=== PATIENT | female | born 1960 | race Caucasian/White ===

== ENCOUNTER 2023-12-06 23:35 | Emergency (ER) | payer BC, SELFPAY ==
--- NOTE | 2023-12-06 01:04 | DI.CT_ITS ---
Exam(s) CT CERVICAL SPINE WO EXAM: CT CERVICAL SPINE WO CLINICAL HISTORY: severe neck pain, metastatic ovarian cancer. TECHNIQUE: Imaging Protocol: Axial computed tomography images with coronal and sagittal reformatted images were created and reviewed COMPARISON: No exams were available for comparison FINDINGS: CERVICAL SPINE: There is an anterior fusion plate at C5-C7 with affective anterior fusion at these levels. The right C7 screw appears backed out 3 mm. There is no evidence of acute fracture. No significant prevertebral soft tissue swelling. No significant listhesis. There is fusion of the right facet joints at C 5-6. No other facet fusions. No facet malalignment. Some multilevel moderate facet arthropathy is noted. There is mild degenerative anterolisthesis of C 2 upon C3, approximately 3 mm. Also mild anterolisthesis of C7 upon T1, approximately 2 mm. No significant osseous lesions evident. IMPRESSION: No evidence of acute cervical spine fracture, malalignment, nor acute compromise of the cervical spin al canal. Hardware findings as above. RADIATION DOSE DELIVERED: Total DLP DATA REPOSITORY: All CT scans at this facility are submitted to the National Radiology Data Registry (NRDR) Dose Index Registry (DIR) with the [employer] (A[employer]). RADIATION OPTIMIZATION: All CT scans at this facility use at least one of these dose optimization te chniques: automated exposure control; mA and/or kV adjustment per patient size (includes targeted exa ms where dose is matched to clinical indication); or iterative reconstruction.
[2023-12-06 23:37] VITALS: BP 178/110; PULSE 86; RESP 26; TEMP 36.6; O2SAT 98
--- NOTE | 2023-12-07 | ED.GENADUL_ITS ---
Discharge Plan Disposition Patient Disposition: Home Condition: Improving Discharge Details Clinical Impression: Chronic neck pain with normal neurological examination, Muscle spasm, Ovarian cancer Primary Care Provider: Unknown,Unknown ED Provider: Graciela Telles Home Meds and New Rx's Prescriptions: New prednisone 20 mg tablet See Taper PO DAILY Qty: 23 0RF Taper: Prednisone 20mg taper 80 mg Daily for 4 Days and 0 Hour 60 mg Daily for 1 Day and 0 Hour 40 mg Daily for 1 Day and 0 Hour 20 mg Daily for 1 Day and 0 Hour 10 mg Daily for 2 Days and 0 Hour Continued hydrochlorothiazide 25 mg tablet 25 mg PO DAILY PRN lorazepam [Ativan] 1 mg tablet 1 mg PO BID-TID PRN Discontinued methylprednisolone [Methylpred DP] 4 mg tablets,dose pack See Rx Instructions PO PER PKG DIR Qty: 21 0RF Rx Instructions: PO PER PKG DIRECTIONS for 6 days Agueda Caprio Discharge Instructions Instructions: Neck pain, Muscle Spasm ED Additional Instructions: Tylenol over the counter for pain; follow the directions on the bottle. Heat and gentle stretching. Try your cervical collar when it arrives. Prednisone once a day as follows: Day#1: 1st dose in the emergency department. Day #2-5: Take 80mg (4 tablets). Day #6: Take 60mg (3 tablets). Day #7: take 40mg (2 tablets). Day #8 take 20mg (1 tablet) once a day. Day #9-10 Take 10mg (1/2 tablet) Call your primary care doctor today to schedule an appointment within 48 hours to followup on your visit here. Call your orthopedist today to schedule an appointment to follow up on your visit. Return to the emergency department for new or worening symptoms including fever, numbness, weakness, or if you have any other concerns. HPI General Mode of arrival: ambulatory . Date/Time Provider Initiated Documentation: 12/06/23 23:41 . Limitations to Documentation: no limitations . Information obtained by: patient and family . HPI Narrative: 63yo F with S4 ovarian cancer on chemotherapy q3 weeks last two weeks ago presenting with severe left sided neck pain. Started several days ago and has been worsening since then. Is severe, sharp, burning, radiates down the side of her neck into her shoulder, and comes in waves. Has has similar pain in the past, MRI a month and a half ago with no bony mets, no cord compression. In the past symptoms have responded to medrol dose pack; she was prescribed this 3 days ago but it has not helped. Tried tylenol, ativan, and lidocaine patches at home without improvement. No numbness, tingling, or weakness anywhere. No bowel or bladder changes. Associated nasuea and vomiting when pain is most severe. No recent trauma or injury. She is otherwise in her usual state of health with no fevers, chills, rash, headache, or other concerns. Related Data Home Medications ?Medication ?Instructions ?Recorded ?Confirmed hydrochlorothiazide 25 mg tablet 25 mg PO DAILY PRN 12/06/23 12/06/23 lorazepam 1 mg tablet (Ativan) 1 mg PO BID-TID PRN 12/06/23 12/06/23 prednisone 20 mg tablet See Taper PO DAILY #23 tabs 12/07/23 Previous Rx's ?Medication ?Instructions ?Recorded prednisone 20 mg tablet See Taper PO DAILY #23 tabs 12/07/23 Allergies Allergy/AdvReac Type Severity Reaction Status Date / Time No Known Allergies Allergy Unverified 12/06/23 23:40 General Stated Complaint: Orthopedic LONI: 3 Review of Systems Narrative: see HPI Exam Narrative Exam Narrative: General: Alert, intermittently moaning and clutching left neck Head: Normocephalic, atraumatic Neck: Trachea midline, ?Neck supple. No midline cervical tenderness. Palpable left cervical paraspinal muscle spasm, exquisitely TTP. ENT: ?MMM.? Cardiac: ?RRR, no murmurs appreciated Resp: No respiratory distress. CTAB. Abd: ?Soft, non-distended, nontender : ?No suprapubic tenderness. Extremities: ?No deformities.? No peripheral edema. Neuro: ? GCS 15.? PERRL.? Fluent speech, no dysarthria. Motor- 5/5 strength symmetric bilateral upper and lower extremities Sensation- ?Intact to light touch and symmetric multiple dermatomes including upper and lower extremities Reflexes- 2/4 achilles & patellar, no clonus Gait/station: ?Normal stance.? No truncal ataxia. Steady gait with equal normal steps Course Vital Signs Vital signs: Vital Signs Temperature 36.6 C 12/06/23 23:37 Pulse 86 12/06/23 23:37 Respiratory Rate 26 H 12/06/23 23:37 Blood Pressure 178/110 H 12/06/23 23:37 Pulse Oximetry 98 12/06/23 23:37 Temperature 36.6 C 12/06/23 23:37 Temperature Source Temporal Artery Scan 12/06/23 23:37 Pulse 86 12/06/23 23:37 Respiratory Rate 26 H 12/06/23 23:37 Respiratory Effort Normal, Non-Labored 12/06/23 23:40 Blood Pressure 178/110 H 12/06/23 23:37 Blood Pressure Position Sitting 12/06/23 23:37 Pulse Oximetry 98 12/06/23 23:37 Pain Level 10 12/06/23 23:46 Medical Decision Making 63yo F with S4 ovarian cancer on chemotherapy q3 weeks last two weeks ago presenting with severe left sided neck pain for the past several days, worsening despite medrol dose pack for past three days. Similar pain in the past, MRI a month and a half ago with no bony mets, no cord compression (pt with paper report). No neurologic symptoms. Systemically well. Hypertensive on arrival, vital signs otherwise reassuring. Normal neurologic exam. Not concerning for cord compression, spinal epidural hematuma, epidural abscess. No indication for repeat MRI. Does have palpable left cervical paraspinal spasm and tenderness. Will treat with tylenol, cyclobenzaprine, lidoacine patch and get CBC & CMP. If labs acceptable, would add toradol. Given cancer history, will also get CT c- spine. -Labs reviewed as below, CBC with moderate anemia Hg 9.5 and thrombocytopenia at 60 (pts most recent prior draw 1 week ago with plt 36 based on paper records with pt), CMP with mild hyponatremia at 134 and hypokalemia at 3.2 (oral replacement given). Would not advise repeated NSAID use but platelet level acceptable for single low-dose toradol here in the ED. -CT independently reviewed, no displaced fracture or dislocation on my view, radiology read below. R C7 screw backing out slightly at 3mm; unclear significance (patients pain is on the left and higher) On reassessment she appears to be resting comfortably with eyes closed. Upon knocking on the doorframe, clutches her left neck and moans. Reports no improvement in pain with medications given thus far. Left paraspinal muscle less tight though cotton ball machine tender, mild spasm. Will try valium. Per nursing on their assessments patient will consistently appear to be in no distress with eyes closed, however after staff speak she grabs her neck and expresses that she is in severe pain. Observed ambulating to bathroom independently easily and steadily in no distress. On subsequent reassessment s/p 2 doses of 5mg valium muscle spasm has entirely released. Patient continues to report severe pain, pt and report [employer] orphone has worked for her in the past. I reviewed with them that it is not my practice to prescribe opiates for musculoskeletal pain with a chronic component as this tends to make the pain more severe and refectory care home. Description of pain is not particularly neuropathic or radicular in nature, however will try adding gabapentin. As she has had improvement with steroids in the past, will also try high-dose prednisone with taper as opposed to medrol dose pack. On reassessment patient feeling much better. Initially had planned to discuss with [facility] spine regarding screw backing out; pt's reports they had xrays several weeks ago which also showed this and their orthopedist was not concerned. They are requesting discharge home which is reasonable. Discharge on prednisone taper. Discharge instructions and return precautions were reviewed with patient who verbalized understanding. All questions were answered and they are in agreement with the plan. Medical Records Medical records reviewed: Yes I reviewed the patient's medical records. Medical records narrative: MRI c-spine 10/22/23: Spondylitic bulge C4-5 without spinal cord impingement. No MRI evidence of bony metastatic disease. Status post ACDF C5-C6 and C6-C7 Imaging Data Radiologic Study: Imaging: CT Scan Radiologist's impression: IMPRESSION: 1. No acute fracture or dislocation. No suspicious osseous lesion. 2. Post ACDF at C5-C7 with 3 mm backing out of the right C7 to be compared with prior imaging. Lab Data Lab results reviewed: Yes I reviewed the patient's lab results. Labs: Laboratory Tests Range/Units 12/07/23 00:22 WBC (4.4-10.8) 10^3/uL 5.02 RBC (3.93-5.22) 10^6/uL 2.73 L Hgb (11.2-15.7) g/dL 9.5 L Hct (36.0-46.0) % 27.6 L MCV (80-95) fL 101 H MCH (27.0-33.0) pg 34.8 H MCHC (32.0-36.0) % 34.4 RDW (11.7-14.6) % 14.2 Plt Count (130-400) 10^3/uL 60 L MPV (8.0-11.0) fL 10.9 Immature Gran % % 0.8 Neutrophils % % 54.0 Lymphocytes % % 29.3 Monocytes % % 15.5 Eosinophils % % 0.2 Basophils % % 0.2 Nucleated RBC % (0.0-0.3) % 0.0 Absolute Neutrophils (1.2-6.7) 10^3/uL 2.71 Absolute Lymphocytes (1.2-3.4) 10^3/uL 1.47 Absolute Monocytes (0.1-0.8) 10^3/uL 0.78 Absolute Eosinophils (0.0-0.7) 10^3/uL 0.01 Absolute Basophils (0.0-0.2) 10^3/uL 0.01 RBC Morphology Normal Sodium (136-145) mmol/L 134 L Potassium (3.5-5.1) mmol/L 3.2 L Chloride (98-107) mmol/L 94 L Carbon Dioxide (21.0-32.0) mmol/L 31.8 Anion Gap (3-11) mmol/L 8.2 BUN (7-18) mg/dL 12 Creatinine (0.55-1.02) mg/dL 0.9 Est GFR (CKD-EPI 2020) (mL/min/1.73m2) 71.39 Glucose (74-106) mg/dL 120 H Calcium (8.5-10.1) mg/dL 8.9 Total Bilirubin (0.2-1.0) mg/dL 0.27 AST (15-37) U/L 16 ALT (14-59) U/L 26 Alkaline Phosphatase (46-116) U/L 51 Total Protein (6.4-8.2) g/dL 7.1 Albumin (3.4-5.0) g/dL 3.9 Quality:SDOH Health Related Social Needs: No Data to Display PFSH All Active Problems (Updated 12/07/23 @ 04:19 by Graciela Telles MD) Ovarian cancer (Chronic) Muscle spasm (Acute) Chronic neck pain with normal neurological examination (Acute) Social History Smoking/Tobacco Use Status: Never Smoking risk assessment performed?: Yes Alcohol Intake: never Drug use: Never Substance use type: does not use
[2023-12-07] MEDS: Lidocaine 5% Patch 1 PATCH TP (00:23)
[2023-12-07] MEDS: Cyclobenzaprine 10 MG TAB PO (00:23)
[2023-12-07] MEDS: ACETAMINOPHEN 1,000 MG/100 ML BTL 400 MG IVPB (00:23)
[2023-12-07 00:31] LABS: Abs Immature Grans 0.04 10^3/uL (0.0-0.06); Absolute Basophil Count 0.01 10^3/uL (0.0-0.2); Absolute Eosinophil Count 0.01 10^3/uL (0.0-0.7); Absolute Lymphocyte Count 1.47 10^3/uL (1.2-3.4); Absolute Monocyte Count 0.78 10^3/uL (0.1-0.8); Absolute Neutrophil Count 2.71 10^3/uL (1.2-6.7); Basophils % 0.2 %; Eosinophils % 0.2 %; HCT 27.6 % (36.0-46.0); HGB 9.5 g/dL (11.2-15.7); Immature Grans % 0.8 %; Lymphocytes % 29.3 %; MCH 34.8 pg (27.0-33.0); MCHC 34.4 % (32.0-36.0); MCV 101 fL (80-95); MPV 10.9 fL (8.0-11.0); Monocytes % 15.5 %; RBC 2.73 10^6/uL (3.93-5.22); RDW 14.2 % (11.7-14.6); RDW-SD 49.7 fL; WBC 5.02 10^3/uL (4.4-10.8)
[2023-12-07 00:42] LABS: Diff Comment PLT Morph Reviewed; Platelet Count 60 10^3/uL (130-400); RBC Morphology Normal
[2023-12-07 00:44] LABS: ALT 26 U/L (14-59); AST 16 U/L (15-37); Albumin 3.9 g/dL (3.4-5.0); Alkaline Phosphatase 51 U/L (46-116); Anion Gap 8.2 mmol/L (3-11); BUN 12 mg/dL (7-18); Bilirubin, Total 0.27 mg/dL (0.2-1.0); CO2 31.8 mmol/L (21.0-32.0); CREATININE 0.9 mg/dL (0.55-1.02); Calcium 8.9 mg/dL (8.5-10.1); Chloride 94 mmol/L (98-107); Estimated GFR 71.39 (mL/min/1.73m2); Glucose 120 mg/dL (74-106); Potassium 3.2 mmol/L (3.5-5.1); Sodium 134 mmol/L (136-145); Total Protein 7.1 g/dL (6.4-8.2)
--- OUTSIDE RECORDS SUMMARY | 2023-12-07 00:48 | XMS_ITS | Encounter Summary ---
Author Organization [facility] Address [address] [place] [address] Care Team Providers Care Residential Program Manager Name Role Phone Melissa Khan MD Primary Care Provider [phone] Encounter Details Date Type Department Care Team (Late st Contact Info) Description 05/10/2022 Lab Requisition [facility] - [address] [id number] Melissa Khan MD [address] [place] [phone] Other fatigue Social History Tobacco Use Types Packs/Day Years Used Date Smoking Tobacco: Former Cigarettes 0.5 15 1 984 - 1999 Smokeless Tobacco: Never Comments:quit when she was [age], then smoked for one year Alcohol Use Standard Drinks/Week Comments Yes 0 (1 standard drink = 0.6 oz pur e alcohol) Heavy use. 2-4 a night Interpersonal Safety Answer Date Record ed Physically Hurt Never 11/30/2019 Verbally Threaten Not on file 11/30/2019 Sex and Gender Information Value Date Recorded Sex Assigned at Not on file Gender Identity Female 02/10/2020 14:46 EDT Sexual Orientation Not on file documented as of this encounter Functional Status Functional Status Response Date of Assess ment Because of a physical, menta l, or emotional condition, does this person have difficulty doing errands alone such as visiting a doctor's office or shopping? No 08/02/2020 Cognitive Status Response Date of Assessm ent Because of a physical, menta l, or emotional condition, does this person have serious difficulty concentrating, remembering, or making decisions? No 08/02/2020 documented as of this encounter Plan of Treatment Upcoming Encounters Date Type Department Care Team (Late st Contact Info) Description 12/10/2023 11:00 EDT Appointment [facility] Radiology CT Outpatient - [address] [address] 12/11/2023 13:45 EDT Initial consult [facility] Gynec[facility] On[facility] - [address] [id number] Ashlee Garcia MD [address] [facility], [address] [place] [address] documented as of this encounter Procedures Procedure Name Priority Date/Time Associated Diagnosis Comments THYROID CASCADE Routine 05/10/2022 12:42 EST Other fatigue C REACTIVE PROTEIN Routine 05/10/2022 12 :42 EST Other fatigue VITAMIN B12 Routine 05/10/2022 12:42 EST Other fatigue documented in this encounter Results * VITAMIN B12 (05/10/2022 12:42 EST) Vitamin B12 534 211 - 911 pg/mL 05/10/2022 22:52 EST [facility] Blood VENOUS BLOOD / Unknown 05/10/2022 12:42 EST 05/10/2022 20:31 EST Melissa Khan MD CHEMISTRY & BLOOD GA S ORDERABLES [facility] [address] [place] [address] * THYROID CASCADE (05/10/2022 12:42 EST) TSH 0.48 0.47 - 4.68 mIU/L 05/10/2022 21:21 EST [facility] Blood VENOUS BLOOD / Unknown 05/10/2022 12:42 EST 05/10/2022 20:31 EST Narrative [facility] - 05/10/2022 21:21 EST NOTE: The results of this assay can be falsely lowered due to the consumption of Biotin. Melissa Khan MD CHEMISTRY & BLOOD GA S ORDERABLES Performing Organization Address [facility] Co de Phone Number [facility] [address] [place] [address] * C REACTIVE PROTEIN (05/10/2022 12:42 EST) C-Reactive Protein 7.3 <10.0 mg/L 05/10/2022 20:50 EST [facility] Blood VENOUS BLOOD / Unknown 05/10/2022 12:42 EST 05/10/2022 20:31 EST Melissa Khan MD CHEMISTRY & BLOOD GA S ORDERABLES Performing Organization Address [facility] de Phone Number [facility] [address] [place] [address] documented in this encounter Visit Diagnoses Diagnosis Other fatigue documented in this encounter Care Teams Residential Program Manager Relationship Specialty Start Date End Date Melissa Khan MD [address] [place] [phone] PCP - General 08/04/15 documented as of this encounter
--- OUTSIDE RECORDS SUMMARY | 2023-12-07 00:48 | XMS_ITS | Encounter Summary ---
Author Organization [facility] Address [address] [place] [address] Care Team Providers Care Ground Equipment Mechanic Name Role Phone Melissa Khan MD Primary Care Provider [phone] Reason for Referral * (Routine/Next Available) - Receiving Office to Obtain Authorization Specialty Diagnoses / Procedures Referred By Contac t Referred To Contact Procedures CT OUTSIDE IMAGES ABDOMEN PELVIS Imaging, External Referral ID Status Reason Start Date Expiration Date Visits Requested Visits Authorized [id number] Receiving Office to Obtain Authorization 11/22/2023 1 1 Reason for Visit * (Routine/Next Available) - Receiving Office to Obtain Authorization Specialty Diagnoses / Procedures Referred By Contac t Referred To Contact Procedures CT OUTSIDE IMAGES ABDOMEN PELVIS Imaging, External Referral ID Status Reason Start Date Expiration Date Visits Requested Visits Authorized [id number] Receiving Office to Obtain Authorization 11/22/2023 1 1 Encounter Details Date Type Department Care Team (Latest Contact Info) Description 08/13/2023 - 08/13/2023 23:59 EDT Hospital Encounter [facility] Secondary Reads [place] Discharge Disposition: Home or Self Care Social History Tobacco Use Types Packs/Day Years Used Date Smoking Tobacco: Former Cigarettes 0.5 15 1 984 - 1998 Smokeless Tobacco: Never Comments:quit when she was [age], then smoked for one year Alcohol Use Standard Drinks/Week Comments Not Currently 0 (1 standard drink = 0.6 oz pur e alcohol) Interpersonal Safety Answer Date Record ed Physically [...] No 08/02/2020 documented as of this encounter Medications at Time of Discharge Medication Sig Dispensed Refills Start Date End Date Cholecalciferol, Vitamin D3, (D3-2000) 50 mcg (2,000 unit) capsule Take by mouth. clobetasoL (TEMOVATE) 0.05 % external solutionIndications:Pso riatic arthritis (HCC-CMS),Chronic bilateral low back pain, unspecified whether sciatica present Apply thin film to dry scalp once daily (maximum dose: 50 g/week or 50 mL/week); leave in place for 15 minutes, then add water, lather, and rinse thoroughly. 1 Bottle 3 03/23/2020 cyanocobalamin (VITAMIN B-12) 500 mcg tablet Take 500 mcg by mouth daily. diclofenac sodium 1 % gelIndications:Psoriati c arthritis (HCC-CMS),Chronic bilateral low back pain, unspecified whether sciatica present Apply scant amount to muscles/joints. 4g to lower extremities and 2g to upper extremities, up to 4x/day. Max 32g/day. 1 Tube 3 03/23/2020 famotidine (PEPCID) 20 mg tablet Take 1 Tablet by mouth daily. ferrous sulfate (IRON) 325 mg (65 mg iron) tablet Take 325 mg by mouth daily. folic acid (FOLVITE) 1 mg tablet Take 3 Tabs by mouth daily. 270 Tab 1 06/14/2020 ibuprofen (MOTRIN) 200 mg tablet Take 3 Tablets by mouth every 8 hours as needed for Pain. LORazepam (ATIVAN) 1 mg tablet Take 0.5 Tablets by mouth 3 times daily. losartan-hydrochlorothi azide (HYZAAR) 100-25 mg per tablet Take 1 Tablet by mouth daily. magnesium oxide (MAG-OX) 400 mg (241.3 mg magnesium) tablet Take 400 mg by mouth daily. mv,Ca,min-folic acid-vit K1 (ONE-A-DAY WOMEN'S 50 PLUS) 400-20 mcg tablet Take by mouth. womens one a day 50 plus omeprazole (PRILOSEC) 20 mg capsuleIndications:Psor iatic arthritis (HCC-CMS),Generalized osteoarthrosis, involving multiple sites,Trochanteric bursitis of both hips Take 1 Cap by mouth daily. 30 Cap 2 02/11/2020 phytonadione, vit K1, (VITAMIN K) 100 mcg tablet Take 100 mcg by mouth daily. Potassium 99 mg tablet Take by mouth. triamcinolone (KENALOG) 0.1 % ointment APPLY A THIN LAYER TOPICALLY TO AFFECTED AREA TWICE DAILY. MAX OF 50 G PER WEEK. MAX OF 2 WEEKS. 80 g 1 06/28/2017 documented as of this encounter Discharge Disposition Disposition Code Departure Means Destination Home or Self Care documented in this encounter Plan of Treatment Upcoming Encounters Date Type Department Care Team (Late st Contact Info) Description 12/10/2023 11:00 EDT Appointment [facility] Radiology CT Outpatient - [address] [id number] 12/11/2023 13:45 EDT Initial consult [facility] - [address] [phone] Ashlee Garcia MD [address] [place] [address], [address] [place] [phone] documented as of this encounter Procedures Procedure Name Priority Date/Time Associated Diagnosis Comments CT OUTSIDE IMAGES ABDOMEN PELVIS Routine 08/13/2023 13:25 EDT documented in this encounter Results * CT OUTSIDE IMAGES ABDOMEN PELVIS (08/13/2023 13:25 EDT) Narrative 11/22/2023 13:25 EDT This is a non-reportable exam. External Imaging IMG OTHER IMAGING OR DERABLES documented in this encounter Visit Diagnoses Not on filedocumented in this encounter Care Teams Ground Equipment Mechanic Relationship Specialty Start Date End Date Melissa Khan MD [address] [place] [phone] PCP - General 08/04/15 documented as of this encounter
--- OUTSIDE RECORDS SUMMARY | 2023-12-07 00:48 | XMS_ITS | Encounter Summary ---
Author Organization [facility] Address [address] [place] [address] Care Team Providers Care Civil Engineer Name Role Phone Melissa Khan MD Primary Care Provider Reason for Referral * Radiology Services (STAT) - Authorization Not Required Specialty Diagnoses / Procedures Referred By Contac t Referred To Contact Diagnoses Sacral lesion Pathological fracture of pelvis, initial encounter Procedures IR BIOPSY Melissa Khan MD [address] [place] [phone] [facility] Referral ID Status Reason Start Date Expiration Date Visits Requested Visits Authorized [id number] Authorization Not Required 05/22/2023 1 1 Reason for Visit * Radiology Services (STAT) - Authorization Not Required Specialty Diagnoses / Procedures Referred By Contac t Referred To Contact Diagnoses Sacral lesion Pathological fracture of pelvis, initial encounter Procedures IR BIOPSY Melissa Khan MD [address] [place] [phone] [facility] Referral ID Status Reason Start Date Expiration Date Visits Requested Visits Authorized [id number] Authorization Not Required 05/22/2023 1 1 Encounter Details Date Type Department Care Team (Late st Contact Info) Description 05/24/2023 8:36 EST - 05/24/2023 23:59 EST Hospital Encounter [facility] Interventional Radiology Unit [address] [place] [address] Sidney Espinoza MD [address] [place] [address], [address] [place] [address] Pathological fracture of pelvis, initial encounter (Primary Dx); Sacral lesion Discharge Disposition: Home or Self Care Social History Tobacco Use Types Packs/Day Years Used Date Smoking Tobacco: Former Cigarettes 0.5 15 1 984 - 1998 Smokeless Tobacco: Never Tobacco Cessation:Counseling Given: Not Answered Comments:quit when she was 26, then smoked for one year Alcohol Use [...] on file documented as of this encounter Last Filed Vital Signs Vital Sign Reading Time Taken Comments Blood Pressure 131/72 05/24/2023 1230 EST Pulse - - Temperature 36.2 ??C (97.2 ??F) 05/24/2023 1314 EST Respiratory Rate 16 05/24/2023 1215 EST Oxygen Saturation 97% 05/24/2023 1245 EST Inhaled Oxygen Concentration - - Weight 62.6 kg (138 lb) 05/24/2023 0900 EST Height 160 cm (5' 3) 05/24/2023 0900 EST Body Mass Index 24.45 05/24/2023 0900 EST documented in this encounter Functional Status Functional Status Response [...] No 08/02/2020 documented as of this encounter Discharge Instructions * Discharge Instructions* Sebas Latif RN - 05/24/2023 10:43 EST Interventional Radiology Biopsy Discharge Instructions Date of biopsy: 05/24/2023 Provider: Sidney Espinoza MD Biopsy site: Pelvis The results of your procedure will go to the provider who ordered the procedure. It may take 5-7 days for biopsy results to come back. Aftercare After sedation: If you have received sedation or pain medication during your procedure, DO NOT DRIVE or make legal decisions today. Activity: Rest today. Do not lift anything over 10 lbs. You may resume normal activity tomorrow. Diet: You may resume your usual diet. Avoid alcohol for 24 hours. Medications: NO Do not hold any medication Please continue all medication as prescribed. Call your doctor immediately or go to the nearest Emergency Room if you develop any of the following - Fast heart rate Severe back, stomach, chest, or shoulder pain Severe anxiety, dizziness, or sweating Skin color change Heavy bleeding or swelling at the biopsy site If you feel short of breath Bloody urine Decreased urine output Check the dressing or Band-Aid throughout the day. If you notice bleeding, hold pressure for 10 minutes and slowly release the pressure to see if the bleeding has stopped. If the bleeding does not stop, go to your Physician or the nearest Emergency Room. Remove your dressing tomorrow. Gently wash your wound site with soap and water. You may then leave the biopsy site open to air. Do not take a tub bath, swim, or go in a hot tub until the wound site has completely healed. IF YOU HAVE ANY QUESTIONS OR CONCERNS OR IF YOU HAVE DEVELOPED ANY OF THE SYMPTOMS ABOVE, PLEASE CALL THE INTERVENTIONAL RADIOLOGY CLINIC AT , OPTION 2 TO REACH THE NURSE TRIAGE LINE. THERE WILL BE ASSISTANCE AVAILABLE 24 HOURS A DAY. IF YOU CALL AFTER HOURS YOU WILL BE CONNECTED WITHAN ON-CALL PHYSICIAN BY PRESSING 1. documented in this encounter Medications at Time of Discharge [...] diclofenac sodium 1 % gelIndications:Psoriati c arthritis ([facility]),Chronic bilateral low back pain, unspecified whether sciatica [...] omeprazole (PRILOSEC) 20 mg capsuleIndications:Psor iatic arthritis ([facility]),Generalized osteoarthrosis, involving multiple sites,Trochanteric bursitis of both [...] or Self Care documented in this encounter Progress Notes * Deanna Jones, TAVARES - 05/24/2023 0900 EST Agueda Carpio arrived to the Cardiovascular Unit via wheelchair. Patient alert and oriented x3. Transfers to stretcher independently. Patient stretcher in low position with side rails up & call morillo within patient reach. Patient's is at bedside. Patient's discharge plan is home with . Have you had any recent changes to your health, colds, fevers or flu-like symptoms in the past few weeks? YES/NO: No * Sebas Latif RN - 05/24/2023 0900 EST Procedure: pelvic bone lesion Bx Patient received from CVU to at 1055. Patient name and verified using armband and verbally. Consent completed and verified. Patient is alert and oriented x 4, able to follow commands with all extremities, able to make needs known. Patient educated on procedure and sedation side effects explained, patient verbalized understanding. 0/10 complaints of pain. Patient's allergies, medications, and lab results reviewed-IV site checkedfor patency. Patient in supine position on table, safety straps in place. VS assessed. Conscious sedation started. Patient monitored through out procedure. Sterile prep of anterior pelvis/abdomen with duraprep by GMS in the usual sterile fashion in compliance with manufacturers recommendation. Time out done with all staff in room prior to start of procedure (KIMBER, HAZEL, and Dr. Espinoza as supervising provider). CT guidance utilized to access bone leasion. Cytology at the bedside, samples collected, samples confirmed by cytology and sent to the lab. Puncture site dressed with a gauze,Band-Aid and CDI Procedure completed by Dr. Espinoza 25 min of sedation time Medication administration IV Versed 3 mg IV Fentanyl 125 mcg Discharge instructions placed in the patient's chart. Report given to CVU RN. Patient transferred in baseline condition. documented in this encounter H&P Notes * Mark tSoddard PA-C - 05/24/2023 0900 EST Sedation for Procedure History & Physical Date: 05/24/2023 Time: 10:08 Location: IR Planned Procedure: Right pubic ramus biopsy Chief Complaint/Indications for Procedure: Pain History: Right Pubic bone Fracture Previous Complication with Sedation and/or Anesthesia? No Allergies: Allergies Allergen Reactions Erythromycin Nausea Only Other - See Comments Dust mites....congestion Current Medications: (Not in a hospital admission) Past Medical History: Past Medical History: Diagnosis Date Hypertension Osteoarthritis Psoriatic arthritis (HCC-CMS) Psychiatric problem depression/traumatic stress Social History: Past Surgical History: Procedure Laterality Date ABDOMINOPLASTY CERVICAL DISC SURGERY ECTOPIC SURGERY ELBOW SURGERY left INGUINAL HERNIA REPAIR Social History Tobacco Use Smoking status: Former Current packs/day: 0.00 Average packs/day: 0.5 packs/day for 15.0 years (7.5 ttl pk-yrs) Types: Cigarettes Start date: 1983 Quit date: 1998 Years since quittin.0 Smokeless tobacco: Never Tobacco comments: quit when she was 26, then smoked for one year Substance Use Topics Alcohol use: Not Currently Family History: Family History Problem Relation Age of Onset Heart Disease Father Cancer Son 8 rhabdomyosarcoma *Other(comment) Neg Hx AAA Neg Hx ADD Neg Hx ADHD Neg Hx Adrenal Disorder Neg Hx Alcohol Abuse Neg Hx Allergic Rhinitis Neg Hx Allergies Neg Hx Allergy-Severe Neg Hx Alport Syndrome Neg Hx Amblyopia Neg Hx Anemia Neg Hx Anesthesia Problem Neg Hx Anesthesia Problems Neg Hx Angioedema Neg Hx Ankylosing spondylitis Neg Hx Anxiety Disorder Neg Hx Arrhythmia Neg Hx Arthritis Neg Hx Arthritis-Osteo Neg Hx Arthritis-Rheumatoid Neg Hx Asthma Neg Hx Ataxia Neg Hx Atopy Neg Hx Autism Neg Hx Autoimmune Disease Neg Hx Bipolar Disorder Neg Hx Defects Neg Hx Bladder Cancer Neg Hx Bleeding Problem Neg Hx Blindness Neg Hx Brain Cancer Neg Hx BRCA 1/2 Neg Hx Breast Cancer Neg Hx Broken Bones Neg Hx Peggy Disease Neg Hx Cardiac Disease Neg Hx Cataract Neg Hx Celiac Disease Neg Hx Cerebral Palsy Neg Hx Cervical Cancer Neg Hx Childhood Heart Surgery Neg Hx Childhood Resp Disease Neg Hx Chorea Neg Hx Cirrhosis Neg Hx Clotting Disorder Neg Hx Collagen Disease Neg Hx Colon Cancer Neg Hx Colon Polyps Neg Hx Congenital heart defects Neg Hx Constipation Neg Hx Coronary Artery Disease Neg Hx [place] Syndrome Neg Hx Crohn's Disease Neg Hx Current Acute Minor Illness Neg Hx Cystic Fibrosis Neg Hx in Infancy Neg Hx Dementia Neg Hx Depression Neg Hx Dermatomyositis Neg Hx BALWINDER Usage Neg Hx Developmental Disorder Neg Hx Diabetes Neg Hx Diarrhea Neg Hx Dislocations Neg Hx Down's Syndrome Neg Hx Drug Abuse Neg Hx Early Neg Hx Eclampsia Neg Hx Eczema Neg Hx Ehler Danlos Syndrome Neg Hx Elevated Lipids Neg Hx Emphysema Neg Hx Endocrine Cancer Neg Hx Endometrial Cancer Neg Hx Esophageal Cancer Neg Hx Fainting Neg Hx Familial Dysautonomia Neg Hx Fibromyalgia Neg Hx Food Intolerance Neg Hx Genital Ambiguity Neg Hx Genitourinary (Gu) Neg Hx Gestational Diabetes Neg Hx GI Cancer Neg Hx Glaucoma Neg Hx Gout Neg Hx Hearing Loss Neg Hx Heart Attack Neg Hx Heart Attack Under 50 Neg Hx Heart Defect Neg Hx Heart Failure Neg Hx Heart Surgery Neg Hx Heartburn/Reflux Neg Hx Hemochromatosis Neg Hx Hepatitis Neg Hx Hepatitis B Neg Hx Hepatitis C Neg Hx High Blood Pressure Neg Hx High Cholesterol Neg Hx Monroe's Chorea Neg Hx Hypercalcemia Neg Hx Hypermobility Neg Hx Hypertension Neg Hx Hypocalcemia Neg Hx Hypoglycemia Neg Hx Hypotension Neg Hx Immunodeficiency Neg Hx Infertility Neg Hx Inflammatory Bowel Disease Neg Hx Intellectual Disability Neg Hx Intestinal Cancer Neg Hx Irritable Bowel Syndrome Neg Hx Joint Problems Neg Hx Keratoconus Neg Hx Kidney Cancer Neg Hx Kidney Disease Neg Hx Kidney Failure Neg Hx Language Disorder Neg Hx Learning Disabilities Neg Hx Leukemia Neg Hx Li-Fraumeni Syndrome Neg Hx Liver Cancer Neg Hx Liver Disease Neg Hx LTBI Neg Hx Lung Cancer Neg Hx Lung Disease Neg Hx Lyme Disease Neg Hx Lymphoma Neg Hx Macular Degeneration Neg Hx Malig. HTN Neg Hx Malig. Hyperthermia Neg Hx Marfan Syndrome Neg Hx Maternal Metabolic Disorder Neg Hx Melanoma Neg Hx Menstrual Irregularity Neg Hx Mental Illness Neg Hx Migraines Neg Hx Miscarriages / Stillbirths Neg Hx Motor Disability Neg Hx MS Neg Hx Murmurs Neg Hx Muscle Diseases Neg Hx Muscular Dystrophy Neg Hx Neural Tube Defect Neg Hx Neuropathy Neg Hx NF Neg Hx Obesity Neg Hx OCD Neg Hx Osteoporosis Neg Hx Other Inherited Genetic or Chromosomal Disorder Neg Hx Ovarian Cancer Neg Hx Pacemaker Neg Hx Pancreatic Cancer Neg Hx Paranoid Behavior Neg Hx Parathyroid Disorder Neg Hx Parkinsonism Neg Hx Physical Abuse Neg Hx Pituitary Adenoma Neg Hx Polycycstic Kidney Disease Neg Hx Preeclampsia Neg Hx Prematurity Neg Hx Labor Neg Hx Prolactinoma Neg Hx Prostate Cancer Neg Hx Pseudochol. Deficiency Neg Hx Psoriasis Neg Hx Psoriatic arthritis Neg Hx Psychosis Neg Hx Rashes/Skin Problems Neg Hx Rectal Cancer Neg Hx Recurrent Fractures Neg Hx Recurrent Loss or Still Neg Hx Recurrent Respiratory Infection Neg Hx Recurrent Skin Infection Neg Hx Retinal Detachment Neg Hx Retinitis Pigmentosa Neg Hx Rheumatic fever Neg Hx Rheumatologic Disease Neg Hx Sarcoma Neg Hx Schizophrenia Neg Hx Scleroderma Neg Hx Scoliosis Neg Hx Seizures Neg Hx Severe Sprains Neg Hx Sexual Abuse Neg Hx Sexual Development Disorder Neg Hx Short Stature Neg Hx Sickle Cell Anemia Neg Hx Sickle Cell Trait Neg Hx SIDS Neg Hx SLE Neg Hx Spont. Neg Hx Stomach Cancer Neg Hx Strabismus Neg Hx Stroke Neg Hx Substance Abuse Neg Hx Sudden Neg Hx Suicide Neg Hx Suicide Attempt Neg Hx Garry-Sachs Neg Hx Thalassemia Neg Hx Thyroid Cancer/Nodule Neg Hx Thyroid Disease Neg Hx Tuberculosis Neg Hx Ulcerative Colitis Neg Hx Ulcers Neg Hx Urinary Obstructions Neg Hx Urolithiasis Neg Hx Urticaria Neg Hx Uveitis Neg Hx Vaginal Cancer Neg Hx Varicose Veins Neg Hx Vasculitis Neg Hx Vesico Ureteral Reflux Neg Hx Vision Loss Neg Hx Carlos's Disease Neg Hx Review of Systems as pertinent: Physical: Vital Signs: BP 133/84 (BP Cuff Location: Left arm, BP Patient Position: Semi fowlers) Temp 36.3 ??C (97.3 ??F) (Temporal) Resp 18 Ht 160 cm (63) Wt 62.6 kg (138 lb) SpO2 98% BMI 24.45 kg/m?? Heart Examination: Cardiac Regularity: Regular Respiratory Examination: Respiratory Pattern: Regular Breath Sounds Right: Clear Breath Sounds Left: Clear Additional physical exam related to the proposed procedure, patient activity, disease state and treatment as pertinent: Assessment: Previous complications with sedation or anesthesia?: No Airway Concerns: None/NA Anesthesia Classification: ASA 1 Plan: As above Fasting Time: Time of last liquid intake: 0300 (small sips of water) Date of Last Liquid Intake: 05/24/23 Time of last solid intake: 1800 Date of last solid intake: 05/23/23 Patient Appropriate Candidate for Planned Sedation?: Yes Mark Stoddard PA-C 05/24/2023 10:08 documented in this encounter Procedure Notes * Sidney Espinoza MD - 05/24/2023 0900 EST INTERVENTIONAL RADIOLOGY BRIEF PROCEDURE NOTE Radiologist: Olga Procedure(s) Performed: CT guided pelvic bone biopsy Indication/Pre-procedure diagnosis: Lesion Post-procedure diagnosis: Same Condition: Stable Anesthesia: Local with Sedation Approach: Anterior Medications: IV Versed and fentanyl and local lidocaine 1% Contrast: 0 cc Fluoro time: 0 min EBL: None Specimens: 25g FNA and 18g cores Findings: No bleeding A time-out was completed prior to procedure verifying correct patient, procedure, site, positioning, and special equipment if applicable. Complications: None Recommendations: Per orders. Please refer to final dictated report (Chart Review, Imaging tab in PRISM) for complete findings and recommendations. Gino Espinoza MD Interventional Radiologist Pager #[phone] documented in this encounter Plan of Treatment Upcoming Encounters Date Type Department Care Team (Late st Contact Info) Description 12/10/2023 11:00 EDT Appointment [facility] Radiology CT Outpatient - [address] [phone] 12/11/2023 13:45 EDT Initial consult [facility] Gynecologic Oncology - [address] [phone] Ashlee Garcia MD [address] [place] [address], [facility], [address] [place] [address] documented as of this encounter Procedures Procedure Name Priority Date/Time Associated Diagnosis Comments IR BIOPSY STAT 05/24/2023 11:47 EST Sacral lesion Pathological fracture of pelvis, initial encounter NON AUTOMATION SPECIALIST/FNA CYTOLOGY Routine 05/24/2023 11:38 EST Pathological fracture of pelvis, initial encounter SURGICAL PATHOLOGY Routine 05/24/2023 11 :38 EST Pathological fracture of pelvis, initial encounter documented in this encounter Results * IR BIOPSY (05/24/2023 11:47 EST) Anatomical Region Laterality Modality Computed Tomogra phy 05/24/2023 15:5 3 EST Impressions 05/24/2023 15:53 EST [address] successful CT-guided right pelvic bone biopsy. [id number] Narrative 05/24/2023 15:[address]-guided biopsy of right pelvis. HISTORY: Lucent lesion involving the right inferior pubic ramus. TECHNIQUE: Informed consent was obtained after the risks and benefits of the procedure were discussed with the patient. The specific risks of this procedure which were discussed include but were not limited to bleeding, infection, and injury to adjacent structures. A procedural time out was performed prior to the procedure, where the procedure, site, and patient identification was confirmed by all healthcare providers present in the room. Moderate sedation was provided with intravenous Versed and fentanyl while continuously monitoring the patient's blood pressure, heart rate, respiratory rate, and pulse oxygenation. The patient's right anterior pelvis was sterilely prepped and draped. Lidocaine 1% was administered to anesthetize the skin and soft tissues. Initial noncontrast CT through the pelvis confirmed a lucent lesion in the right inferior pubic ramus with fracture. Under CT fluoroscopic guidance, a 17-gauge coaxial needle was inserted into the lucent area. Through the coaxial needle, multiple 25-gauge fine-needle aspirate biopsies were obtained. Pathology reviewed the samples and requested core needle biopsy. Next, multiple 18-gauge core needle biopsies were obtained. The coaxial needle was then removed, and immediate post procedure CT confirmed no apparent complication. A dressing was applied. Procedure Note Scriver, Sidney Calero MD - 05/24/2023 CT-guided biopsy of right pelvis. HISTORY: Lucent lesion involving the right inferior pubic ramus. TECHNIQUE: Informed consent was obtained after the risks and benefits ofthe procedure were discussed with the patient. The specific risks of thisprocedure which were discussed include but were not limited to bleeding,infection, and injury to adjacent structures. A procedural time out wasperformed prior to the procedure, where the procedure, site, and patientidentification was confirmed by all healthcare providers present [facility]. Moderate sedation was provided with intravenous Versed and fentanylwhile continuously monitoring the patient's blood pressure, heart rate,respiratory rate, and pulse oxygenation. The patient's right anterior pelvis was sterilely prepped and draped.Lidocaine 1% was administered to anesthetize the skin and soft tissues.Initial noncontrast CT through the pelvis confirmed a lucent lesion in theright inferior pubic ramus with fracture. Under CT fluoroscopic guidance,a 17-gauge coaxial needle was inserted into the lucent area. Through thecoaxial needle, multiple 25-gauge fine-needle aspirate biopsies wereobtained. Pathology reviewed the samples and requested core needle biopsy.Next, multiple 18-gauge core needle biopsies were obtained. The coaxialneedle was then removed, and immediate post procedure CT confirmed noapparent complication. A dressing was applied. IMPRESSION 1. Technically successful CT-guided right pelvic bone biopsy. [id number] Melissa Khan MD [facility] IR ORDERABLES * SURGICAL PATHOLOGY (05/24/2023 11:38 EST) Note to Patient The following pathology results have been interpreted by your pathologist and may be available to you before your health provider has had the opportunity to review them. Please allow time for your provider to receive these results and explore management options, if applicable. 05/29/2023 14:55 EST [facility] Final Diagnosis A. BONE OF PUBIC RAMUS ? LYTIC LESION? , RIGHT INFERIOR, CT-GUIDED CORE NEEDLE BIOPSY: - Metastatic high-grade carcinoma. (See comment) 05/29/2023 14:55 EST [facility] Diagnosis Comment Histologic examination reveals core needle biopsies composed of malignant epithelioid cells with a high grade nuclear atypia, pleomorphism, mitotic figures and extensive necrosis. The neoplastic cells are positive for Keratin AE1-AE3 (AE1-AE3, [employer]), CK7 (RN7, [employer]) and PAX-8 (MRQ-50, Rochelle). Overall, histomorphology and immunohistochemical pattern (see below) support a diagnosis of metastatic high-grade carcinoma. The immunohistochemical stains are nonspecific to pinpoint the primary origin. The possible origins include, but not confined to mullerian which is favored, kidney, thyroid or upper GI. Clinical and radiological correlation is essential. Please also correlate with concurrent fine needle aspiration cytology report ([id number]). Dispensing Audiologist slides of this case was also reviewed by Dr. Octavio Garcia, cytopthologist and at the intradepartmental consultation conference. Immunoperoxidase stains were performed on this case to further characterize the lesion. ANTIBODY(CLONE)(BLOCK ):RESULT Keratin AE1-AE3 (AE1-AE3, [employer]) (A2): Positive CK7 (RN7, [employer]) (A2): Positive CK20 (Ks20.8, [employer]) (A2): Negative CK 5/6 (D5/16B4, Rochelle) (A2): Negative P63 (4A4, [employer]) (A2): Negative PAX-8 (MRQ-50, Rochelle) (A2): Positive RCC (PN-15, Rochelle) (A2): Negative Estrogen Receptor (SP1, Rochelle) (A2): Negative TTF-1 (8G7G3/1, Rochelle) (A2): Negative CDX-2 (EP25, [employer]) (A2): Negative GATA3 (L50-823, Rochelle) (A2): Negative SOX-10 (SP267, [employer]) (A2): Negative NOTE: One or more of the reagents used in immunoperoxidase testing in this case may not have been cleared or approved by the U.S. Food and Drug Administration (FDA). The FDA has determined that such clearance or approval is not necessary. These tests are used for clinical purposes. They should not be regarded as investigational or for research. These reagents' performance characteristics have been determined by [facility] and/or by the referring laboratory. The positive and negative controls worked appropriately. If immunoperoxidase staining has been performed on alcohol fixed cytology specimens, which has not been fully validated, the assays should be interpreted with caution and correlated with clinical data. This laboratory is certified under the Clinical Laboratory Improvement Amendments of 1988 (CLIA-88) as qualified to perform high complexity clinical laboratory testing. 05/29/2023 14:55 [facility] Attestation By the signature below, the attending physician certifies that they have 1) personally conducted a gross and/or microscopic examination of the described specimen(s), and/or personally interpreted the results of laboratory testing of the described specimen(s), and 2) personally rendered or confirmed the above diagnosis. 05/29/2023 14:55 [facility] at 1455 Clinical History Right inferior pubic ramus lytic lesion with fracture; clinical diagnosis code: M84.454A 05/29/2023 14:55 [facility] Gross Description A. Received in formalin labelled with proper patient identification (initials R, E) and bone,mus* are 6 pink to red soft needle core biopsy fragments ranging from 0.1-0.6 cm in length and each measuring 0.1 cm in diameter. Submitted entirely in A1-A2. ROSIE STRANGE(ASCP) 05/24/2023 14:31 05/29/2023 14:55 [facility] Performing Lab [facility] 05/29/2023 14:55 [facility] Scanned Images 05/29/2023 14:55 [facility] Tissue BONE STRUCTURE / Unknown Collection, Other / Unknown 05/24/2023 11:38 EST 05/24/2023 11:59 EST Sidney Espinoza MD PATHOLOGY OR DERABLES [facility] [address] [place] [address] * NON AUTOMATION SPECIALIST/FNA CYTOLOGY (05/24/2023 11:38 EST) Note to Patient The following pathology results have been interpreted by your pathologist and may be available to you before your health provider has had the opportunity to review them. Please allow time for your provider to receive these results and explore management options, if applicable. 05/29/2023 17:09 [facility] Final Diagnosis A. BONE, RIGHT INFERIOR PUBIC RAMUS, CT-GUIDED FINE NEEDLE ASPIRATION: - Positive for malignant cells. - Metastatic poorly differentiated carcinoma. See comment. 05/29/2023 17:09 [facility] Diagnosis Comment The specimen is cellular and contains clusters of crowded epithelioid cells with significant nuclear pleomorphism. The nuclei show irregular nuclear membrane contours and hyperchromasia. Also present are what appear to be dyskeratotic cells. A Cell block was prepared to increase cellular yield and shows few groups of malignant cells. Immunohistochemical studies were performed on the cell block and the tumor cells are positive for PAX 8, P16 and weakly positive for CA IX. The tumor cells are negative for P40, WT1 and CURT-3. See also results of the concurrent surgical pathology specimen ([id number]) on which additional studies have been performed. The differential diagnosis includes mullerian origin such serous carcinoma of the ovary and the endometrium as well as endocervical origin. However other possibilities include, renal, thyroid, oropharyngeal and upper GI. Clinical and radiographic correlation is recommended. Dispensing Audiologist slides of this case were reviewed at the intradepartmental consultation conference. Immunoperoxidase stains were performed on this case to further characterize the lesion. ANTIBODY(CLONE)(BLOCK ):RESULT PAX-8 (MRQ-50, Rochelle) (cell block): Positive in tumor cells P40 (BC28, [facility]) (cell block): Negative in tumor cells WT1 (6F-H2, Rochelle) (cell block): Negative in tumor cells CA IX (EP161, Cell John)(cell block): Weakly positive in some of the tumor cells GATA3 (L50-823, Rochelle) (cell block): Negative in tumor cells P16 (E6H4TM, Rochelle) (cell block): Positive in tumor cells NOTE: One or more of the reagents used in immunoperoxidase testing in this case may not have been cleared or approved by the U.S. Food and Drug Administration (FDA). The FDA has determined that such clearance or approval is not necessary. These tests are used for clinical purposes. They should not be regarded as investigational or for research. These reagents' performance characteristics have been determined by [facility] and/or by the referring laboratory. The positive and negative controls worked appropriately. If immunoperoxidase staining has been performed on alcohol fixed cytology specimens, which has not been fully validated, the assays should be interpreted with caution and correlated with clinical data. This laboratory is certified under the Clinical Laboratory Improvement Amendments of 1988 (CLIA-88) as qualified to perform high complexity clinical laboratory testing. 05/29/2023 17:09 [facility] Attestation There was significan t resident/fellow involvement in the diagnostic evaluation of this case. By the signature below, the attending physician certifies that they have personally conducted a gross and/or microscopic examination of the described specimens and rendered or confirmed the above diagnosis. 05/29/2023 17:09 [facility] at 1709 Rapid Diagnosis A. BONE, RIGHT INFERIOR, PUBIC RAMUS, CT GUIDED FINE NEEDLE ASPIRATION: Evaluation Episode 1: Pass 1-3: Positive for malignant cells. Pass 4-6: Entirely in RPMI for cell block. Core biopsies obtained. Rapid interpretation performed by: Dr. Ciara Garcia; 05/24/23; 1145 05/29/2023 17:09 [facility] Clinical History Right inferior pubic ramus lytic lesion with fracture 05/29/2023 17:09 [facility] Gross Description A. 5 fixed prepared slides, 3 air dried prepared slides, and 1 tube of RPMI for cell block processing were received. 05/29/2023 17:09 [facility] Resident/Fell ow: Florecita Lemus MD 05/29/2023 17:09 [facility] Performing Lab [facility] 05/29/2023 17:09 [facility] Scanned Images 05/29/2023 17:09 [facility] Fine Needle Aspirate BONE STRUCTURE / Unknown 05/24/2023 11:38 EST 05/24/2023 11:44 EST Sidney Espinoza MD PATHOLOGY OR DERABLES Performing Organization Address City/State/[facility] Co de Phone Number [facility] [address] [place] [address] documented in this encounter Visit Diagnoses Diagnosis Pathological fracture of pelvis, initial encounter- Primary Sacral lesion Disorders of sacrum documented in this encounter Administered Medications Inactive Administered Medications - up to 3 most recent administrations Medication Order MAR Action Action Date Dose Rate Site fentaNYL citrate (PF) injection 25-250 mcg 25-250 mcg, intravenous, ONCE PRN, 1 dose, Starting on Barbra 05/24/23 at 1040, Until Barbra 05/24/23 at 1137, Other, Per Admin Instructions ONLY, Routine, Intraprocedure Given 05/24/2023 11:37 EST 125 mcg midazolam (VERSED) injection 0.5-10 mg 0.5-10 mg, intravenous, ONCE PRN, 1 dose, Starting on Barbra 05/24/23 at 1040, Until Barbra 05/24/23 at 1137, Other, Per Admin Instructions ONLY, Routine, Intraprocedure Given 05/24/2023 11:37 EST 3 mg sodium chloride 0.9 % (NS) infusion 50 mL/hr, intravenous, CONTINUOUS, Starting on Barbra 05/24/23 at 0930, Until 05/26/23 at 0202, Routine, Preprocedure Rate Documented 05/24/2023 11:49 EST 50 mL/hr 50 mL/hr New Bag 05/24/2023 9:46 EST 50 mL/hr 50 mL/hr documented in this encounter Historical Medications * This list may reflect changes made after this encounter. Medication Sig Dispensed Refills Start Date End Date famotidine (PEPCID) 20 mg tablet Take 1 Tablet by mouth daily. added in this encounter Orders Medications Ordered That Sergio ht Not Have Been Administered Count Last Ordered Date First Ordered Date flumazenil (ROMAZICON) injection 0.2 mg 1 0 05/24/2023 lidocaine (PF) 10 mg/mL (1 % ) injection 2 mg 1 05/24/2023 naloxone (NARCAN) injection 0.4 mg 1 2023 Discharge Count Last Ordered Date First Orde red Date DISCHARGE PATIENT 1 05/24/2023 documented in this encounter Care Teams Civil Engineer Relationship Specialty Start Date End Date Melissa Khan MD [address] [place] [phone] PCP - General 08/04/15 documented as of this encounter
--- OUTSIDE RECORDS SUMMARY | 2023-12-07 00:48 | XMS_ITS | Encounter Summary ---
Author Organization [facility] Address [address] [place] [address] Care Team Providers Care Cured Meat Packing Supervisor Name Role Phone Melissa Khan MD Primary Care Provider [phone] Reason for Visit * Reason Onset Date Comments Coordination Of Care 05/21/2023 Encounter Details Date Type Department Care Team (Late st Contact Info) Description 05/21/2023 Telephone [facility] Hematology & Oncology - [address] [address] Lilly Higuera, RN Coordination Of Care Social History Tobacco Use Types Packs/Day [...] No 08/02/2020 documented as of this encounter Miscellaneous Notes * Telephone Encounter - Lilly Higuera RN - 05/21/2023 1650 EST Pt referral to Oncology following recent evaluation in the ED for CT nikolay pelvis revealing a fracture in the right inferior pubic ramus concerning for possible pathologic fracture due to underlying lesion of indeterminate histology. Spoke with pt and her Lyle; questions answered, contact info provided. Pt eager to schedule next steps, including biopsy. Aware I will have referral triaged and be back in touch to confirm next steps. Of note, pt recently in [place] and was seen by GI at [facility] for abdominal pain and bloating, CT scan revealed abnormal thickening of the distal esophagus/GEJ. GI recommended EGD which is scheduled for 06/01 at [facility]. Lilly Higuera RN GI Nurse Navigator Pager [phone] documented in this encounter Plan of Treatment Upcoming Encounters Date Type Department Care Team (Late st Contact Info) Description 12/10/2023 11:00 EDT Appointment [facility] Radiology CT Outpatient - [address] [address] 12/11/2023 13:45 EDT Initial consult [facility] Gynecologic Oncology - [address] [phone] Ashlee Garcia MD [address] [place] [address], [address] [place] [phone] documented as of this encounter Visit Diagnoses Not on filedocumented in this encounter Care Teams Cured Meat Packing Supervisor Relationship Specialty Start Date End Date Melissa Khan MD [address] [place] [phone] PCP - General 08/04/15 documented as of this encounter
--- OUTSIDE RECORDS SUMMARY | 2023-12-07 00:48 | XMS_ITS | Clinical Summary ---
Author Organization [facility] Address [address] [place] [address] Care Team Providers Care Exceptional Children'S Teacher Name Role Phone Melissa Khan MD Primary Care Provider [phone] Allergies Active Allergy Reactions Criticality Noted Date Comments Erythromycin Nausea Only 05/10/2010 Other - See Comments 02/22/2010 Dust mites....congestion Medications Medication Sig Dispensed Refills Start Date End Date Status ibuprofen (MOTRIN) 200 mg tablet Take 3 Tablets by mouth every 8 hours as needed for Pain. Active triamcinolone (KENALOG) 0.1 % ointment APPLY A THIN LAYER TOPICALLY TO AFFECTED AREA TWICE DAILY. MAX OF 50 G PER WEEK. MAX OF 2 WEEKS. 80 g 1 06/28/2017 Active Additional Information Patient not taking.Reported on 05/24/2023 LORazepam (ATIVAN) 1 mg tablet Take 0.5 Tablets by mouth 3 times daily. Active omeprazole (PRILOSEC) 20 mg capsuleIndications:P soriatic arthritis (HCC-CMS),Generalize d osteoarthrosis, involving multiple sites,Trochanteric bursitis of both hips Take 1 Cap by mouth daily. 30 Cap 2 02/11/2020 Active Additional Information Patient not taking.Reported on 11/18/2020 losartan-hydrochloro thiazide (HYZAAR) 100-25 mg per tablet Take 1 Tablet by mouth daily. Active clobetasoL (TEMOVATE) 0.05 % external solutionIndications: Psoriatic arthritis (HCC-CMS),Chronic bilateral low back pain, unspecified whether sciatica present Apply thin film to dry scalp once daily (maximum dose: 50 g/week or 50 mL/week); leave in place for 15 minutes, then add water, lather, and rinse thoroughly. 1 Bottle 3 03/23/2020 Active Additional Information Patient not taking.Reported on 05/24/2023 diclofenac sodium 1 % gelIndications:Psori atic arthritis ([facility]-CMS),Chronic bilateral low back pain, unspecified whether sciatica present Apply scant amount to muscles/joints. 4g to lower extremities and 2g to upper extremities, up to 4x/day. Max 32g/day. 1 Tube 3 03/23/2020 Active Additional Information Patient not taking.Reported on 05/24/2023 ferrous sulfate (IRON) 325 mg (65 mg iron) tablet Take 325 mg by mouth daily. Active cyanocobalamin (VITAMIN B-12) 500 mcg tablet Take 500 mcg by mouth daily. Active phytonadione, vit K1, (VITAMIN K) 100 mcg tablet Take 100 mcg by mouth daily. Active Cholecalciferol, Vitamin D3, (D3-2000) 50 mcg (2,000 unit) capsule Take by mouth. Active mv,Ca,min-folic acid-vit K1 (ONE-A-DAY WOMEN'S 50 PLUS) 400-20 mcg tablet Take by mouth. womens one a day 50 plus Active Potassium 99 mg tablet Take by mouth. Active magnesium oxide (MAG-OX) 400 mg (241.3 mg magnesium) tablet Take 400 mg by mouth daily. Active folic acid (FOLVITE) 1 mg tablet Take 3 Tabs by mouth daily. 270 Tab 1 06/14/2020 Active Additional Information Patient not taking.Reported on 11/18/2020 famotidine (PEPCID) 20 mg tablet Take 1 Tablet by mouth daily. Active Active Problems Problem Noted Date Diagnosed Date Trochanteric bursitis of both hips 08/13/2017 Psoriatic arthritis ([facility]) 03/27/2016 Bilateral carpal tunnel syndrome 03/27/2016 Generalized osteoarthrosis, involving multiple s ites 09/08/2015 Hypertensive disorder 09/14/2009 Encounters Date Type Department Care Team Description 11/29/2023 Orders Only [facility] Radiology - Main [address] [address] Cherelle Collins MD 11/29/2023 Orders Only [facility] Radiology - Main [place] [address] [place] [address] Dylan Cabrera MD 11/15/2023 Telephone [facility] Cancer [facility] Hematology & Oncology - [address] [address] Mariana Merrill, RN Coordination Of Care 11/02/2023 Hospital Encounter [facility] Secondary [place] Discharge Disposition: Home or Self Care 11/02/2023 Hospital Encounter [facility] [place] Discharge Disposition: Home or Self Care from Last 3 Months Immunizations Name Administration Dates Next Due Covid-19 mRNA Vaccine (MODER NA COVID-19) PF 0.5 ml IM (12 yrs+) 07/25/2020 Surgical History Surgery Date Site/Laterality Comments ABDOMINOPLASTY ECTOPIC SURGERY INGUINAL HERNIA REPAIR ELBOW SURGERY left CERVICAL DISC SURGERY Medical History Medical History Date Comments Hypertension Osteoarthritis Psoriatic arthritis (HCC-CMS) Psychiatric problem depression/t raumatic stress Family History Medical History Relation Comments Heart Disease Father Cancer Son rhabdomyosarcoma *Other(comment) Neg Hx AAA Neg Hx [...] Autism Neg Hx Autoimmune Disease Neg Hx BRCA 1/2 Neg Hx Bipolar Disorder Neg Hx Defects Neg Hx Bladder Cancer Neg Hx Bleeding Problem Neg Hx Blindness Neg Hx Brain Cancer Neg Hx Breast Cancer Neg Hx Broken [...] Neg Hx Coronary Artery Disease Neg Hx Kayla Syndrome Neg Hx Crohn's Disease Neg Hx Current Acute Minor Illness Neg Hx Cystic Fibrosis Neg Hx BALWINDER Usage Neg Hx in Infancy Neg Hx Dementia Neg Hx Depression Neg Hx Dermatomyositis Neg Hx Developmental Disorder Neg Hx Diabetes [...] Fibromyalgia Neg Hx Food Intolerance Neg Hx GI Cancer Neg Hx Genital Ambiguity Neg Hx Genitourinary (Gu) Neg Hx Gestational Diabetes Neg Hx Glaucoma Neg Hx Gout Neg Hx Hearing Loss Neg Hx Heart Attack Neg Hx Heart Attack Under 50 Neg Hx Heart Defect Neg Hx Heart Failure Neg Hx Heart Surgery Neg Hx Heartburn/Reflux Neg Hx Hemochromatosis Neg Hx Hepatitis Neg Hx Hepatitis B Neg Hx Hepatitis C Neg Hx High Blood Pressure Neg Hx High Cholesterol Neg Hx Wetzel's Chorea Neg Hx Hypercalcemia Neg Hx Hypermobility [...] Disease Neg Hx Kidney Failure Neg Hx LTBI Neg Hx Language Disorder Neg Hx Learning Disabilities Neg Hx Leukemia Neg Hx Li-Fraumeni Syndrome Neg Hx Liver Cancer Neg Hx Liver Disease Neg Hx Lung Cancer Neg Hx Lung Disease Neg Hx Lyme Disease Neg Hx Lymphoma Neg Hx MS Neg Hx Macular Degeneration Neg Hx Malig. HTN Neg Hx Malig. Hyperthermia Neg Hx Marfan Syndrome Neg Hx Maternal Metabolic Disorder Neg Hx Melanoma Neg Hx Menstrual Irregularity Neg Hx Mental Illness Neg Hx Migraines Neg Hx Miscarriages / Stillbirths Neg Hx Motor Disability Neg Hx Murmurs Neg Hx Muscle Diseases Neg Hx Muscular Dystrophy Neg Hx NF Neg Hx Neural Tube Defect Neg Hx Neuropathy Neg Hx OCD Neg Hx Obesity Neg Hx Osteoporosis Neg Hx Other Inherited [...] fever Neg Hx Rheumatologic Disease Neg Hx SIDS Neg Hx SLE Neg Hx Sarcoma Neg Hx Schizophrenia Neg Hx Scleroderma Neg Hx Scoliosis Neg Hx Seizures Neg Hx Severe Sprains Neg Hx Sexual Abuse Neg Hx Sexual Development Disorder Neg Hx Short Stature Neg Hx Sickle Cell Anemia Neg Hx Sickle Cell Trait Neg Hx Spont. Neg Hx Stomach Cancer [...] Loss Neg Hx Carlos's Disease Neg Hx Relation Status Comments Father Mother Alive Son Social History Tobacco Use Types Packs/Day Years [...] 14:46 EDT Sexual Orientation Not on file Obstetrics History Para Term AB IAB SAB Ectopic Multiple Livin g Live Births 5 5 Date Outcome GA Total Labor Labor/2nd/3rd Weight Sex Type Anes PTL Luana A1 A5 Name Clin Para Para Para Para Para Last Filed Vital Signs Vital Sign Reading Time Taken Comments Blood Pressure 131/72 05/24/2023 1230 EST Pulse 71 05/18/20232007 EST Temperature 36.2 ??C (97.2 ??F) 05/24/2023 1314 EST Respiratory Rate 16 05/24/2023 1215 EST Oxygen Saturation 97% 05/24/2023 1245 EST Inhaled Oxygen Concentration - - Weight 62.6 kg (138 lb) 05/24/2023 0900 EST Height 160 cm (5' 3) 05/24/2023 0900 EST Body Mass Index 24.45 05/24/2023 0900 EST Plan of Treatment Upcoming Encounters Date Type Department Care Team (Late st Contact Info) Description 12/10/2023 11:00 EDT [facility]ment [facility] Outpatient - [address] [address] 12/11/2023 13:45 EDT Initial consult [facility] Gynecologic Oncology - [address] [phone] Ashlee Garcia MD [address] [facility], [address] [place] [phone] Health Maintenance Due Date Last Done Comments RSV Immunization ( o r 60+ Years) (1 - 1-dose 60+ series) 2019 COVID-19 Vaccine ( - season) 2022 Colonoscopy (Colon Cancer Screening) Discontinued 08/28 Colorectal Cancer Screening Discontinued Hepatitis C Screen Completed 06/10/2019, 08/05/2015 Cologuard (Colon Cancer Screening) Discontinued FIT Test (Colon Cancer Screening) Discontinued Sigmoidoscopy (Colon Cancer Screening) Discontinued Medical Devices Implanted Type Area Pleating Supervisor Device Identifier Shelf Expiration Date Model / Serial / Lot [id number] Ortho Spine Hardware-Mri Safe Ortho Implant Description:MRI safe per chelsey icy. (MGB 07/22/2019 Procedures Procedure Name Priority Date/Time Associated Diagnosis Comments CT OUTSIDE IMAGES HEAD Routine 11/02/2023 13:26 EDT XR OUTSIDE IMAGES CHEST Routine 11/02/2023 13:25 EDT HEPATITIS C AB W REFLEX TO HCV RNA BY PCR Routine 06/10/2019 10:09 EST Encounter for screening for other viral diseases COLONOSCOPY PROCEDURE Routine 09/06/2017 14:57 EDT from Last 3 Months or Most Recently Relevant to Health Maintenance Results * CT OUTSIDE IMAGES HEAD (11/02/2023 13:26 EDT) Narrative 11/22/2023 13:26 EDT This is a non-reportable exam. External Imaging IMG OTHER IMAGING OR DERABLES * XR OUTSIDE IMAGES CHEST (11/02/2023 13:25 EDT) Narrative 11/22/2023 13:26 EDT This is a non-reportable exam. External Imaging IMG OTHER IMAGING OR DERABLES * HEPATITIS C AB W REFLEX TO HCV RNA BY PCR (06/10/2019 10:09 EST) Hep C Antibody Negative Negative 06/11/2019 11:40 EST [facility] Blood VENOUS BLOOD / Unknown 06/10/2019 10:09 EST 06/10/2019 15:18 EST Melissa Khan MD CHEMISTRY & BLOOD GA S ORDERABLES [facility] [address] [place] [address] * COLONOSCOPY PROCEDURE (09/06/2017 14:57 EDT) Anatomical Region Laterality Modality Endoscopy Narrative 09/06/2017 14:57 EDT Procedure Performed Colonoscopy Indications for Exam History of TA. Surveillance. Procedure Technique A physical exam was performed. Informed consent was obtained from the patient after explaining all the risks (perforation, bleeding, missed findings, injury to nearby organs, infection and adverse effects to the medicine), benefits and alternatives to the procedure which the patient appeared to understand and so stated. ??The patient was connected to the monitoring devices and placed in the left lateral position. Continuous oxygen was provided with a nasal cannula and IV medicine administered thru an indwelling cannula. After adequate sedation was achieved, a digital exam was performed and the colonoscope introduced into the rectum and advanced under direct visualization to the terminal ileum. The terminal ileum was identified by visual landmarks. The endoscope was subsequently removed slowly while carefully examining the color, texture, anatomy, and integrity of the mucosa on withdrawal. Retroflexion was performed in the rectum: Yes. The patient was subsequently transferred to the recovery area in satisfactory condition. Difficult Exam:tortuous sigmoid, Abdominal pressure Rectal Exam:Normal Medications Versed 3 mg Fentanyl 150 mcg Zofran 4 mg IV Topical Lidocane I was in continuous face to face attendance during the administration of moderate sedation services that were monitored by an independent trained observer who had no other duties during the procedure. ??Total sedation time was 18 ?? minutes. Estimated ??Blood Loss: None [place] Bowel Prep Right Colon: 3 ? Transverse Colon: 3 ? Left Colon: 3 ?Total: 9 Findings Mild diverticulosis in the sigmoid colon. Diagnosis Mild diverticulosis in the sigmoid colon. Recommendations Repeat colonoscopy in 10 years. This electronic signature authenticates all electronic and/or handwritten documentation, including orders, generated by the signer during the episode of care contained in this record. 09/06/2017 02:57:48 PM By Carloz Larose MD Carloz Larose MD GI PROCEDURE ORDERAB LES from Last 3 Months or Most Recently Relevant to Health Maintenance Care Teams Exceptional Children'S Teacher Relationship Specialty Start Date End Date Melissa Khan MD [address] [place] [phone] PCP - General 08/04/15
--- OUTSIDE RECORDS SUMMARY | 2023-12-07 00:48 | XMS_ITS | Encounter Summary ---
Author Organization [facility] Address [address] [place] [address] Care Team Providers Care Hospice Coordinator Name Role Phone Melissa Khan MD Primary Care Provider [phone] Reason for Referral * (Routine/Next Available) - Receiving Office to Obtain Authorization Specialty Diagnoses / Procedures Referred By Contac t Referred To Contact Procedures XR OUTSIDE IMAGES PELVIS Unknown, ProviderMD Referral ID Status Reason Start Date Expiration Date Visits Requested Visits Authorized [id number] Receiving Office to Obtain Authorization 05/17/2023 1 1 Reason for Visit * (Routine/Next Available) - Receiving Office to Obtain Authorization Specialty Diagnoses / Procedures Referred By Contac t Referred To Contact Procedures XR OUTSIDE IMAGES PELVIS Unknown, ProviderMD Referral ID Status Reason Start Date Expiration Date Visits Requested Visits Authorized [id number] Receiving Office to Obtain Authorization 05/17/2023 1 1 Encounter Details Date Type Department Care Team (Latest Contact Info) Description 05/17/2023 21:14 EST - 05/17/2023 23:59 EST Hospital Encounter [facility] Secondary Reads [place] Discharge Disposition: [...] 4x/day. Max 32g/day. 1 Tube 3 03/23/2020 ferrous sulfate (IRON) 325 mg (65 mg [...] Contact Info) Description 12/10/2023 11:00 EDT Appointment [facility] Radiology CT Outpatient - [address] [phone] 12/11/2023 13:45 EDT Initial consult [facility] Gynecologic Oncology - [address] [phone] Ashlee Garcia MD [address] [place] [address], [address] [place] [phone] documented as of this encounter Procedures Procedure Name Priority Date/Time Associated Diagnosis Comments XR OUTSIDE IMAGES PELVIS Routine 05/17/2023 21:14 EST documented in this encounter Results * XR OUTSIDE IMAGES PELVIS (05/17/2023 21:14 EST) Narrative 05/17/2023 21:14 EST This is a non-reportable exam. Provider Unknown MD [facility] OTHER IMAGING OR DERABLES documented in this encounter Visit Diagnoses Not on filedocumented in this encounter Care Teams Hospice Coordinator Relationship Specialty Start Date End Date Melissa Khan MD [address] [place] [phone] PCP - General 08/04/15 documented as of this encounter
--- OUTSIDE RECORDS SUMMARY | 2023-12-07 00:48 | XMS_ITS | Encounter Summary ---
Author Organization [facility] Address [address] [place] [address] Care Team Providers Care Director Of Customer Service Name Role Phone Melissa Khan MD Primary Care Provider [phone] Reason for Visit * Reason Onset Date Comments Appointment Related 05/22/2023 Encounter Details Date Type Department Care Team (Late st Contact Info) Description 05/22/2023 Telephone [facility] Interventional Radiology - [address] [address] Anson Prado MD [address] [place] [address], Level 1 [place] [address] Appointment Related Social History Tobacco Use Types Packs/Day Years [...] encounter Miscellaneous Notes * Telephone Encounter - Jessy Winston - 05/22/2023 0594 EST Spoke with Agueda in regards to scheduling their outpatient CT BX with interventional radiology at [facility]. Patient will be coming in on 05/24 at 9:00 AM The following details were reviewed with patient to ensure procedure completed on scheduled date: -Patient understands that they will need a hack driver for this procedure. -Patient understands that they should plan to be here for 5 hours that day in total for prep, procedure and recovery. Pre procedure instructions: Medication instruction: - RN to contact with detailed pre procedure medication instructions - They will take their morning medications with a small sip of water. - Per Triaged RN letter patient confirmed that they are not taking blood thinning medications at this time -Patient verbalized understanding of OTC pain medication policy DAY OF PROCEDURE PREP: Patient confirmed understanding of the following instructions: -No solid food or liquids containing fats, including milk after midnight before the procedure. -On the day of procedure, only water, apple juice or sports drinks (gatorade or powerade) until 2 hours before the check in time (starting at 7:00 AM) After 7:00 AM, nothing by mouth. Please be sure to take a shower either the evening before or the morning of your procedure. You may take your medications as directed at any time with small sips of water. Do not bring any valuables with you to the hospital. If you use a BiPAP or CPAP machine to help you breathe, please bring it with you on the day of the procedure. Please bring a list of your allergies and current medications. Please notify our office if there is any change in your health such as a cold or a fever. Patient aware IR RN will contact prior to procedure to go over prep in detail and answer any questions. I have sent patient confirmation via App Press. I have notified referring provider of this patients scheduled date and time. Any further questions can be addressed to Interventional Radiology Department [phone] Ext. 1 Patient verbalized understanding and agrees with Plan of Care. No cognitive barriers were identified during this conversation & they have our contact number to call with questions. Jessy Winston documented in this encounter Plan of Treatment Upcoming Encounters Date Type Department Care Team (Late st Contact Info) Description 12/10/2023 11:00 EDT Appointment [facility] Radiology CT Outpatient - [address] [address] 12/11/2023 13:45 EDT Initial consult [facility] Gynecologic Oncology - [address] [address] Ashlee Garcia MD [address] [place] [address], [address] [place] [phone] documented as of this encounter Visit Diagnoses Not on filedocumented in this encounter Care Teams Director Of Customer Service Relationship Specialty Start Date End Date Melissa Khan MD [address] [place] [phone] PCP - General 08/04/15 documented as of this encounter
--- OUTSIDE RECORDS SUMMARY | 2023-12-07 00:48 | XMS_ITS | Encounter Summary ---
Author Organization [facility] Address [address] [place] [address] Care Team Providers Care Gas Appliance Repairer Name Role Phone Melissa Khan MD Primary Care Provider [phone] Encounter Details Date Type Department Care Team (Late st Contact Info) Description 11/29/2023 Orders Only [facility] Radiology - [address] [id number] Dylan Cabrera MD [address] [place] [address], Level 1 [place] [address] Social History Tobacco Use Types Packs/Day Years [...] Contact Info) Description 12/10/2023 11:00 EDT Appointment [facility] Radiology CT Outpatient - [address] [address] 12/11/2023 13:45 EDT Initial consult [facility] Gynecologic Oncology - [address] [phone] Ashlee Garcia MD [address] [place] [address], [address] [place] [phone] documented as of this encounter Visit Diagnoses Not on filedocumented in this encounter Care Teams Gas Appliance Repairer Relationship Specialty Start Date End Date Melissa Khan MD [address] [place] [phone] PCP - General 08/04/15 documented as of this encounter
--- OUTSIDE RECORDS SUMMARY | 2023-12-07 00:48 | XMS_ITS | Encounter Summary ---
Author Organization [facility] Address [address] [place] [address] Care Team Providers Care Experimental Mechanic Name Role Phone Melissa Khan MD Primary Care Provider [phone] Reason for Visit * Reason Onset Date Comments Pre-visit Planning 05/22/2023 Encounter Details Date Type Department Care Team (Late st Contact Info) Description 05/22/2023 Telephone [facility] Interventional Radiology - [address] [address] Adrianna Wang RN Pre-visit Planning Social History Tobacco Use Types Packs/Day Years [...] encounter Miscellaneous Notes * Telephone Encounter - Adrianna Wang RN - 05/22/2023 1303 EST Pre procedure phone call was made to patient regarding his/her upcoming appointment on 05/24 at 0900. I spoke with Agueda and relayed the following information: COVID-19 UPDATES: Pre-procedure Covid-19 testing is no longer required. Please call our office if you become sick or experience any Covid-19 symptoms prior to this appointment. Symptoms may include fever, cough, sore throat, loss of taste or smell or difficulty breathing. Outpatients: Patient is allowed 2 visitors to sit with them in CVU. Plan: -Go to registration on 3rd floor at 0845 (still need to go here even if pre- registered on phone) -NPO guidelines No solid foods or liquids containing fats, including milk, after midnight before the procedure. On the day of your procedure, you should only have water, apple juice or sports drinks until 2 hours before the scheduled arrival time to the hospital. 3 hours before scheduled starting time of the procedure. NPO time for liquids for this patient is 0700. Take medications as directed with small sip of water at any time prior to procedure Acceptable Liquids Unacceptable (DO NOT Drink -Water -Desoto juice (orange or pineapple) -apple juice -Clear broth -Gelatin (Jell-O)* -Apple Sauce -sport drinks -cofee/tea (even black) -soda or any other carbonated beverage -Medications - Pt should take prescribed medications. Pt should take PRN pain, anxiety, nausea medsas needed. -Meds to hold: Pt should not take ibuprofen (Motrin, Advil) for 24 hours prior to the procedure, naproxen (Aleve) for 2 days before, or full strength aspirin or medicine with aspirin in it for 5 days before the procedureIf pt is on baby asa, this is ok to continue. Tylenol (acetaminophen) may be taken for pain. -Due to sedation patient must have a escort vehicle driver (bus or taxi is not allowed). It is preferred to have your escort vehicle driver accompany you to the appointment to make contact arrangements with CVU sole stainer. If the escort vehicle driver is unable to do so, please bring escort vehicle driver's contact info. The escort vehicle driver must be phone accessible and be able to seed cone picker patient within 30 min. The parking garage does not have consistent cell coverage. If the escort vehicle driver plans to wait in the garage, they need to personally check with the CVU sole stainer to arrange alternative contact arrangements. - Bring a list of current medications/allergy list. -Bring CPAP if applicable. -Shower night before or morning of procedure. -Leave all valuables/medications at home (pt's with hearing aids should bring them) IR industrial relations officer number given ([phone]) to call w/ any questions (preferably M-F 0830-4 pm) documented in this encounter Plan of Treatment Upcoming Encounters Date Type Department Care Team (Late st Contact Info) Description 12/10/2023 11:00 EDT Appointment [facility] Radiology CT Outpatient - [address] [address] 12/11/2023 13:45 EDT Initial consult [facility] Gynecologic Oncology - [address] [address] Ashlee Garcia MD [address] [place] [address], [address] [place] [phone] documented as of this encounter Visit Diagnoses Not on filedocumented in this encounter Care Teams Experimental Mechanic Relationship Specialty Start Date End Date Melissa Khan MD [address] [place] [phone] PCP - General 08/04/15 documented as of this encounter
--- OUTSIDE RECORDS SUMMARY | 2023-12-07 00:48 | XMS_ITS | Encounter Summary ---
Author Organization [facility] Address [address] [place] [address] Care Team Providers Care Sharples Machine Operator Name Role Phone Melissa Khan MD Primary Care Provider [phone] Reason for Referral * Radiology Services (Routine/Next Available) - Authorization Not Required Specialty Diagnoses / Procedures Referred By Huy salmon Referred To Contact Diagnoses Encounter for screening mammogram for malignant neoplasm of breast Procedures MA BREAST SCREENING JF BILATERAL Melissa Khan MD [address] [place] [phone] [facility] Referral ID Status Reason Start Date Expiration Date Visits Requested Visits Authorized [id number] Authorization Not Required 01/19/2022 1 1 Reason for Visit * Radiology Services (Routine/Next Available) - Authorization Not Required Specialty Diagnoses / Procedures Referred By Huy salmon Referred To Contact Diagnoses Encounter for screening mammogram for malignant neoplasm of breast Procedures MA BREAST SCREENING JF BILATERAL Melissa Khan MD [address] [place] [phone] [facility] Referral ID Status Reason Start Date Expiration Date Visits Requested Visits Authorized [id number] Authorization Not Required 01/19/2022 1 1 Encounter Details Date Type Department Care Team (Latest Contact Info) Description 05/11/2022 12:27 EST - 05/11/2022 23:59 EST Hospital Encounter [facility] [address] [place] [address] Encounter for screening mammogram for malignant neoplasm of breast Discharge Disposition: Home or Self Care Social [...] Contact Info) Description 12/10/2023 11:00 EDT Appointment [facility] Radiology CT Outpatient - [address] [phone] 12/11/2023 13:45 EDT Initial consult [facility] Gynecologic Oncology - [address] [phone] Ashlee Garcia MD [address] [place] [address], [address] [place] [address] documented as of this encounter Procedures Procedure Name Priority Date/Time Associated Diagnosis Comments MA BREAST SCREENING JF BILATERAL Routine 05/11/2022 12:51 EST Encounter for screening mammogram for malignant neoplasm of breast documented in this encounter Results * MA BREAST SCREENING JF BILATERAL (05/11/2022 12:51 EST) Anatomical Region Laterality Modality Breast Bilateral Mammography 05/11/2022 14:4 3 EST Impressions 05/11/2022 14:43 EST Negative, no evidence of malignancy. RECOMMENDATION: Routine screening mammography is recommended. OVERALL ASSESSMENT: BI-RADS 1: Negative These results will be communicated to your patient via a lay letter from Radiology. If any additional imaging is needed we will contact your patient directly. Narrative 05/11/2022 14:43 EST MA BREAST SCREENING JF BILATERAL ??05/11/2022 12:40 PM History: routine Comparison: ??Comparison has been made to previous images. Technique: Routine 3D tomosynthesis with synthesized 2D views with CAD Breast Composition: There are scattered areas of fibroglandular density. Bilateral Breast Findings: ??No significant masses, calcifications or other abnormalities are seen. Procedure Note Dayanna Shell MD - 05/11/2022 MA BREAST SCREENING JF BILATERAL 05/11/2022 12:40 PM History: routine Comparison: Comparison has been made to previous images. Technique: Routine 3D tomosynthesis with synthesized 2D views with CAD Breast Composition: There are scattered areas of fibroglandular density. Bilateral Breast Findings: No significant masses, calcifications or otherabnormalities are seen. IMPRESSION Negative, no evidence of malignancy. RECOMMENDATION: Routine screening mammography is recommended. OVERALL ASSESSMENT: BI-RADS 1: Negative These results will be communicated to your patient via a lay letter fromRadiology. If any additional imaging is needed we will contact yourpatient directly. Melissa Khan MD IMG MAMMOGRAPHY [facility] documented in this encounter Visit Diagnoses Diagnosis Encounter for screening mammogram for malignant neoplasm of breast Other screening mammogram documented in this encounter Care Teams Sharples Machine Operator Relationship Specialty Start Date End Date Melissa Khan MD [address] [place] [phone] PCP - General 08/04/15 documented as of this encounter
--- OUTSIDE RECORDS SUMMARY | 2023-12-07 00:48 | XMS_ITS | Referral Summary ---
Author Organization [facility] Address [address] [place] [address] Care Team Providers Care Ironer Or Presser Name Role Phone Melissa Khan MD Primary Care Provider [phone] Encounters Date Type Department Care Team Description 11/29/2023 Orders Only [facility] Radiology [address] [address] Cherelle Collins MD 11/29/2023 Orders Only [facility] Radiology [address] [address] Dylan Cabrrea MD 11/15/2023 Telephone [facility] Hematology & Oncology [address] [phone] Mariana Merrill, RN Coordination Of Care 11/02/2023 Hospital Encounter [facility] [place] Discharge Disposition: Home or Self Care 11/02/2023 Hospital Encounter [facility] [place] Discharge Disposition: Home or Self Care from Last 3 Months Allergies Active Allergy Reactions Criticality Noted Date [...] diclofenac sodium 1 % gelIndications:Psori atic arthritis ([facility]-CMS),Chronic bilateral low back pain, unspecified whether sciatica [...] bursitis of both hips 08/13/2017 Psoriatic arthritis (HCC-CMS) 03/27/2016 Bilateral carpal tunnel syndrome 03/27/2016 Generalized osteoarthrosis, involving multiple s ites 09/08/2015 Hypertensive disorder 09/14/2009 Immunizations Name Administration Dates Next Due Covid-19 mRNA Vaccine (MODER NA COVID-19) PF 0.5 ml IM (12 yrs+) 07/25/2020 Social History Tobacco Use Types Packs/Day Years [...] 14:46 EDT Sexual Orientation Not on file Last Filed Vital Signs Vital Sign Reading Time Taken Comments Blood Pressure 131/72 05/24/2023 1230 EST Pulse 71 05/18/2023 2008 EST Temperature 36.2 ??C (97.2 ??F) 05/24/2023 1314 EST Respiratory Rate 16 05/24/2023 1215 EST Oxygen Saturation 97% 05/24/2023 1245 EST Inhaled Oxygen Concentration - - Weight 62.6 kg (138 lb) 05/24/2023 0900 EST Height 160 cm (5' 3) 05/24/2023 0900 EST Body Mass Index 24.45 05/24/2023 0900 EST Functional Status Functional Status Response Date of [...] concentrating, remembering, or making decisions? No 08/02/2020 Plan of Treatment Upcoming Encounters Date Type Department Care Team (Late st Contact Info) Description 12/10/2023 11:00 EDT Appointment [facility] Radiology CT Outpatient - [facility] [address] [place] [address] 12/11/2023 13:45 EDT Initial consult [facility] Gynecologic Oncology - [facility] [address] [place] [address] Ashlee Garcia MD [address] [facility], [address] [place] [phone] Medical Devices Implanted Type Area Insurance Claims Clerk Device Identifier Shelf Expiration Date Model / [...] C Antibody Negative Negative 06/11/2019 11:40 EST [facility] Blood VENOUS BLOOD / Unknown 06/10/2019 10:09 EST 06/10/2019 15:18 EST Melissa Khan MD CHEMISTRY & BLOOD GA S ORDERABLES Performing Organization Address City/State/[facility] Co de Phone Number [facility] [address] [place] [address] * COLONOSCOPY PROCEDURE (09/06/2017 14:57 EDT) Anatomical [...] 18 ?? minutes. Estimated ??Blood Loss: None [place] Bowel Prep Right Colon: 3 ? Transverse [...] Recently Relevant to Health Maintenance Care Teams Ironer Or Presser Relationship Specialty Start Date End Date Melissa Khan MD [address] [place] [phone] PCP - General 08/04/15
--- OUTSIDE RECORDS SUMMARY | 2023-12-07 00:48 | XMS_ITS | Encounter Summary ---
Author Organization [facility] Address [address] [place] [address] Care Team Providers Care Management Associate Name Role Phone Melissa Khan MD Primary Care Provider [phone] Reason for Visit * Reason Onset Date Comments Coordination Of Care 05/22/2023 Encounter Details Date Type Department Care Team (Late st Contact Info) Description 05/22/2023 Telephone [facility] Hematology & Oncology - [address] [address] Lilly Higuera, RN Coordination Of Care Social [...] Telephone Encounter - Lilly Higuera RN - 05/22/2023 1341 EST Spoke with Agueda; she confirms IR bx scheduled for morning. Aware we will f/u once path results back to schedule Oncology consult if indicated. She will call with any questions or concerns in the meantime. She mentions she and Lyle will likely go back to [place] on Sunday but plan to return when needed. Lilly Higuera RN GI Nurse Navigator Pager [phone] documented in this encounter Plan of Treatment Upcoming Encounters Date Type Department Care Team (Late st Contact Info) Description 12/10/2023 11:00 EDT Appointment [facility] Radiology CT Outpatient - [address] [address] 12/11/2023 13:45 EDT Initial consult [facility] Gynecologic Oncology - [address] [address] Ashlee Garcia MD [address] [place] [address], [address] [place] [phone] documented as of this encounter Visit Diagnoses Not on filedocumented in this encounter Care Teams Management Associate Relationship Specialty Start Date End Date Melissa Khan MD [address] [place] [phone] PCP - General 08/04/15 documented as of this encounter
--- OUTSIDE RECORDS SUMMARY | 2023-12-07 00:48 | XMS_ITS | Encounter Summary ---
Author Organization [facility] Address [address] [place] [address] Care Team Providers Care Search Engine Marketing Specialist Name Role Phone Melissa Khan MD Primary Care Provider [phone] Reason for Referral * (Routine/Next Available) - Receiving Office to Obtain Authorization Specialty Diagnoses / Procedures Referred By Contac t Referred To Contact Procedures CT OUTSIDE IMAGES HEAD Imaging, External Referral ID Status Reason Start Date Expiration Date Visits Requested Visits Authorized [id number] Receiving Office to Obtain Authorization 11/22/2023 1 1 Reason for Visit * (Routine/Next Available) - Receiving Office to Obtain Authorization Specialty Diagnoses / Procedures Referred By Contac t Referred To Contact Procedures CT OUTSIDE IMAGES HEAD Imaging, External Referral ID Status Reason Start Date Expiration Date Visits Requested Visits Authorized [id number] Receiving Office to Obtain Authorization 11/22/2023 1 1 Encounter Details Date Type Department Care Team (Latest Contact Info) Description 11/02/2023 Hospital Encounter [facility] Secondary [place] Discharge Disposition: Home [...] Contact Info) Description 12/10/2023 11:00 EDT Appointment [facility] Radiology CT Outpatient - [address] [address] 12/11/2023 13:45 EDT Initial consult [facility] Gynecologic Oncology - [address] [phone] Ashlee Gacria MD [address] [facility], [address] [place] [address] documented as of this encounter Procedures Procedure Name Priority Date/Time Associated Diagnosis Comments CT OUTSIDE IMAGES HEAD Routine 11/02/2023 13:26 EDT documented in this encounter Results * CT OUTSIDE IMAGES HEAD (11/02/2023 13:26 EDT) Narrative 11/22/2023 13:26 EDT This is a non-reportable exam. External Imaging IMG OTHER IMAGING OR DERABLES documented in this encounter Visit Diagnoses Not on filedocumented in this encounter Care Teams Search Engine Marketing Specialist Relationship Specialty Start Date End Date Melissa Khan MD [address] [place] [phone] PCP - General 08/04/15 documented as of this encounter
--- OUTSIDE RECORDS SUMMARY | 2023-12-07 00:48 | XMS_ITS | Encounter Summary ---
Author Organization [facility] Address [address] [place] [address] Care Team Providers Care Coke Worker Name Role Phone Melissa Khan MD Primary Care Provider [phone] Encounter Details Date Type Department Care Team (Latest Contact Info) Description 05/18/2023 Travel Social History Tobacco Use Types Packs/Day Years [...] [facility] - [facility] [address] [place], [place] [phone] 12/11/2023 13:45 EDT Initial consult [facility] Gynecologic Oncology - [facility] [address] [place] [address] Ashlee Garcia MD 111 [facility], [address] [place] [phone] documented as of this encounter Visit Diagnoses Not on filedocumented in this encounter Care Teams Coke Worker Relationship Specialty Start Date End Date Melissa Khan MD [address] [place] [phone] PCP - General 08/04/15 documented as of this encounter
--- OUTSIDE RECORDS SUMMARY | 2023-12-07 00:48 | XMS_ITS | Encounter Summary ---
Author Organization [facility] Address [address] [place] [address] Care Team Providers Care Evp Operations Name Role Phone Melissa Khan MD Primary Care Provider [phone] Reason for Referral * Radiology Services (STAT) - Authorized Specialty Diagnoses / Procedures Referred By Contac t Referred To Contact Diagnoses Sacral lesion Procedures CT PELVIS ESTHER CT PELVIS W CONTRAST Richard Sanchez PA-C [address] [place] [id number] [facility] Referral ID Status Reason Start Date Expiration Date V isits Requested Visits Authorized [id number] Authorized 05/17/2023 07/15/2023 1 1 Reason for Visit * Radiology Services (STAT) - Authorized Specialty Diagnoses / Procedures Referred By Contac t Referred To Contact Diagnoses Sacral lesion Procedures CT PELVIS ESTHER CT PELVIS W CONTRAST Richard Sanchez PA-C [address] [place] [id number] [facility] Referral ID Status Reason Start Date Expiration Date V isits Requested Visits Authorized [id number] Authorized 05/17/2023 07/15/2023 1 1 Encounter Details Date Type Department Care Team (Latest Contact Info) Description 05/18/2023 12:55 EST - 05/18/2023 17:39 EST Hospital Encounter [facility] Center Radiology CT - [facility] [address] [place], [place] [address] Sacral lesion Discharge Disposition: Home or Self [...] Contact Info) Description 12/10/2023 11:00 EDT Appointment [facility] Radiology CT Outpatient - [address] [address] 12/11/2023 13:45 EDT Initial consult [facility] Gynecologic Oncology - [address] 7756[address] Ashlee Garcia MD [address] [place] [address], [address] [place] [address] documented as of this encounter Procedures Procedure Name Priority Date/Time Associated Diagnosis Comments CT PELVIS ESTHER STAT 05/18/2023 13:16 EST Sacral lesion documented in this encounter Results * CT PELVIS ESTHER (05/18/2023 13:16 EST) Anatomical Region Laterality Modality Body, Pelvis Computed Tomogra phy 05/18/2023 13:2 8 EST Addenda Addendum by Karl Rodriguez DO on 05/23/2023 12:21 EST Addendum: 3D not ordered or billable, although documented. [id number] Impressions 05/18/2023 13:28 EST 1. ??Fracture in the right inferior pubic ramus occurring in an area of permeated appearing bone. Concern is raised for the possibility of a pathologic fracture due to an underlying lesion of indeterminate histology; correlate accordingly. 2. ??No other fracture or bone lesion identified in the imaging diytj-ij-zpcl, though assessment limited by osteopenia. 3. ??If necessary, a bone scan could be obtained to assess for any polyostotic process. 4. ??Chronic deformity of the sacrum redemonstrated which may be congenital or related to some remote insult. [id number] Narrative 05/18/2023 13:[address] PELVIS ESTHER ??05/18/2023 1:11 PM Signs and Symptoms/Comments: ?? Left inferior pubic tramus bony lesions. sacral lesions;M53.3:Sacral lesion Comparison: Radiographs 05/17/2023 Technique: Routine contiguous axial 0.[address] images of the bony pelvis were obtained without contrast. Sagittal and coronal 2-D reconstructions as well as 3-D reconstructions generated on an independent workstation were reviewed and adjusted as necessary, prior to interpretation. Findings: There is a fracture in the right inferior pubic ramus that occurs in the region of permeated appearing osteolytic bone. Concern is raised for the possibility of a pathologic fracture in the setting of an underlying lesion of indeterminate histology. No other fracture is identified in the imaging edglk-jx-zyhm. No other bone lesion is identified, within the limitations of CT assessment particularly in a background of osteopenia. There is a chronic angular deformity of the sacrum which could be on a congenital basis or sequela from some remote insult There are moderate degenerative changes in the hips, SI joints, symphysis pubis, and imaged portion of the lower lumbar spine. Limited assessment of lower pelvic structures particularly in the absence of IV contrast. Incidental note made of colonic diverticulosis and small volume free fluid in the pelvis which is nonspecific. Procedure Note Karl Rodriguez, DO - 05/18/2023 CT PELVIS ESTHER 05/18/2023 1:11 PM Signs and Symptoms/Comments: Left inferior pubic tramus bony lesions. sacral lesions;M53.3:Sacrallesion Comparison: Radiographs 05/17/2023 Technique: Routine contiguous axial 0.[address] images of the bonypelvis were obtained without contrast. Sagittal and coronal 2-Dreconstructions as well as 3- D reconstructions generated on an independentworkstation were reviewed and adjusted as necessary, prior tointerpretation. Findings: There is a fracture in the right inferior pubic ramus that occurs in theregion of permeated appearing osteolytic bone. Concern is raised for thepossibility of a pathologic fracture in the setting of an underlyinglesion of indeterminate histology. No other fracture is identified in the imaging xbhze-ds-epbo. No otherbone lesion is identified, within the limitations of CT assessmentparticularly in a background of osteopenia. There is a chronic angular deformity of the sacrum which could be on acongenital basis or sequela from some remote insult There are moderate degenerative changes in the hips, SI joints, symphysispubis, and imaged portion of the lower lumbar spine. Limited assessment of lower pelvic structures particularly in the absenceof IV contrast. Incidental note made of colonic diverticulosis and smallvolume free fluid in the pelvis which is nonspecific. IMPRESSION 1. Fracture in the right inferior pubic ramus occurring in an area ofpermeated appearing bone. Concern is raised for the possibility of apathologic fracture due to an underlying lesion of indeterminatehistology; correlate accordingly. 2. No other fracture or bone lesion identified in the ytjqlizdnyzx-en-xpom, though assessment limited by osteopenia. 3. If necessary, a bone scan could be obtained to assess for anypolyostotic process. 4. Chronic deformity of the sacrum redemonstrated which may be congenitalor related to some remote insult. [id number] Richard Sanchez PA-C IMG CT ORDERABLES documented in this encounter Visit Diagnoses Diagnosis Sacral lesion Disorders of sacrum documented in this encounter Care Teams Evp Operations Relationship Specialty Start Date End Date Melissa Khan MD [address] [place] [address] PCP - General 08/04/15 documented as of this encounter
--- OUTSIDE RECORDS SUMMARY | 2023-12-07 00:48 | XMS_ITS | Encounter Summary ---
Author Organization [facility] Address [address] [place] [address] Care Team Providers Care Vending Route Driver Name Role Phone Melissa Khan MD Primary Care Provider [phone] Encounter Details Date Type Department Care Team (Late st Contact Info) Description 11/29/2023 Orders Only [facility] Radiology - Main [place] [address] [place], [place] [id number] Cherelle Collins MD [address] [place] [phone] Social History Tobacco Use Types Packs/Day Years [...] Info) Description 12/10/2023 11:00 EDT Appointment [facility] Radiology CT Outpatient - [address] [address] 12/11/2023 13:45 EDT Initial consult [facility] Gynecologic Oncology - [address] [phone] Ashlee Garcia MD [address] [place] [address], [address] [place] [phone] documented as of this encounter Visit Diagnoses Not on filedocumented in this encounter Care Teams Vending Route Driver Relationship Specialty Start Date End Date Melissa Khan MD [address] [place] [phone] PCP - General 08/04/15 documented as of this encounter
--- OUTSIDE RECORDS SUMMARY | 2023-12-07 00:48 | XMS_ITS | Encounter Summary ---
Author Organization [facility] Address [address] [place] [address] Care Team Providers Care President Financial Institution Name Role Phone Melissa Khan MD Primary Care Provider [phone] Reason for Referral * (Routine/Next Available) - Receiving Office to Obtain Authorization Specialty Diagnoses / Procedures Referred By Contac t Referred To Contact Procedures XR OUTSIDE IMAGES CHEST Imaging, External Referral ID Status Reason Start Date Expiration Date Visits Requested Visits Authorized [id number] Receiving Office to Obtain Authorization 11/22/2023 1 1 Reason for Visit * (Routine/Next Available) - Receiving Office to Obtain Authorization Specialty Diagnoses / Procedures Referred By Contac t Referred To Contact Procedures XR OUTSIDE IMAGES CHEST Imaging, External Referral ID Status Reason Start Date Expiration Date Visits Requested Visits Authorized [id number] Receiving Office to Obtain Authorization 11/22/2023 1 1 Encounter Details Date Type Department Care Team (Latest Contact Info) Description 11/02/2023 Hospital Encounter [facility] [place] Discharge Disposition: Home [...] Info) Description 12/10/2023 11:00 EDT Appointment [facility] Radiology CT Outpatient - [address] [address]201 12/11/2023 13:45 EDT Initial consult [facility] Gynecologic Oncology - [address] [phone] Ashlee Garcia MD [address] [facility], [address] [place] [address] documented as of this encounter Procedures Procedure Name Priority Date/Time Associated Diagnosis Comments XR OUTSIDE IMAGES CHEST Routine 11/02/2023 13:25 EDT documented in this encounter Results * XR OUTSIDE IMAGES CHEST (11/02/2023 13:25 EDT) Narrative 11/22/2023 13:26 EDT This is a non-reportable exam. External Imaging IMG OTHER IMAGING OR DERABLES documented in this encounter Visit Diagnoses Not on filedocumented in this encounter Care Teams President Financial Institution Relationship Specialty Start Date End Date Melissa Khan MD [address] [place] [phone] PCP - General 08/04/15 documented as of this encounter
--- OUTSIDE RECORDS SUMMARY | 2023-12-07 00:48 | XMS_ITS | Encounter Summary ---
Author Organization [facility] Address [address] [place] [address] Care Team Providers Care Communications Attendant Name Role Phone Melissa Khan MD Primary Care Provider [phone] Reason for Referral * (Routine/Next Available) - Receiving Office to Obtain Authorization Specialty Diagnoses / Procedures Referred By Contac t Referred To Contact Procedures CT OUTSIDE IMAGES ABDOMEN PELVIS Imaging, External Referral ID Status Reason Start Date Expiration Date Visits Requested Visits Authorized [id number] Receiving Office to Obtain Authorization 05/28/2023 1 1 Reason for Visit * (Routine/Next Available) - Receiving Office to Obtain Authorization Specialty Diagnoses / Procedures Referred By Contac t Referred To Contact Procedures CT OUTSIDE IMAGES ABDOMEN PELVIS Imaging, External Referral ID Status Reason Start Date Expiration Date Visits Requested Visits Authorized [id number] Receiving Office to Obtain Authorization 05/28/2023 1 1 Encounter Details Date Type Department Care Team (Latest Contact Info) Description 03/01/2023 - 03/01/2023 23:59 EDT Hospital Encounter [facility] [place] Discharge Disposition: Home [...] Contact Info) Description 12/10/2023 11:00 EDT Appointment [facility] Radiology CT Outpatient - [address] [phone] 12/11/2023 13:45 EDT Initial consult [facility] Gynecologic Oncology - [address] [phone] Ashlee Garcia MD [address] [place] [address], [address] [place] [address] documented as of this encounter Procedures Procedure Name Priority Date/Time Associated Diagnosis Comments CT OUTSIDE IMAGES ABDOMEN PELVIS Routine 03/01/2023 11:17 EDT documented in this encounter Results * CT OUTSIDE IMAGES ABDOMEN PELVIS (03/01/2023 11:17 EDT) Narrative 05/28/2023 11:17 EST This is a non-reportable exam. External Imaging IMG OTHER IMAGING OR DERABLES documented in this encounter Visit Diagnoses Not on filedocumented in this encounter Care Teams Communications Attendant Relationship Specialty Start Date End Date Melissa Khan MD [address] [place] [phone] PCP - General 08/04/15 documented as of this encounter
--- OUTSIDE RECORDS SUMMARY | 2023-12-07 00:48 | XMS_ITS | Encounter Summary ---
Author Organization [facility] Address [address] [place] [address] Care Team Providers Care Service Girl Name Role Phone Melissa Khan MD Primary Care Provider [phone] Reason for Visit * Reason [place] Date Comments Appointment Related 05/21/2023 Coordination Of Care 05/21/2023 Encounter Details Date Type Department Care Team (Late st Contact Info) Description 05/21/2023 Telephone [facility] Hematology & Oncology - [facility] [address] [place] [address] None, Provider Appointment Related; Coordination Of Care Social History Tobacco Use [...] encounter Miscellaneous Notes * Telephone Encounter - Qian Mitchell - 05/21/2023 1509 EST Patient would like to have biopsy orders submitted to: [facility] documented in this encounter Plan of Treatment Upcoming Encounters Date Type Department Care Team (Late st Contact Info) Description 12/10/2023 11:00 EDT Appointment [facility] Radiology CT Outpatient - [address] [id number] 12/11/2023 13:45 EDT Initial consult [facility] Gynecologic Oncology - [address] [address] Ashlee Garcia MD [address] [facility], [facility], [address] [place] [phone] documented as of this encounter Visit Diagnoses Not on filedocumented in this encounter Care Teams Service Girl Relationship Specialty Start Date End Date Melissa Khan MD [address] [place] [phone] PCP - General 08/04/15 documented as of this encounter
--- OUTSIDE RECORDS SUMMARY | 2023-12-07 00:48 | XMS_ITS | Encounter Summary ---
Author Organization [facility] Address [address] [place] [address] Care Team Providers Care Business Operations Director Name Role Phone Melissa Khan MD Primary Care Provider [phone] Reason for Visit * Reason On[place] Date Comments Coordination Of Care 05/30/2023 Encounter Details Date Type Department Care Team (Late st Contact Info) Description 05/30/2023 Telephone [facility] Hematology & Oncology - [facility] [address] [place] [address] Lilly Higuera, RN Coordination Of Care Social [...] Telephone Encounter - Lilly Higuera RN - 05/30/2023 1711 EST Spoke with Nichole and Lyle; 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 [facility], they will call to update re: any findings. Will likely require additional imaging, possible PET scan. Will triage with MD team and be back in touch with pt. Lilly Higuera RN GI Nurse Navigator Pager [phone] documented in this encounter Plan of Treatment Upcoming Encounters Date Type Department Care Team (Late st Contact Info) Description 12/10/2023 11:00 EDT Appointment [facility] Radiology CT Outpatient - [address] [address] 12/11/2023 13:45 EDT Initial consult [facility] Gynecologic Oncology - [address] [address] Ashlee Garcia MD [address] [place] [address], [address] [place] [phone] documented as of this encounter Visit Diagnoses Not on filedocumented in this encounter Care Teams Business Operations Director Relationship Specialty Start Date End Date Melissa Khan MD [address] [place] [phone] PCP - General 08/04/15 documented as of this encounter
--- OUTSIDE RECORDS SUMMARY | 2023-12-07 00:48 | XMS_ITS | Encounter Summary ---
Author Organization [facility] Address [address] [place] [address] Care Team Providers Care Urgent Care Name Role Phone Melissa Khan MD Primary Care Provider Reason for Referral * Consult (Routine/Next Available) - Denied Specialty Diagnoses / Procedures Referred By Huy salmon Referred To Contact Orthopedic Surgery Diagnoses Fracture of multiple pubic rami, right, closed, initial encounter ([facility]) [facility] Ed [address] [place] [address] [facility] Ortho Oncology [address] [place] [address] Referral ID Status Reason Start Date Expiration Date V isits Requested Visits Authorized [id number] Denied Specialty Services Required 05/18/2023 1 0 Question Answer Reason for Request: Pubic rami fracture Comments Fracture in the right inferior pubic ramus occurring in an area of permeated appearing bone. Concern is raised for the possibility of a pathologic fracture due to an underlying lesion of indeterminate histology; correlate accordingly. * Consult (Routine/Next Available) - Receiving Office to Obtain Authorization Specialty Diagnoses / Procedures Referred By Huy salmon Referred To Contact Gynecologic Oncology Diagnoses Pathological fracture, unspecified fracture site, unspecified pathological cause, initial encounter [facility] Ed [address] [place] [address] Ashlee Garcia MD [address] [facility] [address] [place] [address] Referral ID Status Reason Start Date Expiration Date Visits Requested Visits Authorized [id number] Receiving Office to Obtain Authorization Specialty Services Required 4 1 1 Question Answer Reason for Request: Referred to the emergency department for concern of pathologic fracture by PCP Reason for Visit * Reason Comments Abdominal Pain Patient arrives to [facility] on crutches for evaluation for abdominal pain. Patient referred by PCP. Pelvic mass noted on CT after patient was unable to walk due to pain starting 5 days ago. Patient reports 8/10 pain when ambulating. PMHx: Diverticulitis Encounter Details Date Type Department Care Team (Late st Contact Info) Description 05/18/2023 17:40 EST - 05/18/2023 20:19 EST Emergency [facility] [place] [address] Shea Mendes MD [address] [place] [phone] Pathological fracture, unspecified fracture site, unspecified pathological cause, initial encounter (Primary Dx); Fracture of multiple pubic rami, right, closed, initial encounter ([facility]) Discharge Disposition: Home or Self Care Social [...] Sign Reading Time Taken Comments Blood Pressure 161/81 05/18/20232007 EST Pulse 71 05/18/20232007 EST Temperature 36.7 ??C (98.1 ??F) 05/18/2023 1609 EST Respiratory Rate 16 05/18/20232007 EST Oxygen Saturation 99% 05/18/20232007 EST Inhaled Oxygen Concentration - - Weight 63.5 kg (140 lb) 05/18/2023 1609 EST Height 160 cm (5' 3) 05/18/2023 1609 EST Body Mass Index 24.8 05/18/2023 1609 EST documented in this encounter Functional Status [...] this encounter Discharge Instructions * Discharge Instructions* Ovi Yi - 05/18/2023 20:01 EST Thank you for coming to the ED at [facility] for your medical care. Whenever we see you in the emergency department we are getting a snapshot of your medical condition. Things can change and even small changes might alter how we care for you. If your symptoms change in a way that concerns you or makes you unsure, please return for re-evaluation. We are here 24 hours a day, every day of the year, so donot hesitate to return. You were referred to the emergency department by your PCP given concern for a pathologic fracture your hip. It does appear that you have a pelvic fracture (right pubic rami fracture). As we discussed, we have provided a referral to oncology, and recommend that you follow-up with your primary care physician in order to coordinate further outpatient workup. With regards to your hip, you may be weightbearing as tolerated, but should continue to use crutches if you find them helpful. We have also provided a referral to orthopedic surgery. They will contact you to make an appointment. Please call to set up an appointment with a primary care doctor to get re- evaluated and rechecked as soon as you are able. Please return to the emergency department if you have symptoms that worsen, or you have other concerns. documented in this encounter Medications at Time of Discharge Medication Sig Dispensed Refills Start Date End Date Cholecalciferol, Vitamin D3, (D3-2000) 50 mcg (2,000 unit) capsule Take by mouth. clobetasoL (TEMOVATE) 0.05 % external solutionIndications:Pso riatic arthritis ([facility]),Chronic bilateral low back pain, unspecified whether sciatica [...] omeprazole (PRILOSEC) 20 mg capsuleIndications:Psor iatic arthritis ([facility]),Generalized osteoarthrosis, involving multiple sites,Trochanteric bursitis of both [...] Discharge Disposition Disposition Code Departure Means Destination Comment s Home or Self Fpc documented in this encounter Progress Notes * Leobardo Uriostegui - 05/18/2023 9816 EST TCALL: FRANCIE JACOBS 58 REFERRED BY PCP, PAIN AND CANNOT AMBULATE, PATHOLOGIC FX IN PELVIS WITHBONE MASS, REQUESTING WORK UP, (ORP) documented in this encounter ED Notes * Ovi Yi - 05/18/2023 0076 EST Emergency Department Visit This documentation is recorded by Lilly Heard acting as Scribe under the direction and presence Shea Hardwick MD. Shea Mendes MD: I personally performed the services recorded by the scribe in my presence. I confirm the scribe's documentation has been reviewed by me to accurately and completely record my work, treatment, procedures, and medical decision making. Medical Decision Making In summary, patient is a 63-year-old female, referred into the ED with an abnormal CT bony pelvis revealing a right pubic rami fracture that is potentially pathologic in nature. She reports she has had several months of abdominal pain, however has had a CT abdomen pelvis, colonoscopy, and has seen a screen making supervisor. Review of 05/04/2023 [facility] gastroenterology note notable for: 63 year old female presents today to discuss issues of lower abdominal pain and bloating. Abdominal pain prompted an ED visit. CT imaging revealed esophageal mucosal thickening. She reports she has had progressive right hip pain since walking her second recent marathon. She denies any other symptoms today. Patient is able to ambulate with the assistance of crutches. She was instructed to remain weightbearing as tolerated and was provided a referral to orthopedic surgery. Patient referred to follow-up with oncology in the outpatient setting and instructed to call her PCP to arrange for close follow-up, which she intends to do. Prior to discharge, she was provided clear follow-up instructions and return precautions. Stable for discharge. Relevant Data as of 05/18/232006May 18, 20231943 IShea MD, performed a history and exam of this patient and discussed the case withthe resident. I have reviewed and edited this note, and the documentation is consistent with my findings, assessment and plan. I fully participated in the medical decision making. Patient presents for evaluation of possible pathologic fracture on pelvis CT. Patient had been in awalking marathon states that she fell while afterwards. States that the next morning she also felt well but then subsequently developed right anterior hip pain/groin pain. Patient had x-ray which wasconcerning and subsequently had CT. Patient was sent to the emergency department for further workup. Patient and spouse are very concerned about possible metastases. Patient states she has otherwise been feeling well. States she has had a recent chest x- ray that was normal and had CT scan several months ago for diverticulitis. Has also had a colonoscopy. Abdomen soft nontender nondistended. Patient does have pain with flexion of the right hip. No tenderness in the right lower extremity. Unfortunately patient is planning to return to [place] and does not have a primary care physician there for further evaluation. Discussed with patient and her spouse that workup for primary cancer would not be done from the emergency department. Did discuss referring patient to oncology here if they plan to be the area. Patient declined analgesia. [MF] Relevant Data User Index [MF] Shea Mendes MD Medical Decision Making Problems Addressed: Fracture of multiple pubic rami, right, closed, initial encounter ([facility]): acute illness or injury Pathological fracture, unspecified fracture site, unspecified pathological cause, initial encounter: acute illness or injury Final diagnoses: Pathological fracture, unspecified fracture site, unspecified pathological cause, initial encounter Fracture of multiple pubic rami, right, closed, initial encounter ([facility]) Disposition: Discharged Chief complaint: Abdominal pain. HPI Francie Jacobs is a 63 y.o. female with a history of hypertension, and rheumatoid arthritis, who ishere today after she was found to have pathologic fracture on pelvic CT. Patient was referred to the emergency department by primary care physician after she was found to have a right pubic rami fracture in the outpatient setting that was concerning to be potentially pathologic. The patient states that her PCP called her out of the blue today, and told her that she has metastatic cancer, and needs to be seen at our ED. She does not have a history of cancer. She explains she has had several months of abdominal pain for which she has had CT scans, colonoscopy, and been evaluated by gastroenterology. She reports she has otherwise been in her usual state of health and has walked 2 marathons recently. After walking the second marathon she developed right groin pain but initially thought it was a muscle strain. She was seen in PT, and received an x-ray which was abnormal leading to her CT today. She explains she has a remote history of tobacco use but quit many decades ago. She denies any recent unintended weight loss, and reports her appetite has been quite good. She denies any fevers, chills, or other pain. Denies any nausea or vomiting. History was provided by: Patient Records reviewed include: PCP Tcall note reviewed Patient's pertinent PMH, FH, SH were reviewed and edited as necessary. Nursing notes reviewed. A medical screening exam was performed. Physical Exam BP (!) 195/96 (BP Cuff Location: Left arm, BP Patient Position: Sitting) Pulse 88 Temp 36.7 ??C(98.1 ??F) (Oral) Resp 18 Ht 160 cm (63) Wt 63.5 kg (140 lb) SpO2 100% BMI 24.80 kg/m?? Physical Exam Anxious appearing but in no acute distress Speaking complete sentences not in any respiratory distress Abdomen soft, nontender, non-distended Patient has pain with flexion of right hip but has range of motion Skin is warm and dry, non-diaphoretic Procedures Procedures documented in this encounter Plan of Treatment Upcoming Encounters Date Type Department Care Team (Late st Contact Info) Description 12/10/2023 11:00 EDT Appointment [facility] Radiology CT Outpatient - [address] [address] 12/11/2023 13:45 EDT Initial consult [facility] Gynecologic Oncology - [address] [address] Ashlee Garcia MD [address] [facility], [facility], [address] [place] [address] Scheduled Referrals Name Type Priority Associated Diagnoses Order Schedule AMB CONS/FOLLOW UP ONCOLOGY Outpatient Referral Routine/Next Available Pathological fracture, unspecified fracture site, unspecified pathological cause, initial encounter Expected: 05/25/2023 (Approximate), Expires: 05/18/2024 AMB CONS/FOLLOW UP ORTHOPEDICS - [facility] Outpatient Referral Routine/Next Available Fracture of multiple pubic rami, right, closed, initial encounter ([facility]) Expected: 05/25/2023 (Approximate), Expires: 05/18/2024 documented as of this encounter Procedures Procedure Name Priority Date/Time Associated Diagnosis Comments HOLD GREEN TOP Routine 05/18/2023 16:28 EST HOLD BLUE TOP Routine 05/18/2023 16:28 EST COMPLETE BLOOD COUNT AND DIFFERENTIAL STAT 05/18/2023 16:28 EST COMPREHENSIVE METABOLIC PANEL (CMP) STAT 05/18/2023 16:28 EST documented in this encounter Results * HOLD GREEN TOP (05/18/2023 16:28 EST) Hold Hold 05/18/2023 17:31 EST [facility] Blood VENOUS BLOOD / Unknown Venipuncture / Unknown 05/18/2023 16:28 EST 05/18/2023 16:31 EST Erum Muhammad MD LAB INFO SERVICE AND SUPPORT & PHONE RESULT [facility] [address] [place] [id number] * HOLD BLUE TOP (05/18/2023 16:28 EST) Hold Hold 05/18/2023 18:15 EST [facility] Blood VENOUS BLOOD / Unknown Venipuncture / Unknown 05/18/2023 16:28 EST 05/18/2023 17:03 EST Erum Muhammad MD LAB INFO SERVICE AND SUPPORT & PHONE RESULT [facility] [address] [place] [address] * COMPLETE BLOOD COUNT AND DIFFERENTIAL (05/18/2023 16:28 EST) WBC 7.25 4.00 - 12.40 K/cmm 05/18/2023 16:46 [facility] RBC 4.19 3.86 - 5.04 M/cmm 05/18/2023 16:46 [facility] Hemoglobin 13.3 11.6 - 15.2 g/dL 05/18/2023 16:46 [facility] HCT 39.0 34.9 - 44.4 % 05/18/2023 16:46 [facility] MCV 93 81 - 98 fL 05/18/2023 16:46 [facility] MCH 31.7 26.7 - 33.3 pg 05/18/2023 16:46 [facility] MCHC 34.1 32.1 - 35.9 g/dL 05/18/2023 16:46 [facility] RDW-CV 12.9 <14.7 % 05/18/2023 16:46 [facility] RDW-SD 44.0 <50.4 fl 05/18/2023 16:46 [facility] PLT 258 141 - 377 K/cmm 05/18/2023 16:46 [facility] MPV 9.6 9.5 - 12.7 fL 05/18/2023 16:46 [facility] % Neutrophils 66.9 % 05/18/2023 16:46 [facility] % Lymphocytes 22.3 % 05/18/2023 16:46 [facility] % Monocytes 8.3 % 05/18/2023 16:46 [facility] % Eosinophils 1.7 % 05/18/2023 16:46 [facility] % Basophils 0.4 % 05/18/2023 16:46 [facility] % Immature Grans 0.4 % 05/18/19 16:46 [facility] Absolute Neutrophils 4.85 2.20 - 8.85 K/cmm 05/18/2023 16:46 [facility] Absolute Lymphocytes 1.62 1.09 - 3.30 K/cmm 05/18/2023 16:46 [facility] Absolute Monocytes 0.60 0.10 - 0.80 K/cmm 05/18/2023 16:46 [facility] Absolute Eosinophils 0.12 0.03 - 0.61 K/cmm 05/18/2023 16:46 [facility] ABS Basophils 0.03 0.01 - 0.11 K/cmm 05/18/2023 16:46 [facility] Absolute Immature Grans 0.03 0.00 - 0.06 K/cmm 05/18/2023 16:46 [facility] Type of Differential: Auto 05/18/2023 16:46 [facility] Blood VENOUS BLOOD / Unknown Venipuncture / Unknown 05/18/2023 16:28 EST 05/18/2023 16:31 EST Erum Muhammad MD PACKAGES & DNA PROBE ORDERABLES [facility] [address] [place] [address] * (ABNORMAL) COMPREHENSIVE METABOLIC PANEL (CMP) (05/18/2023 16:28 EST) Sodium 137 136 - 145 mmol/L 05/18/2023 16:52 [facility] Potassium 3.8 3.5 - 5.0 mmol/L 05/18/2023 16:52 [facility] Chloride 98 96 - 110 mmol/L 05/18/2023 16:52 [facility] CO2 Total 28 22 - 32 mmol/L 05/18/2023 16:52 [facility] Glucose 102(H) 70 - 99 mg/dl 05/18/2023 16:52 [facility] BUN 25 10 - 26 mg/dL 05/18/2023 16:52 [facility] Creatinine 0.83 0.52 - 1.04 mg/dL 05/18/2023 16:52 [facility] eGFR 79 >60 mL/min/1.7 3m2 05/18/2023 16:52 [facility] Total Protein 7.6 6.3 - 8.2 g/dL 05/18/2023 16:52 [facility] Albumin 4.7 3.4 - 4.9 g/dL 05/18/2023 16:52 [facility] Alkaline Phosphatase 62 38 - 126 U/L 05/18/2023 16:52 [facility] AST 34 15 - 46 U/L 05/18/2023 16:52 [facility] ALT 24 <35 U/L 05/18/2023 16:52 [facility] Bilirubin, Total <0.5 <1.4 mg/dL 05/18/19 24 16:52 [facility] Calcium 9.7 8.5 - 10.5 mg/dL 05/18/2023 16:52 [facility] Albumin/Globulin Ratio 1.6 1.0 - 2.5 05/18/2023 16:52 [facility] Anion Gap 11 5 - 14 mmol/L 05/18/2023 16:52 [facility] Blood VENOUS BLOOD / Unknown Venipuncture / Unknown 05/18/2023 16:28 EST 05/18/2023 16:31 EST Erum Muhammad MD CHEMISTRY & BLOOD GA S ORDERABLES [facility] [address] [place] [address] documented in this encounter Visit Diagnoses Diagnosis Pathological fracture, unspecified fracture site, unspecified pathological cause, initial encounter- Primary Fracture of multiple pubic rami, right, closed, initial encounter ([facility]) documented in this encounter Care Teams Urgent Care Relationship Specialty Start Date End Date Melissa Khan MD [address] [place] [phone] PCP - General 08/04/15 documented as of this encounter
--- OUTSIDE RECORDS SUMMARY | 2023-12-07 00:48 | XMS_ITS | Encounter Summary ---
Author Organization [facility] Address [address] [place] [address] Care Team Providers Care Sales Training Coordinator Name Role Phone Melissa Khan MD Primary Care Provider [phone] Reason for Referral * (Routine/Next Available) - Receiving Office to Obtain Authorization Specialty Diagnoses / Procedures Referred By Contac t Referred To Contact Procedures XR OUTSIDE IMAGES CHEST Imaging, External Referral ID Status Reason Start Date Expiration Date Visits Requested Visits Authorized [id number] Receiving Office to Obtain Authorization 11/22/2023 1 1 Reason for Visit * (Routine/Next Available) - Receiving Office to Obtain Authorization Specialty Diagnoses / Procedures Referred By Contac t Referred To Contact Procedures XR OUTSIDE IMAGES CHEST Imaging, External Referral ID Status Reason Start Date Expiration Date Visits Requested Visits Authorized [id number] Receiving Office to Obtain Authorization 11/22/2023 1 1 Encounter Details Date Type Department Care Team (Latest Contact Info) Description 08/12/2023 - 08/12/2023 23:59 EDT Hospital Encounter [facility] Secondary Reads [place] Discharge Disposition: [...] Description 12/10/2023 11:00 EDT Appointment [facility] Radiology CT Outpatient - [address] [address] 12/11/2023 13:45 EDT Initial consult [facility] Gynecologic Oncology - [address] [address] Ashlee Garcia MD [address] [place] [address], [address] [place] [phone] documented as of this encounter Procedures Procedure Name Priority Date/Time Associated Diagnosis Comments XR OUTSIDE IMAGES CHEST Routine 08/12/2023 13:25 EDT documented in this encounter Results * XR OUTSIDE IMAGES CHEST (08/12/2023 13:25 EDT) Narrative 11/22/2023 13:25 EDT This is a non-reportable exam. External Imaging IMG OTHER IMAGING OR DERABLES documented in this encounter Visit Diagnoses Not on filedocumented in this encounter Care Teams Sales Training Coordinator Relationship Specialty Start Date End Date Melissa Khan MD [address] [place] [phone] PCP - General 08/04/15 documented as of this encounter
--- OUTSIDE RECORDS SUMMARY | 2023-12-07 00:48 | XMS_ITS | Encounter Summary ---
Author Organization [facility] Address [address] [place] [address] Care Team Providers Care Technical Internship Name Role Phone Melissa Khan MD Primary Care Provider [phone] Reason for Visit * Reason Onset Date Comments Coordination Of Care 06/21/2023 Encounter Details Date Type Department Care Team (Late st Contact Info) Description 06/21/2023 Telephone [facility] Hematology & Oncology - [address] [address] Lilly Higuera, RN Coordination Of Care Social [...] Miscellaneous Notes * Telephone Encounter - Lilly Higuera, RN - 06/21/2023 8969 EST Spoke with Nichole and Lyle; likely dx of metastatic ovarian ca, additional testing/work up pending toconfirm. Tentative plan for 3 cycles of chemo f/b surgery. They anticipate returning to [place] after surgery and will call once they have a better sense of the time line so that we can schedule with oncology here. Lilly Higuera RN GI Nurse Navigator Pager [phone] documented in this encounter Plan of Treatment Upcoming Encounters Date Type Department Care Team (Late st Contact Info) Description 12/10/2023 11:00 EDT Appointment [facility] Radiology CT Outpatient - [address] [id number] 12/11/2023 13:45 EDT Initial consult [facility] Gynecologic Oncology - [address] [address] Ashlee Garcia MD [address] [place] [address], [address] [place] [phone] documented as of this encounter Visit Diagnoses Not on filedocumented in this encounter Care Teams Technical Internship Relationship Specialty Start Date End Date Melissa Khan MD [address] [place] [phone] PCP - General 08/04/15 documented as of this encounter
--- OUTSIDE RECORDS SUMMARY | 2023-12-07 00:48 | XMS_ITS | Encounter Summary ---
Author Organization [facility] Address [address] [place] [address] Care Team Providers Care Dialysis Patient Care Technician Name Role Phone Melissa Khan MD Primary Care Provider [phone] Reason for Referral * Radiology Services (STAT) - Authorization Not Required Specialty Diagnoses / Procedures Referred By Contac t Referred To Contact Diagnoses SOB (shortness of breath) Procedures XR CHEST 2 VIEWS Melisas Khan MD [address] [place] [phone] External Referral ID Status Reason Start Date Expiration Date Visits Requested Visits Authorized [id number] Authorization Not Required 05/10/2022 1 1 Reason for Visit * Radiology Services (STAT) - Authorization Not Required Specialty Diagnoses / Procedures Referred By Contac t Referred To Contact Diagnoses SOB (shortness of breath) Procedures XR CHEST 2 VIEWS Melissa Khan MD [address] [place] [phone] External Referral ID Status Reason Start Date Expiration Date Visits Requested Visits Authorized [id number] Authorization Not Required 05/10/2022 1 1 Encounter Details Date Type Department Care Team (Latest Contact Info) Description 05/10/2022 14:06 EST - 05/10/2022 23:59 EST Hospital Encounter [facility] Radiology - Main [place] [address], [place] [id number] SOB (shortness of breath) Discharge Disposition: Home or Self Care Social [...] Contact Info) Description 12/10/2023 11:00 EDT Appointment [facility] Radiology CT Outpatient - [address] [id number] 12/11/2023 13:45 EDT Initial consult [facility] Gynecologic Oncology - [address] [address] Ashlee Garcia MD [address] [place] [address], [address] [place] [phone] documented as of this encounter Procedures Procedure Name Priority Date/Time Associated Diagnosis Comments XR CHEST 2 VIEWS STAT 05/10/2022 14:0 7 EST SOB (shortness of breath) documented in this encounter Results * XR CHEST 2 VIEWS (05/10/2022 14:07 EST) Anatomical Region Laterality Modality Computed Radiogr aphy 05/10/2022 14:2 5 EST Impressions 05/10/2022 14:25 EST No acute radiographic abnormalities of the chest. I have personally reviewed the images and the above interpretation and agree with the findings. Narrative 05/10/2022 14:25 EST XR CHEST 2 VIEWS ??05/10/2022 2:10 PM CLINICAL HISTORY/COMMENTS: SOB COMPARISON: Thoracic spine radiographs 12/20/2017, chest radiographs most recent 08/05/2015. TECHNIQUE: Frontal and lateral views of the chest. FINDINGS: Soft tissues and extrathoracic findings: ??No abnormalities. Bones: Anterior cervical spinal fusion with slight backout of inferior most right screw stable from prior. Cardiac and mediastinal contours: Normal. Lungs: Clear lungs. Normal pulmonary vascular. ?? Pleura/diaphragms: Normal. Procedure Note Irving Rice MD - 05/10/2022 XR CHEST 2 VIEWS 05/10/2022 2:10 PM CLINICAL HISTORY/COMMENTS: SOB COMPARISON: Thoracic spine radiographs 12/20/2017, chest radiographs most recent08/05/2015. TECHNIQUE: Frontal and lateral views of the chest. FINDINGS: Soft tissues and extrathoracic findings: No abnormalities. Bones: Anterior cervical spinal fusion with slight backout of inferiormost right screw stable from prior. Cardiac and mediastinal contours: Normal. Lungs: Clear lungs. Normal pulmonary vascular. Pleura/diaphragms: Normal. IMPRESSION No acute radiographic abnormalities of the chest. I have personally reviewed the images and the above interpretation andagree with the findings. Melissa Khan MD IMG DIAGNOSTIC IMAGI NG ORDERABLES documented in this encounter Visit Diagnoses Diagnosis SOB (shortness of breath) Shortness of breath documented in this encounter Care Teams Dialysis Patient Care Technician Relationship Specialty Start Date End Date Melissa Khan MD [address] [place] [address] PCP - General 08/04/15 documented as of this encounter
--- OUTSIDE RECORDS SUMMARY | 2023-12-07 00:48 | XMS_ITS | Encounter Summary ---
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) Carcinoma of ovary, unspecified laterality (HCC-CMS) Procedures CT ABDOMEN PELVIS W CONTRAST Ashlee Garcia MD [address] [phone] [facility] Referral ID Status Reason Start Date Expiration Date V isits Requested Visits Authorized [id number] Authorized 12/03/2023 01/31/2024 1 1 * Radiology Services (3 - 10 Business Days) - Authorized Specialty Diagnoses / Procedures Referred By Huy salmon Referred To Contact Diagnoses 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) Carcinoma of ovary, unspecified laterality (HCC-CMS) Procedures CT CHEST W CONTRAST Ashlee Garcia MD [address] [phone] [facility] Referral ID Status Reason Start Date Expiration Date V isits Requested Visits Authorized [id number] Authorized 12/03/2023 01/31/2024 1 1 Reason for Visit * Reason Onset Date Comments Coordination Of Care 11/15/2023 Encounter Details Date Type Department Care Team (Late st Contact Info) Description 11/15/2023 Telephone [facility] Hematology & Oncology - [address] [address] Mariana Merrill, RN Coordination Of Care Social History Tobacco [...] as of this encounter Miscellaneous Notes * Addendum Note - Mariana Merrill RN - 11/29/2023 1520 EDTAddended by: MARIANA MERRILL on: 11/29/2023 15:20 Modules accepted: Orders * Telephone Encounter - Mariana Merrlil RN - 11/29/[address] cap, lab (cbcd,cmp,ca 125) orders placed. Ideally to be one prior to consult. * Telephone Encounter - Mariana Merrill RN - 11/15/2023 0962 EDT Date Referred: Original referral date to medical oncology of April 2022; Referral transferred to Gynecology Oncology 10/2023 upon return to [place] for summer Reason for Referral: mets ovarian cancer Requested Provider: Dr. Ashlee Garcia Biopsy: [id number] along with bx from [place] Imaging: numerous images-available in [facility], recent imaging requested Outside Notes: Care everywhere and scanned Agueda has been referred to be seen at gynecology oncology at [facility] for metastatic ovarian cancer. Patient is well informed about current diagnosis and asks appropriate questions. A discussion regarding supportive services has taken place. Primary Care Provider: Dr. Khan Patient expresses concern(s) regarding Agueda and her , Lyle are well informed and educated regarding treatment options and current treatment plan. Lyle expresses interest in anything that may improve her odds of survival including alternative therapies ie: metformin,vit D, melatonin Performance status is highly functional. Agueda states I feel great and denies any cancer related pain or discomfort. Overall perceived health is in align with diagnosis Plan: Agueda resides in [place] for the winter months and will be relocating back to [place] for part of the summer early November. Final cycle will be administered in [place] on 11/18 and they will take 10-14 days until they travel. Currently the maintenance plan is not known pending genetic testing that is pending (unknown who this was ordered with). Consult: Dr. Ashlee Garcia 12/11/23 at 8407. Potential barriers to care identified: Agueda is currently in [place] but does not anticipate any assistance needed upon return to [place]. Declines HH. In depth conversation regarding [place] integrative therapies in [place] and declined at this time. Referral placed for the following services: na Needed: 2023 imaging, recent treatment notes, flowsheets, etc from [facility]. 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) Carcinoma of ovary, unspecified laterality (HCC-CMS) Expected: 12/10/2023 (Approximate), Expires: 05/31/2025 CT ABDOMEN PELVIS W CONTRAST Imaging Routine 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) Carcinoma of ovary, unspecified laterality (HCC-CMS) Expected: 12/10/2023, Expires: 05/31/2025 COMPLETE BLOOD COUNT AND DIFFERENTIAL Lab STAT 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) Carcinoma of ovary, unspecified laterality (HCC-CMS) Expected: 12/10/2023, Expires: 11/28/2024 COMPREHENSIVE METABOLIC PANEL (CMP) Lab Routine 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) Carcinoma of ovary, unspecified laterality (HCC-CMS) Expected: 12/10/2023 (Approximate), Expires: 11/28/2024 [facility] 125 Lab Routine 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
--- OUTSIDE RECORDS SUMMARY | 2023-12-07 00:49 | XMS_ITS | Encounter Summary ---
Author Organization [facility] Address [address] [place] [address] Care Team Providers Care Public Relations Supervisor Name Role Phone Melissa Khan MD Primary Care Provider [phone] Reason for Referral * (Routine/Next Available) - Receiving Office to Obtain Authorization Specialty Diagnoses / Procedures Referred By Contac t Referred To Contact Procedures CT OUTSIDE IMAGES ABDOMEN PELVIS Imaging, External Referral ID Status Reason Start Date Expiration Date Visits Requested Visits Authorized [id number] Receiving Office to Obtain Authorization 05/28/2023 1 1 Reason for Visit * (Routine/Next Available) - Receiving Office to Obtain Authorization Specialty Diagnoses / Procedures Referred By Contac t Referred To Contact Procedures CT OUTSIDE IMAGES ABDOMEN PELVIS Imaging, External Referral ID Status Reason Start Date Expiration Date Visits Requested Visits Authorized [id number] Receiving Office to Obtain Authorization 05/28/2023 1 1 Encounter Details Date Type Department Care Team (Latest Contact Info) Description 07/23/2020 - 07/23/2020 23:59 EDT Hospital Encounter [facility] [place] Discharge Disposition: Home or Self Care Social History Tobacco Use Types Packs/Day Years Used Date Smoking Tobacco: Former Cigarettes 0.5 15 0 05/01/1998 - 05/01/2013 Smokeless Tobacco: Never Comments:quit when she was [...] 14:46 EDT Sexual Orientation Not on file COVID-19 Exposure Response Date Recorded In the last month, have you been in contact with someone who was confirmed or suspected to have Coronavirus / COVID-19? No / Unsure 07/02/2020 11:37 EST documented as of this encounter Functional Status Functional Status Response Date of Assess ment Because of a physical, menta l, or emotional condition, does this person have difficulty doing errands alone such as visiting a doctor's office or shopping? Yes 08/13/2017 Cognitive Status Response Date of Assessm ent Because of a physical, menta l, or emotional condition, does this person have serious difficulty concentrating, remembering, or making decisions? Yes 06/14/2020 documented as of this encounter Medications at Time of Discharge Medication Sig Dispensed Refills Start Date End Date Cholecalciferol, Vitamin D3, (D3-2000) 50 mcg (2,000 unit) capsule Take by mouth. clobetasoL (TEMOVATE) 0.05 % external solutionIndications:Ps oriatic arthritis ([facility]-CMS),Chronic bilateral low back pain, unspecified whether sciatica present Apply thin film to dry scalp once daily (maximum dose: 50 g/week or 50 mL/week); leave in place for 15 minutes, then add water, lather, and rinse thoroughly. 1 Bottle 3 03/23/2020 cyanocobalamin (VITAMIN B-12) 500 mcg tablet Take 500 mcg by mouth daily. diclofenac sodium 1 % gelIndications:Psoriat ic arthritis (HCC-CMS),Chronic bilateral low back pain, unspecified [...] 0.5 Tablets by mouth 3 times daily. losartan-hydrochloroth iazide (HYZAAR) 100-25 mg per tablet Take 1 Tablet by mouth daily. magnesium oxide (MAG-OX) 400 mg (241.3 mg magnesium) tablet Take 400 mg by mouth daily. mv,Ca,min-folic acid-vit K1 (ONE-A-DAY WOMEN'S 50 PLUS) 400-20 mcg tablet Take by mouth. womens one a day 50 plus omeprazole (PRILOSEC) 20 mg capsuleIndications:Pso riatic arthritis (HCC-CMS),Generalized osteoarthrosis, involving multiple sites,Trochanteric bursitis [...] OF 2 WEEKS. 80 g 1 06/28/2017 ciprofloxacin HCl (CIPRO) 500 mg tablet Take 500 mg by mouth. 07/23/2020 08/02/2020 lidocaine 5 % gel Apply 100 mg topically every 8 hours as needed for Pain. Maximum dose: 4.5 mg/kg, not to exceed 300 mg 1 Tube 5 09/08/2015 11/18/2020 methotrexate 2.5 mg tabletIndications:Psor iatic arthritis (HCC-CMS),Chronic bilateral low back pain, unspecified whether sciatica present Take 4 Tabs by mouth once a week. 48 Tab 1 06/14/2020 11/18/2020 metroNIDAZOLE (FLAGYL) 500 mg tablet Take 500 mg by mouth. 07/23/202008/02 documented as of this encounter Discharge Disposition Disposition Code Departure Means Destination Home or Self Care documented in this encounter Plan of Treatment Upcoming Encounters Date Type Department Care Team (Late st Contact Info) Description 12/10/2023 11:00 EDT Appointment [facility] Radiology CT Outpatient - [address] [phone] 12/11/2023 13:45 EDT Initial consult [facility] Gynecologic Oncology - [address] [address] Ashlee Garcia MD [address] [place] [address], [address] [place] [phone] documented as of this encounter Procedures Procedure Name Priority Date/Time Associated Diagnosis Comments CT OUTSIDE IMAGES ABDOMEN PELVIS Routine 07/23/2020 11:16 EDT documented in this encounter Results * CT OUTSIDE IMAGES ABDOMEN PELVIS (07/23/2020 11:16 EDT) Narrative 05/28/2023 11:16 EST This is a non-reportable exam. External Imaging IMG OTHER IMAGING OR DERABLES documented in this encounter Visit Diagnoses Not on filedocumented in this encounter Care Teams Public Relations Supervisor Relationship Specialty Start Date End Date Melissa Khan MD [address] [place] [phone] PCP - General 08/04/15 documented as of this encounter
--- OUTSIDE RECORDS SUMMARY | 2023-12-07 00:49 | XMS_ITS | Encounter Summary ---
Author Organization [facility] Address [address] [place] [address] Care Team Providers Care Insurance Rater Name Role Phone Melissa Khan MD Primary Care Provider [phone] Encounter Details Date Type Department Care Team (Latest Contact Info) Description 07/02/2020 11:45 EST Phlebotomy Only [facility] Laboratory Services - [facility] ([facility]) [address] [place] [address] Generalized osteoarthrosis, involving multiple sites; Psoriatic arthritis ([facility]); Chronic bilateral low back pain, unspecified whether sciatica present Social History Tobacco Use Types Packs/Day Years [...] Yes 08/13/2017 Cognitive Status Response Date of Assess ent Because of a physical, menta l, or emotional condition, does this person have serious difficulty concentrating, remembering, or making decisions? Yes 06/14/2020 documented as of this encounter Plan of Treatment Upcoming Encounters Date Type Department Care Team (Late st Contact Info) Description 12/10/2023 11:00 EDT Appointment [facility] Radiology CT Outpatient - [address] [id number] 12/11/2023 13:45 EDT Initial consult [facility] Gynecologic Oncology - [address] [id number] Ashlee Garcia MD [address] [place] [address], [address] [place] [id number] documented as of this encounter Procedures Procedure Name Priority Date/Time Associated Diagnosis Comments QUANTIFERON TB GOLD PLUS Routine 07/02/2020 11:55 EST Generalized osteoarthrosis, involving multiple sites Psoriatic arthritis (HCC-CMS) Chronic bilateral low back pain, unspecified whether sciatica present COMPLETE BLOOD COUNT AND DIFFERENTIAL Routine 07/02/2020 11:55 EST Psoriatic arthritis (HCC-CMS) Chronic bilateral low back pain, unspecified whether sciatica present THYROID CASCADE Routine 07/02/2020 11:54 EST Generalized osteoarthrosis, involving multiple sites Psoriatic arthritis (HCC-CMS) Chronic bilateral low back pain, unspecified whether sciatica present CK Routine 07/02/2020 11:54 EST Generalized osteoarthrosis, involving multiple sites Psoriatic arthritis (HCC-CMS) Chronic bilateral low back pain, unspecified whether sciatica present COMPREHENSIVE METABOLIC PANEL (CMP) Routine 07/02/2020 11:54 EST Psoriatic arthritis (HCC-CMS) Chronic bilateral low back pain, unspecified whether sciatica present documented in this encounter Results * (ABNORMAL) COMPLETE BLOOD COUNT AND DIFFERENTIAL (07/02/2020 11:55 [facility]) WBC 5.69 4.00 - 12.40 K/cmm 07/02/2020 13:35 [facility] RBC 3.64(L) 3.86 - 5.04 M/cmm 07/02/2020 13:35 [facility] Hemoglobin 11.5(L) 11.6 - 15.2 gm/dL 07/02/2020 13:35 [facility] HCT 34.4(L) 34.9 - 44.4 % 07/02/2020 13:35 [facility] MCV 95 81 - 98 fl 07/02/2020 13:35 [facility] MCH 31.6 26.7 - 33.3 pg 07/02/2020 13:35 [facility] MCHC 33.4 32.1 - 35.9 gm/dL 07/02/2020 13:35 [facility] RDW-CV 12.9 <14.7 % 07/02/2020 13:35 [facility] RDW-SD 44.4 <50.4 fl 07/02/2020 13:35 [facility] PLT 237 141 - 377 K/cmm 07/02/2020 13:35 [facility] MPV 10.1 9.5 - 12.7 fl 07/02/2020 13:35 [facility] % Neutrophils 64.4 % 07/02/2020 13:35 [facility] % Lymphocytes 24.3 % 07/02/2020 13:35 [facility] % Monocytes 9.0 % 07/02/2020 13:35 [facility] % Eosinophils 1.4 % 07/02/2020 13:35 [facility] % Basophils 0.5 % 07/02/2020 13:35 [facility] % Immature Grans 0.4 % 07/03/19 13:35 [facility] Absolute Neutrophils 3.67 2.20 - 8.85 K/cmm 07/02/2020 13:35 [facility] Absolute Lymphocytes 1.38 1.09 - 3.30 K/cmm 07/02/2020 13:35 [facility] Absolute Monocytes 0.51 0.10 - 0.80 K/cmm 07/02/2020 13:35 [facility] Absolute Eosinophils 0.08 0.03 - 0.61 K/cmm 07/02/2020 13:35 [facility] ABS Basophils 0.03 0.01 - 0.11 K/cmm 07/02/2020 13:35 [facility] Absolute Immature Grans 0.02 0.00 - 0.06 K/cmm 07/02/2020 13:35 [facility] Type of Differential: Auto 07/02/2020 13:35 [facility] Blood VENOUS BLOOD / Unknown Venipuncture / Unknown 07/02/2020 11:55 EST 07/02/2020 11:55 EST Mo Rodriguez NP PACKAGES & DNA PROB E ORDERABLES [facility] [address] [place] [address] * QUANTIFERON TB GOLD PLUS (07/02/2020 11:55 EST) [facility] Quantiferon Interpretation Negative Negative 07/05/2020 15:24 [facility] Comment: No interferon-gamma response to M. tuberculosis antigens was detected. ??Infection with M. tuberculosis is unlikely. A single negative result does not exclude infection with M. tuberculosis. ??In patients at high risk for M. tuberculosis infection, a second test should be considered in accordance with the 2017 ATS/IDSA/CDC Clinical Practice Guidelines for Diagnosis of Tuberculosis in Adults and Children. [Sarai HERMOSILLO et. al. Clin. Infect. Dis. 2017:64 (2) ??: 111-115]. Results were obtained with the [employer] QuantiFERON TB Gold Plus LIZANDRO. TB1 Ag minus Nil 0.00 IU/ml 07/06/19 15:24 [facility] TB2 Ag minus Nil 0.00 IU/mL 07/06/19 21 15:24 [facility] Blood VENOUS BLOOD / Unknown Venipuncture / Unknown 07/02/2020 11:55 EST 07/02/2020 11:55 EST Narrative [facility] - 07/05/2020 15:24 EST Results were obtained with the [employer] QuantiFERON-TB Gold Plus LIZANDRO. Moody Manning MD CHEMISTRY & BLOOD GA S ORDERABLES [facility] [address] [place] [address] * COMPREHENSIVE METABOLIC PANEL (CMP) (07/02/2020 11:54 EST) Sodium 141 136 - 145 mEq/L 07/02/2020 14:01 [facility] Potassium 3.5 3.5 - 5.0 mEq/L 07/02/2020 14:01 [facility] Chloride 98 96 - 110 mEq/L 07/02/2020 14:01 [facility] CO2 Total 32 22 - 32 mEq/L 07/02/2020 14:01 [facility] Glucose 87 70 - 100 mg/dL 07/02/2020 14:01 [facility] BUN 24 10 - 26 mg/dL 07/02/2020 14:01 [facility] Creatinine 0.90 0.52 - 1.04 mg/dL 07/02/2020 14:01 [facility] eGFR 69 >60 mL/min/1.7 3m2 07/02/2020 14:01 [facility] Comment:eGFR calculated uschrist g CKD-EPI equation for non- Americans. Multiply eGFR by 1.16 for patients. Total Protein 7.2 6.3 - 8.2 g/dL 07/02/2020 14:01 [facility] Albumin 4.4 3.4 - 4.9 g/dL 07/02/2020 14:01 [facility] Alkaline Phosphatase 43 38 - 126 U/L 07/02/2020 14:01 [facility] AST 26 15 - 46 U/L 07/02/2020 14:01 [facility] ALT 23 <35 U/L 07/02/2020 14:01 [facility] Bilirubin, Total <0.5 <1.4 mg/dL 07/03/19 14:01 [facility] Calcium 9.7 8.5 - 10.5 mg/dL 07/02/2020 14:01 [facility] Calculated Calcium 9.4 8.5 - 10.5 mg/dL 07/02/2020 14:01 [facility] Blood VENOUS BLOOD / Unknown Venipuncture / Unknown 07/02/2020 11:54 EST 07/02/2020 11:55 EST Mo Rodriguez NP CHEMISTRY & BLOOD G ORDERABLES Performing Organization Address [facility] Co de Phone Number [facility] [address] [place] [address] * THYROID CASCADE (07/02/2020 11:54 EST) TSH 0.52 0.47 - 4.68 uIU/mL 07/02/2020 14:37 EST [facility] Blood VENOUS BLOOD / Unknown Venipuncture / Unknown 07/02/2020 11:54 EST 07/02/2020 11:55 EST Narrative [facility] - 07/02/2020 14:37 EST NOTE: TSH Wolfe is not recommended for patients in which pituitary or hypothalamic disorders are suspected. The results of this assay can be falsely lowered due to the consumption of Biotin. Moody Manning MD CHEMISTRY & BLOOD GA S ORDERABLES Performing Organization Address City/[facility]/ZIP Co de Phone Number [facility] [address] [place] [address] * CK (07/02/2020 11:54 EST) CK 124 30 - 135 U/L 07/02/2020 14:01 [facility] Blood VENOUS BLOOD / Unknown Venipuncture / Unknown 07/02/2020 11:54 EST 07/02/2020 11:55 EST Moody Manning MD CHEMISTRY & BLOOD GA S ORDERABLES [facility] [address] [place] [address] documented in this encounter Visit Diagnoses Diagnosis Generalized osteoarthrosis, involving multiple sites Psoriatic arthritis ([facility]) Psoriatic arthropathy Chronic bilateral low back pain, unspecified whether sciatica present documented in this encounter Care Teams Insurance Rater Relationship Specialty Start Date End Date Melissa Khan MD [address] [place] [phone] PCP - General 08/04/15 documented as of this encounter
--- OUTSIDE RECORDS SUMMARY | 2023-12-07 00:49 | XMS_ITS | Encounter Summary ---
Author Organization [facility] Address [address] [place] [address] Care Team Providers Care Veneer Splicer Name Role Phone Melissa Khan MD Primary Care Provider [phone] Encounter Details Date Type Department Care Team (Late st Contact Info) Description 09/06/2017 13:12 EDT - 09/06/2017 23:59 EDT Hospital Encounter [facility] Endoscopy Outpatient [address] [place] [address] Carloz Larose MD 5 [facility] [address] [place] [phone] Discharge Disposition: Auto Discharge Social History Tobacco Use Types Packs/Day Years Used Date Smoking Tobacco: Former Cigarettes 0.5 15 0 05/01/1998 - 05/01/2013 Smokeless Tobacco: Never Comments:quit when she was [age], then smoked for one year Alcohol Use Standard Drinks/Week Comments No 0 (1 standard drink = 0.6 oz pur e alcohol) Sex and Gender Information Value Date Recorded Sex Assigned at Not on file Gender Identity Female 02/10/2020 14:46 EDT Sexual Orientation Not on file documented as of this encounter Last Filed Vital Signs Vital Sign Reading Time Taken Comments Blood Pressure 130/96 09/06/2017 1525 EDT Pulse - - Temperature 35.7 ??C (96.3 ??F) 09/06/2017 1500 EDT Respiratory Rate 15 09/06/2017 1525 EDT Oxygen Saturation 95% 09/06/2017 1525 EDT Inhaled Oxygen Concentration - - Weight 63.5 kg (140 lb) 09/06/2017 1405 EDT Height 160 cm (5' 3) 09/06/2017 1405 EDT Body Mass Index 24.8 09/06/2017 1405 EDT documented in this encounter Functional Status Functional [...] difficulty concentrating, remembering, or making decisions? No 08/13/2017 documented as of this encounter Discharge Diagnoses Diagnosis Z12.11 Encounter for screening for malignant neoplasm of colon-Z12.11[ICD-10-CM] Z86.010 Personal history of colonic polyps-Z86.010[ICD-10-CM] K57.30 Diverticulosis of large intestine without perforation or abscess without bleeding-K57.30[ICD-10-CM] I10 Essential (primary) hypertension-I10[ICD-10-CM] Z87.891 Personal history of nicotine dependence-Z87.891[ICD-10-CM] Z79.899 Other alf (current) drug therapy-Z79.899[ICD-10-CM] documented in this encounter Medications at Time of Discharge Medication Sig Dispensed Refills Start Date End Date ibuprofen (MOTRIN) 200 mg tablet Take 3 Tablets by mouth every 8 hours as needed for Pain. triamcinolone (KENALOG) 0.1 % ointment APPLY A THIN LAYER TOPICALLY TO AFFECTED AREA TWICE DAILY. MAX OF 50 G PER WEEK. MAX OF 2 WEEKS. 80 g 1 06/28/2017 BUPROPION HCL (WELLBUTRIN ORAL)Indications:Doesn' t recall dose Take by mouth daily. Indications: Doesn't recall dose 02/22/2010 03/23/2020 BUSPIRONE HCL (BUSPIRONE ORAL) Take by mouth. 0 clonazePAM (KLONOPIN) 0.5 mg tablet Take 0.5 mg by mouth 2 times daily. Reported on 03/16/2016 03/23/2020 lidocaine 5 % gel Apply 100 mg topically every 8 hours as needed for Pain. Maximum dose: 4.5 mg/kg, not to exceed 300 mg 1 Tube 5 09/08/2015 11/18/2020 losartan (COZAAR) 25 mg tablet Take 25 mg by mouth daily. 03/23/2020 naproxen (NAPROSYN) 500 mg tabletIndications:Psori atic arthritis (HCC-CMS),Generalized osteoarthrosis, involving multiple sites,Trochanteric bursitis of both hips Take 1 Tab by mouth 2 times daily. 60 Tab 2 08/13/2017 03/23/2020 omeprazole (PRILOSEC) 20 mg capsuleIndications:Psor iatic arthritis (HCC-CMS),Generalized osteoarthrosis, involving multiple sites,Trochanteric bursitis of both hips Take 1 Cap by mouth daily. 30 Cap 2 08/13/2017 02/11/2020 documented as of this encounter Discharge Disposition Disposition Code Departure Means Destination Auto Discharge Home documented in this encounter H&P Notes * Carloz Larose MD - 09/06/2017 1430 EDT Endoscopy Sedation for Procedure History & Physical Date: 09/06/2017 Time: 14:30 Location: [address] Planned Procedure: Colonoscopy Chief Complaint/Indications for Procedure: screen for polyps History Previous Complication with Sedation and/or Anesthesia? No Allergies: Allergies Allergen Reactions ??? Erythromycin Nausea Only ??? Other - See Comments Dust mites....congestion Current Medications: Current Outpatient Prescriptions: BUPROPION HCL (WELLBUTRIN ORAL) BUSPIRONE HCL (BUSPIRONE ORAL) clonazePAM (KLONOPIN) 0.5 mg tablet ibuprofen (MOTRIN) 200 mg tablet lidocaine 5 % gel losartan (COZAAR) 25 mg tablet naproxen (NAPROSYN) 500 mg tablet omeprazole (PRILOSEC) 20 mg capsule triamcinolone (KENALOG) 0.1 % ointment Current Facility-Administered Medications: fentaNYL citrate (PF) 50 mcg/mL injection 25-250 mcg intravenous Once PRN lactated ringers (LR) infusion intravenous CONTINUOUS midazolam (MDV) (VERSED) injection 1-10 mg intravenous Once PRN ondansetron (PF) (ZOFRAN) injection 2-4 mg intravenous PRN promethazine (PHENERGAN) injection 12.5-25 mg intravenous PRN sodium chloride 0.9 % flush 3 mL intravenous PRN Past Medical History: Past Medical History: Diagnosis Date ??? Hypertension ??? Osteoarthritis ??? Psoriatic arthritis (HCC-CMS) ??? Psychiatric problem depression/traumatic stress Social History: Past Surgical History: Procedure Laterality Date ??? ABDOMINOPLASTY ??? CERVICAL DISC SURGERY ??? ECTOPIC SURGERY ??? ELBOW SURGERY left ??? INGUINAL HERNIA REPAIR Social History Substance Use Topics ??? Smoking status: Former Smoker Packs/day: 0.50 Years: 15.00 Quit date: 05/01/2013 ??? Smokeless tobacco: Never Used Comment: quit when she was 26, then smoked for one year ??? Alcohol use No Family History: Family History Problem Relation Age of Onset ??? Heart Disease Father ??? Cancer Son 8 rhabdomyosarcoma ??? *Other(comment) Neg Hx ??? AAA Neg Hx ??? ADD Neg Hx ??? ADHD Neg Hx ??? Adrenal Disorder Neg Hx ??? Alcohol Abuse Neg Hx ??? Allergic Rhinitis Neg Hx ??? Allergies Neg Hx ??? Allergy-Severe Neg Hx ??? Alport Syndrome Neg Hx ??? Amblyopia Neg Hx ??? Anemia Neg Hx ??? Anesthesia Problem Neg Hx ??? Anesthesia Problems Neg Hx ??? Angioedema Neg Hx ??? Ankylosing spondylitis Neg Hx ??? Anxiety Disorder Neg Hx ??? Arrhythmia Neg Hx ??? Arthritis Neg Hx ??? Arthritis-Osteo Neg Hx ??? Arthritis-Rheumatoid Neg Hx ??? Asthma Neg Hx ??? Ataxia Neg Hx ??? Atopy Neg Hx ??? Autism Neg Hx ??? Autoimmune Disease Neg Hx ??? Bipolar Disorder Neg Hx ??? Defects Neg Hx ??? Bladder Cancer Neg Hx ??? Bleeding Problem Neg Hx ??? Blindness Neg Hx ??? Brain Cancer Neg Hx ??? BRCA 1/2 Neg Hx ??? Breast Cancer Neg Hx ??? Broken Bones Neg Hx ??? Peggy Disease Neg Hx ??? Cardiac Disease Neg Hx ??? Cataract Neg Hx ??? Celiac Disease Neg Hx ??? Cerebral Palsy Neg Hx ??? Cervical Cancer Neg Hx ??? Childhood Heart Surgery Neg Hx ??? Childhood Resp Disease Neg Hx ??? Chorea Neg Hx ??? Cirrhosis Neg Hx ??? Clotting Disorder Neg Hx ??? Collagen Disease Neg Hx ??? Colon Cancer Neg Hx ??? Colon Polyps Neg Hx ??? Congenital heart defects Neg Hx ??? Constipation Neg Hx ??? Coronary Artery Disease Neg Hx ??? Dalhart Syndrome Neg Hx ??? Crohn's Disease Neg Hx ??? Current Acute Minor Illness Neg Hx ??? Cystic Fibrosis Neg Hx ??? in Infancy Neg Hx ??? Dementia Neg Hx ??? Depression Neg Hx ??? Dermatomyositis Neg Hx ??? BALWINDER Usage Neg Hx ??? Developmental Disorder Neg Hx ??? Diabetes Neg Hx ??? Diarrhea Neg Hx ??? Dislocations Neg Hx ??? Down's Syndrome Neg Hx ??? Drug Abuse Neg Hx ??? Early Neg Hx ??? Eclampsia Neg Hx ??? Eczema Neg Hx ??? Ehler Danlos Syndrome Neg Hx ??? Elevated Lipids Neg Hx ??? Emphysema Neg Hx ??? Endocrine Cancer Neg Hx ??? Endometrial Cancer Neg Hx ??? Esophageal Cancer Neg Hx ??? Fainting Neg Hx ??? Familial Dysautonomia Neg Hx ??? Fibromyalgia Neg Hx ??? Food Intolerance Neg Hx ??? Genital Ambiguity Neg Hx ??? Genitourinary (Gu) Neg Hx ??? Gestational Diabetes Neg Hx ??? GI Cancer Neg Hx ??? Glaucoma Neg Hx ??? Gout Neg Hx ??? Hearing Loss Neg Hx ??? Heart Attack Neg Hx ??? Heart Attack Under 50 Neg Hx ??? Heart Defect Neg Hx ??? Heart Failure Neg Hx ??? Heart Surgery Neg Hx ??? Heartburn/Reflux Neg Hx ??? Hemochromatosis Neg Hx ??? Hepatitis Neg Hx ??? Hepatitis B Neg Hx ??? Hepatitis C Neg Hx ??? High Blood Pressure Neg Hx ??? High Cholesterol Neg Hx ??? Crook's Chorea Neg Hx ??? Hypercalcemia Neg Hx ??? Hypermobility Neg Hx ??? Hypertension Neg Hx ??? Hypocalcemia Neg Hx ??? Hypoglycemia Neg Hx ??? Hypotension Neg Hx ??? Immunodeficiency Neg Hx ??? Infertility Neg Hx ??? Inflammatory Bowel Disease Neg Hx ??? Intellectual Disability Neg Hx ??? Intestinal Cancer Neg Hx ??? Irritable Bowel Syndrome Neg Hx ??? Joint Problems Neg Hx ??? Keratoconus Neg Hx ??? Kidney Cancer Neg Hx ??? Kidney Disease Neg Hx ??? Kidney Failure Neg Hx ??? Language Disorder Neg Hx ??? Learning Disabilities Neg Hx ??? Leukemia Neg Hx ??? Li-Fraumeni Syndrome Neg Hx ??? Liver Cancer Neg Hx ??? Liver Disease Neg Hx ??? LTBI Neg Hx ??? Lung Cancer Neg Hx ??? Lung Disease Neg Hx ??? Lyme Disease Neg Hx ??? Lymphoma Neg Hx ??? Macular Degeneration Neg Hx ??? Malig. HTN Neg Hx ??? Malig. Hyperthermia Neg Hx ??? Marfan Syndrome Neg Hx ??? Maternal Metabolic Disorder Neg Hx ??? Melanoma Neg Hx ??? Menstrual Irregularity Neg Hx ??? Mental Illness Neg Hx ??? Migraines Neg Hx ??? Miscarriages / Stillbirths Neg Hx ??? Motor Disability Neg Hx ??? MS Neg Hx ??? Murmurs Neg Hx ??? Muscle Diseases Neg Hx ??? Muscular Dystrophy Neg Hx ??? Neural Tube Defect Neg Hx ??? Neuropathy Neg Hx ??? NF Neg Hx ??? Obesity Neg Hx ??? OCD Neg Hx ??? Osteoporosis Neg Hx ??? Other Inherited Genetic or Chromosomal Disorder Neg Hx ??? Ovarian Cancer Neg Hx ??? Pacemaker Neg Hx ??? Pancreatic Cancer Neg Hx ??? Paranoid Behavior Neg Hx ??? Parathyroid Disorder Neg Hx ??? Parkinsonism Neg Hx ??? Physical Abuse Neg Hx ??? Pituitary Adenoma Neg Hx ??? Polycycstic Kidney Disease Neg Hx ??? Preeclampsia Neg Hx ??? Prematurity Neg Hx ??? Labor Neg Hx ??? Prolactinoma Neg Hx ??? Prostate Cancer Neg Hx ??? Pseudochol. Deficiency Neg Hx ??? Psoriasis Neg Hx ??? Psoriatic arthritis Neg Hx ??? Psychosis Neg Hx ??? Rashes/Skin Problems Neg Hx ??? Rectal Cancer Neg Hx ??? Recurrent Fractures Neg Hx ??? Recurrent Loss or Still Neg Hx ??? Recurrent Respiratory Infection Neg Hx ??? Recurrent Skin Infection Neg Hx ??? Retinal Detachment Neg Hx ??? Retinitis Pigmentosa Neg Hx ??? Rheumatic fever Neg Hx ??? Rheumatologic Disease Neg Hx ??? Sarcoma Neg Hx ??? Schizophrenia Neg Hx ??? Scleroderma Neg Hx ??? Scoliosis Neg Hx ??? Seizures Neg Hx ??? Severe Sprains Neg Hx ??? Sexual Abuse Neg Hx ??? Sexual Development Disorder Neg Hx ??? Short Stature Neg Hx ??? Sickle Cell Anemia Neg Hx ??? Sickle Cell Trait Neg Hx ??? SIDS Neg Hx ??? SLE Neg Hx ??? Spont. Neg Hx ??? Stomach Cancer Neg Hx ??? Strabismus Neg Hx ??? Stroke Neg Hx ??? Substance Abuse Neg Hx ??? Sudden Neg Hx ??? Suicide Neg Hx ??? Suicide Attempt Neg Hx ??? Garry-Sachs Neg Hx ??? Thalassemia Neg Hx ??? Thyroid Cancer/Nodule Neg Hx ??? Thyroid Disease Neg Hx ??? Tuberculosis Neg Hx ??? Ulcerative Colitis Neg Hx ??? Ulcers Neg Hx ??? Urinary Obstructions Neg Hx ??? Urolithiasis Neg Hx ??? Urticaria Neg Hx ??? Uveitis Neg Hx ??? Vaginal Cancer Neg Hx ??? Varicose Veins Neg Hx ??? Vasculitis Neg Hx ??? Vesico Ureteral Reflux Neg Hx ??? Vision Loss Neg Hx ??? Carlos's Disease Neg Hx Review of Systems as pertinent: Physical Exam Vital Signs: BP 137/89 Temp 36 ??C (96.8 ??F) (Tympanic) Resp 17 Ht 160 cm (63) Wt 63.5 kg(140 lb) SpO2 98% BMI 24.8 kg/m2 Heart Examination: Cardiac Regularity: Regular Respiratory Examination: Respiratory Pattern: Regular Breath Sounds Right: Clear Breath Sounds Left: Clear Abdominal Examination: Soft, non-tender, bowel sounds normal, no masses, no organomegaly Additional physical exam related to the proposed procedure, patient activity, disease state and treatment as pertinent: Assessment Previous complications with sedation or anesthesia?: No Airway Concerns: None Anesthesia Classification: ASA 2 Plan: Proceed with sedation for procedure Fasting Time: Time of last liquid intake: 1100 Date of Last Liquid Intake: 09/06/17 Time of last solid intake: 0900 Date of last solid intake: 09/05/17 Patient Appropriate Candidate for Planned Sedation?: Yes Carloz Larose MD 09/06/2017 14:30 documented in this encounter Plan of Treatment Upcoming Encounters Date Type Department Care Team (Late st Contact Info) Description 12/10/2023 11:00 EDT Appointment [facility] Radiology CT Outpatient - [address] [address] 12/11/2023 13:45 EDT Initial consult [facility] Gynecologic Oncology - [address] [phone] Ashlee Garcia MD 111 [facility], [facility], [address] [place] [address] documented as of this encounter Procedures Procedure Name Priority Date/Time Associated Diagnosis Comments COLONOSCOPY PROCEDURE Routine 09/06/2017 14:57 EDT documented in this encounter Results * COLONOSCOPY PROCEDURE (09/06/2017 14:57 EDT) Anatomical [...] 18 ?? minutes. Estimated ??Blood Loss: None [place] Bowel Prep Right Colon: 3 ? Transverse [...] Carloz Larose MD GI PROCEDURE ORDERAB LES documented in this encounter Visit Diagnoses Not on filedocumented in this encounter Administered Medications Inactive Administered Medications - up to 3 most recent administrations Medication Order MAR Action Action Date Dose Rate Site fentaNYL citrate (PF) 50 mcg/mL injection 25-250 mcg 25-250 mcg, intravenous, ONCE PRN, 1 dose, Starting on Barbra 09/06/17 at 1350, Until Barbra 09/06/17 at 1450, Other, sedation, Routine, Intraprocedure Given 09/06/2017 14:50 EDT 150 mcg lactated ringers (LR) infusion 30 mL/hr, intravenous, CONTINUOUS, Starting on Barbra 09/06/17 at 1415, Until 09/08/17 at 0539, Routine, Preprocedure New Bag 09/06/2017 14:24 EDT 30 mL/hr 30 mL/hr midazolam (MDV) (VERSED) injection 1-10 mg 1-10 mg, intravenous, ONCE PRN, 1 dose, Starting on Barbra 09/06/17 at 1350, Until Barbra 09/06/17 at 1450, Sedation, Routine, Intraprocedure Given 09/06/2017 14:50 EDT 3 mg ondansetron (PF) (ZOFRAN) injection 2-4 mg 2-4 mg, intravenous, PRN, Starting on Barbra 09/06/17 at 1350, Until 09/08/17 at 0539, Nausea, Vomiting, Routine, Intraprocedure Given 09/06/2017 14:51 EDT 4 mg documented in this encounter Orders Medications Ordered That Sergio ht Not Have Been Administered Count Last Ordered Date First Ordered Date promethazine (PHENERGAN) inj ection 12.5-25 mg 1 09/06/2017 sodium chloride 0.9 % flush 3 mL 1 09/07/19 18 Discharge Count Last Ordered Date First Orde red Date DISCHARGE PATIENT 1 09/06/2017 documented in this encounter Care Teams Veneer Splicer Relationship Specialty Start Date End Date Melissa Khan MD [address] [place] [phone] PCP - General 08/04/15 documented as of this encounter
--- OUTSIDE RECORDS SUMMARY | 2023-12-07 00:49 | XMS_ITS | Encounter Summary ---
Author Organization [facility] Address [address] [place] [address] Care Team Providers Care Fur Drummer Name Role Phone Melissa Khan MD Primary Care Provider [phone] Encounter Details Date Type Department Care Team (Late st Contact Info) Description 08/25/2019 Lab Requisition [facility] Pathology & Laboratory Medicine - [facility] [address] [place] [address] Reba Ruth MD [address] [place] [address] [address] [place] [address] Postmenopausal bleeding Social History Tobacco Use Types Packs/Day Years Used Date Smoking Tobacco: Former Cigarettes 0.5 15 0 05/01/1998 - 05/01/2013 Smokeless Tobacco: Never Comments:quit when she was [age], then smoked for one year Alcohol Use Standard Drinks/Week Comments Yes 0 (1 standard drink = 0.6 oz pur e alcohol) Heavy use. 2-4 a night Sex and Gender Information Value Date Recorded [...] No 08/13/2017 documented as of this encounter Plan of Treatment Upcoming Encounters Date Type Department Care Team (Late st Contact Info) Description 12/10/2023 11:00 EDT Appointment [facility] Radiology CT Outpatient - [address] [address] 12/11/2023 13:45 EDT Initial consult [facility] Gynecologic Oncology - [address] [phone] Ashlee Garcia MD [address] [place] [address], [address] [place] [phone] documented as of this encounter Procedures Procedure Name Priority Date/Time Associated Diagnosis Comments SURGICAL PATHOLOGY Today 08/25/2019 10 :13 EDT Postmenopausal bleeding [ICD-10-CM] documented in this encounter Results * SURGICAL PATHOLOGY (08/25/2019 10:13 EDT) Final Diagnosis A. ENDOMETRIUM, BIOPSY: - Scant strips of inactive endometrium. - Scant benign endocervical and squamous mucosa. 08/27/2019 8:48 T [facility] at 0848 Attestation By the signature below, the attending physician certifies that they have 1) personally conducted a gross and/or microscopic examination of the described specimen(s), and/or personally interpreted the results of laboratory testing of the described specimen(s), and 2) personally rendered or confirmed the above diagnosis. 08/27/2019 8:48 T [facility] at 0848 Clinical History Clinical diagnosis code: N95.0 08/27/2019 8:48 [facility] Gross Description A. Received in formalin labelled with proper patient identification (initials R, E) and not otherwise specified is an aggregate of red-brown tissue with admixed mucus, 0.7 x 0.5 x 0.2 cm. Entirely submitted in A1. Keena Hauser 08/26/2019 9:04 08/27/2019 8:48 EDT [facility] Scanned Images 08/27/2019 8:48 EDT [facility] Tissue ENTIRE ENDOMETRIUM / Unknown 08/25/2019 10:13 EDT 08/26/2019 8:52 EDT Reba Ruth MD PATHOLOGY ORDERABLES [facility] [address] [place] [address] documented in this encounter Visit Diagnoses Diagnosis Postmenopausal bleeding documented in this encounter Care Teams Fur Drummer Relationship Specialty Start Date End Date Melissa Khan MD [address] [place] [phone] PCP - General 08/04/15 documented as of this encounter
--- OUTSIDE RECORDS SUMMARY | 2023-12-07 00:49 | XMS_ITS | Encounter Summary ---
Author Organization [facility] Address [address] [place] [address] Care Team Providers Care Doctor Assistant Name Role Phone Melissa Khan MD Primary Care Provider Encounter Details Date Type Department Care Team (Late st Contact Info) Description 06/10/2019 Lab Requisition [facility] Pathology & Laboratory Medicine - [facility] [address] [place] [address] Melissa Khan MD [address] [place] [phone] Encounter for screening for other viral diseases Social History Tobacco Use Types Packs/Day Years [...] Contact Info) Description 12/10/2023 11:00 EDT Appointment [facility] Radiology CT Outpatient - [address] [address] 12/11/2023 13:45 EDT Initial consult [facility] Gynecologic Oncology - [address] [phone] Ashlee Garcia MD 111 [facility], [address] [place] [phone] documented as of this encounter Procedures Procedure Name Priority Date/Time Associated Diagnosis Comments HEPATITIS C AB W REFLEX TO HCV RNA BY PCR Routine 06/10/2019 10:09 EST Encounter for screening for other viral diseases documented in this encounter Results * HEPATITIS C AB W REFLEX TO HCV RNA BY PCR (06/10/2019 10:09 EST) Hep C Antibody Negative Negative 06/11/2019 11:40 EST [facility] Blood VENOUS BLOOD / Unknown 06/10/2019 10:09 EST 06/10/2019 15:18 EST Melissa Khan MD CHEMISTRY & BLOOD GA S ORDERABLES [facility] [address] [place] [address] documented in this encounter Visit Diagnoses Diagnosis Encounter for screening for other viral diseases documented in this encounter Care Teams Doctor Assistant Relationship Specialty Start Date End Date Melissa Khan MD [address] [place] [phone] PCP - General 08/04/15 documented as of this encounter
--- OUTSIDE RECORDS SUMMARY | 2023-12-07 00:49 | XMS_ITS | Encounter Summary ---
Author Organization [facility] Address [address] [place] [address] Care Team Providers Care Road Cutter Name Role Phone Melissa Khan MD Primary Care Provider [phone] Reason for Visit * Reason Onset Date Comments Other 07/01/2020 Encounter Details Date Type Department Care Team (Late st Contact Info) Description 07/01/2020 Telephone [facility] Rheumatology & Immunology - [facility] [address] [place], [place] [phone] Mo Rodriguez NP 111 [facility], [address] [place] [address] Other Social History Tobacco Use Types Packs/Day Years [...] have Coronavirus / COVID-19? No / Unsure 06/03/2020 10:58 EST documented as of this encounter Functional [...] Yes 06/14/2020 documented as of this encounter Miscellaneous Notes * Telephone Encounter - Charu Raphael RN - 07/02/2020 0931 EST This is all set. * Telephone Encounter - Mikayla Guidry - 07/01/2020 1601 EST Caller wants to know if the provider wants the labs that were requested in January from Dr. Manning to be collected as well, or just the standing orders. Please call to confirm. documented in this encounter Plan of Treatment Upcoming Encounters Date Type Department Care Team (Late st Contact Info) Description 12/10/2023 11:00 EDT Appointment [facility] Radiology CT Outpatient - [address] [phone] 12/11/2023 13:45 EDT Initial consult [facility] Gynecologic Oncology - [address] [phone] Ashlee Garcia MD [address] [place] [address], [address] [place] [phone] documented as of this encounter Visit Diagnoses Not on filedocumented in this encounter Care Teams Road Cutter Relationship Specialty Start Date End Date Melissa Khan MD [address] [place] [phone] PCP - General 08/04/15 documented as of this encounter
--- OUTSIDE RECORDS SUMMARY | 2023-12-07 00:49 | XMS_ITS | Encounter Summary ---
Author Organization [facility] Address [address] [place] [address] Care Team Providers Care Juvenile Court Liaison Name Role Phone Melissa Khan MD Primary Care Provider [phone] Reason for Visit * Reason Onset Date Comments New/Evolving Symptoms 05/28/2020 Encounter Details Date Type Department Care Team (Late st Contact Info) Description 05/28/2020 Telephone [facility] Rheumatology & Immunology - [facility] [address], [place] [id number] Moody Manning MD [address] [phone] New/Evolving Symptoms Social History Tobacco Use Types Packs/Day Years [...] No 08/13/2017 documented as of this encounter Miscellaneous Notes * Telephone Encounter - Stephanie Davison MA - 05/31/2020 1502 EST Faxed orders to [facility]. Notified pt of this * Telephone Encounter - Rianna Avalos RN - 05/31/2020 1115 EST Spoke with pt. She is reporting that her symptoms are not improved with MTX. She had MRI of her back and wants to know if there is anything she should to help with back pain. Discussed with pt use ofdiclofenac gel and physical therapy. She is interested in PT (this can be sent to [id number] in [place]). * Telephone Encounter - Mike Lopez - 05/28/2020 1408 EST Reason for Call: New/Evolving Symptoms Summary/Symptoms: Patient is reporting that being on Methotrexate since late Mar is not working with no improvement. Please call back to discuss Mike Lopez 05/28/2020 14:08 documented in this encounter Plan of Treatment Upcoming Encounters Date Type Department Care Team (Late st Contact Info) Description 12/10/2023 11:00 EDT Appointment [facility] Radiology CT Outpatient - [address] [id number] 12/11/2023 13:45 EDT Initial consult [facility] Gynecologic Oncology - [address] [id number] Ashlee Garcia MD [address] [facility], [address] [place] [phone] documented as of this encounter Visit Diagnoses Diagnosis Chronic bilateral low back pain, unspecified whether sciatica present- Primary Psoriatic arthropathy ([facility] Psoriatic arthropathy Encounter for long-term (current) use of medications Encounter for long-term (current) use of other medications documented in this encounter Care Teams Juvenile Court Liaison Relationship Specialty Start Date End Date Melissa Khan MD [address] [place] [phone] PCP - General 08/04/15 documented as of this encounter
--- OUTSIDE RECORDS SUMMARY | 2023-12-07 00:49 | XMS_ITS | Encounter Summary ---
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 Name Role Phone Melissa Khan MD Primary Care Provider [phone] Reason for Referral * PT/OT/ST (Routine) - Closed Specialty Diagnoses / Procedures Referred By Huy salmon Referred To Contact Rehab Therapies Diagnoses Psoriatic arthritis ([facility]) Generalized osteoarthrosis, involving multiple sites Trochanteric bursitis of both hips Moody Manning MD [address] [place] [address] [facility] [address] [place] [id number] Referral ID Status Reason Start Date Expiration Date V isits Requested Visits Authorized [id number] Closed Specialty Services Required 08/13/2017 1 1 Question Answer Reason for Request: Low back, buttock and lateral hip pain. Tender greater trochanters and IT band Reason for Visit * Reason Comments Arthritis buttock and leg pain for about 4 months now Encounter Details Date Type Department Care Team (Latest Contact Info) Description 08/13/2017 11:00 EDT Office Visit [facility] Rheumatology & Immunology - [facility] [address], [place] [id number] Moody Manning MD [address] [place] [address] Psoriatic arthritis ([facility]) (Primary Dx); Generalized osteoarthrosis, involving multiple sites; Trochanteric bursitis of both hips Social History Tobacco Use Types Packs/Day Years Used Date Smoking Tobacco: Former Cigarettes 0.5 15 0 05/01/1998 - 05/01/2013 Smokeless Tobacco: Never Alcohol Use Standard Drinks/Week Comments Yes 21 (1 standard drink = 0.6 oz pure alcohol) bottle of wine or 6 pack beer a day Sex and Gender Information Value Date Recorded Sex Assigned at Not on file Gender Identity Female 02/10/2020 14:46 EDT Sexual Orientation Not on file documented as of this encounter Last Filed Vital Signs Vital Sign Reading Time Taken Comments Blood Pressure 187/94 08/13/2017 1057 EDT Pulse 77 08/13/2017 1057 EDT Temperature - - Respiratory Rate - - Oxygen Saturation - - Inhaled Oxygen Concentration - - Weight 66.7 kg (147 lb) 08/13/2017 1057 EDT Height 160 cm (5' 3) 08/13/2017 1057 EDT Body Mass Index 26.04 08/13/2017 1057 EDT documented in this encounter Functional Status [...] No 08/13/2017 documented as of this encounter Patient Instructions * Patient Instructions* Moody Manning MD - 08/13/2017 11:40 EDT Images from the original note were not included. 1. Symptoms appear consistent with trochanteric bursitis (hip bursitis) with possible IT band syndrome 2. Schedule physical therapy for this 3. Discontinue ibuprofen 4. Start naproxen 500 mg orally every 12 hours with food 5. For stomach protection, start prilosec 20 mg orally daily 6. May try topical aspercreme with lidocaine 4% (cream or patch)/salonpas lidocaine 4% patch or capzasin cream or icy/hot or biofreeze up to 4x/day to affected muscles and joints. 7. If the naproxen does not help with pain control, contact the office and we can try topical diclofenac gel 1%:Upper extremities: Apply 2 g of 1% gel to affected area 4 times daily (maximum: 8 g perjoint per day). Lower extremities: Apply 4 g of 1% gel to affected area 4 times daily (maximum: 16 g per joint per day). Maximum total body dose of 1% gel should not exceed 32 g per day 8. If PT does not help, we can provide local steroid injections for trochanteric bursitis and obtain a Sacroiliac Joint MRI. 9. Follow up in 2 months ? [facility] Patient Instructions Hip Bursitis: Exercises Your Care Instructions Here are some examples of typical rehabilitation exercises for your condition. Start each exercise slowly. Ease off the exercise if you start to have pain. Your doctor or physical therapist will tell you when you can start these exercises and which ones will work best for you. How to do the exercises Hip rotator stretch 1. Lie on your back with both knees bent and your feet flat on the floor. 2. Put the ankle of your affected leg on your opposite thigh near your knee. 3. Use your hand to gently push your knee away from your body until you feel a gentle stretch around your hip. 4. Hold the stretch for 15 to 30 seconds. 5. Repeat 2 to 4 times. 6. Repeat steps 1 through 5, but this time use your hand to gently pull your knee toward your opposite shoulder. Iliotibial band stretch 1. Lean sideways against a wall. If you are not steady on your feet, hold on to a chair or counter. 2. Stand on the leg with the affected hip, with that leg close to the wall. Then cross your other leg in front of it. 3. Let your affected hip drop out to the side of your body and against wall. Then lean away from your affected hip until you feel a stretch. 4. Hold the stretch for 15 to 30 seconds. 5. Repeat 2 to 4 times. Straight-leg raises to the outside 1. Lie on your side, with your affected hip on top. 2. Tighten the front thigh muscles of your top leg to keep your knee straight. 3. Keep your hip and your leg straight in line with the rest of your body, and keep your knee pointing forward. Do not drop your hip back. 4. Lift your top leg straight up toward the ceiling, about 12 inches off the floor. Hold for about 6 seconds, then slowly lower your leg. 5. Repeat 8 to 12 times. Clamshell 1. Lie on your side, with your affected hip on top and your head propped on a pillow. Keep your feet and knees together and your knees bent. 2. Raise your top knee, but keep your feet together. Do not let your hips roll back. Your legs should open up like a clamshell. 3. Hold for 6 seconds. 4. Slowly lower your knee back down. Rest for 10 seconds. 5. Repeat 8 to 12 times. Follow-up care is a rose part of your treatment and safety. Be sure to make and go to all appointments, and call your doctor if you are having problems. It's also a good idea to know your test resultsand keep a list of the medicines you take. Where can you learn more? Go to [email or web address]/[employer] or log into your ip.access Online account at [email or web address]..[employer]. Enter H674 in the search box to learn more about Hip Bursitis: Exercises. Current as of: July 18, 2016 Content Version: 11.4 ?? [id number] [employer]. Care instructions adapted under license by [facility] If you have questions about a medical condition or this instruction, always ask your healthcare professional. [employer] disclaims any warranty or liability foryour use of this information. ? [facility] Patient Instructions Hip Bursitis: Care Instructions Your Care Instructions Bursitis is inflammation of the bursa. A bursa is a small sac of fluid that cushions a joint and helps it move easily. A bursa sits between a bone in the hip and the muscles and tendons in the thigh and buttock. Injury or overuse of the hip can cause bursitis. Activities that can lead to bursitis include twisting and rapid joint movement. Bursitis can cause hip pain. Bursitis usually gets better if you avoid the activity that caused it. If pain lasts or gets worse despite home treatment, your doctor may draw fluid from the bursa through a needle. This may relieveyour pain and help your doctor know if you have an infection. If so, your doctor will prescribe antibiotics. If you have inflammation only, you may get a corticosteroid shot to reduce swelling and pain. Sometimes surgery is needed to drain or remove the bursa. Follow-up care is a rose part of your treatment and safety. Be sure to make and go to all appointments, and call your doctor if you are having problems. It's also a good idea to know your test resultsand keep a list of the medicines you take. How can you care for yourself at home? ?? Put ice or a cold pack on your hip for 10 to 20 minutes at a time. Put a thin cloth between the ice and your skin. ?? After 3 days of using ice, you may use heat on your hip. You can use a hot water bottle, a heating pad set on low, or a warm, moist towel. ?? Rest your hip. Stop any activities that cause pain. Switch to activities that do not stress yourhip. ?? Take your medicines exactly as prescribed. Call your doctor if you think you are having a problem with your medicine. ?? Ask your doctor if you can take an bqbi-jws-utmlirg pain medicine, such as acetaminophen (Tylenol), ibuprofen (Advil, Motrin), or naproxen (Aleve). Be safe with medicines. Read and follow all instructions on the label. ?? To prevent stiffness, gently move the hip joint as much as you can without pain every day. As the pain gets better, keep doing xmmer-ss-pihehk exercises. Ask your doctor for exercises that will make the muscles around the hip joint stronger. Do these as directed. ?? You can slowly return to the activity that caused the pain, but do it with less effort until youcan do it without pain or swelling. Be sure to warm up before and stretch after you do the activity. When should you call for help? Call your doctor now or seek immediate medical care if: ? ?? You have a fever. ? ?? You have increased swelling or redness in your hip. ? ?? You cannot use your hip, or the pain in your hip gets worse. ?Watch closely for changes in your health, and be sure to contact your doctor if: ? ?? You have pain for 2 weeks or longer despite home treatment. Where can you learn more? Go to www.Xunleiwise.net/[facility] or log into your ip.access Online account at [email or web address][email or web address]. Enter I156 in the search box to learn more about Hip Bursitis: Care Instructions. Current as of: July 18, 2016 Content Version: 11.4 ?? [employer]. Care instructions adapted under license by [facility] If you have questions about a medical condition or this instruction, always ask your healthcare professional. [employer] disclaims any warranty or liability foryour use of this information. ?? [facility] Patient Instructions Learning About a Hip Bursa Injection What is a hip bursa injection? A bursa is a small sac of fluid that cushions an area between tendons and bones. The bursa on the outer side of the hip bone is called the trochanteric (say JWLI-jgs-NMWM-ik) bursa. Sometimes it can become swollen and painful. This condition is called bursitis. An injection into the bursa is a shot of medicine to reduce pain and swelling. The medicines may include pain relievers and steroid medicines. A steroid shot can sometimes help with short-term pain relief when other treatments haven't worked. How is a hip bursa injection done? First the area over the bursa will be cleaned. Your doctor may use a tiny needle to numb the skin over the area where you will get the injection. If a tiny needle is used to numb the area, your doctor will use another needle to inject the medicine. Your doctor may use a pain reliever, a steroid, or both. You may feel some pressure or discomfort. The procedure takes 10 to 30 minutes. But the shot itself usually takes only a few minutes. Your doctor may put ice on the area before you go home. You will probably go home shortly after your shot. What can you expect after the injection? You may have numbness over your hip for a few hours. If your shot included both a pain reliever and a steroid, the pain will probably go away right away. But it might come back after a few hours. This might happen if the pain reliever wears off and thesteroid has not started to work yet. The steroid medicine generally takes a few days to work. If the pain comes back, you can put ice or a cold pack on your hip for 10 to 20 minutes at a time. Put a thin cloth between the ice and your skin. Follow your doctor's instructions carefully. Avoid strenuous activities on the day you get the shot, especially those that put stress on your hip. Steroids don't always work. But when they do, the pain relief can last for several days to a few months or longer. Follow-up care is a rose part of your treatment and safety. Be sure to make and go to all appointments, and call your doctor if you are having problems. It's also a good idea to know your test resultsand keep a list of the medicines you take. Where can you learn more? Go to [email or web address]/SodaHeadedcenter or log into your ip.access Online account at [email or web address]. Enter J909 in the search box to learn more about Learning About a Hip Bursa Injection. Current as of: July 18, 2016 Content Version: 11.4 ?? [id number] [employer]. Care instructions adapted under license by [facility] If you have questions about a medical condition or this instruction, always ask your healthcare professional. [employer] disclaims any warranty or liability foryour use of this information. ?? documented in this encounter Ordered Prescriptions Prescription Sig Dispensed Refills Start Date End Da te omeprazole (PRILOSEC) 20 mg capsuleIndications:Psoriat ic arthritis ([facility]),Generalized osteoarthrosis, involving multiple sites,Trochanteric bursitis of both hips Take 1 Cap by mouth daily. 30 Cap 2 08/13/2017 02/11/2020 naproxen (NAPROSYN) 500 mg tabletIndications:Psoriati c arthritis ([facility]CMS),Generalized osteoarthrosis, involving multiple sites,Trochanteric bursitis of both hips Take 1 Tab by mouth 2 times daily. 60 Tab 2 08/13/2017 03/23/2020 documented in this encounter Progress Notes * Stephanie Davison - 08/13/2017 1100 EDT REVIEW OF SYSTEMS: Yes No Yes No Fever X Joint pain x Weight gain or loss pounds (lbs) Duration of AM joint stiffness hours / min Eye pain or dryness x Numbness/tingling x Mouth or nose sores x Heart burn / Nausea x Chest pain x Diarrhea x Shortness of Breath X Blood in stool X Cough x Burning on urination X Skin rash x Hand/Foot color change in cold x * Moody Manning MD - 08/13/2017 1100 EDT Images from the original note were not included. DIVISION OF RHEUMATOLOGY AND CLINICAL IMMUNOLOGY PROGRESS / FOLLOW-UP VISIT NOTE Date of Service: 08/13/2017 Chief Complaint Patient presents with ??? Arthritis buttock and leg pain for about 4 months now SUBJECTIVE: Ms. Agueda Carpio is a 57 y.o. female with history of cervical, lumbar and sacroiliac joint degenerative osteoarthritis, bilateral carpal tunnel syndrome, psoriasis and possible enthesitis who presents today for a follow-up visit. She was last seen in clinic on 03/16/2016. Since her last visit: - 4 months describes initially intermittent buttocks pain which has progressed to daily symptoms. - Shooting pains along the lateral aspect of her thighs. Pain when laying on either side of her hips. Pain present every day. - Can bother her at night. - Poor sleep. - Squeezing sensation of the anterior abdominal region - Neck and upper back discomfort with muscle tenderness - Psoriasis present on her scalp relieved with kenalog ointment. - Diffuse PIP pain/aches worse with cold weather. - Ibuprofen 600 mg orally every 8 hours without relief. - Using topical aspercreme with lidocaine with relief. - Patch of pruritic psoriasis on the occiput. REVIEW OF SYSTEMS: Review of systems as documented by Nurses/MA's during this visit and reviewed by me. MEDICATIONS: Current Outpatient Prescriptions: BUPROPION HCL (WELLBUTRIN ORAL) Take by mouth daily. Indications: Doesn't recall dose BUSPIRONE HCL (BUSPIRONE ORAL) Take by mouth. clonazePAM (KLONOPIN) 0.5 mg tablet Take 0.5 mg by mouth 2 times daily. Reported on 03/16/2016 ibuprofen (MOTRIN) 200 mg tablet Take 600 mg by mouth every 8 hours as needed for Pain. lidocaine 5 % gel Apply 100 mg topically every 8 hours as needed for Pain. Maximum dose: 4.5 mg/kg,not to exceed 300 mg losartan (COZAAR) 25 mg tablet Take 25 mg by mouth daily. triamcinolone (KENALOG) 0.1 % ointment APPLY A THIN LAYER TOPICALLY TO AFFECTED AREA TWICE DAILY. MAX OF 50 G PER WEEK. MAX OF 2 WEEKS. OBJECTIVE: Blood pressure (!) 187/94, pulse 77, height 160 cm (63), weight 66.7 kg (147 lb). General: No acute distress. Alert, fully oriented, pleasant, conversant. HEENT: Conjunctivae/corneas clear. Pupils equal, Sclerae anicteric. Mucus membranes moist; oropharynx clear. Neck supple, symmetrical, trachea midline Lungs: Clear to auscultation bilaterally. Heart: Regular rate and rhythm, S1, S2 present, no murmur Abdomen: Soft, non-tender, non-distended. Extremities: Extremities without cyanosis or edema. Skin: Plaque psoriasis on right occiput and posterior to right ear. Musculoskeletal: Spine: No significant tenderness. Normal range of motion of the spine. Shoulder/Elbow: No significant tenderness, swelling, effusions, erythema or warmth is present. Appropriate range of motion present. Wrist/Hand: Mild tenderness of the right 2nd-3rd PIP joint without erythema or sewlling. Mild tenderness of the left 2nd-3rd PIP joints without erythema or tenderness. Possible nail pitting. No othersignificant tenderness, swelling, effusions, erythema or warmth is present. Appropriate range of motion present. Hips/Knee: Tenderness over the left trochanter and IT band. Tenderness over the right greater trochanter and IT band. No significant tenderness, swelling, effusions, erythema or warmth is present. Appropriate range of motion present. Ankle/Foot: No significant tenderness, swelling, effusions, erythema or warmth is present. Appropriate range of motion present. DIAGNOSTIC DATA: Labs: Lab Results Component Value Date WBC 4.02 08/05/2015 WBC 5.91 08/27/2013 WBC 5.90 04/27/2003 WBC 5.64 08/25/2002 WBC 7.39 08/25/2000 HGB 12.1 08/05/2015 HGB 13.7 08/27/2013 HGB 13.7 04/27/2003 HGB 13.0 08/25/2002 HGB 9.9 (L) 08/25/2000 HCT 36.3 08/05/2015 HCT 40.2 08/27/2013 HCT 39.5 04/27/2003 HCT 38.1 08/25/2002 HCT 28.7 (L) 08/25/2000 MCV 95 08/05/2015 MCV 98 08/27/2013 MCV 100 (H) 04/27/2003 MCV 100 (H) 08/25/2002 MCV 95 08/25/2000 PLT 236 08/05/2015 PLT 186 08/27/2013 PLT 255 04/27/2003 PLT 244 08/25/2002 PLT 165 08/25/2000 Lab Results Component Value Date BUN 24 08/05/2015 CREATININE 0.89 08/05/2015 AST 21 08/05/2015 ALT 30 08/05/2015 Lab Results Component Value Date SEDRATE 7 08/05/2015 CRP <0.7 04/27/2003 Lab Results Component Value Date RF 22 (H) 05/20/2015 KANDY <40 05/20/2015 Imaging: Results for orders placed in visit on 08/05/15 CHEST PA AND LATERAL Narrative CHEST PA AND LATERAL 08/05/2015 10:10 AM Clinical History/Comments: M25.50-Pain in unspecified [id number] R76.8-Other specified abnormal immunological findings in onmso-UMJ-15; COUGH COMPARISON: Chest radiograph 08/27/2013. TECHNIQUE: Two views of the chest were performed using dual energy technique with bone and soft tissue reconstruction. FINDINGS: Soft tissues: Normal. Bones: Status post anterior fixation of the lower cervical spine. Cardiac and mediastinal contours:Normal. Lungs: Normal. Pleura/diaphragms:Normal. IMPRESSION: Unremarkable chest radiograph. Results for orders placed in visit on 08/05/15 SI JOINTS 3 OR MORE VIEWS Narrative SI JOINTS 3 OR MORE VIEWS 08/05/2015 10:10 AM Signs and Symptoms/Comments: M54.5-Low back pain-ICD-10; BACK PAIN 3 views of the sacroiliac joints. Comparison: Lumbar spine 05/01/2014, 02/12/2012. Findings: Mild subchondral sclerosis is identified on the iliac sides of the sacroiliac joints, more pronounced on the left. No discrete erosion is delineated. Facet arthrosis is identified in the visualized portion of the lower lumbar spine. Small ossicles are identified at the superior margin of the acetabula bilaterally. There are multiple phleboliths in the pelvis. There is an again identified deformity of the lower sacral segment with right-sided deficiency of the S4 and/or S5 with associated curvature of the lower sacrum with the apex to the left. Impression: 1. Mild degenerative changes in both sacroiliac joints. No conclusive findings of sacroiliitis. 2. Deformity of the lower sacrum, likely congenital, less likely posttraumatic. RAPID3 Summary Functional Status: 0.7 Pain Tolerance: 4.5 Global Estimate: 7 Score: 12.2 Interpretation: High RAPID3 SCORES AND INTERPRETATION 09/08/2015 03/16/2016 08/13/2017 Functional Status 1 1 0.7 Pain Tolerance 3 2 4.5 Global Estimate 2 0 - Very Well 7 RAPID3 6 3 12.2 Interpretation Low Near Remission High IMPRESSION / PLAN: Ms. Agueda Carpio is a 57 y.o. female with 1.?? Bilateral hip pain - 4 months of lateral, bilateral hip pain. Worse at night. Minimal relief with Ibuprofen. Has not tried PT. Examination revealed extreme tenderness over the greater trochanterand IT band of both the right and left legs. I suspect symptoms are due to trochanteric bursitis, IT band syndrome and possible piriformis syndrome. I have ordered PT and she can try naproxen 500 mg PO BID as well as topical diclofenac gel 1%. Continue lidocaine cream or patches. If symptoms do notimprove, local steroid injections can be scheduled. 08/05/2015 - SI joint x-ray revealed mild degenerative osteoarthritic changes without evidence of sacroiliitis We can also then order an SI joint MRIto evaluate for possible sacroiliitis. 2. Diffuse polyarthralgia involving her PIP's, cervical spine, elbows and knees, weakly positive rheumatoid factor = 22 with evidence of Psoriatic patch the right occiput and right Achilles tenderness suspicious for enthesitis - Psoriatic patch on occiput without evidence of dactylitis or enthesitis today on examination. She does have mild tenderness involving the 2nd-3rd PIP joints today withoutdactylitis, tenosynovitis or synovitis. Overall symptoms have improved with topical aspercreme withlidocaine. Will continue with topical and NSAID therapy at this time. Will hold off with an addition of DMARD at this time. Topical triamcinolone ointment to be used for psoriasis which helps. 3. Degenerative disc disease with Lumbar facet arthrosis with Sacral degenerative osteoarthritis s/p C5-C7 spinal fusion 4. Weakly positive RF with negative anti-CCP Ab. 5. Bilateral Carpal Tunnel Syndrome PATIENT INSTRUCTIONS: Patient Instructions 1. Symptoms appear consistent with trochanteric bursitis (hip bursitis) with possible IT band syndrome 2. Schedule physical therapy for this 3. Discontinue ibuprofen 4. Start naproxen 500 mg orally every 12 hours with food 5. For stomach protection, start prilosec 20 mg orally daily 6. May try topical aspercreme with lidocaine 4% (cream or patch)/salonpas lidocaine 4% patch or capzasin cream or icy/hot or biofreeze up to 4x/day to affected muscles and joints. 7. If the naproxen does not help with pain control, contact the office and we can try topical diclofenac gel 1%:Upper extremities: Apply 2 g of 1% gel to affected area 4 times daily (maximum: 8 g perjoint per day). Lower extremities: Apply 4 g of 1% gel to affected area 4 times daily (maximum: 16 g per joint per day). Maximum total body dose of 1% gel should not exceed 32 g per day 8. If PT does not help, we can provide local steroid injections for trochanteric bursitis and obtain a Sacroiliac Joint MRI. 9. Follow up in 2 months ? [facility] Patient Instructions Hip Bursitis: Exercises Your Care Instructions Here are some examples of typical rehabilitation exercises for your condition. Start each exercise slowly. Ease off the exercise if you start to have pain. Your doctor or physical therapist will tell you when you can start these exercises and which ones will work best for you. How to do the exercises Hip rotator stretch 1. Lie on your back with both knees bent and your feet flat on the floor. 2. Put the ankle of your affected leg on your opposite thigh near your knee. 3. Use your hand to gently push your knee away from your body until you feel a gentle stretch around your hip. 4. Hold the stretch for 15 to 30 seconds. 5. Repeat 2 to 4 times. 6. Repeat steps 1 through 5, but this time use your hand to gently pull your knee toward your opposite shoulder. Iliotibial band stretch 1. Lean sideways against a wall. If you are not steady on your feet, hold on to a chair or counter. 2. Stand on the leg with the affected hip, with that leg close to the wall. Then cross your other leg in front of it. 3. Let your affected hip drop out to the side of your body and against wall. Then lean away from your affected hip until you feel a stretch. 4. Hold the stretch for 15 to 30 seconds. 5. Repeat 2 to 4 times. Straight-leg raises to the outside 1. Lie on your side, with your affected hip on top. 2. Tighten the front thigh muscles of your top leg to keep your knee straight. 3. Keep your hip and your leg straight in line with the rest of your body, and keep your knee pointing forward. Do not drop your hip back. 4. Lift your top leg straight up toward the ceiling, about 12 inches off the floor. Hold for about 6 seconds, then slowly lower your leg. 5. Repeat 8 to 12 times. Clamshell 1. Lie on your side, with your affected hip on top and your head propped on a pillow. Keep your feet and knees together and your knees bent. 2. Raise your top knee, but keep your feet together. Do not let your hips roll back. Your legs should open up like a clamshell. 3. Hold for 6 seconds. 4. Slowly lower your knee back down. Rest for 10 seconds. 5. Repeat 8 to 12 times. Follow-up care is a rose part of your treatment and safety. Be sure to make and go to all appointments, and call your doctor if you are having problems. It's also a good idea to know your test resultsand keep a list of the medicines you take. Where can you learn more? Go to [email or web address].net/Ecinityer or log into your ip.access Online account at [email or web address]. Enter H674 in the search box to learn more about Hip Bursitis: Exercises. Current as of: July 18, 2016 Content Version: 11.4 ?? 5709-3662 [employer]. Care instructions adapted under license by [facility] If you have questions about a medical condition or this instruction, always ask your healthcare professional. [employer] disclaims any warranty or liability foryour use of this information. ? [facility] Patient Instructions Hip Bursitis: Care Instructions Your Care Instructions Bursitis is inflammation of the bursa. A bursa is a small sac of fluid that cushions a joint and helps it move easily. A bursa sits between a bone in the hip and the muscles and tendons in the thigh and buttock. Injury or overuse of the hip can cause bursitis. Activities that can lead to bursitis include twisting and rapid joint movement. Bursitis can cause hip pain. Bursitis usually gets better if you avoid the activity that caused it. If pain lasts or gets worse despite home treatment, your doctor may draw fluid from the bursa through a needle. This may relieveyour pain and help your doctor know if you have an infection. If so, your doctor will prescribe antibiotics. If you have inflammation only, you may get a corticosteroid shot to reduce swelling and pain. Sometimes surgery is needed to drain or remove the bursa. Follow-up care is a rose part of your treatment and safety. Be sure to make and go to all appointments, and call your doctor if you are having problems. It's also a good idea to know your test resultsand keep a list of the medicines you take. How can you care for yourself at home? ?? Put ice or a cold pack on your hip for 10 to 20 minutes at a time. Put a thin cloth between the ice and your skin. ?? After 3 days of using ice, you may use heat on your hip. You can use a hot water bottle, a heating pad set on low, or a warm, moist towel. ?? Rest your hip. Stop any activities that cause pain. Switch to activities that do not stress yourhip. ?? Take your medicines exactly as prescribed. Call your doctor if you think you are having a problem with your medicine. ?? Ask your doctor if you can take an cocl-ovt-vkoodaw pain medicine, such as acetaminophen (Tylenol), ibuprofen (Advil, Motrin), or naproxen (Aleve). Be safe with medicines. Read and follow all instructions on the label. ?? To prevent stiffness, gently move the hip joint as much as you can without pain every day. As the pain gets better, keep doing ksrbv-be-werone exercises. Ask your doctor for exercises that will make the muscles around the hip joint stronger. Do these as directed. ?? You can slowly return to the activity that caused the pain, but do it with less effort until youcan do it without pain or swelling. Be sure to warm up before and stretch after you do the activity. When should you call for help? Call your doctor now or seek immediate medical care if: ? ?? You have a fever. ? ?? You have increased swelling or redness in your hip. ? ?? You cannot use your hip, or the pain in your hip gets worse. ?Watch closely for changes in your health, and be sure to contact your doctor if: ? ?? You have pain for 2 weeks or longer despite home treatment. Where can you learn more? Go to [email or web address].Svpply/[email or web address] or log into your ip.access Online account at [email or web address]. Enter I156 in the search box to learn more about Hip Bursitis: Care Instructions. Current as of: July 18, 2016 Content Version: 11.4 ?? [id number] [employer]. Care instructions adapted under license by [facility] If you have questions about a medical condition or this instruction, always ask your healthcare professional. [employer] disclaims any warranty or liability foryour use of this information. ?? [facility] Patient Instructions Learning About a Hip Bursa Injection What is a hip bursa injection? A bursa is a small sac of fluid that cushions an area between tendons and bones. The bursa on the outer side of the hip bone is called the trochanteric (say TVJM-tur-CXKG-ik) bursa. Sometimes it can become swollen and painful. This condition is called bursitis. An injection into the bursa is a shot of medicine to reduce pain and swelling. The medicines may include pain relievers and steroid medicines. A steroid shot can sometimes help with short-term pain relief when other treatments haven't worked. How is a hip bursa injection done? First the area over the bursa will be cleaned. Your doctor may use a tiny needle to numb the skin over the area where you will get the injection. If a tiny needle is used to numb the area, your doctor will use another needle to inject the medicine. Your doctor may use a pain reliever, a steroid, or both. You may feel some pressure or discomfort. The procedure takes 10 to 30 minutes. But the shot itself usually takes only a few minutes. Your doctor may put ice on the area before you go home. You will probably go home shortly after your shot. What can you expect after the injection? You may have numbness over your hip for a few hours. If your shot included both a pain reliever and a steroid, the pain will probably go away right away. But it might come back after a few hours. This might happen if the pain reliever wears off and thesteroid has not started to work yet. The steroid medicine generally takes a few days to work. If the pain comes back, you can put ice or a cold pack on your hip for 10 to 20 minutes at a time. Put a thin cloth between the ice and your skin. Follow your doctor's instructions carefully. Avoid strenuous activities on the day you get the shot, especially those that put stress on your hip. Steroids don't always work. But when they do, the pain relief can last for several days to a few months or longer. Follow-up care is a rose part of your treatment and safety. Be sure to make and go to all appointments, and call your doctor if you are having problems. It's also a good idea to know your test resultsand keep a list of the medicines you take. Where can you learn more? Go to [email or web address].[email or web address]/Ecinityer or log into your ip.access Online account at [email or web address]. Enter J909 in the search box to learn more about Learning About a Hip Bursa Injection. Current as of: July 18, 2016 Content Version: 11.4 ?? [id number] [employer]. Care instructions adapted under license by [facility] If you have questions about a medical condition or this instruction, always ask your healthcare professional. [employer] disclaims any warranty or liability foryour use of this information. ?? There are no barriers to understanding/learning. Patient verbalizes understanding and agrees with plan. Moody Manning MD 08/13/2017 Please note: Parts of this documentation was created using voice recognition software. Rehab Aide errors may be present. documented in this encounter Plan of Treatment Upcoming Encounters Date Type Department Care Team (Late st Contact Info) Description 12/10/2023 11:00 EDT Appointment [facility] Radiology CT Outpatient - [address] [id number] 12/11/2023 13:45 EDT Initial consult [facility] Gynecologic Oncology - [address] [id number] Ashlee Garcia MD [address] [facility] [place] [phone] Scheduled Referrals Name Type Priority Associated Diagnoses Orde r Schedule AMB CONS/FOLLOW UP PHYSICAL THERAPY Outpatient Referral Routine Psoriatic arthritis ([facility]) Generalized osteoarthrosis, involving multiple sites Trochanteric bursitis of both hips Ordered: 08/13/2017 documented as of this encounter Visit Diagnoses Diagnosis Psoriatic arthritis ([facility]-CMS)- Primary Psoriatic arthropathy Generalized osteoarthrosis, involving multiple sites Trochanteric bursitis of both hips Enthesopathy of hip region documented in this encounter Discontinued Medications Medication Sig Discontinue Reason Start Date End Da te acetaminophen (TYLENOL) 325 mg tablet Take 325 mg by mouth every 4 hours as needed. Patient Stopped Taking 08/13/2017 escitalopram oxalate (LEXAPRO) 10 mg tablet Take 10 mg by mouth daily. 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
--- OUTSIDE RECORDS SUMMARY | 2023-12-07 00:49 | XMS_ITS | Encounter Summary ---
Author Organization [facility] Address [address] [place] [address] Care Team Providers Care Senior Clinical Sas Programmer Name Role Phone Melissa Khan MD Primary Care Provider [phone] Reason for Visit * Reason Comments Joint Pain Follow-up Encounter Details Date Type Department Care Team (Late st Contact Info) Description 03/23/2020 11:00 EST Telemedicine [facility] Rheumatology & Immunology - [address] [phone] Mo Rodriguez NP [address] [facility], [address] [place] [address] Psoriatic arthritis ([facility]) (Primary Dx); Chronic bilateral low back pain, unspecified whether [...] this encounter Patient Instructions * Patient Instructions* Mo Rodriguez, LEAF STAMPER - 03/23/2020 11:00 EST 1. Start methotrexate 10mg orally once weekly ( 4 tabs). 2. Folic acid 1mg orally daily If oral or nasal sores, GI upset, feeling unwell around methotrexate day, Please call to increase folic acid over the phone 3. Labs monthly x 3 months, then every 3-4 months 4. Clobetasol solution to scalp Apply thin film to dry scalp once daily (maximum dose: 50 g/week or50 mL/week); leave in place for 15 minutes, then add water, lather, and rinse thoroughly. 5. Diclofenac gel apply to sore muscles and joints, avoid face and groin, up to 4x per day 6. Recommend flu vaccine F/u 06/14/[address] Manning Methotrexate (Rheumatrex, Trexall, Otrexup, Rasuvo) Description Methotrexate is one of the most effective and commonly used medicines in the treatment of several forms of arthritis and other rheumatic conditions. It is known as a disease-modifying anti-rheumatic drug (DMARD), because it not only decreases the pain and swelling of arthritis, but it also can decrease damage to joints and long-term disability. Fast Facts ?? Methotrexate is one of the most commonly used drugs in the treatment of rheumatoid arthritis. Ithelps with pain and swelling and also slows the progression of arthritis over time. ?? Methotrexate requires careful monitoring to reduce risk of liver injury and infections. ?? Routine blood tests are typically needed every 3-4 months, though frequency may change dependingon the individual. ?? Alcohol significantly increases the risk for liver damage while taking methotrexate, so alcohol should be avoided while on this medication. ?? Generally, this medication is taken once a week. ?? It may take up to 12 weeks of use to experience the full effect of this medication. ?? Folic acid (or folate) vitamin supplement is given alongside methotrexate to decrease the chanceof side effects. ?? Notify your doctor before any surgeries while taking this medication. ?? Caregivers administering methotrexate should wear gloves when handling it due to concern with risks and effects on the immune system. Methotrexate can cause serious defects and should not be taken while , attempting to become or while . An effective form of contraception is critical while taking methotrexate and for at least three months after stopping the medication. Uses Methotrexate is a disease-modifying anti-rheumatic drug (DMARD) that is used to treat rheumatoid arthritis and other forms of inflammatory arthritis, psoriasis, and also may be used to treat lupus, inflammatory myositis, vasculitis, and some forms of childhood arthritis. It is often used in combination with other medications to treat arthritis. In very high doses, it can be used to treat cancer. How it works Methotrexate blocks several enzymes involved in the immune system. This affects actively growing cells such as those that are in the skin, blood, stomach, and the immune system. However, it is not entirely clear how methotrexate decreases the severity of arthritis. Dosing Methotrexate typically comes in 2.5 milligram (mg) tablets. Adults with rheumatoid arthritis usually begin with a starting dose of 7.5 to 10 mg (3-4 pills) taken all together once a week. The dose may be increased to 20 to 25 mg a week over time if needed. The medication also can be given as a liquid or as an injection. This comes as 25 mg per 1 milliliter (mL) and is injected under the skin to reduce side effects and when higher doses are needed. It is also available as a single dose auto-injector pen (Rasuvo or Otrexup). In children with juvenile arthritis, the dose is based on the patient's weight. Because methotrexate can affect the immune system or cause defects in women, it should be handled by caregivers with gloves. If you miss a dose, take it as soon as you remember and resume with once weekly dosing. If you do not realize that you missed a dose until the next dose is scheduled, talk to your doctor about what to do. Time to effect Improvements in arthritis and other conditions usually are first seen in 3-6 weeks. The full benefit of this drug may not be seen until after 12 weeks of treatment. Side Effects The most common side effects of methotrexate include nausea or vomiting and abnormalities in liver function tests. Liver function tests are blood tests your doctor may order to watch your liver. These side effects are more likely to occur at higher doses. About 1-3 percent of patients develop mouthsores (called stomatitis), rash, diarrhea, and abnormalities in blood counts. Methotrexate may cause cirrhosis (scarring) of the liver, but this side effect is rare and most likely to occur in patients who already have liver problems or are taking other drugs that are toxic to the liver. Lung problems (persistent cough or unexplained shortness of breath) can occur rarely when taking methotrexate. These side effects are more common in people with poor lung function. Persistent cough or shortness of breath should be reported to your doctor. Slow hair loss is seen in some patients, but hair grows back when the person stops taking this medication. This can often be managed by taking a folic acid vitamin with methotrexate. Methotrexate canincrease the sensitivity of the skin to sunlight, so limiting sun exposure and the use of sunscreenis advised. The use of folate supplements often are given with methotrexate. These are B vitamins and can decrease most side effects during methotrexate treatment. It is important to remember that most patients do not experience side effects, and that, for those who do, many of the minor side effects will improve with time. Drug interactions Be sure to tell your doctor about all of the medications you are taking, including zeco-vfu-ucoglxnazwlphbckpy and natural remedies, as some of these could increase the risk of methotrexate toxicity. Trimethoprim (Bactrim), an antibiotic often used for respiratory and urinary infections, may significantly increase the toxicity of methotrexate. The level of methotrexate can be affected by nonsteroidal anti-inflammatory drugs (NSAIDs), although these often are prescribed together for the management of rheumatoid arthritis. Other drugs that can affect the liver may increase the risk of liver damage from methotrexate. Radiation therapy, used to treat some cancers, may increase the risk of serious side effects from methotrexate as well. Information to discuss with health care providers It is especially important that women discuss the use of this medicine (even past use) with their pot puller. Methotrexate can cause serious defects and complication during , so women taking this medication should discuss appropriate forms of control with their primary care physician or merchandise deliverer. An effective form of contraception is critical while taking methotrexate and for at least three months after stopping the medication. Additionally, methotrexate can pass into breast milk, so breast feeding should be avoided while taking methotrexate. Even though methotrexate should not be taken during , it does not reduce a woman???s chance of becoming in the future. Men taking methotrexate should talk to their physician prior to attempts to conceive. Because this medication can lower your immunity, it is important that you discuss this with any physician treating you for an infection, as this may lead to a different evaluation or treatment. You should also talk to your doctor about whether you should stop using methotrexate if you are about to have surgery. When methotrexate treatment is discontinued, its beneficial effects on arthritis symptoms gradually disappear over a period of 2-8 weeks. Additionally, you should discuss methotrexate with your corduroy brusher operator before starting any chemotherapy or radiation therapy. The risk of liver injury may be increased if methotrexate is combined with other medications. Be sure to discuss this with other physicians when new medications are prescribed. Website [email or web address] Updated June 2018 by Karl Resendiz MD, and reviewed by the [employer] Communications and Marketing Committee. This patient fact sheet is provided for general education only. Individuals should consult a qualified health care provider for professional medical advice, diagnosis and treatment of a medical or health condition. ?? 2019 [employer] documented in this encounter Ordered Prescriptions Prescription Sig Dispensed Refills Start Date End Da te diclofenac sodium 1 % gelIndications:Psoriati c arthritis (HCC-CMS),Chronic bilateral low back pain, unspecified whether sciatica present Apply scant amount to muscles/joints. 4g to lower extremities and 2g to upper extremities, up to 4x/day. Max 32g/day. 1 Tube 3 03/23/2020 clobetasoL (TEMOVATE) 0.05 % external solutionIndications:Pso riatic arthritis (HCC-CMS),Chronic bilateral low back pain, unspecified whether sciatica present Apply thin film to dry scalp once daily (maximum dose: 50 g/week or 50 mL/week); leave in place for 15 minutes, then add water, lather, and rinse thoroughly. 1 Bottle 3 03/23/2020 folic acid (FOLVITE) 1 mg tablet Take 1 Tab by mouth daily. 90 Tab 3 03/23/2020 06/14/2020 methotrexate 2.5 mg tabletIndications:Psori atic arthritis (HCC-CMS),Chronic bilateral low back pain, unspecified whether sciatica present Take 4 Tabs by mouth once a week. 48 Tab 1 03/23/2020 06/14/2020 documented in this encounter Progress Notes * Mo Rodriguez, LEAF STAMPER - 03/23/2020 1100 EST Images from the original note were not included. Patient ID: Agueda Carpio is a 60 y.o. y.o. female Subjective: Chief Complaint: joint pain and psoriasis. HPI: Ms. Agueda Carpio is a 60 y.o. female with history of cervical, lumbar and sacroiliac joint degenerative osteoarthritis, bilateral carpal tunnel syndrome, psoriasis and possible enthesitis Last seen by Dr. Manning on 02/11/2020 Labs from [facility] about 2-3 weeks ago CBC and CMP Is out of topical for scalp psoriasis Psoriasis resolved x 1 year States muscle pain and low back pain Xray SI joints 02/11/2020 showed:?? Sclerosis of both SI joints, slightly worse on the left than the right. The right-sided changes arestable and the left-sided changes are slightly worse than 2016. No definite erosions are identified. States diffuse joint pain, back, knees elbows, No psoriasis besides scalp Stopped ETOH About 4 months ago, was drinking 0.5-1 bottles per night, now improved GERD, anxiety, has not improved joint pain On paleo Using CBD cream which works well REVIEW OF SYSTEMS: Yes No Yes No Fever X Joint pain X Weight gain or loss pounds (lbs) Duration of AM joint stiffness hours / min Eye pain or dryness X Numbness/tingling X Mouth or nose sores X Heart burn / Nausea X Chest pain X Diarrhea X Shortness of Breath X Blood in stool X Cough X Burning on urination X Skin rash x Hand/Foot color change in cold X Denies any other joint pains or swelling. AM stiffness: some Physical activity: some, limited by joint pain Patient Active Problem List Diagnosis ??? Hypertensive disorder ??? Generalized osteoarthrosis, involving multiple sites ??? Psoriatic arthritis (HCC-CMS) ??? Bilateral carpal tunnel syndrome ??? Trochanteric bursitis of both hips Past Medical History: Diagnosis Date ??? Hypertension ??? Osteoarthritis ??? Psoriatic arthritis (HCC-CMS) ??? Psychiatric problem depression/traumatic stress Past Surgical History: Procedure Laterality Date ??? ABDOMINOPLASTY ??? CERVICAL DISC SURGERY ??? ECTOPIC SURGERY ??? ELBOW SURGERY left ??? INGUINAL HERNIA REPAIR Allergies Allergen Reactions ??? Erythromycin Nausea Only ??? Other - See Comments Dust mites....congestion Current Outpatient Medications Medication ??? clobetasoL (TEMOVATE) 0.05 % external solution ??? diclofenac sodium 1 % gel ??? folic acid (FOLVITE) 1 mg tablet ??? ibuprofen (MOTRIN) 200 mg tablet ??? lidocaine 5 % gel ??? LORazepam (ATIVAN) 1 mg tablet ??? losartan-hydrochlorothiazide (HYZAAR) 100-25 mg per tablet ??? methotrexate 2.5 mg tablet ??? omeprazole (PRILOSEC) 20 mg capsule ??? triamcinolone (KENALOG) 0.1 % ointment No current facility-administered medications for this visit. ROS - SEE HPI I reviewed the 10 point ROS performed by the nurse which is as documented in [facility]. Objective: There were no vitals taken for this visit. PHYSICAL EXAM: A xox3 Lungs no acute distress MSK- no visible swelling to hands Skin unable to see psoriasis to scalp on zoom, LABS: XR SACROILIAC JOINTS 3 OR MORE VIEWS (Order [id number]) Status: Final result (Exam End: 02/11/2020 17:43) Results XR SACROILIAC JOINTS 3 OR MORE VIEWS ( (Order [id number]) Study Images ??Show images for XR SACROILIAC JOINTS 3 OR MORE VIEWS XR SACROILIAC JOINTS 3 OR MORE VIEWS Order: [id number] Status: Final result ?Visible to patient: Yes (MyChart) Next appt: 03/30/2020 at 21:00 in Radiology ([facility] RM 1) Dx: Generalized osteoarthrosis, involving... Details Reading Physician Reading Date Result Priority Abigail Claros MD [phone] 02/11/2020 Narrative & Impression XR SACROILIAC JOINTS 3 OR MORE VIEWS 02/11/2020 5:45 PM ?? Signs and Symptoms/Comments: Worsning chornic low back pain, Left > right SI joint tenderness. Positive Lynn testing in the setting of psoriasis. Degenerative changes on SI joint x-ray in 2016. ? sacroiliitis. ?? Comparison: 08/05/15 and 05/01/14 ?? Technique: 3 views of the SI joints. ?? Findings: There is again noted to be mild subchondral sclerosis on the iliac sides of the SI joints. This is slightly more pronounced on the left when compared with the right and is slightly worse on the left today when compared with the prior study. No evidence of erosions. There is again noted to be deformity of the sacrum and coccyx which are curved with the tip to the right of midline. Multiple roundedcalcifications in the pelvis are again noted compatible with phleboliths. ?? IMPRESSION Sclerosis of both SI joints, slightly worse on the left than the right. The right-sided changes arestable and the left-sided changes are slightly worse than 2016. No definite erosions are identified. ? Portions of this document may have been prepared with speech recognition software or keyboard data processing mechanic techniques. Minor irregularities or keyboarding misprints may be present. Specimen Collected: 02/11/20 18:04 Last Resulted: 02/11/20 18:04 RAPID3 Summary Functional Status: Pain Tolerance: Global Estimate: Score: Interpretation: ASSESSMENT: Encounter Diagnoses Name Primary? Psoriatic arthritis ([facility]) Yes ??? Chronic bilateral low back pain, unspecified whether sciatica present 1. PsA with active psoriasis to scalp, no where else on body. Clobetasol solution rx sent. Pt states joint pain has worsened over last 6 months using tylenol and NSAIDS. SI joint xray showed - ?? IMPRESSION Sclerosis of both SI joints, slightly worse on the left than the right. The right-sided changes arestable and the left-sided changes are slightly worse than 2016. No definite erosions are identified SI joint MRI for 03/2020. Will start MTX 10mg orally weekly and folic acid 1mg orally daily for joint pain. Reviewed most patients need a higher dose and if MRI showed SI inflammation or erosions this would change treatment plan to include biologics. 3. Degenerative disc disease with Lumbar facet arthrosis with Sacral degenerative osteoarthritis s/p C5-C7 spinal fusion 4. Weakly positive RF with negative anti-CCP Ab. ?? 5. Bilateral Carpal Tunnel Syndrome ?? PLAN: 1. Start methotrexate 10mg orally once weekly ( 4 tabs). 2. Folic acid 1mg orally daily If oral or nasal sores, GI upset, feeling unwell around methotrexate day, Please call to increase folic acid over the phone 3. Labs monthly x 3 months, then every 3-4 months 4. Clobetasol solution to scalp Apply thin film to dry scalp once daily (maximum dose: 50 g/week or50 mL/week); leave in place for 15 minutes, then add water, lather, and rinse thoroughly. 5. Diclofenac gel apply to sore muscles and joints, avoid face and groin, up to 4x per day 6. Recommend flu vaccine F/u 06/14/[address] Manning 1. Psoriatic arthritis ([facility]) clobetasoL (TEMOVATE) 0.05 % external solution diclofenac sodium 1 % gel methotrexate 2.5 mg tablet COMPLETE BLOOD COUNT AND DIFFERENTIAL COMPREHENSIVE METABOLIC PANEL (CMP) 2. Chronic bilateral low back pain, unspecified whether sciatica present clobetasoL (TEMOVATE) 0.05% external solution diclofenac sodium 1 % gel methotrexate 2.5 mg tablet COMPLETE BLOOD COUNT AND DIFFERENTIAL COMPREHENSIVE METABOLIC PANEL (CMP) Orders Placed This Encounter Procedures ??? Complete Blood Count and Differential Standing Status: Standing Number of Occurrences: 12 Standing Expiration Date: 03/23/2021 ??? Comprehensive Metabolic Panel (CMP) Standing Status: Standing Number of Occurrences: 12 Standing Expiration Date: 03/23/2021 Scheduling Instructions: Blood Test and Fasting How long do I have to fast for before a blood test? - If a fasting blood test is ordered, you should not have anything to eat or drink (except water) for at least eight hours. This usually involves an overnight fast. - You should continue to take any prescription medications, unless your physician directed you not to take them. - Smoking and exercise may affect your results as well, so you should refrain from these activitiesas much as possible during this time. If you have any concerns about refraining from food for this period of time, talk to your physician. Order Specific Question: The lab recommends a fasting sample. Should phlebotomy collect the sample if the patient is NOT fasting? Answer: Yes Barriers to learning identified: No Patient verbalizes understanding and agrees with plan Yes I was directly supervised by: Dr. Ruiz. They were present in clinic and available for consult if needed. Mo Rodriguez, ALAN 03/23/2020 15:39 documented in this encounter Plan of Treatment Upcoming Encounters Date Type Department Care Team (Late st Contact Info) Description 12/10/2023 11:00 EDT Appointment [facility] Radiology CT Outpatient - [address] [id number] 12/11/2023 13:45 EDT Initial consult [facility] Gynecologic Oncology - [address] [id number] Ashlee Garcia MD [address] [place] [address], [facility], [address] [place] [address] documented as of this encounter Visit Diagnoses Diagnosis Psoriatic arthritis ([facility])- Primary Psoriatic arthropathy Chronic bilateral low back pain, unspecified whether sciatica present documented in this encounter Discontinued Medications Medication Sig Discontinue Reason Start Date End Da te hydroCHLOROthiazide (HYDRODIURIL) 25 mg tablet Take 25 mg by mouth daily. Discontinued by another clinician 03/23/2020 losartan (COZAAR) 25 mg tablet Take 25 mg by mouth daily. Discontinued by another clinician 03/23/2020 naproxen (NAPROSYN) 500 mg tabletIndications:Pso riatic arthritis (HCC-CMS),Generalized osteoarthrosis, involving multiple sites,Trochanteric bursitis of both hips Take 1 Tab by mouth 2 times daily. Therapy completed 08/13/2017 03/23/2020 clonazePAM (KLONOPIN) 0.5 mg tablet Take 0.5 mg by mouth 2 times daily. Reported on 03/16/2016 Discontinued by another clinician 03/23/2020 BUSPIRONE HCL (BUSPIRONE ORAL) Take by mouth. Discontinued by another clinician 03/23/2020 BUPROPION HCL (WELLBUTRIN ORAL)Indications:Does n't recall dose Take by mouth daily. Indications: Doesn't recall dose Discontinued by another clinician 02/22/2010 03/23/2020 documented as of this encounter Historical Medications * This list may reflect changes made after this encounter. Medication Sig Dispensed Refills Start Date End Date losartan-hydrochlorothiazi de (HYZAAR) 100-25 mg per tablet Take 1 Tablet by mouth daily. added in this encounter Care Teams Senior Clinical Sas Programmer Relationship Specialty Start Date End Date Melissa Khan MD [address] [place] [phone] PCP - General 08/04/15 documented as of this encounter
--- OUTSIDE RECORDS SUMMARY | 2023-12-07 00:49 | XMS_ITS | Encounter Summary ---
Author Organization [facility] Address [address] [place] [address] Care Team Providers Care Overhead Cleaner Maintainer Name Role Phone Melissa Khan MD Primary Care Provider [phone] Reason for Visit * Reason Onset Date Comments Orders (Non Pre-visit) 04/16/2020 orders Pain 04/16/2020 Encounter Details Date Type Department Care Team ([facility] st Contact Info) Description 04/16/2020 Telephone [facility] Rheumatology & Immunology [facility] [address] [place] [address] Moody Manning MD [address] [phone] Orders (Non Pre-visit) (orders ); Pain Social History Tobacco Use Types Packs/Day Years [...] encounter Miscellaneous Notes * Telephone Encounter - Rianna Avalos RN - 04/20/2020 1014 EST Spoke with pt. She was having burning in both hands and one spot in the face. Symptoms are better now. She will continue with MTX for now and call if anything changes. * Telephone Encounter - Zina Gann - 04/16/2020 1137 EST Patient is calling to state MRI is scheduled, and Methotrexate is not working for the 4 weeks she has taken it. She states she had labs ordered from [facility] completed. Please call patient to confirm if she needs more labs. She is in more pain. Has more pain at night. Please call back to discuss documented in this encounter Plan of Treatment Upcoming Encounters Date Type Department Care Team (Late st Contact Info) Description 12/10/2023 11:00 EDT Appointment [facility] Radiology CT Outpatient - [address] [id number] 12/11/2023 13:45 EDT Initial consult [facility] Gynecologic Oncology - [address] [phone] Ashlee Garcia MD [address] [place] [address], [address] [place] [address] documented as of this encounter Visit Diagnoses Not on filedocumented in this encounter Care Teams Overhead Cleaner Maintainer Relationship Specialty Start Date End Date Melissa Khan MD [address] [place] [phone] PCP - General 08/04/15 documented as of this encounter
--- OUTSIDE RECORDS SUMMARY | 2023-12-07 00:49 | XMS_ITS | Encounter Summary ---
Author Organization [facility] Address [address] [place] [address] Care Team Providers Care Dough Mixer Name Role Phone Melissa Khan MD Primary Care Provider [phone] Encounter Details Date Type Department Care Team (Late Contact Info) Description 05/02/[address] [facility] [phone] Melissa Khan MD [address] [place] [phone] Social History Tobacco Use Types Packs/Day Years [...] Contact Info) Description 12/10/2023 11:00 EDT Appointment [facility] Radiology CT Outpatient - [facility] [address] [place] [address] 12/11/2023 13:[address] [facility] Gynecologic Oncology - [facility] [address] [place], [place] [address] Ashlee Garcia MD [address] [facility], [facility], [address] [place] [phone] documented as of this encounter Procedures Procedure Name Priority Date/Time Associated Diagnosis Comments MA 2D/3D BILATERAL JF ROUTINE SCREENING MAMMO 05/02/2018 14:26 EST documented in this encounter Results * MA 2D/3D BILATERAL JF ROUTINE SCREENING MAMMO (05/02/2018 14:26 EST) Anatomical Region Laterality Modality Other 05/02/2018 14:2 6 EST 05/06/2018 16:41 EST Narrative 05/06/2018 16:41 EST Comparison has been made to previous images. Bilateral Breast Findings: (Routine 3D tomosynthesis with synthesized 2D views with CAD) There are scattered fibroglandular densities (25% - 50% fibroglandular). No significant masses, calcifications or other abnormalities are seen. IMPRESSION: BILATERAL BREASTS: Negative, no evidence of malignancy. Normal interval follow-up is recommended in 12 months. OVERALL ASSESSMENT - CATEGORY 1 - NEGATIVE END OF IMPRESSION These results will be communicated to your patient via a lay letter from Radiology. If any additional imaging is needed we will contact your patient directly. Procedure Note Sabine Kent MD - 05/06/2018 Comparison has been made to previous images. Bilateral Breast Findings: (Routine 3D tomosynthesis with synthesized 2D views with CAD) There are scattered fibroglandular densities (25% - 50% fibroglandular). No significant masses, calcifications or other abnormalities are seen. IMPRESSION: BILATERAL BREASTS: Negative, no evidence of malignancy. Normal interval follow-up is recommended in 12 months. OVERALL ASSESSMENT - CATEGORY 1 - NEGATIVE END OF IMPRESSION These results will be communicated to your patient via a lay letter from Radiology. If any additional imaging is needed we will contact your patient directly. Melissa Khan MD IMG MAMMOGRAPHY ANGELLA SARKAR documented in this encounter Visit Diagnoses Not on filedocumented in this encounter Care Teams Dough Mixer Relationship Specialty Start Date End Date Melissa Khan MD [address] [place] [phone] PCP - General 08/04/15 documented as of this encounter
--- OUTSIDE RECORDS SUMMARY | 2023-12-07 00:49 | XMS_ITS | Encounter Summary ---
Author Organization [facility] Address [address] [place] [address] Care Team Providers Care Acid Dipper Name Role Phone Melissa Khan MD Primary Care Provider [phone] Encounter Details Date Type Department Care Team (Latest Contact Info) Description 07/02/2020 Travel Social History Tobacco Use Types Packs/Day [...] Contact Info) Description 12/10/2023 11:00 EDT Appointment [facility] Radiology CT Outpatient - [address] [address] 12/11/2023 13:45 EDT Initial consult [facility] Gynecologic Oncology - [address] [address] Ashlee Garcia MD [address] [place] [address], [address] [place] [phone] documented as of this encounter Visit Diagnoses Not on filedocumented in this encounter Care Teams Acid Dipper Relationship Specialty Start Date End Date Melissa Khan MD [address] [place] [phone] PCP - General 08/04/15 documented as of this encounter
--- OUTSIDE RECORDS SUMMARY | 2023-12-07 00:49 | XMS_ITS | Encounter Summary ---
Author Organization [facility] Address [address] [place] [address] Care Team Providers Care Medical Support Assistant Name Role Phone Melissa Khan MD Primary Care Provider [phone] Encounter Details Date Type Department Care Team (Latest Contact Info) Description 05/02/2018 10:07 EST - 05/02/2018 23:59 EST Hospital Encounter [facility] - [address] [address] Melissa Khan MD [address] [place] [phone] Discharge Disposition: Auto Discharge Social History Tobacco [...] as of this encounter Discharge Diagnoses Diagnosis Z12.31 Encounter for screening mammogram for malignant neoplasm of breast-Z12.31[ICD-10-CM] documented in this encounter Medications at Time [...] naproxen (NAPROSYN) 500 mg tabletIndications:Psori atic arthritis ([facility]),Generalized osteoarthrosis, involving multiple [...] Auto Discharge Home documented in this encounter Plan of Treatment Upcoming Encounters Date Type Department Care Team (Late st Contact Info) Description 12/10/2023 11:00 EDT Appointment [facility] Radiology CT Outpatient - [address] [address] 12/11/2023 13:45 EDT Initial consult [facility] Gynecologic Oncology - [facility] [address] [place], [place] [phone] Ashlee Garcia MD 111 [facility], [address] [place] [phone] documented as of this encounter Visit Diagnoses Not on filedocumented in this encounter Care Teams Medical Support Assistant Relationship Specialty Start Date End Date Melissa Khan MD [address] [place] [phone] PCP - General 08/04/15 documented as of this encounter
--- OUTSIDE RECORDS SUMMARY | 2023-12-07 00:49 | XMS_ITS | Encounter Summary ---
Author Organization [facility] Address [address] [place] [address] Care Team Providers Care Manager Global Communications Name Role Phone Melissa Khan MD Primary Care Provider [phone] Encounter Details Date Type Department Care Team (Late st Contact Info) Description 10/16/2019 Lab Requisition [facility] Pathology & Laboratory Medicine - [facility] [address] [place] [address] Joi Roberson, [employer]IA SOLUTION PREPARER [address] [place] [address] Urgency of urination Social History Tobacco Use Types Packs/Day Years [...] Contact Info) Description 12/10/2023 11:00 EDT Appointment [facility] Radiology CT Outpatient - [address] [address] 12/11/2023 13:45 EDT Initial consult [facility] Gynecologic Oncology - [address] [address] Ashlee Garcia MD 111 [facility], [address] [place] [phone] documented as of this encounter Procedures Procedure Name Priority Date/Time Associated Diagnosis Comments BACTERIAL CULTURE, URINE Routine 10/16/2019 11:30 EDT Urgency of urination documented in this encounter Results * BACTERIAL CULTURE, URINE (10/16/2019 11:30 EDT) Organism ID Less than 10,000 CFU/ml Usual urogenital ricardo. 10/18/2019 10:32 EDT [facility] Urine URINE SPECIMEN OBTAINED BY CLEAN CATCH PROCEDURE / Unknown Urine Collect / Unknown 10/16/2019 11:30 EDT 10/16/2019 20:42 EDT Joi Riosle [employer]UTION PREPARER MICROBIOLOGY - GENER AL ORDERABLES Performing Organization Address City/State/[facility] Co de Phone Number [facility] [address] [place] [address] documented in this encounter Visit Diagnoses Diagnosis Urgency of urination documented in this encounter Care Teams Manager Global Communications Relationship Specialty Start Date End Date Melissa Khan MD [address] [place] [phone] PCP - General 08/04/15 documented as of this encounter
--- OUTSIDE RECORDS SUMMARY | 2023-12-07 00:49 | XMS_ITS | Encounter Summary ---
Author Organization [facility] Address [address] [place] [address] Care Team Providers Care Roller Man Name Role Phone Melissa Khan MD Primary Care Provider [phone] Reason for Visit * Reason Comments Other Encounter Details Date Type Department Care Team ([facility] st Contact Info) Description 05/29/2020 [facility] Rheumatology & Immunology - [address] [phone] Mo Rodriguez, KRYSTINA [address] [facility], [address] [place] [phone] Other Social History Tobacco Use [...] encounter Miscellaneous Notes * Telephone Encounter - Alka Martinez, TAVARES - 05/31/2020 1637 EST Spoke with pt R/T recent request for methotrexate. Needs updated labs. Asked that she do them at her earliest convenience. Due every 3 months. Pt didn't realize that standing lab orders had been placed. [facility] do them this week. Pt has FUR with MD in 2 weeks and has enough medication to hold her until then. Doesn't want us to refill her medication as she thinks MD will increase the dose or changethe medication. She doesn't feel it's doing too much for her. documented in this encounter Plan of Treatment Upcoming Encounters Date Type Department Care Team (Late st Contact Info) Description 12/10/2023 11:[address] [facility] Radiology CT Outpatient - [address] [phone] 12/11/2023 13:45 EDT Initial consult [facility] Gynecologic Oncology - [address] [address] Ashlee Garcia MD [address] [facility], [address] [place] [phone] documented as of this encounter Visit Diagnoses Diagnosis Psoriatic arthritis ([facility]) Psoriatic arthropathy Chronic bilateral low back pain, unspecified whether sciatica present documented in this encounter Care Teams Roller Man Relationship Specialty Start Date End Date Melissa Khan MD [address] [place] [phone] PCP - General 08/04/15 documented as of this encounter
--- OUTSIDE RECORDS SUMMARY | 2023-12-07 00:49 | XMS_ITS | Encounter Summary ---
Author Organization [facility] Address [address] [place] [address] Care Team Providers Care Treasurer Name Role Phone Melissa Khan MD Primary Care Provider [phone] Reason for Referral * Radiology Services (Routine) - Closed Specialty Diagnoses / Procedures Referred By Contac t Referred To Contact Radiology Diagnoses Generalized osteoarthrosis, involving multiple sites Psoriatic arthritis (HCC-CMS) Chronic bilateral low back pain, unspecified whether sciatica present Procedures MR SI JOINTS WO CONTRAST MR SI JOINTS WO CONTRAST Moody Manning MD [address] [employer] [address] [place] [phone] Referral ID Status Reason Start Date Expiration Date Visits Re quested Visits Authorized [id number] Closed 03/22/2020 09/17/2020 1 1 * Radiology Services (Routine) - Closed Specialty Diagnoses / Procedures Referred By Contac t Referred To Contact Diagnoses Generalized osteoarthrosis, involving multiple sites Psoriatic arthritis (HCC-CMS) Chronic bilateral low back pain, unspecified whether sciatica present Procedures XR SACROILIAC JOINTS 3 OR MORE VIEWS Moody Manning MD [employer] [address] [place] [address] Referral ID Status Reason Start Date Expiration Date Visits Re quested Visits Authorized [id number] Closed 02/11/2020 1 1 Reason for Visit * Reason Comments Joint Pain whole body , hips an d knees are the worst Back Pain lower back, Encounter Details Date Type Department Care Team (Latest Contact Info) Description 02/11/2020 15:20 EDT Office Visit [facility] Rheumatology & Immunology - [facility] [address], [place] [id number] Moody Manning MD [address] [facility] [address] [place] [address] Generalized osteoarthrosis, involving multiple sites (Primary Dx); Psoriatic arthritis (HCC-CMS); Chronic bilateral low back pain, unspecified whether sciatica present; Trochanteric bursitis of both hips Social History [...] 10:58 EST documented as of this encounter Last Filed Vital Signs Vital Sign Reading Time Taken Comments Blood Pressure 111/76 02/11/2020 1548 EDT Pulse 100 02/11/2020 1548 EDT Temperature - - Respiratory Rate - - Oxygen Saturation - - Inhaled Oxygen Concentration - - Weight 64.9 kg (143 lb) 02/11/2020 1548 EDT Height 160 cm (5' 3) 02/11/2020 1548 EDT Body Mass Index 25.33 02/11/2020 1548 EDT documented in this encounter Functional Status [...] * Patient Instructions* Moody Manning MD - 02/11/2020 15:20 EDT 1. Symptoms may be due to psoriatic arthritis and possible sacroiliitis (inflammation of the sacroiliac joints). You did have findings of wear and tear arthritis (osteoarthritis) on prior images 2. Please go down to the 3rd floor radiology department for x-rays of the sacroiliac joints 3. Please go down to the 2nd floor for updated blood work 4. I will order an MRI of the sacroiliac joints as well. 5. Pain control with ibuprofen 600 mg - 800 mg orally every 8 hours as needed with food or naproxen(Aleve) 1-2 tablets orally every 12 hours with food. DO NOT TAKE THESE MEDICATIONS TOGETHER! These medications can cause stomach upset, stomach bleeding, decreased kidney function, increased blood pressure, increased risk of heart attack and stroke. If taking one of these medications daily, it is recommended to monitor blood counts, liver and kidney function every 3-4 months. 6. May add tylenol 1000 mg orally every 8 hours as needed 7. May try topical aspercreme with lidocaine 4% (cream or patch)/salonpas lidocaine 4% patch or capzasin cream or icy/hot or biofreeze up to 4x/day to affected muscles and joints. 8. Please restart omeprazole 20 mg orally daily for stomach protection when taking daily ibuprofen or naproxen 9. Based on the blood work and imaging findings, we may consider trying methotrexate or biologic medications such as Enbrel or Humira if there is evidence of sacroiliitis on x-ray or MRI. 10. Follow up in 4-6 weeks with Mo Rodriguez NP 11. Follow up in [address] Manning Methotrexate (Rheumatrex, Trexall, Otrexup, [...] of the medications you are taking, including ckdr-vpk-rcztqpyewrysevvenk and natural remedies, as some of these [...] this medicine (even past use) with their oil well directional surveyor. Methotrexate can cause serious defects and complication during , so women taking this medication should discuss appropriate forms of control with their primary care physician or compounding assistant. An effective form of contraception is critical [...] Additionally, you should discuss methotrexate with your concrete journeyman before starting any chemotherapy or radiation therapy. The risk of liver injury may be increased if methotrexate is combined with other medications. Be sure to discuss this with other physicians when new medications are prescribed. Website [email or web address]-R heumatrex-Trexall Updated June 2018 by Karl Resendiz MD, and reviewed by the [employer] Communications and Marketing Committee. This patient fact sheet is provided for general education only. Individuals should consult a qualified health care provider for professional medical advice, diagnosis and treatment of a medical or health condition. ?? 2019 [employer] ADALIMUMAB (HUMIRA) - Patient Fact Sheet DESCRIPTION Adalimumab is an anti-tumor necrosis factor (anti-TNF) medication. Anti-TNF are a class of medications that are used worldwide to treat inflammatory conditions. These medications are able to reduce inflammation and stop disease progression. USES Adalimumab is currently approved for rheumatoid arthritis, psoriatic arthritis, ankylosing spondylitis, and uveitis (inflammation of the eye). Depending on the reason for use, adalimumab may be used with or without other medications such as prednisone, methotrexate, hydroxychloroquine, leflunomide or sulfasalazine. HOW IT WORKS TNF is a chemical produced by the immune system that causes inflammation in the body. In healthy individuals, excess TNF in the blood is blocked naturally, but in those who have rheumatic conditions,higher levels of TNF in the blood lead to more inflammation and persistent symptoms. TNF inhibitors, like adalimumab, control inflammation in the joints, gastrointestinal tract and skin. DOSING When given as an injection into the skin (subcutaneously) 40 mg once every 14 days is self-administered. Physicians, nurses, and pharmacists can teach you how to give the injection. Depending on the reason for use, you may use higher doses first, this is called a loading dose. TIME TO EFFECT The time that it takes for the medication to have an effect may vary by patient. Most patients havereported a change in their symptoms after 4-6 doses (8-12 weeks). SIDE EFFECTS The most common side effect seen with the injectable drugs are skin reactions, commonly referred toas ???injection site reactions.?? The patients usually complain of a localized rash with burning or itching. These reactions can last up to a week. The most significant side effect is an increased risk for all types of infections, including tuberculosis (TB) and fungal infections. Some of these infections may be severe. Patients should be testedfor TB before starting therapy. Hepatitis B testing should be done because unrecognized hepatitis B infection may worsen during treatment. Long-term use of anti-TNF agents may increase the risk of cancers such as lymphoma and skin cancer.On rare occassions, neurologic complications (weakness, numbness, change in balance) may occur. People who have a history of multiple sclerosis should not use them. People with significant heart failure should not be on anti-TNF medication because their heart disease could worsen. TELL YOUR DOCTOR Adalimumab should be stopped if the patient has high fever or is being treated with antibiotics dandy infection. Once the medication is stopped, it should not be restarted until the patient has discussed it with their doctor. Patients should talk to their doctors before getting any vaccines. Most vaccinations are safe, but live vaccines should be avoided. This medication is expensive (more than $10,000 per year), but is covered by most health care insurance plans. Ask your doctor about prescription assistance plans that can help you to get the medication at a lower frausto or free of charge. ?? 2019 [employer] documented in this encounter Ordered Prescriptions Prescription Sig Dispensed Refills Start Date End Da te omeprazole (PRILOSEC) 20 mg capsuleIndications:Psoriati c arthritis (HCC-CMS),Generalized osteoarthrosis, involving multiple sites,Trochanteric bursitis of both hips Take 1 Cap by mouth daily. 30 Cap 2 02/11/2020 documented in this encounter Progress Notes * Moody Manning MD - 02/11/2020 1520 EDT DIVISION OF RHEUMATOLOGY AND CLINICAL IMMUNOLOGY PROGRESS / FOLLOW-UP VISIT NOTE Date of Service: 02/11/2020 Chief Complaint Patient presents with ??? Joint Pain whole body , hips and knees are the worst ??? Back Pain lower back, SUBJECTIVE: Ms. Agueda Carpio is a 60 y.o. female with history of cervical, lumbar and sacroiliac joint degenerative osteoarthritis, bilateral carpal tunnel syndrome, psoriasis and possible enthesitis who presents today for a follow-up visit. She was last seen in clinic on 08/13/2017 Since her last visit: - Low back pain. Stiffness after prolonged rest. Describes pain present throughout the day. - bilateral knee pain. Unsure if they are swollen. Bending is OK but stiffness with extension of the knees - has taken ibuporofen 400 mg orally as needed which helps blunt the symptoms. - Dr. Leyva treated her with prednisone for 12-14 days with dramatic improvement. Symptoms returned after cessation 2 months ago. - poor sleep. Tried amitriptyline without relief - Psoriasis improved after UV tanning bed for 1 year but has returned involving the posterior scalp. - itchy eyes - rib/muscular discomfort involving the chest - plantar aspect of her feet hurt at times. - Denies other systemic symptoms including fevers, chills, night sweats, weight loss, skin rashes, photosensitivity,??iritis/uveitis, xerostomia, pleurisy, serositis, changes in bowel or bladder habits, hematocheiza, melena, dysuria, hematuria, frequency, itching, alopecia or Raynaud's phenomenon. REVIEW OF SYSTEMS: Review of systems as documented by Nurses/MA's during this visit and reviewed by me. MEDICATIONS: Current Outpatient Medications Medication Sig ??? BUPROPION HCL (WELLBUTRIN ORAL) Take by mouth daily. Indications: Doesn't recall dose ??? BUSPIRONE HCL (BUSPIRONE ORAL) Take by mouth. ??? clonazePAM (KLONOPIN) 0.5 mg tablet Take 0.5 mg by mouth 2 times daily. Reported on 03/16/2016 ??? hydroCHLOROthiazide (HYDRODIURIL) 25 mg tablet Take 25 mg by mouth daily. ??? ibuprofen (MOTRIN) 200 mg tablet Take 600 mg by mouth every 8 hours as needed for Pain. ??? lidocaine 5 % gel Apply 100 mg topically every 8 hours as needed for Pain. Maximum dose: 4.5 mg/kg, not to exceed 300 mg ??? LORazepam (ATIVAN) 1 mg tablet Take 0.5 mg by mouth 3 times daily. ??? losartan (COZAAR) 25 mg tablet Take 25 mg by mouth daily. ??? naproxen (NAPROSYN) 500 mg tablet Take 1 Tab by mouth 2 times daily. (Patient not taking: Reported on 2018) ??? omeprazole (PRILOSEC) 20 mg capsule Take 1 Cap by mouth daily. (Patient not taking: Reported on2018) ??? triamcinolone (KENALOG) 0.1 % ointment APPLY A THIN LAYER TOPICALLY TO AFFECTED AREA TWICE DAILY. MAX OF 50 G PER WEEK. MAX OF 2 WEEKS. OBJECTIVE: Blood pressure 111/76, pulse 100, height 160 cm (63), weight 64.9 kg (143 lb). General: No acute distress. Alert, fully [...] 10:10 AM Clinical History/Comments: M25.50-Pain in unspecified [id number] R76.8-Other specified abnormal immunological findings in [id number]; COUGH COMPARISON: Chest radiograph 08/27/2013. TECHNIQUE: Two [...] less likely posttraumatic. RAPID3 Summary Functional Status: 2.7 Pain Tolerance: 7 Global Estimate: 5 Score: 14.7 Interpretation: High RAPID3 SCORES AND INTERPRETATION 09/08/2015 03/16/2016 08/13/2017 02/11/2020 Functional Status 1 1 0.7 2.7 Pain Tolerance 3 2 4.5 7 Global Estimate 2 0 - Very Well 7 5 RAPID3 6 3 12.2 14.7 Interpretation Low Near Remission High High IMPRESSION / PLAN: Ms. Agueda Carpio is a 60 y.o. female with 1.?? Bilateral hip pain [...] joint MRIto evaluate for possible sacroiliitis. 2. Possible Psoriatic Arthritis vs osteoarthritis - Diffuse polyarthralgia involving her PIP's, cervical spine, elbows and knees, weakly positive rheumatoid factor = 22 with evidence of Psoriatic patch the right occiput and right Achilles tenderness suspicious for enthesitis - Psoriatic patch on occiput without evidence of dactylitis or enthesitis today on examination. H/o mild tenderness involving the 2nd-3rd PIP joints today without dactylitis, tenosynovitis or synovitis. To do: - obtain MRI of the SI joints to evaluate for evidence of sacroiliitis. - continue with oral and topical NSAID's. 3. Degenerative disc disease with Lumbar facet arthrosis with Sacral degenerative osteoarthritis s/p C5-C7 spinal fusion 4. Weakly positive RF with negative anti-CCP Ab. 5. Bilateral Carpal Tunnel Syndrome PATIENT INSTRUCTIONS: Patient Instructions 1. Symptoms may be due to psoriatic arthritis and possible sacroiliitis (inflammation of the sacroiliac joints). You did have findings of wear and tear arthritis (osteoarthritis) on prior images 2. Please go down to the 3rd floor radiology department for x-rays of the sacroiliac joints 3. Please go down to the 2nd floor for updated blood work 4. I will order an MRI of the sacroiliac joints as well. 5. Pain control with ibuprofen 600 mg - 800 mg orally every 8 hours as needed with food or naproxen(Aleve) 1-2 tablets orally every 12 hours with food. DO NOT TAKE THESE MEDICATIONS TOGETHER! These medications can cause stomach upset, stomach bleeding, decreased kidney function, increased blood pressure, increased risk of heart attack and stroke. If taking one of these medications daily, it is recommended to monitor blood counts, liver and kidney function every 3-4 months. 6. May add tylenol 1000 mg orally every 8 hours as needed 7. May try topical aspercreme with lidocaine 4% (cream or patch)/salonpas lidocaine 4% patch or capzasin cream or icy/hot or biofreeze up to 4x/day to affected muscles and joints. 8. Please restart omeprazole 20 mg orally daily for stomach protection when taking daily ibuprofen or naproxen 9. Based on the blood work and imaging findings, we may consider trying methotrexate or biologic medications such as Enbrel or Humira if there is evidence of sacroiliitis on x-ray or MRI. 10. Follow up in 4-6 weeks with Mo Rodriguez NP 11. Follow up in [address] Manning Methotrexate (Rheumatrex, Trexall, Otrexup, [...] of the medications you are taking, including zfwo-qfj-srofhbmegcidsyatdh and natural remedies, as some of these [...] this medicine (even past use) with their oil well directional surveyor. Methotrexate can cause serious defects and complication during , so women taking this medication should discuss appropriate forms of control with their primary care physician or compounding assistant. An effective form of contraception is critical [...] Additionally, you should discuss methotrexate with your concrete journeyman before starting any chemotherapy or radiation therapy. The risk of liver injury may be increased if methotrexate is combined with other medications. Be sure to discuss this with other physicians when new medications are prescribed. Website [email or web address]-[email or web address]/Methotrexate-R heumatrex-Trexall Updated June 2018 by Karl Resendiz MD, and reviewed by the [employer] Communications and Marketing Committee. This patient fact sheet is provided for general education only. Individuals should consult a qualified health care provider for professional medical advice, diagnosis and treatment of a medical or health condition. ?? 2019 [employer] ADALIMUMAB (HUMIRA) - Patient Fact Sheet DESCRIPTION Adalimumab is an anti-tumor necrosis factor (anti-TNF) medication. Anti-TNF are a class of medications that are used worldwide to treat inflammatory conditions. These medications are able to reduce inflammation and stop disease progression. USES Adalimumab is currently approved for rheumatoid arthritis, psoriatic arthritis, ankylosing spondylitis, and uveitis (inflammation of the eye). Depending on the reason for use, adalimumab may be used with or without other medications such as prednisone, methotrexate, hydroxychloroquine, leflunomide or sulfasalazine. HOW IT WORKS TNF is a chemical produced by the immune system that causes inflammation in the body. In healthy individuals, excess TNF in the blood is blocked naturally, but in those who have rheumatic conditions,higher levels of TNF in the blood lead to more inflammation and persistent symptoms. TNF inhibitors, like adalimumab, control inflammation in the joints, gastrointestinal tract and skin. DOSING When given as an injection into the skin (subcutaneously) 40 mg once every 14 days is self-administered. Physicians, nurses, and pharmacists can teach you how to give the injection. Depending on the reason for use, you may use higher doses first, this is called a loading dose. TIME TO EFFECT The time that it takes for the medication to have an effect may vary by patient. Most patients havereported a change in their symptoms after 4-6 doses (8-12 weeks). SIDE EFFECTS The most common side effect seen with the injectable drugs are skin reactions, commonly referred toas ???injection site reactions.?? The patients usually complain of a localized rash with burning or itching. These reactions can last up to a week. The most significant side effect is an increased risk for all types of infections, including tuberculosis (TB) and fungal infections. Some of these infections may be severe. Patients should be testedfor TB before starting therapy. Hepatitis B testing should be done because unrecognized hepatitis B infection may worsen during treatment. Long-term use of anti-TNF agents may increase the risk of cancers such as lymphoma and skin cancer.On rare occassions, neurologic complications (weakness, numbness, change in balance) may occur. People who have a history of multiple sclerosis should not use them. People with significant heart failure should not be on anti-TNF medication because their heart disease could worsen. TELL YOUR DOCTOR Adalimumab should be stopped if the patient has high fever or is being treated with antibiotics dandy infection. Once the medication is stopped, it should not be restarted until the patient has discussed it with their doctor. Patients should talk to their doctors before getting any vaccines. Most vaccinations are safe, but live vaccines should be avoided. This medication is expensive (more than $10,000 per year), but is covered by most health care insurance plans. Ask your doctor about prescription assistance plans that can help you to get the medication at a lower frausto or free of charge. ?? 2019 [employer] There are no barriers to understanding/learning. Patient verbalizes understanding and agrees with plan. Moody Manning MD 02/11/2020 Please note: Parts of this documentation was created using voice recognition software. Senior Electrical Project Manager errors may be present. documented in this encounter Plan of Treatment Upcoming Encounters Date Type Department Care Team (Late st Contact Info) Description 12/10/2023 11:00 EDT Appointment [facility] Radiology CT Outpatient - [address] [id number] 12/11/2023 13:45 EDT Initial consult [facility] Gynecologic Oncology - [address] [id number] Ashlee Garcia MD [address] [facility], [address] [place] [id number] documented as of this encounter Results * QUANTIFERON TB GOLD PLUS (07/02/2020 11:55 EST) Quantiferon Interpretation Negative Negative 07/05/2020 15:24 EST [facility] Comment: No interferon-gamma response to [...] Ag minus Nil 0.00 IU/ml 07/06/19 15:24 [facility] TB2 Ag minus Nil 0.00 IU/mL 07/06/19 15:24 [facility] Blood VENOUS BLOOD / Unknown Venipuncture / Unknown 07/02/2020 11:55 EST 07/02/2020 11:55 EST [facility] - 07/05/2020 15:24 EST Results were obtained with the [employer] QuantiFERON-TB Gold Plus LIZANDRO. Moody Manning MD CHEMISTRY & BLOOD GA S ORDERABLES [facility] [address] [place] [address] * THYROID CASCADE (07/02/2020 11:54 EST) TSH 0.52 0.47 - 4.68 uIU/mL 07/02/2020 14:37 EST [facility] Blood VENOUS BLOOD / Unknown Venipuncture / Unknown 07/02/2020 11:54 EST 07/02/2020 11:55 EST [facility] - 07/02/2020 14:37 EST NOTE: TSH [place] is not recommended for patients in which pituitary or hypothalamic disorders are suspected. The results of this assay can be falsely lowered due to the consumption of Biotin. Moody Manning MD CHEMISTRY & BLOOD GA S ORDERABLES Performing Organization Address City/[facility]/ZIP Co de Phone Number [facility] [address] [place] [address] * CK (07/02/2020 11:54 EST) CK 124 30 - 135 U/L 07/02/2020 14:01 EST [facility] Blood VENOUS BLOOD / Unknown Venipuncture / Unknown 07/02/2020 11:54 EST 07/02/2020 11:55 EST Moody Manning MD CHEMISTRY & BLOOD GA S ORDERABLES Performing Organization Address [facility] Co de Phone Number [facility] [address] [place] [address] * MR SI JOINTS WO CONTRAST (04/20/2020 21:10 EST) Anatomical Region Laterality Modality Spine Magnetic Resonan ce 04/21/2020 15:0 6 EST Impressions 04/21/2020 15:06 EST 1. Mild degenerative changes are visualized in both SI joints, worse on the left, as detailed above. 2. No evidence of erosive sacroiliitis. 3. Again seen is the previously described osseous deformity of the lower sacrum and coccyx appearing unchanged on radiographs dating back to August 05, 2015. . I have personally reviewed the images and the above interpretation and agree with the findings. Narrative 04/21/2020 15:06 EST EXAM: MRI SACROILIAC JOINTS WO CONTRAST HISTORY: Chronic low back pain/SI joint region with positive RAFA testing and tenderness, Left > Right in the setting of psoriasis. degenerative changes on si joint x-ray in 2016. ? sacroiliitis TECHNIQUE: MRI of the sacroiliac joints without contrast. COMPARISON: Radiographs of the SI joints on February 11, 2020 and August 05, 2015. FINDINGS: Redemonstrated are mild degenerative changes involving both SI joints, including small region of low signal subchondral sclerosis along the anterior aspect of the right SI joint with small amount of associated reactive marrow edema. No discrete articular erosive changes seen involving either SI joint. Redemonstrated is the previously described osseous deformity of the lower sacrum and coccyx appearing unchanged on radiographs dating back to August 05, 2015. Degenerative disc disease and facet arthropathy are noted at the L5-S1 level and partially visualized L4-L5 level. Multiple noninflamed diverticuli are noted in the small portion of the included sigmoid colon. Procedure Note Viktor Melendez MD - 04/21/2020 EXAM: MRI SACROILIAC JOINTS WO CONTRAST HISTORY: Chronic low back pain/SI joint region with positive RAFA testingand tenderness, Left > Right in the setting of psoriasis. degenerativechanges on si joint x-ray in 2016. ? sacroiliitis TECHNIQUE: MRI of the sacroiliac joints without contrast. COMPARISON: Radiographs of the SI joints on February 11, 2020 and July. FINDINGS: Redemonstrated are mild degenerative changes involving both SI joints,including small region of low signal subchondral sclerosis along theanterior aspect of the right SI joint with small amount of associatedreactive marrow edema. No discrete articular erosive changes seeninvolving either SI joint. Redemonstrated is the previously described osseous deformity of the lowersacrum and coccyx appearing unchanged on radiographs dating back to 2015. Degenerative disc disease and facet arthropathy are noted at the L5-C9oznwg and partially visualized L4-L5 level. Multiple noninflamed diverticuli are noted in the small portion of theincluded sigmoid colon. IMPRESSION 1. Mild degenerative changes are visualized in both SI joints, worse onthe left, as detailed above. 2. No evidence of erosive sacroiliitis. 3. Again seen is the previously described osseous deformity of the lowersacrum and coccyx appearing unchanged on radiographs dating back to 2015. . I have personally reviewed the images and the above interpretation andagree with the findings. Moody Manning MD IMG MRI ORDERABLES * XR SACROILIAC JOINTS 3 OR MORE VIEWS (02/11/2020 17:43 EDT) Anatomical Region Laterality Modality Spine Computed Radiogr aphy 02/11/2020 18:0 4 EDT Impressions 02/11/2020 18:04 EDT Sclerosis of both SI joints, slightly worse on the left than the right. The right-sided changes are stable and the left-sided changes are slightly worse than 2016. No definite erosions are identified. Portions of this document may have been prepared with speech recognition software or keyboard data conversion developer techniques. Minor irregularities or keyboarding misprints may be present. Narrative 02/11/2020 18:04 EDT XR SACROILIAC JOINTS 3 OR MORE VIEWS ??02/11/2020 5:45 PM Signs and Symptoms/Comments: ?? Worsning chornic low back pain, Left > right SI joint tenderness. Positive Rafa testing in the setting of psoriasis. Degenerative changes on SI joint x-ray in 2016. ? sacroiliitis. Comparison: 08/05/15 and 05/01/14 Technique: 3 views of the SI joints. Findings: There is again noted to be [...] tip to the right of midline. Multiple rounded calcifications in the pelvis are again noted compatible with phleboliths. Procedure Note Abigail Claros MD - 02/11/2020 XR SACROILIAC JOINTS 3 OR MORE VIEWS 02/11/2020 5:45 PM Signs and Symptoms/Comments: Worsning chornic low back pain, Left > right SI joint tenderness. PositiveFaber testing in the setting of psoriasis. Degenerative changes on SIjoint x-ray in 2016. ? sacroiliitis. Comparison: 08/05/15 and 05/01/14 Technique: 3 views of the SI joints. Findings: There is again noted to be mild subchondral sclerosis on the iliac sidesof the SI joints. This is slightly more pronounced on the left whencompared with the right and is slightly worse on the left today whencompared with the prior study. No evidence of erosions. There is againnoted to be deformity of the sacrum and coccyx which are curved with thetip to the right of midline. Multiple rounded calcifications in the pelvisare again noted compatible with phleboliths. IMPRESSION Sclerosis of both SI joints, slightly worse on the left than the right.The right-sided changes are stable and the left-sided changes are slightlyworse than 2016. No definite erosions are identified. Portions of this document may have been prepared with speech recognitionsoftware or keyboard data conversion developer techniques. Minor irregularities orkeyboarding misprints may be present. Moody Manning MD IMG DIAGNOSTIC IMAGI NG ORDERABLES documented in this encounter Visit Diagnoses Diagnosis Generalized osteoarthrosis, involving multiple sites- Primary Psoriatic arthritis (HCC-CMS) Psoriatic arthropathy Chronic bilateral low back pain, unspecified whether sciatica present Trochanteric bursitis of both hips Enthesopathy of hip region Generalized osteoarthrosis, involving multiple sites Psoriatic arthritis (HCC-CMS) Psoriatic arthropathy Chronic bilateral low back pain, unspecified whether sciatica present documented in this encounter Discontinued Medications Medication Sig Discontinue Reason Start Date End Da te omeprazole (PRILOSEC) 20 mg capsuleIndications:Psoria tic arthritis (HCC-CMS),Generalized osteoarthrosis, involving multiple sites,Trochanteric bursitis of both hips Take 1 Cap by mouth daily. Reorder 08/13/2017 02/11/2020 documented as of this encounter Historical Medications * This list may reflect changes made after this encounter. Medication Sig Dispensed Refills Start Date End Date LORazepam (ATIVAN) 1 mg tablet Take 0.5 Tablets by mouth 3 times daily. hydroCHLOROthiazide (HYDRODIURIL) 25 mg tablet Take 25 mg by mouth daily. 03/23/2020 added in this encounter Care Teams Treasurer Relationship Specialty Start Date End Date Melissa Khan MD [address] [place] [phone] PCP - General 08/04/15 documented as of this encounter
--- OUTSIDE RECORDS SUMMARY | 2023-12-07 00:49 | XMS_ITS | Encounter Summary ---
Author Organization [facility] Address [address] [place] [address] Care Team Providers Care System Specialist Name Role Phone Melissa Khan MD Primary Care Provider [phone] Reason for Visit * Reason Onset Date Comments Referral Request 06/15/2020 Encounter Details Date Type Department Care Team (Late st Contact Info) Description 06/15/2020 Telephone [facility] Interventional Pain [address] [place], [place] [phone] Unknown, Doctor MD Referral Request Social History Tobacco Use Types Packs/Day Years [...] encounter Miscellaneous Notes * Telephone Encounter - Urszula Garcia - 06/15/2020 1353 EST PT reports they will be moving to [place] and want referral sent to [place]. Nearby clinic will be [facility] in [facility]. Information sent back to referring provider. documented in this encounter Plan of Treatment Upcoming Encounters Date Type Department Care Team (Late st Contact Info) Description 12/10/2023 11:00 EDT Appointment [facility] Radiology CT Outpatient - [address] [phone] 12/11/2023 13:45 EDT Initial consult [facility] Gynecologic Oncology - [address] [id number] Ashlee Garcia MD [address] [facility], [facility], [address] [place] [phone] documented as of this encounter Visit Diagnoses Not on filedocumented in this encounter Care Teams System Specialist Relationship Specialty Start Date End Date Melissa Khan MD [address] [place] [phone] PCP - General 08/04/15 documented as of this encounter
--- OUTSIDE RECORDS SUMMARY | 2023-12-07 00:49 | XMS_ITS | Encounter Summary ---
Author Organization [facility] Address [address] [place] [address] Care Team Providers Care Rope Tier Name Role Phone Melissa Khan MD Primary Care Provider [phone] Reason for Visit * Reason Comments Follow-up Joint Pain knees Back Pain Encounter Details Date Type Department Care Team (Late st Contact Info) Description 11/18/2020 10:30 EDT Office Visit [facility] Rheumatology & Immunology - [address] [id number] Juan Rodriguez NP [address] [facility], [address] [place] [address] Degenerative joint disease of sacroiliac joint (HCC-CMS) (Primary Dx); Psoriasis; Encounter for long-term (current) use of medications Social History Tobacco Use Types Packs/Day Years [...] Sign Reading Time Taken Comments Blood Pressure 117/79 11/18/2020 1049 EDT Pulse 82 11/18/2020 1049 EDT Temperature - - Respiratory Rate - - Oxygen Saturation - - Inhaled Oxygen Concentration - - Weight 66.7 kg (147 lb) 11/18/2020 1049 EDT Height - - Body Mass Index 26.05 06/14/2020 1012 EST documented in this encounter Functional Status [...] No 08/02/2020 documented as of this encounter Patient Instructions * Patient Instructions* Juan Rodriguez, ALAN - 11/18/2020 10:30 EDT 1. Continue off methotrexate 2. Please call if your Newton's are not improved with arch supports and different sneakers 3. please send notes, from GI provider in [place], Please let us know whom this is and contact information, please let us know what antibiotic you were on instead of vancomycin See if you are getting enough calcium in your diet Please check with PCP if you are low on vit K, and B12, if you are not low, you don't need supplementation Continue vit D supplementation 4. Recommend cruise director, PCP and GI provider in [place] and [place] 5. F/u 4-6 months in person Please send copy to [facility] Rheumatology [phone] fax phone [phone] Recommend 1200-1500mg of calcium daily between diet and supplements. Dietary calcium is better absorbed and if taking supplements they should be spread out to twice daily dosing. One serving of dietary calcium is about 300mg = 1 glass of milk, 1 6-8oz yogurt or 1 slice or 1 inch of cheese. Calcium Counts: Do You Get Enough? The rose to building strong bones and keeping them healthy is getting enough calcium. Many people donot get enough calcium from the foods they eat. Do you get enough calcium each day? Keep track of your intake for 4 days to see how it compares with the recommended levels. How much calcium to you need each day? Age Milligrams (mg) 9-18 years 1300 19-50 years 1000 51+ years 1200 Food mg calcium Day 1 Day 2 Day 3 Day 4 Dairy Foods: Skim milk, 1 cup 300 1% milk, 1 cup 300 2% milk, 1 cup 295 Whole milk, 1 cup 290 Chocolate milk, 1% or 2% 290 Nonfat dry milk, ?? cup 377 Buttermilk, 1 cup 285 Plain yogurt, low fat or fat free, 1 cup 415 Flavored yogurt, low fat or fat free, 1 cup 345 Cottage cheese, 2%, ?? cup 78 Ricotta cheese, part-skim, ?? cup 168 Parmesan cheese, 1 Tbsp 69 Mozzarella, part-skim, 1 oz 207 Cheddar cheese, 1 oz 204 Belgian cheese, 1 oz 272 [place] cheese, 1 oz 203 Vanilla ice cream, 11% fat, 1 cup 176 Vanilla frozen yogurt, 1 cup 200 Fish: Oysters, 1 cup 226 Sardines, with bones, 3 oz 372 [place], canned, w/bones, 3 oz 167 Shrimp, canned 3 oz 98 Clams, ?? cup 74 Autumn 3 ?? oz 42 Vegetables: Kale, frozen, cooked, ?? cup 90 Greens (beet, dandelion, turnip) cooked, ?? cup 87 Broccoli, frozen, chopped, cooked, ?? cup 47 Fruit: [place], 1 medium 52 [place] juice, calcium fortified, 1 cup 300 Rhubarb, cooked, ?? cup 174 Legumes: [place] beans, cooked ?? cup 64 Tofu, raw, regular, 2 oz 63 Tofu, raw, firm, with calcium sulfate, 2 oz 387 Tofu, raw, regular, with calcium sulfate, 2 oz 199 Grain Products: Instant oatmeal, 1 packet 160 Total cereal, with calcium, 1 cup 281 Pancake, made with milk, 4 diameter 83 [place] tortilla, 6 diameter 46 Other: Almonds, whole, ? cup 125 Caf?? latte, 12 fluid oz 412 Cappuccino, 12 fluid oz 262 Cheese pizza, 12 diameter, 1 slice 116 TOTALS: ADD: 4 day total (Day 1 + Day 2 + Day 3 + Day 4) = DIVIDE: 4 day total ?? 4 = = Average Daily Calcium Intake How does your intake compare with recommended calcium intake for your age? If it is higher, congratulations and keep up the good work! If it is lower, try eating more of the foods on the list above and/or talk with your health professional about other sources of calcium. documented in this encounter Progress Notes * Juan Rodriguez APRN - 11/18/2020 1030 EDT Images from the original note were not included. Patient ID: Agueda Jacobs is a 60 y.o. y.o. female Subjective: Chief Complaint: joint pain and psoriasis. HPI: Ms. Agueda Jacobs is a 60 y.o. female with history of cervical, lumbar and sacroiliac joint degenerative osteoarthritis, bilateral carpal tunnel syndrome, psoriasis and possible enthesitis. 03/23/[address] Manning on 02/11/2020 Labs from [facility] about 2-3 weeks ago CBC and CMP [...] x Hand/Foot color change in cold X Last seen by Dr. Manning on 06/14/2020 Per his last note: ?? In terms of her psoriatic rash, she continues to have a stable rash on her scalp. No other psoriatic rashes. In terms of nail changes, patient has a split nail on her left thumb but no other nail changes. ?? In terms of her joints, patient has pain: 1) Bilateral shoulders (left> right) 2) Buttocks (left > right) *This is the most excruciating pain that keeps her up at night and limits her physical activity 3) Knee joints ?? Patient also has stiffness in the morning that improves within 30 minutes. Patient also has pain inher calcaneus associated with stiffness that resolves in the morning. ?? Patient was started on methotrexate 10 mg orally once a week (4 tabs) at 03/23/2020. She did not notice any improvements in her joints following start of methotrexate. However, her scalp psoriasis has improved and psoriasis at the tip of her nose has resolved these past couple of weeks. ?? In terms of constitutional symptoms, patient has nausea and increased hunger since starting methotrexate. Patient has also noticed progressive shortness of breath and fatigue with exertion since disease onset that improved with iron supplements. Patient has been compliant with 1 tab a day of folate. Patient also has occassional dry cough which was worse when on jaiver-I. ?? Furthermore, patient had visual blurring in the morning that resolves with time and these past couple of weeks. Patient denies eye pain, flashes of light, and lasting visual defects. Patient has had intermittent dry eyes (I.e. admits to dry eyes and itching in 08/05/2015). ?? Patient has a history of urinary incontinence and continues to have frequent nocturia with sensation of incomplete emptying without dysuria. Patient denies chest pain, orthostasis, and bowel changes (history of IBS but wnl colonoscopy on 09/06/2017 and no recent history of melena nor hematochezia.) Since her last visit: -Psoriasis medically stable x1 -Had lower back muscle pain and diffuse joint paints -Xray SI joints 02/11/2020 showed:?? Sclerosis of both SI joints, slightly worse on the left than the right. The right-sided changes arestable and the left-sided changes are slightly worse than 2016. No definite erosions are identified. -Stopped ETOH because it made her feel sick and has improved GERD and anxiety. This ddid not improve joint pain. -Started paleo diet -Uses CBD cream on left should pain which improved pain 08/02/2020 The concept of ???Telemedicine?? has been described to the patient.? Patient has been informed of the anticipated benefits and possible risks.? Patient understands the information provided regardingtelemedicine, has had the opportunity to ask questions about this information, and all questions have been answered to patient???s satisfaction. Patient consents for the use of telemedicine in his/her medical care and authorizes the transmission of any relevant medical information to providers and their staff involved in patient???s medical or mental health care. Moved to [place] will be [place], currently in [place], will be back in [place] next week Typically will be in [place] Feb - July and plans to get a cruise director in [place] 07/23/2020 treated in [place] ER for colitis tx with Cipro and Flagyl - she has 1 more day of antibiotics ??blurry vision- this has resolved REVIEW OF SYSTEMS: Yes No Yes No Fever X Joint pain x Weight gain or loss 146 pounds (lbs) Duration of AM joint stiffness hours / min Eye pain or dryness X Numbness/tingling X Mouth or nose sores X Heart burn / Nausea X Chest pain X Diarrhea X Shortness of Breath X Blood in stool X Cough X Burning on urination X Skin rash X nape of neck psoriasis Hand/Foot color change in cold X Small patch of psoriasis to nape of neck -treating with topicals Walking 6-10 miles per day Low back pain/hips with walking 6 miles wearing asics sneakers Was referred to pain clinic Hard to lift leg to get over bicycle, has started intensely working out, and swimming daily Walking, biking and has started weights, And bilaterally upper arm bursitis is resolved She feels much better of MTX Using CBD topically which works well Had moderna- 07/25/2020 #1 Changes since last visit REVIEW OF SYSTEMS: Yes No Yes No Fever X Joint pain x Weight gain or loss pounds (lbs) Duration of AM joint stiffness 30 hours / min Eye pain or dryness Itchy and watery X Numbness/tingling x X Mouth or nose sores X Heart burn / Nausea x Chest pain x Diarrhea X Shortness of Breath X Blood in stool X Cough X Burning on urination X Skin rash X Hand/Foot color change in cold x 07/23/20 ED for small hiatal hernia, colonic diverticulosis and gallstones- D/cd' on cipro and flagyl with f/u with GI. 08/12/20 colitis flare d/c on Augmentin x 10 days with dicyclomine. C.diff- started vanco 125mg QID x 14 days, also on Florastor probiotics , finally on dificid -fidaxomicin now doing well, states daily BM GI in [place] - pt does not know her provider [place] #1 07/25/20 #2? 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 AM stiffness: some Physical activity: some, limited by joint pain Walking 8-10 miles, Patient Active Problem List Diagnosis ??? Hypertensive [...] Dust mites....congestion Current Outpatient Medications Medication ??? Cholecalciferol, Vitamin D3, (D3-2000) 50 mcg (2,000 unit) capsule ??? clobetasoL (TEMOVATE) 0.05 % external solution ??? cyanocobalamin (VITAMIN B-12) 500 mcg tablet ??? diclofenac sodium 1 % gel ??? ferrous sulfate (IRON) 325 mg (65 mg iron) tablet ??? folic acid (FOLVITE) 1 mg tablet ??? ibuprofen (MOTRIN) 200 mg tablet ??? lidocaine 5 % gel ??? LORazepam (ATIVAN) 1 mg tablet ??? losartan-hydrochlorothiazide (HYZAAR) 100-25 mg per tablet ??? magnesium oxide (MAG-OX) 400 mg (241.3 mg magnesium) tablet ??? methotrexate 2.5 mg tablet ??? mv,Ca,min-folic acid-vit K1 (ONE-A-DAY WOMEN'S 50 PLUS) 400-20 mcg tablet ??? omeprazole (PRILOSEC) 20 mg capsule ??? phytonadione, vit K1, (VITAMIN K) 100 mcg tablet ??? Potassium 99 mg tablet ??? triamcinolone (KENALOG) 0.1 % ointment No current facility-administered medications for this visit. ROS - SEE HPI I reviewed the 10 point ROS performed by the nurse which is as documented in [facility]. Objective: There were no vitals taken for this visit. PHYSICAL EXAM: General: No acute distress. Alert, fully oriented, pleasant, conversant. HEENT: Conjunctivae/corneas clear. Pupils equal, Sclerae anicteric. Mucus membranes moist; oropharynx clear. Neck supple, symmetrical, trachea midline Lungs: Clear to auscultation bilaterally. Heart: Regular rate and rhythm, S1, S2 present, no murmur Abdomen: Soft, non-tender, non-distended. Extremities: Extremities without cyanosis or edema. Skin: Clear Musculoskeletal: Spine: No significant tenderness. Normal range of motion of the spine. Shoulder/Elbow: No significant tenderness, swelling, effusions, erythema or warmth is present. Appropriate range of motion present. Wrist/Hand: No significant tenderness, swelling, effusions, erythema or warmth is present. Appropriate range of motion present. Hips/Knee: No significant tenderness, or erythema or warmth is present. Appropriate range of motionpresent. Ankle/Foot: Bilateral vilma's tenderness, no swelling, mild archees No significant tenderness, swelling, effusions, erythema or warmth is present. Appropriate range of motion present. LABS: Results for AGUEDA JACOBS ( ) as of 08/02/2020 08:55 Ref. Range 07/02/2020 11:54 07/02/2020 11:55 Sodium Latest Ref Range: 136 - 145 mEq/L 141 Potassium Latest Ref Range: 3.5 - 5.0 mEq/L 3.5 Chloride Latest Ref Range: 96 - 110 mEq/L 98 CO2 Latest Ref Range: 22 - 32 mEq/L 32 BUN Latest Ref Range: 10 - 26 mg/dL 24 Creatinine Latest Ref Range: 0.52 - 1.04 mg/dL 0.90 Glucose, Serum Latest Ref Range: 70 - 100 mg/dL 87 Calcium Latest Ref Range: 8.5 - 10.5 mg/dL 9.7 Calculated Calcium Latest Ref Range: 8.5 - 10.5 mg/dL 9.4 Total Protein Latest Ref Range: 6.3 - 8.2 g/dL 7.2 Albumin Latest Ref Range: 3.4 - 4.9 g/dL 4.4 AST Latest Ref Range: 15 - 46 U/L 26 ALT Latest Ref Range: <35 U/L 23 Bilirubin, Total Latest Ref Range: <1.4 mg/dL <0.5 Total Alkaline Phosphatase Latest Ref Range: 38 - 126 U/L 43 GFR, Calculated Latest Ref Range: >60 mL/min/1.73m2 69 CK Latest Ref Range: 30 - 135 U/L 124 TSH Latest Ref Range: 0.47 - 4.68 uIU/mL 0.52 WBC Latest Ref Range: 4.00 - 12.40 K/cmm 5.69 RBC Latest Ref Range: 3.86 - 5.04 M/cmm 3.64 (L) Hemoglobin Latest Ref Range: 11.6 - 15.2 gm/dL 11.5 (L) HCT Latest Ref Range: 34.9 - 44.4 % 34.4 (L) MCV Latest Ref Range: 81 - 98 fl 95 MCH Latest Ref Range: 26.7 - 33.3 pg 31.6 MCHC Latest Ref Range: 32.1 - 35.9 gm/dL 33.4 RDW-CV Latest Ref Range: <14.7 % 12.9 RDW-SD Latest Ref Range: <50.4 fl 44.4 PLT Latest Ref Range: 141 - 377 K/cmm 237 MPV Latest Ref Range: 9.5 - 12.7 fl 10.1 Neutrophils Latest Units: % 64.4 Lymphocytes Latest Units: % 24.3 Monocytes Latest Units: % 9.0 Eosinophils Latest Units: % 1.4 Basophils Latest Units: % 0.5 Immature Grans Latest Units: % 0.4 ABS Neutrophils Latest Ref Range: 2.20 - 8.85 K/cmm 3.67 ABS Lymphs Latest Ref Range: 1.09 - 3.30 K/cmm 1.38 ABS Monocytes Latest Ref Range: 0.10 - 0.80 K/cmm 0.51 ABS Eosinophils Latest Ref Range: 0.03 - 0.61 K/cmm 0.08 ABS Basophils Latest Ref Range: 0.01 - 0.11 K/cmm 0.03 ABS Immature Grans Latest Ref Range: 0.00 - 0.06 K/cmm 0.02 Type of Diff: Unknown Auto QUANTIFERON TB GOLD PLUS Unknown Rpt TB Interpretation Latest Ref Range: Negative Negative TB1 Ag minus Nil Latest Units: IU/ml 0.00 TB2 Ag minus Nil Latest Units: IU/mL 0.00 XR SACROILIAC JOINTS 3 OR MORE VIEWS (Order [id number]) Status: Final result (Exam End: 02/11/2020 17:43) Results XR SACROILIAC JOINTS 3 OR MORE VIEWS ( (Order [id number]) Study Images ??Show images for XR SACROILIAC JOINTS 3 OR MORE VIEWS XR SACROILIAC JOINTS 3 OR MORE VIEWS Order: [id number] Status: Final result ?Visible to patient: Yes (MyChart) Next appt: 03/30/2020 at 21:00 in Radiology ([facility] MR [facility] RM 1) Dx: Generalized osteoarthrosis, involving... Details Reading Physician Reading Date Result Priority Abigail Claros MD [phone] 02/11/2020 Narrative & Impression XR SACROILIAC JOINTS [...] with speech recognition software or keyboard data reduction technician techniques. Minor irregularities or keyboarding misprints may be present. Specimen Collected: 02/11/20 18:04 Last Resulted: 02/11/20 18:04 DIAGNOSTIC DATA: Labs: Lab Results Component Value Date ?? WBC 4.87 06/03/2020 ?? WBC 4.02 08/05/2015 ?? WBC 5.91 08/27/2013 ?? WBC 5.90 04/27/2003 ?? WBC 5.64 08/25/2002 ?? HGB 11.7 06/03/2020 ?? HGB 12.1 08/05/2015 ?? HGB 13.7 08/27/2013 ?? HGB 13.7 04/27/2003 ?? HGB 13.0 08/25/2002 ?? HCT 34.2 (L) 06/03/2020 ?? HCT 36.3 08/05/2015 ?? HCT 40.2 08/27/2013 ?? HCT 39.5 04/27/2003 ?? HCT 38.1 08/25/2002 ?? MCV 93 06/03/2020 ?? MCV 95 08/05/2015 ?? MCV 98 08/27/2013 ?? MCV 100 (H) 04/27/2003 ?? MCV 100 (H) 08/25/2002 ?? PLT 220 06/03/2020 ?? PLT 236 08/05/2015 ?? PLT 186 08/27/2013 ?? PLT 255 04/27/2003 ?? PLT 244 08/25/2002 ?? Lab Results Component Value Date ?? BUN 21 06/03/2020 ?? CREATININE 0.90 06/03/2020 ?? AST 24 06/03/2020 ?? ALT 21 06/03/2020 ?? Lab Results Component Value Date ?? SEDRATE 7 08/05/2015 ?? CRP <0.7 04/27/2003 ?? Lab Results Component Value Date ?? RF 22 (H) 05/20/2015 ?? KANDY <40 05/20/2015 ? Imaging: ?? 04/20/2020 EXAM: MRI SACROILIAC JOINTS WO CONTRAST ?? HISTORY: Chronic low back pain/SI joint region with positive LYNN testing and tenderness, Left > Right in the setting of psoriasis. degenerative changes on si joint x-ray in 2016. ? sacroiliitis ?? TECHNIQUE: MRI of the sacroiliac joints without contrast. ?? COMPARISON: Radiographs of the SI joints on February 11, 2020 and August 05, 2015. ?? FINDINGS: ?? Redemonstrated are mild degenerative changes involving both SI joints, including small region of low signal subchondral sclerosis along the anterior aspect of the right SI joint with small amount of associated reactive marrow edema. No discrete articular erosive changes seen involving either SI joint. ?? Redemonstrated is the previously described osseous deformity of the lower sacrum and coccyx appearing unchanged on radiographs dating back to August 05, 2015. ?? Degenerative disc disease and facet arthropathy are noted at the L5-S1 level and partially visualized L4-L5 level. ?? Multiple noninflamed diverticuli are noted in the small portion of the included sigmoid colon. ?? IMPRESSION 1. Mild degenerative changes are visualized in both SI joints, worse on the left, as detailed above. 2. No evidence of erosive sacroiliitis. 3. Again seen is the previously described osseous deformity of the lower sacrum and coccyx appearing unchanged on radiographs dating back to August 05, 2015. 07/23/[address] [facility] [address] abdomen pelvis with contrast (IV ONLY) Result Date: 07/23/2020 CT ABDOMEN/PELVIS WITH CONTRAST 07/23/2020 2:18 PM: History: GI bleed LLQ abdominal pain, diverticulitis suspected Comparison: No comparison. Technique: Spiral thin slice CT imaging is performed through the entire abdomen following the bolus intravenous administration of iodinated contrast without acute adverse effect utilizing protocols standardized by the [facility] [place]. Automatic Exposure Controls were utilized to limit patient exposure for the generation of this CT study.Radiation Dose Reduction: All CT scans are performed using radiation dose reduction techniques, when applicable. Technical factors are evaluated and adjusted to ensure appropriate moderation of exposure. Automated dose management technology is applied to adjust the radiation doses to minimize exposure while achieving diagnostic quality images. Findings: The visualized lung bases are clear. The gallbladder is mildly distended and contains several gallstones without gallbladder wall thickening. There are bilateral extrarenal pelves. The uterus is unremarkable. The urinary bladder is decompressed. There is a small hiatal hernia. The abdominal aorta is patent and normal in caliber. There are scattered sigmoid diverticuli without associated inflammation. There is mild wall thickening of the descending colon with mild pericolonic inflammatory fat stranding that is nonspecific. There are moderate multilevel degenerative changes of the lumbar spine. Otherwise the liver, spleen, pancreas, adrenal glands and kidneys are unremarkable. There is a normal-sized appendix in the right lower quadrant without associated inflammation. MILD WALL THICKENING OF THE DESCENDING COLON WITH MILD PERICOLONIC INFLAMMATORY FAT STRANDING THAT IS NONSPECIFIC BUT COULD REPRESENT INFECTIOUS OR INFLAMMATORY COLITIS. SMALL HIATAL HERNIA. COLONIC DIVERTICULOSIS. GALLSTONES. THANK YOU FOR REFERRING THIS PATIENT. Antonio Dewitt MD 07/23/2020 7:20 PM [id number] Summary Functional Status: Pain Tolerance: Global Estimate: Score: Interpretation: ASSESSMENT: No diagnosis found. 1.Psoriasis to scalp, Not active Clobetasol solution rx sent. Psoriasis improved with MTX 10mg po weekly and folic acid 1mg orally daily, but had nausea, fatigueand increased hunger. MTX was stopped at last visit and folic acid increased to 3mg daily to see if it improved SE, then if improved pt was instructed to restart MTX. 08/02/2020 psoriasis doing well mild activity to scalp- Continue Clobetasol solution for psoriasis toscalp and sunshine. 11/18/2020 no active psoriasis 2. Arthralgias Pt feels much better off MTX. She has greatly increased physical activity, walking 6-10 miles per day, biking, swimming and started lifting weights. She denies any joint swelling. Discussed her low back pain is degenerative. Her 08/05/2015 SI joint xray showed - ?? IMPRESSION Sclerosis of both SI joints, slightly worse on the left than the right. The right-sided changes arestable and the left-sided changes are slightly worse than 2016. No definite erosions are identified SI joint MRI for 03/2020 neg for erosions supports Mild degenerative changes are visualized in bothSI joints, worse on the left. 11/18/2020 no joint swelling, only c/o of SI joint pain. Pt has not seen pain clinic 2/2 long wait time. Recommend she start tying to get an appointment in [place] now for fall as they are often booking 6+ months out. She also has bilateral Vilma's pain and mild arches, she is going to get fitted at [facility]. Pt to call if not improved with arch supports and new shoes She was referred to pain clinic for SI joint xrays. She canceled her [facility] referral as [facility] was a 3 month wait time. She is going to try to get in in [place] or [place]. 3. 3. Degenerative disc disease with Lumbar facet arthrosis with Sacral degenerative osteoarthritiss/p C5-C7 spinal fusion 4. Weakly positive RF with negative anti-CCP Ab. ?? 5. Previous blurry vision in [place] has resolved. PT states her distance vision has changed. She will see an eye provider and get screened for dry eye vs- question of inflammatory eye. No active symptoms 11/18/2020 states she was seen by an eye provider in [place], she does not know the name and not concernsfor inflammatory eye, did need an increased glasses prescription. I asked her to send clinic information 6. 07/23/20 ED for small hiatal hernia, colonic diverticulosis and gallstones- D/cd' on cipro and flagyl with f/u with GI. 08/12/20 colitis flare d/c on Augmentin x 10 days with dicyclomine. C.diff- started vanco 125mg QID x 14 days, also on Florastor probiotics , finally on dificid -fidaxomicin We discussed treatment for PsA would be recommended if pt had autoimmune inflammatory bowel, eye, joint or tendon swelling or worsening psoriasis. She will establish with GI to screen for autoimmune inflammatory and send rheumatology the notes. - now doing well, states daily BM She asked if MTX and prednisone cause c.Diff, discussed MTX does not. Prednisone can create opportunity for over growth of c.diff. Bilateral Carpal Tunnel Syndrome- not active 7. Walking daily 6-10 miles trying to loose 20 lbs, Working on anti-inflammatory diet. No dairy, Pt states Vit K and B12 supplementation, States she had low vit K in the past. Recommend she have levels checked with PCP as too much vit K can be clotting reversal agent Unclear if pt is getting enough calcium on this diet she will check continue vit D supplementation ?? PLAN: 1. Continue off methotrexate 2. Please call if your Vilma's are not improved with arch supports and different sneakers 3. please send notes, from GI provider in [place], Please let us know whom this is and contact information, please let us know what antibiotic you were on instead of vancomycin See if you are getting enough calcium in your diet Please check with PCP if you are low on vit K, and B12, if you are not low, you don't need supplementation Continue vit D supplementation 4. Recommend cruise director, PCP and GI provider in [place] and [place] 5. F/u 4-6 months in person No diagnosis found. No orders of the defined types were placed in this encounter. Barriers to learning identified: No Patient verbalizes understanding and agrees with plan Yes I was directly supervised by: Dr. Ruiz. They were present in clinic and available for consult if needed. Juan Rodriguez APRN 11/17/2020 12:45 I spent a total of 30 minutes on the date of this encountermeeting with the patient and reviewing documentation/coordinating care as described in the above note. No procedures were performed at the time of the visit. documented in this encounter Miscellaneous Notes * Addendum Note - Juan Rodriguez APRN - 11/18/2020 1030 EDTAddended by: JUAN RODRIGUEZ on: 11/18/2020 12:38 Modules accepted: Orders documented in this encounter Plan of Treatment Upcoming Encounters Date Type Department Care Team (Late st Contact Info) Description 12/10/2023 11:00 EDT Appointment [facility] Radiology CT Outpatient - [address] [id number] 12/11/2023 13:45 EDT Initial consult [facility] Gynecologic Oncology - [address] [id number] Ashlee Garcia MD [address] [facility], [facility], [address] [place] [phone] documented as of this encounter Visit Diagnoses Diagnosis 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 Maximum dose: 4.5 mg/kg, not to exceed 300 mg Therapy completed 09/08/2015 11/18/2020 methotrexate 2.5 mg tabletIndications:Psori atic arthritis ([facility]-CMS),Chronic bilateral low back pain, unspecified whether sciatica present Take 4 Tabs by mouth once a week. Therapy completed 06/14/2020 11/18/2020 documented as of this encounter Care Teams Rope Tier Relationship Specialty Start Date End Date Melissa Khan MD [address] [place] [phone] PCP - General 08/04/15 documented as of this encounter
--- OUTSIDE RECORDS SUMMARY | 2023-12-07 00:49 | XMS_ITS | Encounter Summary ---
Author Organization [facility] Address [address] [place] [address] Care Team Providers Care Manager Event Name Role Phone Melissa Khan MD Primary Care Provider [phone] Reason for Referral * (Routine/Next Available) - Receiving Office to Obtain Authorization Specialty Diagnoses / Procedures Referred By Contac t Referred To Contact Procedures CT OUTSIDE IMAGES ABDOMEN PELVIS Imaging, External Referral ID Status Reason Start Date Expiration Date Visits Requested Visits Authorized [id number] Receiving Office to Obtain Authorization 05/28/2023 1 1 Reason for Visit * (Routine/Next Available) - Receiving Office to Obtain Authorization Specialty Diagnoses / Procedures Referred By Contac t Referred To Contact Procedures CT OUTSIDE IMAGES ABDOMEN PELVIS Imaging, External Referral ID Status Reason Start Date Expiration Date Visits Requested Visits Authorized [id number] Receiving Office to Obtain Authorization 05/28/2023 1 1 Encounter Details Date Type Department Care Team (Latest Contact Info) Description 04/01/2022 - 04/01/2022 23:59 EST Hospital Encounter [facility] Secondary Reads [place] Discharge Disposition: [...] Contact Info) Description 12/10/2023 11:00 EDT Appointment [facility] Radiology CT Outpatient - [address] [id number] 12/11/2023 13:45 EDT Initial consult [facility] Gynecologic Oncology - [address] [phone] Ashlee Garcia MD [address] [place] [address], [address] [place] [phone] documented as of this encounter Procedures Procedure Name Priority Date/Time Associated Diagnosis Comments CT OUTSIDE IMAGES ABDOMEN PELVIS Routine 04/01/2022 11:16 EST documented in this encounter Results * CT OUTSIDE IMAGES ABDOMEN PELVIS (04/01/2022 11:16 EST) Narrative 05/28/2023 11:17 EST This is a non-reportable exam. External Imaging IMG OTHER IMAGING OR DERABLES documented in this encounter Visit Diagnoses Not on filedocumented in this encounter Care Teams Manager Event Relationship Specialty Start Date End Date Melissa Khan MD [address] [place] [phone] PCP - General 08/04/15 documented as of this encounter
--- OUTSIDE RECORDS SUMMARY | 2023-12-07 00:49 | XMS_ITS | Encounter Summary ---
Author Organization [facility] Address [address] [place] [id number] Care Team Providers Care Multiple Launch Rocket System Crewmember Name Role Phone Melissa Khan MD Primary Care Provider Reason for Visit * Radiology Services (Routine) - Closed Specialty Diagnoses / Procedures Referred By Huy salmon Referred To Contact Diagnoses Generalized osteoarthrosis, involving multiple sites Psoriatic arthritis (HCC-CMS) Chronic bilateral low back pain, unspecified whether sciatica present Procedures XR SACROILIAC JOINTS 3 OR MORE VIEWS Moody Manning MD [address] [phone] Referral ID Status Reason Start Date Expiration Date Visits Re quested Visits Authorized [id number] Closed 02/11/2020 1 1 Encounter Details Date Type Department Care Team (Latest Contact Info) Description 02/11/2020 17:35 EDT - 02/11/2020 23:59 EDT Hospital Encounter [facility] Radiology [address] [id number] Discharge Disposition: Home or Self Care Social [...] have Coronavirus / COVID-19? No / Unsure 02/10/2020 14:45 EDT documented as of this encounter Functional Status [...] No 08/13/2017 documented as of this encounter Medications at Time of Discharge Medication Sig Dispensed Refills Start Date End Date ibuprofen (MOTRIN) 200 mg tablet Take 3 Tablets by mouth every 8 hours as needed for Pain. LORazepam (ATIVAN) 1 mg tablet Take 0.5 Tablets by mouth 3 times daily. omeprazole (PRILOSEC) 20 mg capsuleIndications:Psor iatic arthritis (HCC-CMS),Generalized osteoarthrosis, involving multiple sites,Trochanteric bursitis of both hips Take 1 Cap by mouth daily. 30 Cap 2 02/11/2020 triamcinolone (KENALOG) 0.1 % ointment APPLY A [...] 2 times daily. Reported on 03/16/2016 03/23/2020 hydroCHLOROthiazide (HYDRODIURIL) 25 mg tablet Take 25 mg by mouth daily. 03/23/2020 lidocaine 5 % gel Apply 100 [...] daily. 60 Tab 2 08/13/2017 03/23/2020 documented as of this encounter Discharge Disposition Disposition Code Departure Means Destination Home or Self Care documented in this encounter Plan of Treatment Upcoming Encounters Date Type Department Care Team (Late st Contact Info) Description 12/10/2023 11:00 EDT Appointment [facility] Radiology CT Outpatient - [address] [phone] 12/11/2023 13:45 EDT Initial consult [facility] Gynecologic Oncology - [address] [phone] Ashlee Garcia MD [address] [place] [address], [facility], [address] [place] [address] documented as of this encounter Procedures Procedure Name Priority Date/Time Associated Diagnosis Comments XR SACROILIAC JOINTS 3 OR MORE VIEWS Routine 02/11/2020 17:43 EDT Generalized osteoarthrosis, involving multiple sites Psoriatic arthritis (HCC-CMS) Chronic bilateral low back pain, unspecified whether sciatica present documented in this encounter Results * XR SACROILIAC JOINTS 3 OR MORE [...] with speech recognition software or keyboard data analyst etl developer techniques. Minor irregularities or keyboarding misprints [...] prepared with speech recognitionsoftware or keyboard data analyst etl developer techniques. Minor irregularities orkeyboarding misprints may be present. Moody Manning MD IMG DIAGNOSTIC IMAGI NG ORDERABLES documented in this encounter Visit Diagnoses Not on filedocumented in this encounter Care Teams Multiple Launch Rocket System Crewmember Relationship Specialty Start Date End Date Melissa Khan MD [address] [place] [phone] PCP - General 08/04/15 documented as of this encounter
--- OUTSIDE RECORDS SUMMARY | 2023-12-07 00:49 | XMS_ITS | Encounter Summary ---
Author Organization [facility] Address [address] [place] [address] Care Team Providers Care Underwear Trimmer Name Role Phone Melissa Khan MD Primary Care Provider [phone] Encounter Details Date Type Department Care Team (Latest Contact Info) Description 06/03/2020 Travel Social History Tobacco Use Types Packs/Day [...] Upcoming Encounters Date Type Department Care Team ([facility] Contact Info) Description 12/10/2023 11:00 EDT Appointment [facility] Radiology CT Outpatient - [address] [phone] 12/11/2023 13:45 EDT Initial consult [facility] Gynecologic Oncology - [address] [phone] Ashlee Garcia MD [address] [place] [address], [address] [place] [phone] documented as of this encounter Visit Diagnoses Not on filedocumented in this encounter Care Teams Underwear Trimmer Relationship Specialty Start Date End Date Melissa Khan MD [address] [place] [phone] PCP - General 08/04/15 documented as of this encounter
--- OUTSIDE RECORDS SUMMARY | 2023-12-07 00:49 | XMS_ITS | Encounter Summary ---
Author Organization [facility] Address [address] [place] [address] Care Team Providers Care Neurology Teacher Name Role Phone Melissa Khan MD Primary Care Provider [phone] Reason for Visit * Reason Comments Allergic Reaction arrived SOB after cl eaning out a shed that contained mice droppings, lawn debris, etc Encounter Details Date Type Department Care Team (Late st Contact Info) Description 09/23/2018 14:06 EDT - 09/23/2018 16:54 EDT Hospital Encounter [facility] [address] [place] [phone] Frances Pierre PA-C [address] [place] [phone] Kenyetta Young NP [address] [place] [phone] Unknown, Provider, Allergic reaction, initial encounter (Primary Dx); Wheezing Discharge Disposition: Home or Self Care Social [...] Sign Reading Time Taken Comments Blood Pressure 134/91 09/23/2018 1641 EDT Pulse 83 09/23/2018 1641 EDT Temperature 37.1 ??C (98.8 ??F) 09/23/2018 1409 EDT Respiratory Rate 18 09/23/2018 1641 EDT Oxygen Saturation 99% 09/23/2018 1641 EDT Inhaled Oxygen Concentration - - Weight 63.5 kg (140 lb) 09/23/2018 1409 EDT Height - - Body Mass Index 24.8 09/06/2017 1405 EDT [...] 08/13/2017 documented as of this encounter Discharge Instructions * Attachments The following attachments cannot be sent through Care Everywhere. * ALLERGIC REACTION (SWEDISH) * WHEEZING OR BRONCHOCONSTRICTION (SWEDISH) documented in this encounter Medications at Time [...] mouth daily. 30 Cap 2 08/13/2017 02/11/2020 predniSONE (DELTASONE) 20 mg tablet Take 2 Tabs by mouth daily for 2 days. 4 Tab 09/23/2018 09/25/2018 documented as of this encounter Ordered Prescriptions Prescription Sig Dispensed Refills Start Date End Da te predniSONE (DELTASONE) 20 mg tablet Take 2 Tabs by mouth daily for 2 days. 4 Tab 09/23/2018 09/25/2018 documented in this encounter Discharge Disposition Disposition Code Departure Means Destination Home or Self Care Car Home documented in this encounter ED Notes * Binta Metzger RN - 09/23/2018 1641 EDT Pt rounded on, feeling much better w/ no complaints. VSS. * Cristina Velasquez RN - 09/23/2018 1504 EDT States feeling better she still has a pressure over upper esophagus and feels as though she could cough something up. RA sat 93-94%. * Megan Young Np - 09/23/2018 1418 EDT DOS: 09/23/2018 Chief Complaint Patient presents with ??? Allergic Reaction arrived SOB after cleaning out a shed that contained mice droppings, lawn debris, etc The patient is a 58 y.o. female who presents today with Allergic Reaction (arrived SOB after cleaning out a shed that contained mice droppings, lawn debris, etc) Patient with a history of anxiety, presents for sudden onset nausea, vomiting, wheezing, chest tightness and facial redness while sweeping out a shed that was full of bird seed and mouse droppings. She has no history of severe allergic reactions to anything in the past. She does get short of breathat times when she is woodworking, as the dust does seem to bother her. She has no food or drug allergies. She is a former smoker. Review of Systems HENT: Negative for congestion, sore throat, trouble swallowing and voice change. Respiratory: Positive for chest tightness, shortness of breath and wheezing. Negative for cough. Gastrointestinal: Positive for nausea and vomiting (x 2.). Rectal pain: X 2. Skin: Positive for rash. No current facility-administered medications for this encounter. Current Outpatient Medications Medication Sig Dispense Refill ??? BUPROPION HCL (WELLBUTRIN ORAL) Take by mouth daily. Indications: Doesn't recall dose ??? BUSPIRONE HCL (BUSPIRONE ORAL) Take by mouth. ??? clonazePAM (KLONOPIN) 0.5 mg tablet Take 0.5 mg by mouth 2 times daily. Reported on 03/16/2016 ??? ibuprofen (MOTRIN) 200 mg tablet Take 600 mg by mouth every 8 hours as needed for Pain. ??? lidocaine 5 % gel Apply 100 mg topically every 8 hours as needed for Pain. Maximum dose: 4.5 mg/kg, not to exceed 300 mg 1 Tube 5 ??? losartan (COZAAR) 25 mg tablet Take 25 mg by mouth daily. ??? naproxen (NAPROSYN) 500 mg tablet Take 1 Tab by mouth 2 times daily. (Patient not taking: Reported on 2018) 60 Tab 2 ??? omeprazole (PRILOSEC) 20 mg capsule Take 1 Cap by mouth daily. (Patient not taking: Reported on2018) 30 Cap 2 ??? triamcinolone (KENALOG) 0.1 % ointment APPLY A THIN LAYER TOPICALLY TO AFFECTED AREA TWICE DAILY. MAX OF 50 G PER WEEK. MAX OF 2 WEEKS. 80 g 1 Allergies Allergen Reactions ??? Erythromycin Nausea Only ??? Other - See Comments Dust mites....congestion Patient Active Problem List Diagnosis Date Noted ??? Trochanteric bursitis of both hips 08/13/2017 ??? Psoriatic arthritis ([facility]) 03/27/2016 ??? Bilateral carpal tunnel syndrome 03/27/2016 ??? Generalized osteoarthrosis, involving multiple sites 09/08/2015 ??? Hypertensive disorder 09/14/2009 Past Medical History: Diagnosis Date ??? Hypertension ??? Osteoarthritis ??? Psoriatic arthritis ([facility]) ??? Psychiatric problem depression/traumatic stress Social History Tobacco Use ??? Smoking status: Former Smoker Packs/day: 0.50 Years: 15.00 Pack years: 7.50 Last attempt to quit: 05/01/2013 Years since quittin.4 ??? Smokeless tobacco: Never Used ??? Tobacco comment: quit when she was 26, then smoked for one year Substance Use Topics ??? Alcohol use: Yes Comment: Heavy use. 2-4 a night ??? Drug use: Yes Types: Marijuana Family History Problem Relation Age of Onset [...] ??? Coronary Artery Disease Neg Hx ??? [place] Syndrome Neg Hx ??? Crohn's Disease Neg [...] Hx ??? High Cholesterol Neg Hx ??? [place]'s Chorea Neg Hx ??? Hypercalcemia Neg Hx [...] Neg Hx ??? Carlos's Disease Neg Hx BP (!) 134/91 Pulse 83 Temp 98.8 ??F (37.1 ??C) Resp 18 Wt 63.5 kg (140 lb) SpO2 99% BMI 24.80 kg/m?? Physical Exam Constitutional: She is oriented to person, place, and time. She appears well- developed and well-nourished. She appears distressed (anxious.). HENT: Mouth/Throat: Uvula is midline and oropharynx is clear and moist. No posterior oropharyngeal edema or posterior oropharyngeal erythema. The cheeks are erythematous bilaterally. Eyes: Conjunctivae are normal. Neck: Normal range of motion. Neck supple. Cardiovascular: Normal rate, regular rhythm and normal heart sounds. Exam reveals no gallop and no friction rub. No murmur heard. Pulmonary/Chest: Effort normal and breath sounds normal. No stridor. No respiratory distress. She has no wheezes. She has no rales. She exhibits no tenderness. Neurological: She is alert and oriented to person, place, and time. Skin: Skin is warm and dry. Psychiatric: She has a normal mood and affect. Nursing note and vitals reviewed. Consult orders: None PCP: Melissa Khan No results found for this visit on 09/23/18. Radiology orders: None Imaging Results None No orders to display Procedures URGENT CARE COURSE A medical screening exam was performed. Patient was given IV Solumedrol, benadryl and pepcid, as well as an albuterol nebulizer. Symptoms completely resolved, with exception of a raw throat and raspy voice (she did vomit X 2 prior to arrival). I think her symptoms were more likely secondary to bronchoconstriction than true allergic reaction. Observed patient X 4 hours with no recurrence of symptoms. She was discharged home with an epi-pen, an albuterol inhaler and she will take another dose of Benadryl tonight. I have placed her on 2 additional days of prednisone. She knows that in the future, should she develop and throat/airway symptoms, she is to use the epi pen and call 911/go to the ED. ASSESSMENT AND PLAN Final diagnoses: Allergic reaction, initial encounter Wheezing Dr. Jake Pierre was available for consultation during my care of this patient. DISPOSITION: Discharged The patient's pain was managed to an adequate level weighing risk vs. benefit of further medications. Upon departure from [facility], the patient's pain was 0 on a zero to ten scale. Any further pain treatment will be at the discretion of the provider following up with the patient based on their clinical assessment . Condition at departure from the [facility] : Improved MDM 09/29/2018 19:56 * Suyapa Louise RN - 09/23/2018 1407 EDT Bed: [facility] Expected date: Expected time: Means of arrival: Comments: Emergency documented in this encounter Plan of Treatment Upcoming Encounters Date Type Department Care Team (Late st Contact Info) Description 12/10/2023 11:00 EDT Appointment [facility] Radiology CT Outpatient - [address] [phone] 12/11/2023 13:45 EDT Initial consult [facility] Gynecologic Oncology - [address] [phone] Ashlee Garcia MD [address] [facility], [facility], [address] [place] [address] documented as of this encounter Visit Diagnoses Diagnosis Allergic reaction, initial encounter- Primary Wheezing documented in this encounter Administered Medications Inactive Administered Medications - up to 3 most recent administrations Medication Order MAR Action Action Date Dose Rate Site albuterol (ACCUNEB) nebulizer solution 2.5 mg 2.5 mg, nebulization, NOW X1, 1 dose, On Sun09/23/18 at 1430, Routine Given 09/23/2018 14:29 EDT 2.5 mg albuterol (VENTOLIN HFA) inhaler STARTER PACK 1 Package, inhalation, Once (Without Time Specified), 1 dose, Starting on Sun09/23/18 at 1652, Until Sun09/23/18 at 1700, Routine Given 09/23/2018 17:00 EDT 1 Package diphenhydrAMINE (BENADRYL) 50 mg/mL injection 1 dose, Starting on Sun09/23/18 at 1417, Until Sun09/23/18 at 1902 diphenhydrAMINE (BENADRYL) injection 25 mg 25 mg, intravenous, NOW X1, 1 dose, On Sun09/23/18 at 1430, Routine Given 09/23/2018 14:25 EDT 25 mg EPINEPHrine (EPIPEN) injection starter pack 0.3 mg 0.3 mg, intramuscular, NOW X1, 1 dose, On Sun09/23/18 at 1700, Routine Given 09/23/2018 17:00 EDT 0.3 mg famotidine (PEPCID) injection 20 mg 20 mg, intravenous, NOW X1, 1 dose, On Sun09/23/18 at 1430, Routine Given 09/23/2018 14:25 EDT 20 mg methylPREDNISolone sod suc(PF) (SOLU-MEDROL) 125 mg/2 mL injection 1 dose, Starting on Sun09/23/18 at 1417, Until Sun09/23/18 at 1902 methylPREDNISolone sod suc(PF) (SOLU-MEDROL) injection 125 mg 125 mg, intravenous, NOW X1, 1 dose, On Sun09/23/18 at 1430, Routine Given 09/23/2018 14:26 EDT 125 mg documented in this encounter Active and Recently Administered Medications Times are shown in EDT. Scheduled Medication Order 09/21/2018 09/22/2018 09/23/2018 albuterol (ACCUNEB) nebulizer solution 2.5 mg (COMPLETED) 2.5 mg, nebulization, NOW X1, 1 dose, On Sun09/23/18 at 1430, Routine 1429 (Given - Provid er: Cristina Velasquez RN) albuterol (VENTOLIN HFA) inhaler STARTER PACK (COMPLETED) 1 Package, inhalation, Once (Without Time Specified), 1 dose, Starting on Sun09/23/18 at 1652, Until Sun09/23/18 at 1700, Routine 1700 (Given - Provid er: Binta Metzger RN) diphenhydrAMINE (BENADRYL) injection 25 mg (COMPLETED) 25 mg, intravenous, NOW X1, 1 dose, On Sun09/23/18 at 1430, Routine 1425 (Given - Provid er: Cristina Velasquez RN) EPINEPHrine (EPIPEN) injection starter pack 0.3 mg (COMPLETED) 0.3 mg, intramuscular, NOW X1, 1 dose, On Sun09/23/18 at 1700, Routine 1700 (Given - Provid er: Binta Metzger RN - Comment: not injected in clinic, given to pt to use as needed at home) famotidine (PEPCID) injection 20 mg (COMPLETED) 20 mg, intravenous, NOW X1, 1 dose, On Sun09/23/18 at 1430, Routine 1425 (Given - Provid er: Cristina Velasquez RN) methylPREDNISolone sod suc(PF) (SOLU-MEDROL) injection 125 mg (COMPLETED) 125 mg, intravenous, NOW X1, 1 dose, On Sun09/23/18 at 1430, Routine 1426 (Given - Provid er: Cristina Velasquez RN) No Frequency Medication Order 09/21/2018 09/22/2018 09/23/2018 diphenhydrAMINE (BENADRYL) 50 mg/mL injection 1 dose, Starting on Sun09/23/18 at 1417, Until Sun09/23/18 at 1902 methylPREDNISolone sod suc(PF) (SOLU-MEDROL) 125 mg/2 mL injection 1 dose, Starting on Sun09/23/18 at 1417, Until Sun09/23/18 at 1902 documented in this encounter Orders Medications Ordered That Sergio ht Not Have Been Administered Count Last Ordered Date First Ordered Date diphenhydrAMINE (BENADRYL) 5 0 mg/mL injection 1 09/23/2018 methylPREDNISolone sod suc(P F) (SOLU-MEDROL) 125 mg/2 mL injection 1 09/23/2018 documented in this encounter Care Teams Neurology Teacher Relationship Specialty Start Date End Date Melissa Khan MD [address] [place] [phone] PCP - General 08/04/15 documented as of this encounter
--- OUTSIDE RECORDS SUMMARY | 2023-12-07 00:49 | XMS_ITS | Encounter Summary ---
Author Organization [facility] Address [address] [place] [address] Care Team Providers Care Clinical Quality Assurance Associate Name Role Phone Melissa Khan MD Primary Care Provider [phone] Reason for Visit * Reason Comments Follow-up Medication Management pt reports she bowen s not like the methotrexate, she does not think it is doing what it is supposed to and is gaining weight if that is possible Joint Pain fingers, knees, hips , wrists, elbows, shoulders, neck Fatigue Muscle Pain Encounter Details Date Type Department Care Team (Latest Contact Info) Description 06/14/2020 10:00 EST Office Visit [facility] Rheumatology & Immunology - [facility] [address] [place] [address] Moody Manning MD [address] [phone] Degenerative joint disease of sacroiliac joint (HCC-CMS) (Primary Dx); Psoriasis; Psoriatic arthritis (HCC-CMS); Chronic bilateral low back [...] Sign Reading Time Taken Comments Blood Pressure 138/74 06/14/2020 1012 EST Pulse 75 06/14/2020 1012 EST Temperature - - Respiratory Rate 14 06/14/2020 1012 EST Oxygen Saturation - - Inhaled Oxygen Concentration - - Weight 64.9 kg (143 lb) 06/14/2020 1012 EST Height 160 cm (5' 2.99) 06/14/2020 1012 EST Body Mass Index 25.34 06/14/2020 1012 EST documented in this encounter [...] Yes 06/14/2020 documented as of this encounter Patient Instructions * Patient Instructions* Moody Manning MD - 06/14/2020 10:00 EST 1. Some of your symptoms may be due to methotrexate side effects. 2. Please hold methotrexate for 2-4 weeks. 3. Increase folic acid to 3 mg (3 tab) orally daily 4. If nausea symptoms improve afte 2-4 weeks, OK to restart methotrexate 10 mg (2 tab in the AM and2 tab in the PM) once a week 5. Try splitting the dose once a week, 2 tab in the AM and 2 tab in the PM. 6. If you do develop stomach upset, please increase folic acid to 5 mg orally daily 7. I will submit a referral to pain management for sacroiliac joint osteoarthritis 8. Recheck blood work in 2-4 weeks, please recheck blood work 9. Follow up in 2 months with Mo Merchand, [employer] documented in this encounter Ordered Prescriptions Prescription Sig Dispensed Refills Start Date End Da te folic acid (FOLVITE) 1 mg tablet Take 3 Tabs by mouth daily. 270 Tab 1 06/14/2020 methotrexate 2.5 mg tabletIndications:Psoriati c arthritis (HCC-CMS),Chronic bilateral low back pain, unspecified whether sciatica present Take 4 Tabs by mouth once a week. 48 Tab 1 06/14/2020 11/18/2020 documented in this encounter Progress Notes * Moody Manning MD - 06/14/2020 1000 EST DIVISION OF RHEUMATOLOGY AND CLINICAL IMMUNOLOGY PROGRESS / FOLLOW-UP VISIT NOTE Date of Service: 06/14/2020 Pertinent Rheumatological History: Chief Complaint Patient presents with ??? Follow-up ??? Medication Management pt reports she does not like the methotrexate, she does not think it is doing what it is supposed to and is gaining weight if that is possible ??? Joint Pain fingers, knees, hips, wrists, elbows, shoulders, neck ??? Fatigue ??? Muscle Pain SUBJECTIVE: Ms. Agueda Carpio is a 60 y.o. female with history of cervical, lumbar and sacroiliac joint degenerative osteoarthritis, bilateral carpal tunnel syndrome, psoriasis and possible enthesitis who presents today for a follow-up visit. she was last seen in clinic 02/10 In terms of her psoriatic rash, she continues to have a stable rash on her scalp. No other psoriatic rashes. In terms of nail changes, patient has a split nail on her left thumb but no other nail changes. In terms of her joints, patient has pain: 1) Bilateral shoulders (left> right) 2) Buttocks (left > right) *This is the most excruciating pain that keeps her up at night and limits her physical activity 3) Knee joints Patient also has stiffness in the morning that improves within 30 minutes. Patient also has pain inher calcaneus associated with stiffness that resolves in the morning. Patient was started on methotrexate 10 mg orally once a week (4 tabs) at 03/23/2020. She did not notice any improvements in her joints following start of methotrexate. However, her scalp psoriasis has improved and psoriasis at the tip of her nose has resolved these past couple of weeks. In terms of constitutional symptoms, patient has nausea and increased hunger since starting methotrexate. Patient has also noticed progressive shortness of breath and fatigue with exertion since disease onset that improved with iron supplements. Patient has been compliant with 1 tab a day of folate. Patient also has occassional dry cough which was worse when on javier-I. Furthermore, patient had visual blurring in the morning that resolves with time and these past couple of weeks. Patient denies eye pain, flashes of light, and lasting visual defects. Patient has had intermittent dry eyes (I.e. admits to dry eyes and itching in 08/05/2015). Patient has a history of urinary incontinence [...] on left should pain which improved pain AM stiffness: 30 minutes Physical activity: some, limited by joint pain 5 miles in the house + 3 days a week elliptical for half an hour REVIEW OF SYSTEMS: ? Yes No ?? Yes No Fever ?? X Joint pain ??x Weight gain or loss 10 pounds (lbs) Duration of AM joint stiffness 0.5 hours Eye pain or dryness ??x Numbness/tingling X Mouth or nose sores ??x, painful not now Heart burn / Nausea ?? X okay Chest pain ?? X Diarrhea ??x ibs Shortness of Breath ??x ?? Blood in stool ?? X Cough ??x dry cough Burning on urination ?? X Skin rash x ?? Hand/Foot color change in cold ?? X raynauds? Denies any other joint pains or swelling. AM stiffness: some Physical activity: some, limited by joint pain ? REVIEW OF SYSTEMS: Review of systems as documented by Nurses/MA's during this visit and reviewed by me. MEDICATIONS: Current Outpatient Medications Medication Sig ??? Cholecalciferol, Vitamin D3, (D3-2000) 50 mcg (2,000 unit) capsule Take by mouth. ??? clobetasoL (TEMOVATE) 0.05 % external solution Apply thin film to dry scalp once daily (maximumdose: 50 g/week or 50 mL/week); leave in place for 15 minutes, then add water, lather, and rinse thoroughly. ??? cyanocobalamin (VITAMIN B-12) 500 mcg tablet Take 500 mcg by mouth daily. ??? diclofenac sodium 1 % gel Apply scant amount to muscles/joints. 4g to lower extremities and 2g to upper extremities, up to 4x/day. Max 32g/day. ??? ferrous sulfate (IRON) 325 mg (65 mg iron) tablet Take 325 mg by mouth daily. ??? folic acid (FOLVITE) 1 mg tablet Take 3 Tabs by mouth daily. ??? ibuprofen (MOTRIN) 200 mg tablet Take 600 mg by mouth every 8 hours as needed for Pain. ??? lidocaine 5 % gel Apply 100 mg topically every 8 hours as needed for Pain. Maximum dose: 4.5 mg/kg, not to exceed 300 mg (Patient not taking: Reported on 03/23/2020) ??? LORazepam (ATIVAN) 1 mg tablet Take 0.5 mg by mouth 3 times daily. ??? losartan-hydrochlorothiazide (HYZAAR) 100-25 mg per tablet Take 1 Tab by mouth daily. ??? magnesium oxide (MAG-OX) 400 mg (241.3 mg magnesium) tablet Take 400 mg by mouth daily. ??? methotrexate 2.5 mg tablet Take 4 Tabs by mouth once a week. ??? mv,Ca,min-folic acid-vit K1 (ONE-A-DAY WOMEN'S 50 PLUS) 400-20 mcg tablet Take by mouth. womensone a day 50 plus ??? omeprazole (PRILOSEC) 20 mg capsule Take 1 Cap by mouth daily. (Patient not taking: Reported on03/23/2020) ??? phytonadione, vit K1, (VITAMIN K) 100 mcg tablet Take 100 mcg by mouth daily. ??? Potassium 99 mg tablet Take by mouth. ??? triamcinolone (KENALOG) 0.1 % ointment APPLY A THIN LAYER TOPICALLY TO AFFECTED AREA TWICE DAILY. MAX OF 50 G PER WEEK. MAX OF 2 WEEKS. OBJECTIVE: Blood pressure 138/74, pulse 75, resp. rate 14, height 160 cm (62.99), weight 64.9 kg (143 lb). General: No acute distress. Alert, fully oriented, pleasant, conversant. HEENT: Conjunctivae/corneas clear. Pupils equal, Sclerae anicteric. Mucus membranes moist; oropharynx clear. Neck supple, symmetrical, trachea midline Lungs: Clear to auscultation bilaterally. Heart: Regular rate and rhythm, S1, S2 present, no murmur Abdomen: Soft, non-tender, non-distended. Extremities: Extremities without cyanosis or edema. Skin: Plaque psoriasis on right occiput. Musculoskeletal: Spine: No significant tenderness. Normal range of motion of the spine. Shoulder/Elbow: Left should ROM intact but active motion limited by pain. No significant tenderness, swelling, effusions, erythema or warmth is present. Wrist/Hand:Mild tenderness of the right 4th-5th PIP joint without erythema or swelling. Possible nail pitting in the right 3rd/4th digit, nail splitting of the right thumb without obvious pitting/onycholysis. No significant tenderness, swelling, effusions, erythema or warmth is present. Appropriaterange of motion present. Hips/Knee: Rafa test+bilaterally. No significant tenderness, swelling, effusions, erythema or warmth is present. Appropriate range of motion present. Ankle/Foot: No significant tenderness, swelling, effusions, erythema or warmth is present. Appropriate range of motion present. DIAGNOSTIC DATA: Labs: Lab Results Component Value Date WBC 4.87 06/03/2020 WBC 4.02 08/05/2015 WBC 5.91 08/27/2013 WBC 5.90 04/27/2003 WBC 5.64 08/25/2002 HGB 11.7 06/03/2020 HGB 12.1 08/05/2015 HGB 13.7 08/27/2013 HGB 13.7 04/27/2003 HGB 13.0 08/25/2002 HCT 34.2 (L) 06/03/2020 HCT 36.3 08/05/2015 HCT 40.2 08/27/2013 HCT 39.5 04/27/2003 HCT 38.1 08/25/2002 MCV 93 06/03/2020 MCV 95 08/05/2015 MCV 98 08/27/2013 MCV 100 (H) 04/27/2003 MCV 100 (H) 08/25/2002 PLT 220 06/03/2020 PLT 236 08/05/2015 PLT 186 08/27/2013 PLT 255 04/27/2003 PLT 244 08/25/2002 Lab Results Component Value Date BUN 21 06/03/2020 CREATININE 0.90 06/03/2020 AST 24 06/03/2020 ALT 21 06/03/2020 Lab Results Component Value Date SEDRATE 7 08/05/2015 CRP <0.7 04/27/2003 Lab Results Component Value Date RF 22 (H) 05/20/2015 KANDY <40 05/20/2015 Imagin04/20/2020 EXAM: MRI SACROILIAC JOINTS WO CONTRAST ?? [...] radiographs dating back to August 05, 2015. Pathology: RAPID3 (Routine assessment of pt index data): Rapid3 score:RAPID3 Summary Functional Status: 2.3 Pain Tolerance: 8 Global Estimate: 2 Score: 12.3 Interpretation: High IMPRESSION / PLAN: Ms. Agueda Carpio is a 60 y.o. female with 1) Diffuse polyarthralgia: involves her PIPs, spine, shoulders, elbows, knees. Pain was localized largely to her bilateral hip and back. On 04/20/20 MRI, there was radiographic evidence of sclerosis in SI joints L>R which correspondswith clinical presentation of pain. However, there was no evidence of erosive sacroilitis. Pain has not improved with methotrexate initiation, is made better with CBD oil, and continues to be made worse with exertion. While ddx Osteoarthritis (active in gymnastics) vs Psoriatic arthritis, SI joint pain may be more due to OA given aforementioned imaging. While the patient has a history of psoriasis, a weakly positive RF (22), and possible enthesitis, the lack of radiographic evidence of erosive sacroilitis and the lack of extensive extraarticular psoriatic disease seems to argue against psoriatic arthritis as a contributor to the diffuse arthralgia. 2) Psoriasis: It presents as a psoriatic patch in the right occiput that has been stable since methotrexate initation. Patient also presented with a nose psoriatic patch that has since improved with methotrexate. There is no evidence of nail involvement, extensive dermatologic involvement, and anterior uveitis to suggest a diffuse process that would contribute to the aforementioned arthralgia Since initiating methotrexate, the patient endorsed nausea, fatigue, and increased hunger as side effects.While nausea (pill gastritis) and fatigue (anemia) can be side effects of methotrexate, increased hunger seems to be less reported side effect. 3) Painless transient blurry vision: Patient reports that it tends to be worse in the morning and resolves spontaneously. While the patient has a history of psoriasis, patient clinical presentation was not suggestive of anterior uveitis. Previous visits have reported possible transient blurry vision changes in the past, but the patient feels that it has become more frequent in recent weeks. Unclear if the dry eyes are due to weather or a developing posterior uveitis. 4) Normocytic anemia: Patient has a history of recurrent anemia (sometimes macrocytic, but currently normocytic) and patient endorsed increased fatigue and shortness of breath since methotrexate initiation. Ddx is anemia of chronic disease vs folate deficiency vs iron deficiency. Patient feels improvements in fatigue and shortness of breath with iron supplementation. Patient was also compliant with leukovorin, and there is room to increase it if methotrexate- induced folate deficiency was a cause. PATIENT INSTRUCTIONS: Patient Instructions 1. Some of your symptoms may be due to methotrexate side effects. 2. Please hold methotrexate for 2-4 weeks. 3. Increase folic acid to 3 mg (3 tab) orally daily 4. If nausea symptoms improve afte 2-4 weeks, OK to restart methotrexate 10 mg (2 tab in the AM and2 tab in the PM) once a week 5. Try splitting the dose once a week, 2 tab in the AM and 2 tab in the PM. 6. If you do develop stomach upset, please increase folic acid to 5 mg orally daily 7. I will submit a referral to pain management for sacroiliac joint osteoarthritis 8. Recheck blood work in 2-4 weeks, please recheck blood work 9. Follow up in 2 months with Mo Rodriguez NP 10. We will consider opthalmology followup if vision symptoms persist to evaluate for uveitis. There are no barriers to understanding/learning. Patient verbalizes understanding and agrees with plan. SINDY SU (MS4) 06/14/2020 Attestation statement: I was present with the medical student for the history, exam, and medical decision making documented. I have personally performed my own physical exam and medical decision making. I have verified and agree with (or, as indicated, have edited) the medical student's documentation. Moody Manning MD 06/14/2020 Please note: Parts of this documentation was created using voice recognition software. [employer] errors may be present. I spent a total of 30 minutes on the date of this encounter meeting with the patient and reviewing documentation/coordinating care as described in the above note. No procedures were performed at the time of the visit. documented in this encounter Plan of Treatment Upcoming Encounters Date Type Department Care Team (Late st Contact Info) Description 12/10/2023 11:00 EDT Appointment [facility] Radiology CT Outpatient - [address] [address] 12/11/2023 13:45 EDT Initial consult [facility] Gynecologic Oncology - [facility] [address] [place] [address] Ashlee Garcia MD [address] [facility], [address] [place] [phone] documented as of this encounter Visit Diagnoses Diagnosis Degenerative joint disease of sacroiliac joint ([facility]-CMS)- Primary Spondylosis of unspecified site without mention of myelopathy Psoriasis Other psoriasis Psoriatic arthritis ([facility]-CMS) Psoriatic arthropathy Chronic bilateral low back pain, unspecified whether sciatica present documented in this encounter Discontinued Medications Medication Sig Discontinue Reason Start Date End Da te methotrexate 2.5 mg tabletIndications:Psoriat ic arthritis (HCC-CMS),Chronic bilateral low back pain, unspecified whether sciatica present Take 4 Tabs by mouth once a week. Reorder 03/23/2020 06/14/2020 folic acid (FOLVITE) 1 mg tablet Take 1 Tab by mouth daily. Reorder 03/23/2020 06/14/2020 documented as of this encounter Historical Medications * This list may reflect changes made after this encounter. Medication Sig Dispensed Refills Start Date End Date magnesium oxide (MAG-OX) 400 mg (241.3 mg magnesium) tablet Take 400 mg by mouth daily. Potassium 99 mg tablet Take by mouth. mv,Ca,min-folic acid-vit K1 (ONE-A-DAY WOMEN'S 50 PLUS) 400-20 mcg tablet Take by mouth. womens one a day 50 plus Cholecalciferol, Vitamin D3, (D3-2000) 50 mcg (2,000 unit) capsule Take by mouth. phytonadione, vit K1, (VITAMIN K) 100 mcg tablet Take 100 mcg by mouth daily. cyanocobalamin (VITAMIN B-12) 500 mcg tablet Take 500 mcg by mouth daily. ferrous sulfate (IRON) 325 mg (65 mg iron) tablet Take 325 mg by mouth daily. added in this encounter Care Teams Clinical Quality Assurance Associate Relationship Specialty Start Date End Date Melissa Khan MD [address] [place] [phone] PCP - General 08/04/15 documented as of this encounter
--- OUTSIDE RECORDS SUMMARY | 2023-12-07 00:49 | XMS_ITS | Encounter Summary ---
Author Organization [facility] Address [address] [place] [address] Care Team Providers Care Clinical Audiologist Name Role Phone Melissa Khan MD Primary Care Provider [phone] Reason for Referral * (Routine/Next Available) - Receiving Office to Obtain Authorization Specialty Diagnoses / Procedures Referred By Contac t Referred To Contact Procedures CT OUTSIDE IMAGES ABDOMEN PELVIS Imaging, External Referral ID Status Reason Start Date Expiration Date Visits Requested Visits Authorized [id number] Receiving Office to Obtain Authorization 05/28/2023 1 1 Reason for Visit * (Routine/Next Available) - Receiving Office to Obtain Authorization Specialty Diagnoses / Procedures Referred By Contac t Referred To Contact Procedures CT OUTSIDE IMAGES ABDOMEN PELVIS Imaging, External Referral ID Status Reason Start Date Expiration Date Visits Requested Visits Authorized [id number] Receiving Office to Obtain Authorization 05/28/2023 1 1 Encounter Details Date Type Department Care Team (Latest Contact Info) Description 08/12/2020 - 08/12/2020 23:59 EDT Hospital Encounter [facility] Secondary Reads [place] Discharge Disposition: Home [...] (TEMOVATE) 0.05 % external solutionIndications:Ps oriatic arthritis (HCC-CMS),Chronic bilateral low back pain, unspecified [...] OF 2 WEEKS. 80 g 1 06/28/2017 lidocaine 5 % gel Apply 100 mg topically every 8 hours as needed for Pain. Maximum dose: 4.5 mg/kg, not to exceed 300 mg 1 Tube 5 09/08/2015 11/18/2020 methotrexate 2.5 mg tabletIndications:Psor iatic arthritis (HCC-CMS),Chronic bilateral low back pain, unspecified whether sciatica present Take 4 Tabs by mouth once a week. 48 Tab 1 06/14/2020 11/18/2020 documented as of this encounter Discharge Disposition Disposition Code Departure Means Destination Home or Self Care documented in this encounter Plan of Treatment Upcoming Encounters Date Type Department Care Team (Late st Contact Info) Description 12/10/2023 11:00 EDT Appointment [facility] Radiology CT Outpatient - [address] [address] 12/11/2023 13:45 EDT Initial consult [facility] Gynecologic Oncology - [address] [address] Ashlee Garcia MD [address] [place] [address], [address] [place] [phone] documented as of this encounter Procedures Procedure Name Priority Date/Time Associated Diagnosis Comments CT OUTSIDE IMAGES ABDOMEN PELVIS Routine 08/12/2020 11:16 EDT documented in this encounter Results * CT OUTSIDE IMAGES ABDOMEN PELVIS (08/12/2020 11:16 EDT) Narrative 05/28/2023 11:16 EST This is a non-reportable exam. External Imaging IMG OTHER IMAGING OR DERABLES documented in this encounter Visit Diagnoses Not on filedocumented in this encounter Care Teams Clinical Audiologist Relationship Specialty Start Date End Date Melissa Khan MD [address] [place] [phone] PCP - General 08/04/15 documented as of this encounter
--- OUTSIDE RECORDS SUMMARY | 2023-12-07 00:49 | XMS_ITS | Encounter Summary ---
Author Organization [facility] Address [address] [place] [address] Care Team Providers Care Research Advisor Name Role Phone Melissa Khan MD Primary Care Provider [phone] Reason for Visit * Reason Comments Telemedicine Phone Call Follow-up feeling well, excers izing, however having severe back pain Back Pain Joint Pain feet, hips Encounter Details Date Type Department Care Team (Late st Contact Info) Description 08/02/2020 15:00 EDT Telemedicine [facility] Rheumatology & Immunology - [facility] [address] [place], [place] [id number] Mo Rodriguez, FORESTRY SUPPORT SPECIALIST [address], [address] [place] [address] Psoriatic arthritis (HCC-CMS) (Primary Dx); Psoriasis; Degenerative joint disease of sacroiliac joint (HCC-CMS); Encounter for long-term (current) use of medications [...] encounter Patient Instructions * Patient Instructions* Mo Rodriguez APRN - 08/02/2020 15:00 EDT 1. Continue off methotrexate 2. Please see GI as recommended after your colitis Please send copy to [facility] Rheumatology [phone] fax phone [phone] 3. Please see ophthalmology to check dry eyes, vs question of uveitis when you were in [place] 4. Pt will try to see [facility]: Neurosurgery and Pain Medicine. For osteoarthritis to SI joints 5. Continue Clobetasol solution for psoriasis to scalp Recommend immunosuppression if joint swelling, inflammatory bowel, worsening psoriasis, tendon swelling, inflammatory eye 6. F/u 3-4 months in person documented in this encounter Progress Notes * Mo Rodriguez APRN - 08/02/2020 1500 EDT Images from the original note were not included. Patient ID: Francie Jacobs is a 60 y.o. y.o. female Subjective: Chief Complaint: joint pain and psoriasis. HPI: Ms. Francie Jacobs is a 60 y.o. female with history of cervical, lumbar and sacroiliac joint degenerative osteoarthritis, bilateral carpal tunnel syndrome, psoriasis and possible enthesitis. 03/23/[address] Manning on 02/11/2020 Labs from [facility] about 2-3 weeks ago CBC and CMP [...] cough which was worse when on javier-I. ?? Furthermore, patient had visual blurring in [...] on left should pain which improved pain Changes since last visit The concept of ???Telemedicine?? has been described [...] medical or mental health care. [place]oved [place] be snow[place], currently in [place], will be back in [place] next week Typically will be in [place] Feb - July and plans to get a overhauler bus truck in [place] 07/23/[address] [place] for colitis tx with Cipro and [...] pain/hips with walking 6 miles wearing asics lauryn Was referred to pain clinic Hard to lift leg to get over bicycle, has started intensely working out, and swimming daily Walking, biking and has started weights, And bilaterally upper arm bursitis is resolved She feels much better of MTX Using CBD topically which works well Had moderna- 07/25/2020 #1 Denies any other joint pains or swelling. [...] see psoriasis to scalp on zoom, LABS: Results for FRANCIE JACOBS ( ) as of 08/02/2020 08:55 [...] SACROILIAC JOINTS 3 OR MORE VIEWS (Order [id number]) Status: Final result (Exam End: 02/11/2020 17:43) Results XR SACROILIAC JOINTS 3 OR MORE VIEWS ( (Order [id number]) Study Images ??Show images for XR SACROILIAC JOINTS 3 OR MORE VIEWS XR SACROILIAC JOINTS 3 OR MORE VIEWS Order: [id number] Status: Final result ?Visible to patient: Yes (MyChart) Next appt: 03/30/2020 at 21:00 in Radiology ([facility] MR [facility] RM 1) Dx: Generalized osteoarthrosis, involving... Details Reading Physician Reading Date Result Priority Abigail Claros MD [phone] 02/11/2020 Narrative & Impression XR SACROILIAC JOINTS 3 OR MORE VIEWS 02/11/2020 5:45 PM ?? Signs and Symptoms/Comments: Ahsan chornic low back pain, Left > right [...] prepared with speech recognition software or keyboard database designer techniques. Minor irregularities or keyboarding misprints may [...] back to August 05, 2015. 07/23/[address] [facility] CT abdomen pelvis with contrast (IV ONLY) Result Date: 07/23/2020 CT ABDOMEN/PELVIS WITH CONTRAST 07/23/2020 2:18 PM: History: GI bleed LLQ abdominal pain, diverticulitis suspected Comparison: No comparison. Technique: Spiral thin slice CT imaging is performed through the entire abdomen following the bolus intravenous administration of iodinated contrast without acute adverse effect utilizing protocols standardized by the [facility]. Automatic Exposure Controls were utilized to limit [...] ASSESSMENT: Encounter Diagnoses Name Primary? Psoriatic arthritis (HCC-CMS) Yes ??? Psoriasis ??? Degenerative joint disease of sacroiliac joint (HCC-CMS) ??? Encounter for long-term (current) use of medications 1.Psoriasis to scalp, no where else on body. Clobetasol solution rx sent. Psoriasis improved with [...] Clobetasol solution for psoriasis toscalp and sunshine. 2. Arthralgias Pt feels much better off [...] in bothSI joints, worse on the left. She was referred to pain clinic for SI joint xrays. She canceled her [facility] referral as NPV was a 3 month wait time. She is going to try to get in in [place] or [place]. 3. 3. Degenerative disc disease with Lumbar facet arthrosis with Sacral degenerative osteoarthritiss/p C5-C7 spinal fusion 4. Weakly positive RF with negative anti-CCP Ab. ?? 5. Previous blurry vision in [place] has resolved. PT states her distance vision has changed. She will see an eye provider and get screened for dry eye vs- question of inflammatory eye. No active symptoms 6. colitis -07/23/[address] [place] for colitis tx with Cipro and Flagyl - she has 1 more day ofantibiotics We discussed treatment for PsA would be recommended if pt had autoimmune inflammatory bowel, eye, joint or tendon swelling or worsening psoriasis. She will establish with GI to screen for autoimmune inflammatory and send rheumatology the notes. Bilateral Carpal Tunnel Syndrome ?? PLAN: 1. Continue off methotrexate 2. Please see GI as recommended after your colitis Please send copy to [facility] Rheumatology [phone] fax phone [phone] 3. Please see ophthalmology to check dry eyes, vs question of uveitis when you were in [place] 4. Pt will try to see [facility]: Neurosurgery and Pain Medicine. For osteoarthritis to SI joints 5. Recommend immunosuppression if joint swelling, inflammatory bowel, worsening psoriasis, tendon swelling, inflammatory eye 6. F/u 3-4 months in person 1. Psoriatic arthritis ([facility]) 2. Psoriasis 3. Degenerative joint disease of sacroiliac joint ([facility]) 4. Encounter for long-term (current) use of medications No orders of the defined types were placed in this encounter. Barriers to learning identified: No Patient verbalizes understanding and agrees with plan Yes I was directly supervised by: Dr. Ruiz. They were present in clinic and available for consult if needed. Mo Rodriguez APRN 08/02/2020 8:50 I spent a total of 30 minutes on the date of this encounter meeting with the patient and reviewing documentation/coordinating care as described in the above note. No procedures were performed at the time of the visit. documented in this encounter Plan of Treatment Upcoming Encounters Date Type Department Care Team (Late st Contact Info) Description 12/10/2023 11:00 EDT Appointment [facility] Radiology CT Outpatient - [address] [address] 12/11/2023 13:45 EDT Initial consult [facility] Gynecologic Oncology - [address] [phone] Ashlee Garcia MD [address] [place] [address], [address] [place] [phone] documented as of this encounter Visit Diagnoses Diagnosis Psoriatic arthritis ([facility])- Primary Psoriatic arthropathy Psoriasis Other psoriasis Degenerative joint disease of sacroiliac joint ([facility]) Spondylosis of unspecified site without mention of myelopathy Encounter for long-term (current) use of medications Encounter for long-term (current) use of other medications documented in this encounter Historical Medications * This list may reflect changes made after this encounter. Medication Sig Dispensed Refills Start Date End Date metroNIDAZOLE (FLAGYL) 500 mg tablet Take 500 mg by mouth. 07/23/2020 08/02/2020 ciprofloxacin HCl (CIPRO) 500 mg tablet Take 500 mg by mouth. 07/23/2020 08/02/2020 added in this encounter Care Teams Research Advisor Relationship Specialty Start Date End Date Melissa Khan MD [address] [place] [phone] PCP - General 08/04/15 documented as of this encounter
--- OUTSIDE RECORDS SUMMARY | 2023-12-07 00:49 | XMS_ITS | Encounter Summary ---
Author Organization [facility] Address [address] [place] [address] Care Team Providers Care Hospitalist Medical Director Name Role Phone Melissa Khan MD Primary Care Provider [phone] Encounter Details Date Type Department Care Team (Late st Contact Info) Description 06/11/2019 Orders Only [facility] Sports Medicine Program - [address] [place] [address] Antonio Chen MD [address] [place] [address] Chronic left shoulder pain (Primary Dx) Social History Tobacco Use Types Packs/Day Years [...] Contact Info) Description 12/10/2023 11:00 EDT Appointment [facility] Radiology CT Outpatient - [address] [address] 12/11/2023 13:45 EDT Initial consult [facility] Gynecologic Oncology - [address] [address] Ashlee Garcia MD [address] [place] [address], [address] [place] [phone] documented as of this encounter Visit Diagnoses Diagnosis Chronic left shoulder pain- Primary Pain in joint, shoulder region documented in this encounter Care Teams Hospitalist Medical Director Relationship Specialty Start Date End Date Melissa Khan MD [address] [place] [phone] PCP - General 08/04/15 documented as of this encounter
--- OUTSIDE RECORDS SUMMARY | 2023-12-07 00:49 | XMS_ITS | Encounter Summary ---
Author Organization [facility] Address [address] [place] [address] Care Team Providers Care Automation Specialist Name Role Phone Melissa Khan MD Primary Care Provider [phone] Reason for Referral * PT/OT/ST (3 - 10 Business Days) - New Request Specialty Diagnoses / Procedures Referred By Contlatha salmon Referred To Contact Diagnoses Sprain of right ankle, unspecified ligament, initial encounter Graciela Ngo MD [address] [place] [phone] Referral ID Status Reason Start Date Expiration Date Visits Requested Visits Authorized [id number] New Request Specialty Services Required 2018 1 1 Question Answer Reason for Request: eval and treat ankle sprain Reason for Visit * Reason Comments Ankle Pain Lateral Right Ankle Pain Encounter Details Date Type Department Care Team (Latest Contact Info) Description 2018 13:03 EDT - 2018 14:26 EDT Hospital Encounter [facility] Ur[facility] Care - [address] [phone] Graciela Ngo MD [address] [place] [phone] Unknown, Provider, Sprain of right ankle, unspecified ligament, initial encounter (Primary Dx) Discharge Disposition: Home or Self Care Social [...] Sign Reading Time Taken Comments Blood Pressure 170/85 2018 1337 EDT Pulse 72 2018 1337 EDT Temperature 37.1 ??C (98.7 ??F) 2018 1337 EDT Respiratory Rate 16 2018 1337 EDT Oxygen Saturation - - Inhaled Oxygen Concentration - - Weight - - Height - - Body Mass Index - - documented in this encounter Functional Status Functional [...] this encounter Discharge Instructions * Discharge Instructions* Graciela Ngo MD - 2018 14:27 EDT You may use you ankle, but ease back into activity gradually. Avoid activities that make the pain worse- do not work through the pain. It may take several weeks to get back to normal. You may be active, but do not overdo it. Use the boot for walking- may need it for several weeks. You should keep the foot elevated when not walking on it. Ice the foot three times per day. You can use an Kane wrap for support if you find it helpful. Try PT Follow up in the next few weeks if your symptoms fail to improve or worsen. * Attachments The following attachments cannot be sent through Care Everywhere. * ANKLE SPRAIN (UZBEK) documented in this encounter Medications at Time [...] or Self Care documented in this encounter ED Notes * Graciela Ngo MD - 2018 1428 EDT DOS: 2018 Chief Complaint Patient presents with ??? Ankle Pain Lateral Right Ankle Pain The patient is a 58 y.o. female who presents today with Ankle Pain (Lateral Right Ankle Pain) HPI Comments: She has psoriatic arthritis, but predominantly in her back. Never in her ankles. She is very active re-doing her house. Does not recall any acute injury. The history is provided by the patient and the spouse. Ankle Pain Location: Ankle Time since incident: no acute incident. Injury: no Ankle location: R ankle Pain details: Quality: Dull, aching and shooting Radiates to: R leg Severity: Mild Onset quality: Gradual Duration: 2 weeks Timing: Constant Progression: Worsening Chronicity: New Relieved by: Rest Worsened by: Bearing weight and exercise Ineffective treatments: NSAIDs Associated symptoms: muscle weakness and swelling Associated symptoms: no decreased ROM, no numbness, no stiffness and no tingling Review of Systems Constitutional: Negative for activity change. Musculoskeletal: Positive for arthralgias, gait problem and joint swelling. Negative for stiffness. Skin: Positive for color change. Negative for wound. No current facility-administered medications for this encounter. Current Outpatient Prescriptions Medication Sig Dispense Refill ??? BUPROPION HCL [...] of both hips 08/13/2017 ??? Psoriatic arthritis ([facility]) 03/27/2016 ??? Bilateral carpal tunnel syndrome 03/27/2016 ??? Generalized osteoarthrosis, involving multiple sites 09/08/2015 ??? Hypertensive disorder 09/14/2009 Past Medical History: Diagnosis Date ??? Hypertension ??? Osteoarthritis ??? Psoriatic arthritis ([facility]) ??? Psychiatric problem depression/traumatic stress Social History Substance Use Topics ??? Smoking status: Former Smoker Packs/day: 0.50 Years: 15.00 Quit date: 05/01/2013 ??? Smokeless tobacco: Never Used Comment: quit when she was 26, then smoked for one year ??? Alcohol use Yes Comment: Heavy use. 2-4 a night Family History Problem Relation Age of Onset [...] ??? Coronary Artery Disease Neg Hx ??? Kayla Syndrome Neg Hx ??? Crohn's Disease Neg [...] Hx ??? High Cholesterol Neg Hx ??? Paz's Chorea Neg Hx ??? Hypercalcemia Neg Hx [...] ??? Carlos's Disease Neg Hx BP (!) 170/85 Pulse 72 Temp 98.7 ??F (37.1 ??C) (Temporal) Resp 16 Physical Exam Constitutional: She is oriented to person, place, and time. She appears well- nourished. No distress. HENT: Head: Atraumatic. Neck: Neck supple. Pulmonary/Chest: Effort normal. No respiratory distress. Musculoskeletal: She is non tender over the lat malleolus. Non tender over the tarsal bones. Non tender over the base of the 5th metatarsal. She is tender just distal to the malleolus in the soft tissue that is swollen. No instability, but has tenderness with inversion. Normal pulse normal warmth to foot. Neurological: She is alert and oriented to person, place, and time. Skin: Skin is warm. She is not diaphoretic. Very faint ecchymosis over the lateral ankle. No wound. Nursing note and vitals reviewed. Consult orders: None PCP: Melissa Khan No results found for this visit on 01/05/18. Radiology orders: None Imaging Results None No orders to display Relevant Data Procedures URGENT CARE COURSE A medical screening exam was performed. She has an ankle sprain. Will try her in a walking boot to allow her to maintain her activity level and allow the ligaments to heal. Referral done for PT. She is to rest, ice, and use ibuprofen prn. Follow up with pcp for worsening or not improving. ASSESSMENT AND PLAN Final diagnoses: Sprain of right ankle, unspecified ligament, initial encounter No supervision required. DISPOSITION: Discharged The patient's pain was managed to an adequate level weighing risk vs. benefit of further medications. Upon departure from [facility], the patient's pain was 2 on a zero to ten scale. Any further pain treatment will be at the discretion of the provider following up with the patient based on their clinical assessment . Condition at departure from the [facility] : Good MDM 2018 14:28 * Ovi Clark MA - 2018 1335 EDT Patient says Right Ankle pain. Has had pain for 2+ weeks. No known mechanism of injury. Complains of lateral ankle pain when moving foot and occasional weight bearing. Took 600mg ibuprofen this morning around 9am documented in this encounter Plan of Treatment Upcoming Encounters Date Type Department Care Team (Late st Contact Info) Description 12/10/2023 11:00 EDT Appointment [facility] Radiology CT Outpatient - [address] [phone] 12/11/2023 13:45 EDT Initial consult [facility] Gynecologic Oncology - [address] [phone] Ashlee Garcia MD [address] [place] [address], [address] [place] [phone] Scheduled Referrals Name Type Priority Associated Diagnoses Orde r Schedule AMB CONS/FOLLOW UP PHYSICAL THERAPY Outpatient Referral Routine Sprain of right ankle, unspecified ligament, initial encounter Ordered: 2018 documented as of this encounter Visit Diagnoses Diagnosis Sprain of right ankle, unspecified ligament, initial encounter- Primary documented in this encounter Orders Equipment Count Last Ordered Date First Orde red Date PNEUMATIC WALKING BOOT - TALL ([id number]) 1 11/2017 documented in this encounter Care Teams Automation Specialist Relationship Specialty Start Date End Date Melissa Khan MD [address] [place] [phone] PCP - General 08/04/15 documented as of this encounter
--- OUTSIDE RECORDS SUMMARY | 2023-12-07 00:49 | XMS_ITS | Encounter Summary ---
Author Organization [facility] Address [address] [place] [address] Care Team Providers Care Clinical Reviewer Name Role Phone Melissa Khan MD Primary Care Provider [phone] Encounter Details Date Type Department Care Team (Late st Contact Info) Description 01/20/2021 Lab Requisition [facility] Pathology & Laboratory Medicine - [facility] [address] [place] [address] Jessy Vanegas, DO [address] [facility] [address] [place] [phone] Postmenopausal bleeding Social History Tobacco Use Types [...] Description 12/10/2023 11:00 EDT Appointment [facility] Radiology CT Outpatient - [address] [phone] 12/11/2023 13:45 EDT Initial consult [facility] Gynecologic Oncology - [address] [address] Ashlee Garcia MD [address] [facility], [facility], [address] [place] [address] documented as of this encounter Procedures Procedure Name Priority Date/Time Associated Diagnosis Comments SURGICAL PATHOLOGY Today 01/20/2021 16 :28 EDT Postmenopausal bleeding [ICD-10-CM] documented in this encounter Results * SURGICAL PATHOLOGY (01/20/2021 16:28 EDT) Note to Patient The following pathology results have been interpreted by your pathologist and may be available to you before your health provider has had the opportunity to review them. Please allow time for your provider to receive these results and explore management options, if applicable. 01/25/2021 8:01 [facility] Final Diagnosis A. ENDOMETRIUM, BIOPSY: - Mucous and rare fragments of atrophic endometrium. 01/25/2021 8:01 [facility] Attestation By the signature below, the attending physician certifies that they have 1) personally conducted a gross and/or microscopic examination of the described specimen(s), and/or personally interpreted the results of laboratory testing of the described specimen(s), and 2) personally rendered or confirmed the above diagnosis. 01/25/2021 8:01 [facility] at 0801 Clinical History PMB; clinical diagnosis code: N95.0 01/25/2021 8:01 [facility] Gross Description A. Received in formalin labelled with proper patient identification (initials R, E) and not otherwise specified is an aggregate of bo-white opaque mucus (1.0 x 0.6 x 0.1 cm). The specimen is submitted entirely in A1. ROSIE STRANGE([facility]) 01/21/2021 10:13 01/25/2021 8:01 EDT [facility] Performing Lab [facility] 01/25/2021 8:01 EDT [facility] Scanned Images 01/25/2021 8:01 EDT [facility] Tissue ENTIRE ENDOMETRIUM / Unknown 01/20/2021 16:28 EDT 01/21/2021 7:40 EDT Jessy Vanegas DO PATHOLOG Y ORDERABLES Performing Organization Address City/State/[facility] Co de Phone Number [facility] [address] [place] [address] documented in this encounter Visit Diagnoses Diagnosis Postmenopausal bleeding documented in this encounter Care Teams Clinical Reviewer Relationship Specialty Start Date End Date Melissa Khan MD [address] [place] [phone] PCP - General 08/04/15 documented as of this encounter
--- OUTSIDE RECORDS SUMMARY | 2023-12-07 00:49 | XMS_ITS | Encounter Summary ---
Author Organization [facility] Address [address] [place] [address] Care Team Providers Care Radiology Teacher Name Role Phone Melissa Khan MD Primary Care Provider [phone] Encounter Details Date Type Department Care Team (Latest Contact Info) Description 02/10/2020 Travel Social History Tobacco Use Types Packs/Day [...] Contact Info) Description 12/10/2023 11:00 EDT Appointment [facility] Radiology CT Outpatient - [address] [address] 12/11/2023 13:45 EDT Initial consult [facility] Gynecologic Oncology - [address] [phone] Ashlee Garcia MD [address] [place] [address], [address] [place] [phone] documented as of this encounter Visit Diagnoses Not on filedocumented in this encounter Care Teams Radiology Teacher Relationship Specialty Start Date End Date Melissa Khan MD [address] [place] [phone] PCP - General 08/04/15 documented as of this encounter
--- OUTSIDE RECORDS SUMMARY | 2023-12-07 00:49 | XMS_ITS | Encounter Summary ---
Author Organization [facility] Address [address] [place] [address] Care Team Providers Care Legislative Advocate Name Role Phone Melissa Khan MD Primary Care Provider [phone] Reason for Visit * Reason Comments Other Encounter Details Date Type Department Care Team ([facility] st Contact Info) Description 06/27/2017 Refill [facility] Rheumatology & Immunology - [facility] [address] [place] [address] Moody Manning MD [address] [phone] Other Social History Tobacco Use Types Packs/Day [...] visiting a doctor's office or shopping? No 03/16/2016 Cognitive Status Response Date of Assessm ent Because of a physical, menta l, or emotional condition, does this person have serious difficulty concentrating, remembering, or making decisions? No 03/16/2016 documented as of this encounter Ordered Prescriptions Prescription Sig Dispensed Refills Start Date End Da te triamcinolone (KENALOG) 0.1 % ointment APPLY A THIN LAYER TOPICALLY TO AFFECTED AREA TWICE DAILY. MAX OF 50 G PER WEEK. MAX OF 2 WEEKS. 80 g 1 06/28/2017 documented in this encounter Plan of Treatment Upcoming Encounters Date Type Department Care Team (Late st Contact Info) Description 12/10/2023 11:00 EDT Appointment [facility] Radiology CT Outpatient - [address] [id number] 12/11/2023 13:45 EDT Initial consult [facility] Gynecologic Oncology - [address] 0137[address] Ashlee Garcia MD [address] [place] [address], Level [address] [place] [phone] documented as of this encounter Visit Diagnoses Not on filedocumented in this encounter Discontinued Medications Medication Sig Discontinue Reason Start Date End Da te triamcinolone (KENALOG) 0.1 % ointment apply a thin layer TOPICALLY to affected area twice daily; MAX 50 g/week; MAX duration, 2 consecutive weeks Reorder 03/16/2016 06/27/2017 documented as of this encounter Care Teams Legislative Advocate Relationship Specialty Start Date End Date Melissa Khan MD [address] [place] [phone] PCP - General 08/04/15 documented as of this encounter
--- OUTSIDE RECORDS SUMMARY | 2023-12-07 00:49 | XMS_ITS | Encounter Summary ---
Author Organization [facility] Address [address] [place] [address] Care Team Providers Care Airport Clerk Name Role Phone Melissa Khan MD Primary Care Provider [phone] Reason for Referral * Radiology Services (Routine) - Closed Specialty Diagnoses / Procedures Referred By Huy salmon Referred To Contact Radiology Diagnoses Generalized osteoarthrosis, involving multiple sites Psoriatic arthritis (HCC-CMS) Chronic bilateral low back pain, unspecified whether sciatica present Procedures MR SI JOINTS WO CONTRAST MR SI JOINTS WO CONTRAST Moody Manning MD [address] [place] [phone] Referral ID Status Reason Start Date Expiration Date Visits Re quested Visits Authorized [id number] Closed 03/22/2020 09/17/2020 1 1 Reason for Visit * Radiology Services (Routine) - Closed Specialty Diagnoses / Procedures Referred By Contac t Referred To Contact Radiology Diagnoses Generalized osteoarthrosis, involving multiple sites Psoriatic arthritis (HCC-CMS) Chronic bilateral low back pain, unspecified whether sciatica present Procedures MR SI JOINTS WO CONTRAST MR SI JOINTS WO CONTRAST Moody Manning MD [address] [place] [address] Referral ID Status Reason Start Date Expiration Date Visits Re quested Visits Authorized [id number] Closed 03/22/2020 09/17/2020 1 1 Encounter Details Date Type Department Care Team (Latest Contact Info) Description 04/20/2020 20:19 EST - 04/20/2020 23:59 EST [facility] Rad[facility] [place] [address] Generalized osteoarthrosis, involving multiple sites; Psoriatic arthritis (HCC-CMS); Chronic bilateral low back pain, unspecified whether sciatica present Discharge Disposition: Home or Self Care Social [...] Sig Dispensed Refills Start Date End Date clobetasoL (TEMOVATE) 0.05 % external solutionIndications:Ps oriatic arthritis ([facility]),Chronic bilateral low back pain, unspecified whether sciatica present Apply thin film to dry scalp once daily (maximum dose: 50 g/week or 50 mL/week); leave in place for 15 minutes, then add water, lather, and rinse thoroughly. 1 Bottle 3 03/23/2020 diclofenac sodium 1 % gelIndications:Psoriat ic arthritis (HCC-CMS),Chronic bilateral low back pain, unspecified whether sciatica present Apply scant amount to muscles/joints. 4g to lower extremities and 2g to upper extremities, up to 4x/day. Max 32g/day. 1 Tube 3 03/23/2020 ibuprofen (MOTRIN) 200 mg tablet Take 3 Tablets by mouth every 8 hours as needed for Pain. LORazepam (ATIVAN) 1 mg tablet Take 0.5 Tablets by mouth 3 times daily. losartan-hydrochloroth iazide (HYZAAR) 100-25 mg per tablet Take 1 Tablet by mouth daily. omeprazole (PRILOSEC) 20 mg capsuleIndications:Pso riatic arthritis (HCC-CMS),Generalized osteoarthrosis, involving multiple sites,Trochanteric bursitis of both hips Take 1 Cap by mouth daily. 30 Cap 2 02/11/2020 triamcinolone (KENALOG) 0.1 % ointment APPLY A THIN LAYER TOPICALLY TO AFFECTED AREA TWICE DAILY. MAX OF 50 G PER WEEK. MAX OF 2 WEEKS. 80 g 1 06/28/2017 folic acid (FOLVITE) 1 mg tablet Take 1 Tab by mouth daily. 90 Tab 3 03/23/2020 06/14/2020 lidocaine 5 % gel Apply 100 mg topically every 8 hours as needed for Pain. Maximum dose: 4.5 mg/kg, not to exceed 300 mg 1 Tube 5 09/08/2015 11/18/2020 methotrexate 2.5 mg tabletIndications:Psor iatic arthritis (HCC-CMS),Chronic bilateral low back pain, unspecified whether sciatica present Take 4 Tabs by mouth once a week. 48 Tab 1 03/23/2020 06/14/2020 documented as of this encounter Discharge Disposition Disposition Code Departure Means Destination Home or Self Care documented in this encounter Plan of Treatment Upcoming Encounters Date Type Department Care Team (Late st Contact Info) Description 12/10/2023 11:00 EDT Appointment [facility] Radiology CT Outpatient - [address] [id number] 12/11/2023 13:45 EDT Initial consult [facility] Gynecologic Oncology - [address] [phone] Ashlee Garcia MD [address] [place] [address], [address] [place] [phone] documented as of this encounter Procedures Procedure Name Priority Date/Time Associated Diagnosis Comments MR SI JOINTS WO CONTRAST Routine 04/20/2020 21:10 EST Generalized osteoarthrosis, involving multiple sites Psoriatic arthritis (HCC-CMS) Chronic bilateral low back pain, unspecified whether sciatica present documented in this encounter Results * MR SI JOINTS WO CONTRAST (04/20/2020 [...] and facet arthropathy are noted at the L5-R6tlguk and partially visualized L4-L5 level. Multiple noninflamed [...] findings. Moody Manning MD IMG MRI ORDERABLES documented in this encounter Visit Diagnoses Diagnosis Generalized osteoarthrosis, involving multiple sites Psoriatic arthritis (HCC-CMS) Psoriatic arthropathy Chronic bilateral low back pain, unspecified whether sciatica present documented in this encounter Care Teams Airport Clerk Relationship Specialty Start Date End Date Melissa Khan MD [address] [place] [phone] PCP - General 08/04/15 documented as of this encounter
--- OUTSIDE RECORDS SUMMARY | 2023-12-07 00:49 | XMS_ITS | Encounter Summary ---
Author Organization [facility] Address [address] [place] [address] Care Team Providers Care Product Coordinator Name Role Phone Melissa Khan MD Primary Care Provider [phone] Encounter Details Date Type Department Care Team (Late st Contact Info) Description 06/10/2019 Lab Requisition [facility] Pathology & Laboratory Medicine - [facility] [address] [place] [address] Melissa Khan MD [address] [place] [phone] Encounter for screening for malignant neoplasm of cervix Social History Tobacco Use Types Packs/Day Years [...] Info) Description 12/10/2023 11:00 EDT Appointment [facility] Radiology CT Outpatient - [address] [id number] 12/11/2023 13:45 EDT Initial consult [facility] Gynecologic Oncology - [address] [phone] Ashlee Garcia MD [address] [facility], [address] [place] [address] documented as of this encounter Procedures Procedure Name Priority Date/Time Associated Diagnosis Comments PAP TEST Today 06/10/2019 10:09 EST Encounter for screening for malignant neoplasm of cervix [ICD-10-CM] HPV DNA DETECTION WITH GENOTYPING, PCR Today 06/10/2019 10:09 EST Encounter for screening for malignant neoplasm of cervix [ICD-10-CM] documented in this encounter Results * HUMAN PAPILLOMAVIRUS (HPV) DETECTION-HIGH RISK TYPES (06/10/2019 10:09 EST) HPV other High Risk types, PCR Negative Negative 06/20/2019 10:59 EST [facility] Comment:No E6 or E7 mRNA is detected from HPV types 16,18,31,33,35,39,45,51,52,56,58,59,66, and 68 by pattern fitter mediated amplification. Papanicolaou smear specimen (specimen) CERVIX UTERI STRUCTURE / Unknown 06/10/2019 10:09 EST 06/17/2019 13:23 EST Melissa Khan MD MICROBIOLOGY - GENER AL ORDERABLES [facility] [address] [place] [address] * PAP TEST (06/10/2019 10:09 EST) Specimens A. Cervix and/or Endocervix, , ThinPrep Imaging System with Manual Evaluation 06/20/2019 10:59 [facility] Specimen Adequacy Satisfactory for Evaluation - transformation zone component present Scant due to excessive inflammation 06/20/2019 10:59 [facility] General Categorization Negative for intraepithelial lesion or malignancy 06/20/2019 10:59 [facility] Attestation By the signature below, the attending physician certifies that they have personally conducted a gross and/or microscopic examination of the described specimens and rendered or confirmed the above diagnosis. 06/20/2019 10:59 [facility] at 1059 Clinical History none 06/20/19 20 10:59 [facility] HPV The result for the Human Papillomavirus (HPV) Detection-High Risk Types is Negative. No E6 or E7 mRNA is detected from HPV types 16,18,31,33,35,39 ,45,51,52,56,58,5 9,66, and 68 by pattern fitter mediated amplification.Nikki ting was performed on specimen [id number] and was resulted on 06/20/2019 1058 EST by PETE, LAB INSTRUMENT RESULTS IN 06/20/2019 10:59 [facility] Scanned Images 06/20/2019 10:59 [facility] Papanicolaou smear specimen (specimen) CERVIX UTERI STRUCTURE / Unknown 06/10/2019 10:09 EST 06/10/2019 14:29 EST Melissa Khan MD PATHOLOGY ORDERABLES Performing Organization Address City/State/[facility] Co de Phone Number [facility] [address] [place] [address] documented in this encounter Visit Diagnoses Diagnosis Encounter for screening for malignant neoplasm of cervix Screening for malignant neoplasm of the cervix documented in this encounter Care Teams Product Coordinator Relationship Specialty Start Date End Date Melissa Khan MD [address] [place] [phone] PCP - General 08/04/15 documented as of this encounter
--- OUTSIDE RECORDS SUMMARY | 2023-12-07 00:49 | XMS_ITS | Encounter Summary ---
Author Organization [facility] Address [address] [place] [address] Care Team Providers Care Telephone Sterilizer Name Role Phone Melissa Khan MD Primary Care Provider [phone] Encounter Details Date Type Department Care Team (Late st Contact Info) Description 06/03/2020 11:00 EST Phlebotomy Only [facility] ED Center 2 Phlebotomy [address] [place] [address] Manager Labor Relations, Acc Phlebotomy Psoriatic arthritis (HCC-CMS); Chronic bilateral low back [...] [facility] [address] [id number] 12/11/2023 13:45 EDT Initial consult [facility] Gynecologic Oncology - [address] [phone] Ashlee Garcia MD [address] [place] [address], [address] [place] [phone] documented as of this encounter Procedures Procedure Name Priority Date/Time Associated Diagnosis Comments COMPLETE BLOOD COUNT AND DIFFERENTIAL Routine 06/03/2020 11:23 EST Psoriatic arthritis (HCC-CMS) Chronic bilateral low back pain, unspecified whether sciatica present COMPREHENSIVE METABOLIC PANEL (CMP) Routine 06/03/2020 11:23 EST Psoriatic arthritis ([facility]) Chronic bilateral low back pain, unspecified whether sciatica present documented in this encounter Results * COMPREHENSIVE METABOLIC PANEL (CMP) (06/03/2020 11:23 EST) Sodium 138 136 - 145 mEq/L 06/03/2020 12:50 [facility] Potassium 4.2 3.5 - 5.0 mEq/L 06/03/2020 12:50 [facility] Chloride 98 96 - 110 mEq/L 06/03/2020 12:50 [facility] CO2 Total 29 22 - 32 mEq/L 06/03/2020 12:50 [facility] Glucose 100 70 - 100 mg/dL 06/03/2020 12:50 [facility] BUN 21 10 - 26 mg/dL 06/03/2020 12:50 [facility] Creatinine 0.90 0.52 - 1.04 mg/dL 06/03/2020 12:50 [facility] eGFR 69 >60 mL/min/1.7 3m2 06/03/2020 12:50 [facility] Comment:eGFR calculated thomas amezquita CKD-EPI equation for non- Americans. Multiply eGFR by 1.16 for patients. Total Protein 7.1 6.3 - 8.2 g/dL 06/03/2020 12:50 [facility] Albumin 4.5 3.4 - 4.9 g/dL 06/03/2020 12:50 [facility] Alkaline Phosphatase 38 38 - 126 U/L 06/03/2020 12:50 [facility] AST 24 15 - 46 U/L 06/03/2020 12:50 [facility] ALT 21 <35 U/L 06/03/2020 12:50 [facility] Bilirubin, Total 0.6 <1.4 mg/dL 06/03/19 12:50 [facility] Calcium 9.8 8.5 - 10.5 mg/dL 06/03/2020 12:50 [facility] Calculated Calcium 9.4 8.5 - 10.5 mg/dL 06/03/2020 12:50 [facility] Blood VENOUS BLOOD / Unknown Venipuncture / Unknown 06/03/2020 11:23 EST 06/03/2020 12:23 EST Mo Rodriguez NP CHEMISTRY & BLOOD G ORDERABLES [facility] [address] [place] [address] * (ABNORMAL) COMPLETE BLOOD COUNT AND DIFFERENTIAL (06/03/2020 11:23 EST) WBC 4.87 4.00 - 12.40 K/cmm 06/03/2020 12:40 [facility] RBC 3.67(L) 3.86 - 5.04 M/cmm 06/03/2020 12:40 [facility] Hemoglobin 11.7 11.6 - 15.2 gm/dL 06/03/2020 12:40 [facility] HCT 34.2(L) 34.9 - 44.4 % 06/03/2020 12:40 [facility] MCV 93 81 - 98 fl 06/03/2020 12:40 [facility] MCH 31.9 26.7 - 33.3 pg 06/03/2020 12:40 [facility] MCHC 34.2 32.1 - 35.9 gm/dL 06/03/2020 12:40 [facility] RDW-CV 13.3 <14.7 % 06/03/2020 12:40 [facility] RDW-SD 44.5 <50.4 fl 06/03/2020 12:40 [facility] PLT 220 141 - 377 K/cmm 06/03/2020 12:40 [facility] MPV 10.0 9.5 - 12.7 fl 06/03/2020 12:40 [facility] % Neutrophils 61.7 % 06/03/2020 12:40 [facility] % Lymphocytes 23.2 % 06/03/2020 12:40 [facility] % Monocytes 12.5 % 06/03/2020 12:40 [facility] % Eosinophils 1.6 % 06/03/2020 12:40 [facility] % Basophils 0.6 % 06/03/2020 12:40 [facility] % Immature Grans 0.4 % 06/03/19 12:40 [facility] Absolute Neutrophils 3.00 2.20 - 8.85 K/cmm 06/03/2020 12:40 [facility] Absolute Lymphocytes 1.13 1.09 - 3.30 K/cmm 06/03/2020 12:40 [facility] Absolute Monocytes 0.61 0.10 - 0.80 K/cmm 06/03/2020 12:40 [facility] Absolute Eosinophils 0.08 0.03 - 0.61 K/cmm 06/03/2020 12:40 EST [facility] ABS Basophils 0.03 0.01 - 0.11 K/cmm 06/03/2020 12:40 EST [facility] Absolute Immature Grans 0.02 0.00 - 0.06 K/cmm 06/03/2020 12:40 EST [facility] Type of Differential: Auto 06/03/2020 12:40 EST [facility] Blood VENOUS BLOOD / Unknown Venipuncture / Unknown 06/03/2020 11:23 EST 06/03/2020 12:28 EST Mo Rodriguez AUDIO VISUAL DESIGN ENGINEER PACKAGES & DNA PROB E ORDERABLES Performing Organization Address City/State/[facility] Co de Phone Number [facility] [address] [place] [address] documented in this encounter Visit Diagnoses Diagnosis Psoriatic arthritis ([facility]) Psoriatic arthropathy Chronic bilateral low back pain, unspecified whether sciatica present documented in this encounter Care Teams Telephone Sterilizer Relationship Specialty Start Date End Date Melissa Khan MD [address] [place] [phone] PCP - General 08/04/15 documented as of this encounter
--- OUTSIDE RECORDS SUMMARY | 2023-12-07 00:49 | XMS_ITS | Encounter Summary ---
Author Organization [facility] Address [address] [place] [address] Care Team Providers Care Body Service Team Member Name Role Phone Melissa Khan MD Primary Care Provider [phone] Reason for Referral * Medication Prior Authorization (Routine) - Closed Specialty Diagnoses / Procedures Referred By Huy salmon Referred To Contact Rheumatology Diagnoses Psoriatic arthropathy ([facility]) Mo Rodriguez, SEISMOGRAPH CHIEF [address] [facility], [facility] [address] [place] [address] [place] [address] [address] [place] [address] Referral ID Status Reason Start Date Expiration Date Visits Requested Visits Authorized [id number] Closed Medication Prior Authorization 0 1 1 Question Answer Medication to be Prior Authorized: Prior auth Diclofenac 1 % gel Comments The purpose of this consult request is to inform the scheduling staff that a medication needs to be prior-authorized before it is prescribed and/or administered. Encounter Details Date Type Department Care Team (Late st Contact Info) Description 03/26/2020 Orders Only [facility] Rheumatology & Immunology [address] [address] Alka Martinez RN Psoriatic arthropathy ([facility]) (Primary Dx) Social History Tobacco Use Types [...] Contact Info) Description 12/10/2023 11:00 EDT Appointment [facility] Radiology CT Outpatient - [address] [address] 12/11/2023 13:45 EDT Initial consult [facility] Gynecologic Oncology - [address] [address] Ashlee Garcia MD [address] [place] [address], [address] [place] [phone] Scheduled Referrals Name Type Priority Associated Diagnoses Order Schedule AMB MEDICATION PRIOR AUTHORIZATION Outpatient Referral Routine Psoriatic arthropathy ([facility]) Ordered: 03/26/2020 documented as of this encounter Visit Diagnoses Diagnosis Psoriatic arthropathy ([facility])- Primary Psoriatic arthropathy documented in this encounter Care Teams Body Service Team Member Relationship Specialty Start Date End Date Mleissa Khan MD [address] [place] [phone] PCP - General 08/04/15 documented as of this encounter
--- OUTSIDE RECORDS SUMMARY | 2023-12-07 00:50 | XMS_ITS | Encounter Summary ---
Author Organization [facility] Address [address] [place] [address] Care Team Providers Care Brand Director Name Role Phone None, Provider Primary Care Provider Unavailabl e Encounter Details Date Type Department Care Team (Latest Contact Info) Description 01/26/2014 6:33 EDT - 01/26/2014 6:34 EDT Hospital Encounter [facility] - [address] [address] Melissa Khan MD [address] [place] [phone] Discharge Disposition: Home or Self Care Social History Tobacco Use Types Packs/Day Years Used Date Smoking Tobacco: Every Day Cigarettes 0.5 15 Smokeless Tobacco: Never Alcohol Use Standard Drinks/Week Comments Yes 21 (1 standard drink = 0.6 oz pure alcohol) bottle of wine or 6 pack beer a day Sex and Gender Information Value Date Recorded Sex Assigned at Not on file Gender Identity Female 02/10/2020 14:46 EDT Sexual Orientation Not on file documented as of this encounter Discharge Diagnoses Diagnosis 789.9 ABDOMEN/PELVIS SYMP NEC[ICD-9-CM] documented in this encounter Medications at Time of Discharge Medication Sig Dispensed Refills Start Date End Date acetaminophen (TYLENOL) 325 mg tablet Take 325 mg by mouth every 4 hours as needed. 08/13/2017 BUPROPION HCL (WELLBUTRIN ORAL)Indications:Doesn't recall dose Take by mouth daily. Indications: Doesn't recall dose 02/22/2010 03/23/2020 cyclobenzaprine (FLEXERIL) 5 mg tablet Take 1-2 tabs daily as needed. 60 Tab 1 06/25/2012 05/01/2014 DIAZepam (VALIUM) 5 mg tablet Take 5 mg by mouth 2 times daily. 05/01/2014 escitalopram oxalate (LEXAPRO) 10 mg tablet Take 10 mg by mouth daily. Reported on 03/16/2016 08/13/2017 lisinopril (PRINIVIL, ZESTRIL) 40 mg tablet Take 40 mg by mouth daily. 05/01/2014 olmesartan (BENICAR) 40 mg tablet Take 40 mg by mouth daily. 05/01/2014 documented as of this encounter Discharge Disposition Disposition Code Departure Means Destination Home or Self Care documented in this encounter Plan of Treatment Upcoming Encounters Date Type Department Care Team (Late st Contact Info) Description 12/10/2023 11:00 EDT Appointment [facility] Radiology CT Outpatient - [address] [address] 12/11/2023 13:45 EDT Initial consult [facility] Gynecologic Oncology - [address] [address] Ashlee Garcia MD [address] [place] [address], [address] [place] [phone] documented as of this encounter Visit Diagnoses Not on filedocumented in this encounter Care Teams Brand Director Relationship Specialty Start Date End Date None, Provider PCP - General 08/27/13 08/03/15 documented as of this encounter
--- OUTSIDE RECORDS SUMMARY | 2023-12-07 00:50 | XMS_ITS | Encounter Summary ---
Author Organization [facility] Address [address] [place] [address] Care Team Providers Care Websphere Administrator Name Role Phone None, Provider Primary Care Provider Unavailabl e Encounter Details Date Type Department Care Team (Latest Contact Info) Description 11/09/2014 18:58 EDT - 11/09/2014 23:59 EDT Hospital Encounter [facility] [address] [place] [address] Pavan Ventura MD [address] [place] [address] Discharge Disposition: Home or Self Care Social [...] as of this encounter Discharge Diagnoses Diagnosis V72.5 RADIOLOGICAL EXAM NEC[ICD-9-CM] documented in this encounter Medications at Time of Discharge Medication Sig Dispensed Refills Start Date End Date ibuprofen (MOTRIN) 200 mg tablet Take 3 Tablets by mouth every 8 hours as needed for Pain. acetaminophen (TYLENOL) 325 mg tablet Take 325 mg by mouth every 4 hours as needed. 08/13/2017 BUPROPION HCL (WELLBUTRIN ORAL)Indications:Doesn't recall dose Take by mouth daily. Indications: Doesn't recall dose 02/22/2010 03/23/2020 clonazePAM (KLONOPIN) 0.5 mg tablet Take 0.5 mg by mouth 2 times daily. Reported on 03/16/2016 03/23/2020 escitalopram oxalate (LEXAPRO) 10 mg tablet Take 10 mg by mouth daily. Reported on 03/16/2016 08/13/2017 documented as of this encounter Discharge Disposition Disposition Code Departure Means Destination Home or Self [facility] documented in this encounter Plan of Treatment Upcoming Encounters Date Type Department Care Team (Late st Contact Info) Description 12/10/2023 11:00 EDT Appointment [facility] Radiology CT Outpatient - [address] [address] 12/11/2023 13:45 EDT Initial consult [facility] Gynecologic Oncology - [address] [address] Ashlee Garcia MD [address] [place] [address], [facility], [address] [place] [phone] documented as of this encounter Visit Diagnoses Not on filedocumented in this encounter Care Teams Websphere Administrator Relationship Specialty Start Date End Date None, Provider PCP - General 08/27/13 08/03/15 documented as of this encounter
--- OUTSIDE RECORDS SUMMARY | 2023-12-07 00:50 | XMS_ITS | Encounter Summary ---
Author Organization [facility] Address [address] [place] [address] Care Team Providers Care Sterile Products Processor Name Role Phone Melissa Khan MD Primary Care Provider [phone] Encounter Details Date Type Department Care Team (Latest Contact Info) Description 12/11/2015 10:38 EDT - 12/11/2015 23:59 EDT Hospital Encounter [address] [address] Melissa Khan MD [address] [place] [phone] Discharge Disposition: Auto Discharge Social History Tobacco [...] visiting a doctor's office or shopping? No 09/08/2015 Cognitive Status Response Date of Assessm ent Because of a physical, menta l, or emotional condition, does this person have serious difficulty concentrating, remembering, or making decisions? No 09/08/2015 documented as of this encounter Discharge Diagnoses Diagnosis N28.1 Cyst of kidney, acquired-N28.1[ICD-10-CM] documented in this encounter Medications at Time of Discharge Medication Sig Dispensed Refills Start Date End Date ibuprofen (MOTRIN) 200 mg tablet Take 3 Tablets by mouth every 8 hours as needed for Pain. acetaminophen (TYLENOL) 325 mg tablet Take 325 mg by mouth every 4 hours as needed. 08/13/2017 BUPROPION HCL (WELLBUTRIN ORAL)Indications:Doesn' t recall dose Take by mouth daily. Indications: Doesn't recall dose 02/22/2010 03/23/2020 BUSPIRONE HCL (BUSPIRONE ORAL) Take by mouth. 0 clonazePAM (KLONOPIN) 0.5 mg tablet Take 0.5 mg by mouth 2 times daily. Reported on 03/16/2016 03/23/2020 escitalopram oxalate (LEXAPRO) 10 mg tablet Take 10 mg by mouth daily. Reported on 03/16/2016 08/13/2017 lidocaine 5 % gel Apply 100 mg topically every 8 hours as needed for Pain. Maximum dose: 4.5 mg/kg, not to exceed 300 mg 1 Tube 5 09/08/2015 11/18/2020 documented as of this encounter Discharge Disposition Disposition Code Departure Means Destination Auto Discharge Home documented in this encounter Plan of Treatment Upcoming Encounters Date Type Department Care Team (Late st Contact Info) Description 12/10/2023 11:00 EDT Appointment [facility] Radiology CT Outpatient - [address] [id number] 12/11/2023 13:45 EDT Initial consult [facility] Gynecologic Oncology - [address] [phone] Ashlee Garcia MD [address] [place] [address], [address] [place] [phone] documented as of this encounter Visit Diagnoses Not on filedocumented in this encounter Care Teams Sterile Products Processor Relationship Specialty Start Date End Date Melissa Khan MD [address] [place] [phone] PCP - General 08/04/15 documented as of this encounter
--- OUTSIDE RECORDS SUMMARY | 2023-12-07 00:50 | XMS_ITS | Encounter Summary ---
Author Organization [facility] Address [address] [place] [address] Care Team Providers Care Rn New Graduate Name Role Phone Melissa Khan MD Primary Care Provider [phone] Encounter Details Date Type Department Care Team (Late st Contact Info) Description 12/11/2015 Results Only [facility] [phone] Unknown, Provider, Social History Tobacco Use Types Packs/Day Years [...] No 09/08/2015 documented as of this encounter Plan of Treatment Upcoming Encounters Date Type Department Care Team (Late st Contact Info) Description 12/10/2023 11:[address] [facility] [address] Outpatient - [facility] [address] [place], [place] [phone] 12/11/2023 13:45 EDT Initial consult [facility] Gynecologic Oncology - [facility] [address] [place] [address] Ashlee Garcia MD [address] [facility], [facility], [address] [place] [phone] documented as of this encounter Procedures Procedure Name Priority Date/Time Associated Diagnosis Comments CREATININE, ISTAT Routine 12/11/2015 11: 09 EDT documented in this encounter Results * CREATININE, ISTAT (12/11/2015 11:09 EDT) Creatinine, i-STAT 1.0 0.6 - 1.3 mg/dl 12/11/2015 11:13 EDT [facility] personnel clerks supervisor ID [id number] 12/11/2015 11:13 EDT [facility] Comment:Test performed by [employer] [facility]. BLOOD SPECIMEN / Unknown 12/11/2015 11:09 EDT 12/11/2015 11:13 EDT Provider Unknown POINT OF CARE TEST O RDERABLES [facility] [address] [place] [address] documented in this encounter Visit Diagnoses Not on filedocumented in this encounter Care Teams Rn New Graduate Relationship Specialty Start Date End Date Melissa Khan MD [address] [place] [phone] PCP - General 08/04/15 documented as of this encounter
--- OUTSIDE RECORDS SUMMARY | 2023-12-07 00:50 | XMS_ITS | Encounter Summary ---
Author Organization [facility] Address [address] [place] [address] Care Team Providers Care Monorail Crane Operator Name Role Phone None, Provider Primary Care Provider Unavailabl e Reason for Visit * Referral (Routine) - Closed Specialty Diagnoses / Procedures Referred By Huy salmon Referred To Contact Neurology Diagnoses Numbness of arm Autumn, Dylan Hester MD [address] [place] [phone] [facility] Neurology [address] [address] Referral ID Status Reason Start Date Expiration Date Visits Re quested Visits Authorized [id number] Closed 1 1 Encounter Details Date Type Department Care Team (Latest Contact Info) Description 11/12/2014 9:18 EDT - 11/12/2014 23:59 EDT Hospital Encounter [facility] Neurophysiology - [place] [address] [place], [place] [phone] Abdias Adams MD [address] [place] [address], [address] [place] [phone] Bilateral carpal tunnel syndrome (Primary Dx) Discharge Disposition: Home or Self [...] on file documented as of this encounter Medications at [...] Code Departure Means Destination Home or Self Retirement documented in this encounter Procedure Notes * Adbias Adams MD - 11/12/2014 1027 EDTProcedure(s): EMG/NERVE CONDUCTION STUDY; NERVE CONDUCTION STUDIES (NCT) History: This is a 54 year old woman seen in electrodiagnostic and directed neuromuscular consultation to evaluate bilateral hand numbness. Patient has about 2 years of hand numbness worst in index, middle, and ring fingers right greater than left hand. Symptoms are intermittent and exaccerbated by repetitive movements (e.g. Typing), certain positions (e.g. Talking on phone, driving, riding motor cycle), and with sleep at night. Tingling in hands wakes from sleep at night. Tends to shake hands to relieve symptoms. Has history of C5-7 anterior fusion years ago for similar symptoms. No severe neck pain or bowel/bladder dysfunction. ROS: No weight loss, fever, chills, rash, worsened joint pain. Patient Active Problem List Diagnosis ??? Hypertension Depression Previous C5-7 anterior discectomy and fusion. History Social History ??? Marital Status: Spouse Name: N/A Number of Children: N/A ??? Years of Education: N/A Occupational History ??? Not on file. Social History Main Topics ??? Smoking status: Former Smoker -- 0.50 packs/day for 15 years Quit date: 05/01/2013 ??? Smokeless tobacco: Never Used ??? Alcohol Use: 12.6 oz/week 21 Glasses of wine per week Comment: bottle of wine or 6 pack beer a day ??? Drug Use: No ??? Sexual Activity: Not on file Other Topics Concern ??? Not on file Social History Narrative ??? No narrative on file Allergies Allergen Reactions ??? Erythromycin Nausea Only ??? Other - See Comments Dust mites....congestion Current Outpatient Prescriptions Medication Sig Dispense Refill ??? acetaminophen (TYLENOL) 325 mg tablet Take 325 mg by mouth every 4 hours as needed. ??? BUPROPION HCL (WELLBUTRIN ORAL) Take by mouth daily. Indications: Doesn't recall dose ??? clonazePAM (KLONOPIN) 0.5 mg tablet Take 0.5 mg by mouth 2 times daily. ??? escitalopram oxalate (LEXAPRO) 10 mg tablet Take 10 mg by mouth daily. ??? ibuprofen (MOTRIN) 200 mg tablet Take 600 mg by mouth every 8 hours as needed for Pain. No current facility-administered medications for this encounter. Clinical Exam: This is an average weight woman in no acute distress. Negative Spurling sign bilaterally. Positive Tinel sign at wrist bilaterally. Negative Phalen sign bilaterally. Motor: Normal tone/bulk of bilateral upper extremities. Full power of upper extremities including shoulderabduction, shoulder fwd flex, elbow flex/ext, wrist flex/ext, finger spread, finger extension, deepfinger flex, thumb abduction. Sensory: Mildly reduced pin digit 2 compared to 5 on the right. Otherwise normal pin in bilateral upper extremities. Reflexes: 2+ bilateral biceps, brachioradialis, knee jerks, ankle jerks. Gait: Normal casual gait. For waveforms/values of EMG/nerve conduction study please see accompanying scanned document in the scans/media tab in [facility]. Electrodiagnostic Impression: This is an abnormal study. 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 Slowed bilateral median motor and sensory conduction velocity across the wrist with normal compound motor and sensory action potential amplitudes. 2. Normal needle EMG of the right abductor pollicis brevis There is no electrodiagnostic evidence of a right cervical radiculopathy. Normal muscles tested on needle EMG include the right deltoid, biceps, triceps, flexor carpi radialis, first dorsal interosseus, and abductor pollicis brevis. Clinical Impression: Mild Bilateral Carpal Tunnel Syndrome: Patient with intermittent bilateral hand numbness with physical exam and EMG supportive of median neuropathies at the wrist. This presentation is consistent with carpal tunnel syndrome. There is no clinical or electrodiagnostic evidence of ongoing cervical spine pathology as source of symptoms. Patient's MRI with minimal cervical stenosis and without disc protrusions. Since symptoms are mild recommended we trial carpal tunnel wrist splints worn to bed nightly for 6-8 weeks. If no benefit, recommend that the patient be referred to a hand surgeon to consider carpal tunnel release. Recommendations: 1. Bilateral carpal tunnel wrist splints to bed nightly (script provided) 2. If no improvement with bracing referral to hand specialist and will defer to Dr. Ventura. Thank you for allowing me to participate in the care of your patient. I will not schedule her for follow-up in the neuromuscular clinic. Please don't hesitate to call with any questions. Abdias Adams MD [employer] Coordinator of Neurology Neurology Attending Physician ABPN Board Certified, Neurology and Neuromuscular Medicine ABEM Board Certified, EMG documented in this encounter Plan of Treatment Upcoming Encounters Date Type Department Care Team (Late st Contact Info) Description 12/10/2023 11:00 EDT Appointment [facility] Radiology CT Outpatient - [address] [id number] 12/11/2023 13:45 EDT Initial consult [facility] Gynecologic Oncology - [address] [address] Ashlee Garcia MD [address] [place] [address], [address] [place] [phone] documented as of this encounter Procedures Procedure Name Priority Date/Time Associated Diagnosis Comments ELECTROMYOGRAM - SCANNED 11/13/2014 11:02 EDT documented in this encounter Results * ELECTROMYOGRAM - SCANNED (11/13/2014 11:02 EDT) 11/13/2014 11:0 2 EDT Scan 2 [employer]age Caller PROCEDURE/MINOR ELISE GICAL ORDERABLES documented in this encounter Visit Diagnoses Diagnosis Bilateral carpal tunnel syndrome- Primary Carpal tunnel syndrome documented in this encounter Orders General Supply Count Last Ordered Date First Or dered Date WRIST BRACE 1 11/12/2014 documented in this encounter Care Teams Monorail Crane Operator Relationship Specialty Start Date End Date None, Provider PCP - General 08/27/13 08/03/15 documented as of this encounter
--- OUTSIDE RECORDS SUMMARY | 2023-12-07 00:50 | XMS_ITS | Encounter Summary ---
Author Organization [facility] Address [address] [place] [address] Care Team Providers Care Portfolio Lead Name Role Phone None, Provider Primary Care Provider Unavailabl e Reason for Visit * Reason Comments Chest Pain Pt arrives via triag e with c/o chest pain that started this morning. Pt states family wanted to call 911 but pt wanted to shower first. Pt arrives with chest pain subsided and states she has a lot of stress in her life. Skin pink, warm and dry. Pt coached on slow deep breathing Encounter Details Date Type Department Care Team (Late st Contact Info) Description 08/27/2013 10:58 EDT - 08/27/2013 16:12 EDT Emergency [facility] Emergency Department - [address] [id number] Sandrita Baez MD [address] [place] [address], [address] 1 [place] [address] Emergency, MD [place] Chest pain (Primary Dx) Discharge Disposition: Home or Self [...] Sign Reading Time Taken Comments Blood Pressure 137/85 08/27/2013 1600 EDT Pulse 86 08/27/2013 1103 EDT Temperature 35.1 ??C (95.2 ??F) 08/27/2013 1103 EDT Respiratory Rate 15 08/27/2013 1600 EDT Oxygen Saturation 100% 08/27/2013 1600 EDT Inhaled Oxygen Concentration - - Weight 58.1 kg (128 lb) 08/27/2013 1103 EDT Height 160 cm (5' 3) 08/27/2013 1103 EDT Body Mass Index 22.67 08/27/2013 1103 EDT documented in this encounter Discharge Instructions * Discharge Instructions* Sandrita Baez MD - 08/27/2013 15:55 EDT Your EKG, chest x-ray, blood work were normal Please followup with your regular physician within the next week I have put in order for stress test. You should receive a phone call to schedule this Return to the emergency department if you develop recurrent chest pain, trouble breathing, sweats * Attachments The following attachments cannot be sent through Care Everywhere. * CHEST PAIN (JAPANESE) documented in this encounter Medications at Time [...] documented in this encounter ED Notes * Sandrita Baez MD - 09/02/2013 0054 EDT DOS: 08/27/2013 Chief Complaint Patient presents with ??? Chest Pain Pt arrives via triage with c/o chest pain that started this morning. Pt states family wanted to call 911 but pt wanted to shower first. Pt arrives with chest pain subsided and states she has a lot ofstress in her life. Skin pink, warm and dry. Pt coached on slow deep breathing The patient is a 53 y.o. 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 The history is provided by the patient. Chest Pain Associated symptoms: no abdominal pain, no back pain, no fever, no headache and no shortness of breath Review of Systems Constitutional: Negative for fever and chills. HENT: Negative for neck stiffness. Eyes: Negative for visual disturbance. Respiratory: Negative for shortness of breath. Cardiovascular: Positive for chest pain. Gastrointestinal: Negative for abdominal pain. Genitourinary: Negative for dysuria. Musculoskeletal: Negative for back pain. Skin: Negative for rash. Neurological: Negative for headaches. Psychiatric/Behavioral: Negative for confusion. Past Medical History Diagnosis Date ??? Hypertension ??? Psychiatric problem depression/traumatic stress Past Surgical History Procedure Laterality Date ??? Abdominoplasty ??? Ectopic surgery ??? Inguinal hernia repair ??? Elbow surgery left Allergies Allergen Reactions ??? Erythromycin Nausea Only ??? Other - See Comments Dust mites....congestion History Substance Use Topics ??? Smoking status: Current Every Day Smoker -- 0.50 packs/day for 15 years ??? Smokeless tobacco: Never Used ??? Alcohol Use: 105.0 oz/week 21 Glasses of wine per week Comment: bottle of wine or 6 pack beer a day Family History Problem Relation Age of Onset ??? Heart Disease Father ??? * Neg Hx ??? AAA Neg Hx ??? ADD Neg Hx ??? ADHD Neg Hx ??? Adrenal Disorder Neg Hx ??? Alcohol Abuse Neg Hx ??? Allergic Rhinitis Neg Hx ??? Allergies Neg Hx ??? Allergy-Severe Neg Hx ??? Alport Syndrome Neg Hx ??? Amblyopia Neg Hx ??? Anemia Neg Hx ??? Anesth Problems Neg Hx ??? Anesthesia Problems Neg Hx [...] ??? Bladder Cancer Neg Hx ??? Bleeding Prob Neg Hx ??? Blindness Neg Hx ??? [...] Hx ??? High Cholesterol Neg Hx ??? Osceola's Chorea Neg Hx ??? Hypercalcemia Neg Hx [...] Hx ??? Lymphoma Neg Hx ??? Macular Degen Neg Hx ??? Malig. HTN Neg Hx [...] Neg Hx ??? SLE Neg Hx ??? Spont Ab Neg Hx ??? Stomach Cancer Neg Hx [...] Neg Hx ??? Carlos's Disease Neg Hx ??? Cancer Son 8 rhabdomyosarcoma Vital Signs Vitals Reassessment?: Yes Temp: 35.1 ??C (95.2 ??F) Temp src: Tympanic Pulse: 86 Heart Rate: 72 BPM Resp: 15 SpO2: 100 % BP: 137/85 mmHg BP Device: BP Machine O2 Device: None (Room air) Physical Exam Nursing note and vitals reviewed. Constitutional: She appears well-developed and well-nourished. HENT: Head: Normocephalic and atraumatic. Right Ear: External ear normal. Left Ear: External ear normal. Nose: Nose normal. Eyes: Pupils are equal, round, and reactive to light. Right eye exhibits no discharge. Left eye exhibits no discharge. Neck: Normal range of motion. Neck supple. No tracheal deviation present. Cardiovascular: Normal rate, regular rhythm and normal heart sounds. Pulmonary/Chest: Breath sounds normal. No respiratory distress. Abdominal: Soft. There is no tenderness. Musculoskeletal: Normal range of motion. Neurological: She is alert. She has normal strength. No sensory deficit. Skin: No rash noted. Psychiatric: She has a normal mood and affect. CHEST PA AND LATERAL Final result not shown here.: POCT ECHO CARDIAC Final result not shown here.: Radiology orders: CHEST PA AND LATERAL POCT ECHO CARDIAC EXERCISE TOLERANCE TEST Imaging Results POCT ECHO CARDIAC (Final result) Result time: 08/28/13 19:02:11 Final result Narrative: Non Reportable Exam CHEST PA AND LATERAL (Final result) Result time: 08/27/13 13:19:01 Final result Narrative: CHEST PA AND LATERAL 08/27/2013 12:13 PM Signs and Symptoms/Comments: chest pain. Comparisons: None. Technique: PA and lateral view of the chest. Findings: There is mild increased convexity along the superior right heart border and which is usually attributable to mild tortuosity of the ascending aorta although dilatation cannot be excluded. The cardiomedial silhouette and pulmonary vasculature are otherwise unremarkable. The lungs are clear and there is no evidence of pleural disease. The bones and overlying soft tissues are normal. The patient is status post anterior fixation of the lower cervical spine. Impression: No acute disease. Preliminary result Narrative: PRELIMINARY REPORT CHEST PA AND LATERAL 08/27/2013 12:13 PM Signs and Symptoms/Comments: chest pain. Comparisons: None. Technique: PA and lateral view of the chest. Findings: There is mild increased convexity along the superior right heart border and which is usually attributable to mild tortuosity of the ascending aorta although dilatation cannot be excluded. The cardiomedial silhouette and pulmonary vasculature are otherwise unremarkable. The lungs are clear and there is no evidence of pleural disease. The bones and overlying soft tissues are normal. The patient is status post anterior fixation of the lower cervical spine. Impression: No acute disease. EKG 12-LEAD (Results Pending) EKG: Findings include: normal EKG, normal sinus rhythm. The study has been independently viewed by me. The study has been interpreted independently and contemporaneously by me. The EKG appears to be a good tracing. Attending ep technologist not available for acute interpretation. Procedures Lab Results TROPONIN I (Final result) Component (Lab Inquiry) Collection Time Result Time Troponin I 08/27/13 14:20:00 08/27/13 14:53:55 <0.034 CK MB WITH TOTAL CK (Final result) Component (Lab Inquiry) Collection Time Result Time CK MB 08/27/13 14:20:00 08/27/13 14:53:55 37 0.39 ED/WICC ADD-ON (Final result) Component (Lab Inquiry) Collection Time Result Time Tests to be added Number for problems 08/27/13 14:10:00 08/27/13 14:16:50 CK MB WITH TOTAL CK,TROPONIN 1 [id number] (ED) PROFILE ED CARDIAC PACK (Final result) Result time: 08/27/13 13:34:52 ELECTROLYTES (Final result) Component (Lab Inquiry) Collection Time Result Time Sodium Potassium Chloride CO2 08/27/13 13:00:00 08/27/13 13:52:29 136 4.4 99 27 BUN (Final result) Component (Lab Inquiry) Collection Time Result Time BUN 08/27/13 13:00:00 08/27/13 13:52:29 21 CREATININE (Final result) Component (Lab Inquiry) Collection Time Result Time Creatinine GFR, Calculated 08/27/13 13:00:00 08/27/13 13:52:29 0.79 >60 SCREENING GLUCOSE (Final result) Component (Lab Inquiry) Collection Time Result Time Glucose, Screening 08/27/13 13:00:00 08/27/13 13:52:29 76 MAGNESIUM (Final result) Component (Lab Inquiry) Collection Time Result Time Magnesium 08/27/13 13:00:00 08/27/13 13:52:29 2.1 HEMAGRAM (Final result) Abnormal Component (Lab Inquiry) Collection Time Result Time WBC RBC Hemoglobin HCT MCV 08/27/13 13:00:00 08/27/13 13:53:53 5.91 4.11 13.7 40.2 98 Collection Time Result Time MCH MCHC PLT RDW-CV 08/27/13 13:00:00 08/27/13 13:53:53 33.4 (H) 34.2 186 12.5 DIFFERENTIAL (Final result) Component (Lab Inquiry) Collection Time Result Time Neutrophils Lymphocytes Monocytes Eosinophils Basophils 08/27/13 13:00:00 08/27/13 13:53:53 63.0 25.0 9.9 1.8 0.3 Collection Time Result Time ABS Neutrophils ABS Lymphs ABS Monocytes ABS Eosinophils ABS Basophils 08/27/13 13:00:00 08/27/13 13:53:53 3.72 1.48 0.59 0.10 0.02 Collection Time Result Time Type of Diff: 08/27/13 13:00:00 08/27/13 13:53:53 Automated HOLD BLUE TOP (Final result) Component (Lab Inquiry) Collection Time Result Time Hold Blue Top 08/27/13 13:00:00 08/27/13 13:58:15 Sample for coagulation will be discarded after 4 hours REDRAW LABS (Final result) Component (Lab Inquiry) Collection Time Result Time Redraw 08/27/13 13:00:00 08/27/13 14:03:09 CKMBB,TROPI D-DIMER (Final result) Component (Lab Inquiry) Collection Time Result Time D-Dimer 08/27/13 12:18:00 08/27/13 13:04:12 <200 CUTOFF VALUE FOR THE EXCLUSION OF DVT and PE: 230 ng/mL D-dimer units Moderate hemolysis ED/WICC ADD-ON (Final result) Component (Lab Inquiry) Collection Time Result Time Tests to be added Number for problems 08/27/13 12:05:00 08/27/13 12:14:45 D DIMER 71099 (ED) REDRAW LABS (Final result) Component (Lab Inquiry) Collection Time Result Time Redraw 08/27/13 12:05:00 08/27/13 12:14:45 DDT UNABLE TO ADD STAT D DIMER DUE TO NOT HAVING SAMPLE IN LAB NEED NEW ORDER AND SAMPLE PLEASE ED Course: A medical screening exam was performed. Chest pain, unclear etiology. Labs and ekg unremarkable. Considered disscetion but clinically unlikely. Will dc w pcp fu and outpt stress test. Knows to return if worse Disposition: Discharged The patient's pain was managed to an adequate level weighing risk vs. benefit of further medications. Upon departure from the Emergency Department, the patient's pain was 0 on a zero to ten scale. Condition at departure from the Emergency Department: Good Discharge Medication List as of 08/27/2013 15:58 CONTINUE these medications which have NOT CHANGED Details acetaminophen (TYLENOL) 325 mg tablet Take 325 mg by mouth every 4 hours as needed. , Until Discontinued, Historical Med BUPROPION HCL (WELLBUTRIN ORAL) Take by mouth daily. Indications: Doesn't recall dose, Oral, DAILY Starting 02/22/2010, Until Discontinued, Historical Med cyclobenzaprine (FLEXERIL) 5 mg tablet Take 1-2 tabs daily as needed., Disp-60 Tab, R-1, Normal DIAZepam (VALIUM) 5 mg tablet Take 5 mg by mouth 2 times daily., Historical Med escitalopram oxalate (LEXAPRO) 10 mg tablet Take 10 mg by mouth daily., Historical Med lisinopril (PRINIVIL, ZESTRIL) 40 mg tablet Take 40 mg by mouth daily., Historical Med olmesartan (BENICAR) 40 mg tablet Take 40 mg by mouth daily. , Until Discontinued, Historical Med MDM Final diagnoses: Chest pain PCP: Provider None 09/02/2013 0:54 * Negra Flaherty RN - 08/27/2013 2315 EDT Labs drawn per order. * Negra Flaherty RN - 08/27/2013 1422 EDT Patient up to the bathroom to void. * Negra Flaherty RN - 08/27/2013 1337 EDT Patient tells this nurse my breathing feels better already. Will continue patient on the oxygen for comfort. * Negra Flaherty RN - 08/27/2013 1336 EDT This nurse asked patient if she was having difficulty breathing. Patient appeared to be having difficulty catching her breath. O2 saturation 100%. This nurse placed patient on 2l of oxygen via nasal canula. * Negra Flaherty RN - 08/27/2013 1336 EDT Labs drawn per MD order. * Leobardo Garcia - 08/27/2013 1232 EDT Blood drawn via saline lock per protocol, blue tube(s) sent to lab per order. * Negra Flaherty RN - 08/27/2013 1137 EDT Patient tells this nurse I have a lot going on in my life. I am from my becausehe left the marriage. documented in this encounter Plan of Treatment Upcoming Encounters Date Type Department Care Team (Late st Contact Info) Description 12/10/2023 11:00 EDT Appointment [facility] Radiology CT Outpatient - [address] [address] 12/11/2023 13:45 EDT Initial consult [facility] Gynecologic Oncology - [address] [address] Ashlee Garcia MD [address] [facility], [address] [place] [id number] documented as of this encounter Procedures Procedure Name Priority Date/Time Associated Diagnosis Comments ECG REPORT - SCANNED 09/09/2013 6:17 EDT POCT US CARDIAC STAT 08/28/2013 19:01 EDT TROPONIN I STAT 08/27/2013 14:20 EDT CK MB WITH TOTAL CK STAT 08/27/2013 1 4:20 EDT ED/URGENT CARE ADD-ON STAT 08/27/2013 14:10 EDT HOLD BLUE TOP STAT 08/27/2013 13:00 EDT REDRAW LABS Routine 08/27/2013 13:00 EDT SCREENING GLUCOSE STAT 08/27/2013 13: 00 EDT PROFILE ED CARDIAC PACK STAT 08/27/2013 13:00 EDT DIFFERENTIAL STAT 08/27/2013 13:00 EDT COMPLETE BLOOD COUNT STAT 08/27/2013 13:00 EDT BUN STAT 08/27/2013 13:00 EDT MAGNESIUM STAT 08/27/2013 13:00 EDT CREATININE STAT 08/27/2013 13:00 EDT ELECTROLYTES STAT 08/27/2013 13:00 EDT D-DIMER STAT 08/27/2013 12:18 EDT CHEST PA AND LATERAL STAT 08/27/2013 12:13 EDT REDRAW LABS Routine 08/27/2013 12:05 EDT ED/URGENT CARE ADD-ON STAT 08/27/2013 12:05 EDT EKG 12-LEAD STAT 08/27/2013 11:15 EDT documented in this encounter Results * ECG REPORT - SCANNED (09/09/2013 6:17 EDT) 09/09/2013 6:17 EDT Scan 2 Veterinary Laboratory Technician PROCEDURE/MINOR ELISE GICAL ORDERABLES * POCT ECHO CARDIAC (08/28/2013 19:01 EDT) Anatomical Region Laterality Modality Other 08/28/2013 19:0 1 EDT Narrative 08/28/2013 19:01 EDT Non Reportable Exam Procedure Note 08/28/2013 Non Reportable Exam Sandrita Baez MD IMG POCT US ORDERAB LES * CK MB WITH TOTAL CK (08/27/2013 14:20 EDT) CK 37 30 - 135 U/L [facility] MB 0.39 <2.95 ng/ml [facility] Blood specimen (specimen) 08/27/2013 14:20 EDT 08/27/2013 14:24 EDT Sandrita Baez MD CHEMISTRY & BLOOD G ORDERABLES [facility] [address] [place] [address] * TROPONIN I (08/27/2013 14:20 EDT) Troponin I (ng/mL) <0.034 <0.034 ng/ml [facility] Blood specimen (specimen) 08/27/2013 14:20 EDT 08/27/2013 14:24 EDT Sandrita Baez MD CHEMISTRY & BLOOD G ORDERABLES Performing Organization Address [facility] Co de Phone Number [facility] [address] [place] [address] * ED/WICC ADD-ON (08/27/2013 14:10 EDT) Tests to be added CK MB WITH TOTAL CK,TROPONI N 1 [facility] Number for problems [id number] (ED) [facility] 08/27/2013 14:1 0 EDT 08/27/2013 14:15 EDT Sandrita Baez MD HEMATOLOGY & PF4 OR DERABLES Performing Organization Address [facility] Co de Phone Number [facility] [address] [place] [address] * REDRAW LABS (08/27/2013 13:00 EDT) Redraw CKMBB,TROPI [facility] 08/27/2013 13:0 0 EDT 08/27/2013 13:34 EDT Sandrita Baez MD LAB INFO SERVICE AN D SUPPORT & PHONE RESULT Performing Organization Address [facility] Co de Phone Number [facility] [address] [place] [address] * HOLD BLUE TOP (08/27/2013 13:00 EDT) Hold Blue Top Sample for coagulation will be discarded after 4 hours [facility] 08/27/2013 13:0 0 EDT 08/27/2013 13:34 EDT Sandrita Baez MD LAB INFO SERVICE AN D SUPPORT & PHONE RESULT Performing Organization Address [facility] Co de Phone Number [facility] [address] [place] [address] * DIFFERENTIAL (08/27/2013 13:00 EDT) % Neutrophils 63.0 45.5 - 79.7 % [facility] % Lymphocytes 25.0 15.0 - 46.8 % [facility] % Monocytes 9.9 1.8 - 12.0 % [facility] % Eosinophils 1.8 0.6 - 6.9 % [facility] % Basophils 0.3 0.2 - 1.4 % [facility] ABS Neutrophils 3.72 2.20 - 8.85 K/cmm [facility] ABS Lymphs 1.48 1.09 - 3.30 K/cmm [facility] ABS Monocytes 0.59 0.1 - 0.8 K/cmm [facility] ABS Eosinophils 0.10 0.03 - 0.61 K/cmm [facility] ABS Basophils 0.02 0.01 - 0.11 K/cmm [facility] Type of Diff: Automated [facility] 08/27/2013 13:0 0 EDT 08/27/2013 13:34 EDT Sandrita Baez MD HEMATOLOGY & PF4 OR DERABLES [facility] [address] [place] [address] * (ABNORMAL) HEMAGRAM (08/27/2013 13:00 EDT) WBC 5.91 4.0 - 12.4 K/cmm [facility] RBC 4.11 3.86 - 5.04 M/cmm [facility] Hemoglobin 13.7 11.6 - 15.2 gm/dl [facility] HCT 40.2 34.9 - 44.4 % [facility] MCV 98 81 - 98 fl [facility] MCH 33.4(H) 26.7 - 33.3 pg [facility] MCHC 34.2 32.1 - 35.9 gm/dl [facility] PLT 186 141 - 320 K/cmm [facility] RDW-CV 12.5 11.7 - 14.6 % [facility] 08/27/2013 13:0 0 EDT 08/27/2013 13:34 EDT Sandrita Baez MD HEMATOLOGY & PF4 OR DERABLES Performing Organization Address [facility] Co de Phone Number [facility] [address] [place] [address] * MAGNESIUM (08/27/2013 13:00 EDT) Magnesium 2.1 1.7 - 2.8 mg/dl [facility] 08/27/2013 13:0 0 EDT 08/27/2013 13:34 EDT Sandrita Baez MD CHEMISTRY & BLOOD G ORDERABLES Performing Organization Address [facility] Co de Phone Number [facility] [address] [place] [address] * SCREENING GLUCOSE (08/27/2013 13:00 EDT) Glucose, Screening 76 70 - 100 mg/dl [facility] 08/27/2013 13:0 0 EDT 08/27/2013 13:34 EDT Sandrita Baez MD CHEMISTRY & BLOOD G ORDERABLES Performing Organization Address [facility] Co de Phone Number [facility] [address] [place] [address] * CREATININE (08/27/2013 13:00 EDT) Creatinine 0.79 0.52 - 1.04 mg/dl [facility] GFR, Calculated >60 >60 ml/min/1.7 3m2 [facility] 08/27/2013 13:0 0 EDT 08/27/2013 13:34 EDT Sandrita Baez MD CHEMISTRY & BLOOD G ORDERABLES Performing Organization Address [facility] Co de Phone Number [facility] [address] [place] [address] * BUN (08/27/2013 13:00 EDT) BUN 21 10 - 26 mg/dl [facility] 08/27/2013 13:0 0 EDT 08/27/2013 13:34 EDT Sandrita Baez MD CHEMISTRY & BLOOD G ORDERABLES Performing Organization Address [facility] Phone Number [facility] [address] [place] [address] * ELECTROLYTES (08/27/2013 13:00 EDT) Sodium 136 136 - 145 mEq/L [facility] Potassium 4.4 3.5 - 5.0 mEq/L [facility] Chloride 99 96 - 110 mEq/L [facility] CO2 27 24 - 32 mEq/L [facility] 08/27/2013 13:0 0 EDT 08/27/2013 13:34 EDT Sandrita Baez MD CHEMISTRY & BLOOD G ORDERABLES Performing Organization Address [facility] Phone Number [facility] [address] [place] [address] * D-DIMER (08/27/2013 12:18 EDT) D-Dimer <200 <230 ng/mL [facility] Comment: CUTOFF VALUE FOR THE EXCLUSION OF DVT and PE: 230 ng/mL D-dimer units Moderate hemolysis Blood specimen (specimen) 08/27/2013 12:18 EDT 08/27/2013 12:34 EDT Sandrita Baez MD HEMATOLOGY & PF4 OR DERABLES Performing Organization Address [facility] Phone Number [facility] [address] [place] [address] * CHEST PA AND LATERAL (08/27/2013 12:13 EDT) Anatomical Region Laterality Modality Other 08/27/2013 12:1 3 EDT 08/27/2013 13:18 EDT Narrative 08/27/2013 13:18 EDT CHEST PA AND LATERAL ??08/27/2013 12:13 PM Signs and Symptoms/Comments: ??chest pain. Comparisons: None. Technique: PA and lateral view of the chest. Findings: There is mild increased convexity along the superior right heart border and which is usually attributable to mild tortuosity of the ascending aorta although dilatation cannot be excluded. The cardiomedial silhouette and pulmonary vasculature are otherwise unremarkable. The lungs are clear and there is no evidence of pleural disease. The bones and overlying soft tissues are normal. The patient is status post anterior fixation of the lower cervical spine. Impression: No acute disease. Procedure Note 08/27/2013 CHEST PA AND LATERAL 08/27/2013 12:13 PM Signs and Symptoms/Comments: chest pain. Comparisons: None. Technique: PA and lateral view of the chest. Findings: There is mild increased convexity along the superior right heart border and which is usually attributable to mild tortuosity of the ascending aorta although dilatation cannot be excluded. The cardiomedial silhouette and pulmonary vasculature are otherwise unremarkable. The lungs are clear and there is no evidence of pleural disease. The bones and overlying soft tissues are normal. The patient is status post anterior fixation of the lower cervical spine. Impression: No acute disease. Sandrita Baez MD IMG DIAGNOSTIC IMAG ING ORDERABLES * REDRAW LABS (08/27/2013 12:05 EDT) Redraw DDT UNABLE TO ADD STAT D DIMER DUE TO NOT HAVING SAMPLE IN LAB NEED NEW ORDER AND SAMPLE PLEASE [facility] 08/27/2013 12:0 5 EDT 08/27/2013 12:13 EDT Sandrita Baez MD LAB INFO SERVICE AN D SUPPORT & PHONE RESULT [facility] [address] [place] [address] * ED/WICC ADD-ON (08/27/2013 12:05 EDT) Tests to be added D DIMER [facility] Number for problems [id number] (ED) [facility] 08/27/2013 12:0 5 EDT 08/27/2013 12:13 EDT Sandrita Baez MD HEMATOLOGY & PF4 OR DERABLES [facility] [address] [place] [address] * EKG 12-LEAD (08/27/2013 11:15 EDT) 08/27/2013 11:1 5 EDT Narrative [facility] EKG - 09/02/2013 8:00 EDT ?[facility] ? Test Date: ?2013-08-27 Pat Name: ? AGUEDA JACOBS ? Department: ?? ED ? Room: ? AC06 Gender: ? F ?Division Order Technician: ?? [id number] : ?1960 ? Requested By: SADNY BRIZUELA MD Order Number: [id number] ?Sue BRANCH: ?? VICENTE MCINTYRE MD ? Measurements Intervals ?[place] ? Rate: ? 75 ? P: ?64 WA: ? 152 ?QRS: ?19 QRSD: ? 80 ? T: ?44 QT: ? 353 ? QTc: ?395 ? Interpretive Statements SINUS RHYTHM Compared to ECG 02/01/2005 19:43:03 No significant changes I have reviewed the tracing and have either agreed or edited the findings in this report. Electronically Signed On 09-02-13 08:00:11 EDT by VICENTE MCINTYRE MD. Procedure Note Vicente Mcinytre MD - 09/02/2013 [facility] Test Date: 2013-08-27 Pat Name: AGUEDA JACOBS Department: ED Room: [facility] Gender: F Division Order Technician: [id number] : 1960 Requested By: SANDY PABLO Order Number: [id number] Reading MD: VICENTE MCINTYRE MD Measurements Intervals [place] Rate: 75 P: 64 WA: 152 QRS: 19 QRSD: 80 T: 44 QT: 353 QTc: 395 Interpretive Statements SINUS RHYTHM Compared to ECG 02/01/2005 19:43:03 No significant changes I have reviewed the tracing and have either agreed or edited the findingsin this report. Electronically Signed On 09-02-13 08:00:11 EDT by SABIHA BRANCH. Sandy Brizuela MD CARDIAC ECG ORDERABLES [facility] documented in this encounter Visit Diagnoses Diagnosis Chest pain- Primary Chest pain, unspecified documented in this encounter Historical Medications * This list may reflect changes made after this encounter. Medication Sig Dispensed Refills Start Date End Date escitalopram oxalate (LEXAPRO) 10 mg tablet Take 10 mg by mouth daily. Reported on 03/16/2016 08/13/2017 DIAZepam (VALIUM) 5 mg tablet Take 5 mg by mouth 2 times daily. 05/01/2014 lisinopril (PRINIVIL, ZESTRIL) 40 mg tablet Take 40 mg by mouth daily. 05/01/2014 added in this encounter Care Teams Portfolio Lead Relationship Specialty Start Date End Date None, Provider PCP - General 08/27/13 08/03/15 documented as of this encounter
--- OUTSIDE RECORDS SUMMARY | 2023-12-07 00:50 | XMS_ITS | Encounter Summary ---
Author Organization [facility] Address [address] [place] [address] Care Team Providers Care Job Captain Name Role Phone Melissa Khan MD Primary Care Provider [phone] Encounter Details Date Type Department Care Team (Latest Contact Info) Description 12/18/2015 9:56 EDT - 12/18/2015 23:59 EDT Hospital Encounter [address] [place] [address] Melissa Khan MD [address] [place] [phone] Discharge Disposition: Auto Discharge Social History Tobacco [...] as of this encounter Discharge Diagnoses Diagnosis K86.8 Other specified diseases of pancreas-K86.8[ICD-10-CM] documented in this encounter Medications at Time [...] Contact Info) Description 12/10/2023 11:00 EDT Appointment [facility] Radiology CT Outpatient - [address] [phone] 12/11/2023 13:45 EDT Initial consult [facility] Gynecologic Oncology - [address] [address] Ashlee Garcia MD [address] [place] [address], [address] [place] [phone] documented as of this encounter Visit Diagnoses Not on filedocumented in this encounter Care Teams Job Captain Relationship Specialty Start Date End Date Melissa Khan MD [address] [place] [phone] PCP - General 08/04/15 documented as of this encounter
--- OUTSIDE RECORDS SUMMARY | 2023-12-07 00:50 | XMS_ITS | Encounter Summary ---
Author Organization [facility] Address [address] [place] [address] Care Team Providers Care Marine Engine Driver Name Role Phone Melissa Khan MD Primary Care Provider [phone] Encounter Details Date Type Department Care Team (Late Contact Info) Description 12/18/2015 Results Only Imaging [facility] [phone] Melissa Khan MD [address] [place] [phone] Social History Tobacco Use Types Packs/Day [...] Encounters Date Type Department Care Team (Late Contact Info) Description 12/10/2023 11:00 EDT [facility] Radiology CT Outpatient - [facility] [address] [place] [address] 12/11/2023 13:45 EDT Initial consult [facility] Gynecologic Oncology - [address] [address] Ashlee Garcia MD [address] [facility], [facility], [address] [place] [phone] documented as of this encounter Procedures Procedure Name Priority Date/Time Associated Diagnosis Comments MR ABDOMEN W/WO CONTRAST 12/18/2015 10:58 EDT documented in this encounter Results * MR ABDOMEN W/WO CONTRAST (12/18/2015 10:58 EDT) Anatomical Region Laterality Modality Other 12/18/2015 10:5 8 EDT 12/20/2015 14:12 EDT Narrative 12/20/2015 14:12 EDT MR ABDOMEN W/WO CONTRAST ??12/18/2015 10:58 AM Signs and Symptoms/Comments: ?? Pancreatic head lesion noted on MRI 12/13/15 Comparison: MR abdomen with and without contrast performed 12/11/2015. Technique: T2-weighted with and without fat saturation, in and out of phase, diffusion weighted, pre-and postcontrast dynamic gadolinium-enhanced T1 fat-suppressed images of the pancreas obtained. FINDINGS: Pancreas: The described abnormalities within the pancreas are more clearly defined on today's exam and correlate with two duodenal diverticula. These are smaller than on prior. No pancreatic head mass or other concerning abnormality in the pancreas is seen. There is no pancreatic ductal dilatation. Hepatobiliary: The liver is normal in signal and morphology. No intra or extrahepatic biliary ductal dilatation is seen. The gallbladder is normal. Spleen and adrenal glands: Normal. Kidneys: As previously described, there is a 1.3 cm exophytic lesion extending from the superomedial aspect of the right kidney that demonstrates T1 hyperintensity and intermediate to low signal on T2. Other simple scattered benign cysts are seen bilaterally. Bowel: No significant abnormality given technique. Peritoneal cavity: No free fluid in the abdomen. Lymphovascular: The major intra-abdominal vessels show normal flow voids and enhancement. No lymphadenopathy is evident. IMPRESSION: 1. Previously described abnormalities in the pancreas correlate to duodenal diverticula and do not require further follow-up. 2. Stable 1.3 cm right renal lesion, likely proteinaceous cyst, as previously characterized. I have personally reviewed the images and the above interpretation and agree with the findings. Procedure Note Antonio Allen MD - 12/20/2015 MR ABDOMEN W/WO CONTRAST 12/18/2015 10:58 AM Signs and Symptoms/Comments: Pancreatic head lesion noted on MRI 12/13/15 Comparison: MR abdomen with and without contrast performed 12/11/2015. Technique: T2-weighted with and without fat saturation, in and out of phase, diffusion weighted, pre-and postcontrast dynamic gadolinium-enhanced T1 fat-suppressed images of the pancreas obtained. FINDINGS: Pancreas: The described abnormalities within the pancreas are more clearly defined on today's exam and correlate with two duodenal diverticula. These are smaller than on prior. No pancreatic head mass or other concerning abnormality in the pancreas is seen. There is no pancreatic ductal dilatation. Hepatobiliary: The liver is normal in signal and morphology. No intra or extrahepatic biliary ductal dilatation is seen. The gallbladder is normal. Spleen and adrenal glands: Normal. Kidneys: As previously described, there is a 1.3 cm exophytic lesion extending from the superomedial aspect of the right kidney that demonstrates T1 hyperintensity and intermediate to low signal on T2. Other simple scattered benign cysts are seen bilaterally. Bowel: No significant abnormality given technique. Peritoneal cavity: No free fluid in the abdomen. Lymphovascular: The major intra-abdominal vessels show normal flow voids and enhancement. No lymphadenopathy is evident. IMPRESSION: 1. Previously described abnormalities in the pancreas correlate to duodenal diverticula and do not require further follow-up. 2. Stable 1.3 cm right renal lesion, likely proteinaceous cyst, as previously characterized. I have personally reviewed the images and the above interpretation and agree with the findings. Melissa Khan MD IMG MRI ORDERABLES documented in this encounter Visit Diagnoses Not on filedocumented in this encounter Care Teams Marine Engine Driver Relationship Specialty Start Date End Date Melissa Khan MD [address] [place] [phone] PCP - General 08/04/15 documented as of this encounter
--- OUTSIDE RECORDS SUMMARY | 2023-12-07 00:50 | XMS_ITS | Encounter Summary ---
Author Organization [facility] Address [address] [place] [address] Care Team Providers Care Manager Product Management Name Role Phone Evelyn Arana MD Primary Care Provider Unavailabl e Encounter Details Date Type Department Care Team (Latest Contact Info) Description 06/04/2012 8:50 EST - 06/04/2012 8:51 EST Hospital Encounter [facility] - [address] [address] Evelyn Arana MD Discharge Disposition: Home or Self Care Social History Tobacco Use Types Packs/Day Years Used Date Smoking Tobacco: Former Cigarettes 3 15 Smokeless Tobacco: Never Alcohol Use Standard Drinks/Week Comments Yes 175 (1 standard drink = 0.6 oz p ure alcohol) Sex and Gender Information Value Date Recorded Sex Assigned at Not on file Gender Identity Female 02/10/2020 14:46 EDT Sexual Orientation Not on file documented as of this encounter Medications at Time of Discharge Medication Sig Dispensed Refills Start Date End Date BUPROPION HCL (WELLBUTRIN ORAL)Indications:Doesn't recall dose Take by mouth daily. Indications: Doesn't recall dose 02/22/2010 03/23/2020 cetirizine (ZYRTEC) 10 mg tablet Take 1 Tab by mouth daily. 30 Tab 3 05/10/2010 06/10/2012 diphenhydrAMINE (BENADRYL) 25 mg capsule Take 1-2 Caps by mouth at bedtime as needed (itching, hives or insomnia). 30 Cap 1 05/10/2010 06/10/2012 fluticasone (FLONASE) 50 mcg/Actuation nasal spray 2 Sprays by Nasal route SEE ADMIN INSTRUCTIONS. 1 Bottle 3 05/10/2010 06/10/2012 ibuprofen (MOTRIN) 600 mg tablet Take 600 mg by mouth every 6 hours as needed. 05/10/2010 06/10/2012 metoprolol XL (TOPROL XL) 50 mg tablet Take 50 mg by mouth 2 times daily. 02/22/2010 06/10/2012 Sodium Chloride (SIMPLY SALINE) 0.9 % SprA 1 [place] by Nasal route 4 times daily. 1 Bottle 05/10/2010 06/10/2012 documented as of this encounter Discharge Disposition Disposition Code Departure Means Destination Home or Self Care documented in this encounter Plan of Treatment Upcoming Encounters Date Type Department Care Team (Late st Contact Info) Description 12/10/2023 11:00 EDT Appointment [facility] Radiology CT Outpatient - [address] [address] 12/11/2023 13:45 EDT Initial consult [facility] Gynecologic Oncology - [address] [phone] Ashlee Garcia MD [address] [place] [address], [address] [place] [phone] documented as of this encounter Procedures Procedure Name Priority Date/Time Associated Diagnosis Comments HAND 2 VIEWS 06/25/2012 11:29 EST documented in this encounter Results * HAND 2 VIEWS (06/25/2012 11:29 EST) Anatomical Region Laterality Modality Other 06/25/2012 11:2 9 EST 06/25/2012 15:25 EST Narrative 06/25/2012 15:25 EST HAND 2 VIEWS bilateral Jun 25, 2012 11:29:00 AM Signs and Symptoms/Comments: ??719.49-Pain in joint, multiple [id number]-CM; Joint pain at PIP joints Findings: AP and ball catcher's view of each hand demonstrate preserved joint spaces with no erosions or degenerative change identified. Alignment is within normal limits. Mineralization is normal. Procedure Note 06/25/2012 HAND 2 VIEWS bilateral Jun 25, 2012 11:29:00 AM Signs and Symptoms/Comments: 719.49-Pain in joint, multiple [id number]-CM; Joint pain at PIP joints Findings: AP and ball catcher's view of each hand demonstrate preserved joint spaces with no erosions or degenerative change identified. Alignment is within normal limits. Mineralization is normal. Ronal Barron MD IMG DIAGNOSTIC IMAGING ORDERABLES documented in this encounter Visit Diagnoses Not on filedocumented in this encounter Care Teams Manager Product Management Relationship Specialty Start Date End Date Evelyn Arana MD PCP - General 02/27/12 08/26/13 documented as of this encounter
--- OUTSIDE RECORDS SUMMARY | 2023-12-07 00:50 | XMS_ITS | Encounter Summary ---
Author Organization [facility] Address [address] [place] [address] Care Team Providers Care Cork Insulator Helper Name Role Phone Melissa Khan MD Primary Care Provider [phone] Reason for Visit * Reason Onset Date Comments Medication Questions 09/08/2015 lidocaine 5 % gel Encounter Details Date Type Department Care Team ([facility] st Contact Info) Description 09/08/2015 Telephone [facility] Rheumatology & Immunology - [facility] [address] [place], [place] [phone] Moody Manning MD [address] [phone] Medication Questions (lidocaine 5 % gel) Social History Tobacco Use Types Packs/Day Years [...] No 09/08/2015 documented as of this encounter Miscellaneous Notes * Telephone Encounter - Esther Winston RN - 09/08/2015 1505 EDT Spoke with Nithin Owen. Gave verbal authorization for ointment. * Telephone Encounter - Rox Aguilar - 09/08/2015 1147 EDT Brayden called stating that they don't have the gel for this and was wondering if he change it to theointment. documented in this encounter Plan of Treatment Upcoming Encounters Date Type Department Care Team (Late st Contact Info) Description 12/10/2023 11:00 EDT Appointment [facility] Radiology CT Outpatient - [address] [address] 12/11/2023 13:45 EDT Initial consult [facility] Gynecologic Oncology - [address] [address] Ashlee Garcia MD [address] [facility], [address] [place] [phone] documented as of this encounter Visit Diagnoses Not on filedocumented in this encounter Care Teams Cork Insulator Helper Relationship Specialty Start Date End Date Melissa Khan MD [address] [place] [phone] PCP - General 08/04/15 documented as of this encounter
--- OUTSIDE RECORDS SUMMARY | 2023-12-07 00:50 | XMS_ITS | Encounter Summary ---
Author Organization [facility] Address [address] [place] [address] Care Team Providers Care Dietary Aide Cook Name Role Phone Evelyn Arana MD Primary Care Provider Unavailabl e Reason for Visit * Reason Comments Urinary Incontinence bladder sling 5 yea rs ago.( 5 pregnancies) Encounter Details Date Type Department Care Team (Latest Contact Info) Description 06/10/2012 8:30 EST Office Visit [facility] Pelvic Medicine and Reconstructive Surgery - Medical Office Building [address] [phone] Melba Barrientos MD 2 [facility] Medical Office [facility], [address] [phone] Incontinence of urine (Primary Dx) Discharge Disposition: Auto Discharge Social History Tobacco [...] Sign Reading Time Taken Comments Blood Pressure 150/106 06/10/2012 0836 EST Pulse 81 06/10/2012 0836 EST Temperature - - Respiratory Rate - - Oxygen Saturation - - Inhaled Oxygen Concentration - - Weight 54 kg (119 lb) 06/10/2012 0836 EST Height 161.3 cm (5' 3.5) 06/10/2012 0836 EST Body Mass Index 20.75 06/10/2012 0836 EST documented in this encounter Discharge Disposition Disposition Code Departure Means Destination Auto Discharge documented in this encounter Progress Notes * Melba Barrientos MD - 06/10/2012 0858 EST [facility] FEMALE EXAMINATION Patient: Agueda Carpio is an 52 y.o. female seen for consultation at the request of Evelyn Arana MD for Urinary Incontinence. HPI 52 yo P5 with worsening stress urinary incontinence x yrs. Had sling in the past. Also c/o urinary hesitancy. ROS Pelvic pain: No Dyspareunia: No Recurrent UTI: No Hematuria: No A review of the patient's medical, social, and family history along with medications and allergies was performed. OB History Grav Para Term Abortions TAB SAB Ect Mult Living Past Medical History Diagnosis Date ??? Hypertension ??? Psychiatric problem depression/traumatic stress Past Surgical History Procedure Date ??? Abdominoplasty ??? Ectopic surgery ??? Inguinal hernia repair ??? Elbow surgery left No family history on file. History Social History ??? Marital Status: Spouse Name: N/A Number of Children: N/A ??? Years of Education: N/A Social History Main Topics ??? Smoking status: Former Smoker -- 3.0 packs/day for 15 years ??? Smokeless tobacco: Never Used ??? Alcohol Use: 105.0 oz/week 21 Glasses of wine per week ??? Drug Use: No ??? Sexually Active: Other Topics Concern ??? Not on file Social History Narrative ??? No narrative on file Current Outpatient Prescriptions Medication Sig Dispense Refill ??? olmesartan (BENICAR) 40 mg tablet Take 40 mg by mouth daily. ??? acetaminophen (TYLENOL) 325 mg tablet Take 325 mg by mouth every 4 hours as needed. ??? BUPROPION HCL (WELLBUTRIN ORAL) Take by mouth daily. Indications: Doesn't recall dose Allergies Allergen Reactions ??? Erythromycin Nausea Only ??? Other - See Comments Dust mites....congestion A 15 point Review of Systems was performed. Positives related to the patient???s complaint are listed below; all others are either negative or documented in the patient???s scanned Review of Systems. PELVIC EXAM External Genitalia: Normal Vaginal Examination: normal Cervix Normal Uterus: Normal Pelvic Floor Relaxation: absent Adnexa: Normal Urethra fixed Bladder Normal Vitals BP 150/106 Pulse 81 Ht 161.3 cm (63.5) Wt 53.978 kg (119 lb) BMI 20.75 kg/m2 General Physical Exam Constitutional/General: Oriented to person, place, and time. Appears well- developed and well-nourished. HEENT: Head: normocephalic and atraumatic Eyes: conjunctivae and EOM normal Ears: not assessed Nose: nose normal Throat/mouth: oropharynx clear and moist Neck: normal range of motion Cardiovascular: normal rate Pulmonary: effort normal Breasts and Axillae: not assessed Abdomen: abdomen soft Musculoskeletal: normal range of motion Skin: warm Neuro/Psych: alert and oriented to person, place, and time Labs Results for orders placed in visit on 06/10/12 POCT URINE DIPSTICK Component Value Range Color YELLOW Clarity, UA Clear Glucose Neg Neg Bilirubin Neg Neg Ketones Trace (*) Neg Specific False Pass 1.020 1.001 - 1.035 Blood Neg Neg pH 7.0 4.6 - 8.0 Protein 1+ (*) Neg Urobilinogen 0.2 0.2 - 1.0 (E.U./dl) Nitrite Neg Neg Leuk Esterase 1+ (*) Neg Tech ID [id number] Assessment Agueda Carpio is a 52 y.o., No obstetric history on file. female with urinary incontinence. Plan Agueda was seen today for urinary incontinence. Diagnoses and associated orders for this visit: Incontinence of urine - POCT Urine Dipstick; Standing - POCT Urine Dipstick Other Orders - olmesartan (BENICAR) 40 mg tablet; Take 40 mg by mouth daily. - acetaminophen (TYLENOL) 325 mg tablet; Take 325 mg by mouth every 4 hours as needed. Pelvic Floor Physical Therapy Melba Barrientos MD documented in this encounter Plan of Treatment Upcoming Encounters Date Type Department Care Team (Late st Contact Info) Description 12/10/2023 11:00 EDT Appointment [facility] Radiology CT Outpatient - [address] [address] 12/11/2023 13:45 EDT Initial consult [facility] Gynecologic Oncology - [address] [address] Ashlee Garcia MD [address] [facility], [address] [place] [phone] documented as of this encounter Procedures Procedure Name Priority Date/Time Associated Diagnosis Comments POCT URINE DIPSTICK, CLINITEK Routine 06/10/2012 8:46 EST Incontinence of urine documented in this encounter Results * (ABNORMAL) POCT URINE DIPSTICK (06/10/2012 8:46 EST) Color YELLOW [facility] Clarity, UA Clear [facility] Glucose Neg Neg [facility] Bilirubin Neg Neg [facility] Ketones Trace(A) Neg [facility] Specific False Pass 1.020 1.001 - 1.035 [facility] Blood Neg Neg [facility] pH 7.0 4.6 - 8.0 [facility] Protein 1+(A) Neg [facility] Urobilinogen 0.2 0.2 - 1.0 E.U./dl [facility] Nitrite Neg Neg [facility] Leuk Esterase 1+(A) Neg [facility] machine setter ID [id number] [facility] Comment:Test performed at [facility] Urine specimen (specimen) 06/10/2012 8:46 EST 06/10/2012 8:50 EST Melba Barrientos MD POINT OF CARE TE ST ORDERABLES [facility] [address] [place] [address] documented in this encounter Visit Diagnoses Diagnosis Incontinence of urine- Primary Unspecified urinary incontinence documented in this encounter Discontinued Medications Medication Sig Discontinue Reason Start Date End Da te cetirizine (ZYRTEC) 10 mg tablet Take 1 Tab by mouth daily. 05/10/2010 06/10/2012 diphenhydrAMINE (BENADRYL) 25 mg capsule Take 1-2 Caps by mouth at bedtime as needed (itching, hives or insomnia). Therapy completed 05/10/2010 06/10/2012 fluticasone (FLONASE) 50 mcg/Actuation nasal spray 2 Sprays by Nasal route SEE ADMIN INSTRUCTIONS. Therapy completed 05/10/2010 06/10/2012 ibuprofen (MOTRIN) 600 mg tablet Take 600 mg by mouth every 6 hours as needed. Therapy completed 05/10/2010 06/10/2012 metoprolol XL (TOPROL XL) 50 mg tablet Take 50 mg by mouth 2 times daily. Therapy completed 02/22/2010 06/10/2012 Sodium Chloride (SIMPLY SALINE) 0.9 % SprA 1 [place] by Nasal route 4 times daily. Therapy completed 05/10/2010 06/10/2012 documented as of this encounter Historical Medications * This list may reflect changes made after this encounter. Medication Sig Dispensed Refills Start Date End Date acetaminophen (TYLENOL) 325 mg tablet Take 325 mg by mouth every 4 hours as needed. 08/13/2017 olmesartan (BENICAR) 40 mg tablet Take 40 mg by mouth daily. 05/01/2014 added in this encounter Care Teams Dietary Aide Cook Relationship Specialty Start Date End Date Evelyn Arana MD PCP - General 02/27/12 08/26/13 documented as of this encounter
--- OUTSIDE RECORDS SUMMARY | 2023-12-07 00:50 | XMS_ITS | Encounter Summary ---
Author Organization [facility] Address [address] [place] [address] Care Team Providers Care Adhesion Tester Name Role Phone Jennifer Macias MD Primary Care Provider Unavailabl e Encounter Details Date Type Department Care Team (Late st Contact Info) Description 06/04/2012 Results Only [facility] Laboratory Services - [facility] ([facility]) [address] [place] [id number] Jennifer Macias MD Social History Tobacco Use Types Packs/Day Years Used Date Smoking Tobacco: Former Cigarettes 3 15 Smokeless Tobacco: Never Alcohol Use Standard Drinks/Week Comments Yes 175 (1 standard drink = 0.6 oz p ure alcohol) Sex and Gender Information Value Date Recorded Sex Assigned at Not on file Gender Identity Female 02/10/2020 14:46 EDT Sexual Orientation Not on file documented as of this encounter Plan of Treatment Upcoming Encounters Date Type Department Care Team (Late Contact Info) Description 12/10/2023 11:00 EDT Appointment [facility] Radiology CT Outpatient - [address] [id number] 12/11/2023 13:45 EDT Initial consult [facility] Gynecologic Oncology - [address] [id number] Ashlee Garcia MD [address] [facility], Level 4 [place] [phone] documented as of this encounter Procedures Procedure Name Priority Date/Time Associated Diagnosis Comments SSA/SSB Routine 06/04/2012 10:35 EST RHEUMATOID FACTOR Routine 06/04/2012 10: 35 EST ANTI NUCLEAR AB (KANDY), IFA Routine 06/04/2012 10:35 EST LIPASE Routine 06/04/2012 10:35 EST PAP TEST- RESULT ONLY Routine 06/04/2012 0:00 EST documented in this encounter Results * SSA/SSB (06/04/2012 10:35 EST) SS A/Ro Ab, IgG, S <0.2 <1.0 (Negative) [facility] SS B/La Ab, IgG, S <0.2 <1.0 (Negative) [facility] Comment: Performed or Referred by: [facility] Labs: [facility], [address] [place] [address], Lab Dir: Brian Allan III, MD 06/04/2012 10:3 5 EST 06/04/2012 19:44 EST Jennifer Macias MD CHEMISTRY & BLOOD GA S ORDERABLES Performing Organization Address [facility] de Phone Number [facility] [address] [place] [address] * RHEUMATOID FACTOR (06/04/2012 10:35 EST) Rheumatoid Factor <20 <20 IU/ml [facility] 06/04/2012 10:3 5 EST 06/04/2012 19:44 EST Jennifer Macias MD CHEMISTRY & BLOOD GA S ORDERABLES Performing Organization Address [facility] Co de Phone Number [facility] [address] [place] [address] * LIPASE (06/04/2012 10:35 EST) Lipase 144 0 - 250 U/L [facility] 06/04/2012 10:3 5 EST 06/04/2012 19:44 EST Jennifer Macias MD CHEMISTRY & BLOOD GA S ORDERABLES Performing Organization Address [facility] Co de Phone Number [facility] [address] [place] [address] * ANTI NUCLEAR ANTIBODY (06/04/2012 10:35 EST) Anti Nuclear Ab <40 0 - 40 [facility] 06/04/2012 10:3 5 EST 06/04/2012 19:44 EST Jennifer Macias MD IMMUNOLOGY AND SEROL OGY ORDERABLES Performing Organization Address [facility] Co de Phone Number [facility] [address] [place] [address] * PAP TEST- RESULT ONLY (06/04/2012 0:00 EST) Pathology Report: CYTOPATHOLOGY REPORT Reports generated via electronic interface contain original data; however they are lacking the format of the original report. Caution should be taken when reading/interpreti ng unformatted reports. Name: ? FRANCIE JACOBS T ? Accession #: ? [id number] ? : ? 1960 (Age: 52) ??F ?Collect Date: ? 06/04/2012 ? Location: ? [facility] ? Receive Date: ? 06/07/2012 ? Provider: JENNIFER MACIAS MD Copy to: ? Final Report SPECIMEN ADEQUACY ? Satisfactory for Evaluation - transformation zone component present GENERAL CATEGORIZATION ? Negative for Intraepithelial Lesion or Malignancy ?? Last Menstrual Period: 4 years Specimen/Source: ??Pap Test, Vagina, ThinPrep Imaging System with manual evaluation Document reviewed and electronically signed by: ? Sue Chaudhry, CT(ASCP)(IAC) ? Report ??Date: 06/11/2012 11:14 HPV with Pap Test ? Date Ordered: ? 06/11/2012 ? Status: ?? Signed Out ?Date Complete: ? 06/12/2012 ? By: ??System Interface ? Date Reported: ? 06/12/2012 ? Interpretation RESULT: Negative for HPV. No E6 or E7 mRNA is detected from HPV types 16,18,31,33,35, 39,45,51,52,56,58, 59,66, and 68 by oven tender bagels mediated amplification. Comments Document reviewed and electronically signed by: ? System Interface ? Report date: 06/12/2012 By the signature above, the attending physician certifies that he/she has personally conducted a gross and/or microscopic examination of the described specimens and rendered or confirmed the above diagnosis. End of Report [facility] 06/04/2012 06/07/2012 Jennifer Macias MD PATHOLOGY ORDERABLES Performing Organization Address City/State/[facility] Co de Phone Number [facility] [address] [place] [address] documented in this encounter Visit Diagnoses Not on filedocumented in this encounter Care Teams Adhesion Tester Relationship Specialty Start Date End Date Jennifer Macias MD PCP - General 02/27/12 08/26/13 documented as of this encounter
--- OUTSIDE RECORDS SUMMARY | 2023-12-07 00:50 | XMS_ITS | Encounter Summary ---
Author Organization [facility] Address [address] [place] [address] Care Team Providers Care Shield Installer Name Role Phone Melissa Khan MD Primary Care Provider [phone] Reason for Visit * Reason Comments Joint Pain hands and feet, knee s Encounter Details Date Type Department Care Team (Latest Contact Info) Description 03/16/2016 11:20 EST Office Visit [facility] Rheumatology & Immunology - [facility] [address] [place] [address] Moody Manning MD [address] [phone] Psoriatic arthritis (CMS-HCC) (HCC-CMS) (Primary Dx); Generalized osteoarthrosis, involving multiple sites; Taking multiple medications for chronic disease Social History Tobacco Use Types Packs/Day Years [...] Sign Reading Time Taken Comments Blood Pressure 123/69 03/16/2016 1139 EST Pulse 80 03/16/2016 1139 EST Temperature - - Respiratory Rate 18 03/16/2016 1139 EST Oxygen Saturation - - Inhaled Oxygen Concentration - - Weight 66.2 kg (146 lb) 03/16/2016 1139 EST Height 160 cm (5' 3) 03/16/2016 1139 EST Body Mass Index 25.86 03/16/2016 1139 EST documented in this encounter Functional Status [...] No 03/16/2016 documented as of this encounter Patient Instructions * Patient Instructions* Moody Manning MD - 03/16/2016 11:20 EST 1. Start kenalog 0.1% ointment (apply a thin layer TOPICALLY to affected area twice daily; MAX 50 g/week; MAX duration, 2 consecutive weeks 2. Continue aspercreme with lidocaine up to 3-4x/day to affected joints. 3. May try topical capzasin cream up to 3x/day to affected joints. May cause skin and eye irritation 4. Increase fish oil (omega 3 fatty acid) up to 2000 mg orally every 12 hours. 5. Continue tylenol up to 1000 mg orally every 8 hours 6. Continue ibuprofen 600 mg - 800 mg orally every 8 hours as needed. May take in combination with tylenol 7. Follow up in 6 months documented in this encounter Ordered Prescriptions Prescription Sig Dispensed Refills Start Date End Da te triamcinolone (KENALOG) 0.1 % ointment apply a thin layer TOPICALLY to affected area twice daily; MAX 50 g/week; MAX duration, 2 consecutive weeks 1 Tube 2 03/16/2016 06/27/2017 documented in this encounter Progress Notes * Alka Garcia - 03/16/2016 1120 EST REVIEW OF SYSTEMS: Yes No Yes No Fever X Joint pain x Weight gain or loss loss pounds (lbs) Duration of AM joint stiffness 20 min Eye pain or dryness x Numbness/tingling x Mouth or nose sores X Heart burn / Nausea X Chest pain X Diarrhea X Shortness of Breath X Blood in stool X Cough X Burning on urination X Skin rash x Hand/Foot color change in cold x * Moody Manning MD - 03/16/2016 1120 EST DIVISION OF RHEUMATOLOGY AND CLINICAL IMMUNOLOGY PROGRESS / FOLLOW-UP VISIT NOTE Date of Service: 03/16/2016 Chief Complaint Patient presents with ??? Joint Pain hands and feet, knees SUBJECTIVE: Ms. Agueda Carpio is a 56 y.o. female with history of cervical, lumbar and sacroiliac joint degenerative osteoarthritis, bilateral carpal tunnel syndrome, psoriasis and possible enthesitis who presents today for a follow-up visit. She was last seen in clinic on 09/08/2015. Since her last visit: - Overall, doing well. Using topical aspercreme with lidocaine with relief. States front desk finger and foot stiffness which takes approximately 20 minutes to relieve symptoms with activity. - Notes that her hands can change colors with the cooler temperatures. - Patch of pruritic psoriasis on the occiput. - Will be going on a cruise next week to the [facility]. REVIEW OF SYSTEMS: Review of systems as documented by Nurses/MA's during this visit and reviewed by me. MEDICATIONS: Current Outpatient Prescriptions Medication Sig ??? acetaminophen (TYLENOL) 325 mg tablet Take 325 mg by mouth every 4 hours as needed. ??? BUPROPION HCL (WELLBUTRIN ORAL) Take by mouth daily. Indications: Doesn't recall dose ??? BUSPIRONE HCL (BUSPIRONE ORAL) Take by mouth. ??? clonazePAM (KLONOPIN) 0.5 mg tablet Take 0.5 mg by mouth 2 times daily. Reported on 03/16/2016 ??? escitalopram oxalate (LEXAPRO) 10 mg tablet Take 10 mg by mouth daily. Reported on 03/16/2016 ??? ibuprofen (MOTRIN) 200 mg tablet Take 600 mg by mouth every 8 hours as needed for Pain. ??? lidocaine 5 % gel Apply 100 mg topically every 8 hours as needed for Pain. Maximum dose: 4.5 mg/kg, not to exceed 300 mg ??? losartan (COZAAR) 25 mg tablet Take 25 mg by mouth daily. ??? triamcinolone (KENALOG) 0.1 % ointment apply a thin layer TOPICALLY to affected area twice daily; MAX 50 g/week; MAX duration, 2 consecutive weeks OBJECTIVE: Blood pressure 123/69, pulse 80, resp. rate 18, height 160 cm (63), weight 66.2 kg (146 lb). General: No acute distress. Alert, fully [...] of motion present. Hips/Knee: No significant tenderness, swelling, effusions, erythema or [...] 10:10 AM Clinical History/Comments: M25.50-Pain in unspecified [id number] R76.8-Other specified abnormal immunological findings in [id number]; COUGH COMPARISON: Chest radiograph 08/27/2013. TECHNIQUE: Two views of the chest were performed using dual energy technique with bone and soft tissue reconstruction. FINDINGS: Soft tissues: Normal. Bones: Status post anterior fixation of the lower cervical spine. Cardiac and mediastinal contours:Normal. Lungs: Normal. Pleura/diaphragms:Normal. IMPRESSION: Unremarkable chest radiograph. RAPID3 (Routine assessment of pt index data): Rapid3 score: 3 Disease activity: NR Goal: keep symptoms under good control. This was discussed with patient. RAPID3 SCORES AND INTERPRETATION 09/08/2015 03/16/2016 Functional Status 1 1 Pain Tolerance 3 2 Global Estimate 2 0 - Very Well RAPID3 6 3 Interpretation Low Near Remission IMPRESSION / PLAN: Ms. Agueda Carpio is a 56 y.o. female with 1.?? Diffuse polyarthralgia involving her PIP's, cervical spine, elbows and knees, weakly positive rheumatoid factor = 22 with evidence of Psoriatic patch the right occiput and right Achilles tenderness suspicious for enthesitis - Psoriatic patch on occiput without evidence of dactylitis or enthesitis today on examination. Overall symptoms have improved with topical aspercreme with lidocaine. Will continue with topical and NSAID therapy at this time. Will hold off with an addition of DMARD at this time. Will provide topical triamcinolone ointment to be used for psoriasis. 2. Degenerative disc disease with Lumbar facet arthrosis with Sacral degenerative osteoarthritis s/p C5-C7 spinal fusion 3. Weakly positive RF with negative anti-CCP Ab. 4. Bilateral Carpal Tunnel Syndrome PATIENT INSTRUCTIONS: Patient Instructions 1. Start kenalog 0.1% ointment (apply a thin layer TOPICALLY to affected area twice daily; MAX 50 g/week; MAX duration, 2 consecutive weeks 2. Continue aspercreme with lidocaine up to 3-4x/day to affected joints. 3. May try topical capzasin cream up to 3x/day to affected joints. May cause skin and eye irritation 4. Increase fish oil (omega 3 fatty acid) up to 2000 mg orally every 12 hours. 5. Continue tylenol up to 1000 mg orally every 8 hours 6. Continue ibuprofen 600 mg - 800 mg orally every 8 hours as needed. May take in combination with tylenol 7. Follow up in 6 months There are no barriers to understanding/learning. Patient verbalizes understanding and agrees with plan. Moody Manning MD 03/16/2016 Please note: Parts of this documentation was created using voice recognition software. Perfume Compounder errors may be present. documented in this encounter Plan of Treatment Upcoming Encounters Date Type Department Care Team (Late st Contact Info) Description 12/10/2023 11:00 EDT Appointment [facility] Radiology CT Outpatient - [address] [phone] 12/11/2023 13:45 EDT Initial consult [facility] Gynecologic Oncology - [address] [phone] Ashlee Garcia MD [address] [place] [address], [address] [place] [phone] documented as of this encounter Visit Diagnoses Diagnosis Psoriatic arthritis ([facility])- Primary Psoriatic arthropathy Generalized osteoarthrosis, involving multiple sites Taking multiple medications for chronic disease Other unknown and unspecified cause of morbidity or mortality documented in this encounter Historical Medications * This list may reflect changes made after this encounter. Medication Sig Dispensed Refills Start Date End Date losartan (COZAAR) 25 mg tablet Take 25 mg by mouth daily. 03/23/2020 added in this encounter Care Teams Shield Installer Relationship Specialty Start Date End Date Melissa Khan MD [address] [place] [address] PCP - General 08/04/15 documented as of this encounter
--- OUTSIDE RECORDS SUMMARY | 2023-12-07 00:50 | XMS_ITS | Encounter Summary ---
Author Organization [facility] Address [address] [place] [address] Care Team Providers Care Mutuel Department Manager Name Role Phone Melissa Khan MD Primary Care Provider [phone] Encounter Details Date Type Department Care Team (Late Contact Info) Description 12/11/2015 Results Only Imaging [facility]- [facility] [phone] Melissa Khan MD [address] [place] [phone] Social History Tobacco Use Types Packs/Day [...] (Late Contact Info) Description 12/10/2023 11:00 EDT [facility] Radiology CT Outpatient - [facility] [address] [place] [address] 12/11/2023 13:45 EDT Initial consult [facility] Gynecologic Oncology - [address] [address] Ashlee Garcia MD [address] [place] [address], [facility], [address] [place] [phone] documented as of this encounter Procedures Procedure Name Priority Date/Time Associated Diagnosis Comments MR ABDOMEN W/WO CONTRAST 12/11/2015 11:55 EDT documented in this encounter Results * MR ABDOMEN W/WO CONTRAST (12/11/2015 11:55 EDT) Anatomical Region Laterality Modality Other 12/11/2015 11:5 5 EDT 12/13/2015 14:21 EDT Narrative 12/13/2015 14:21 EDT MR ABDOMEN W/WO CONTRAST ??12/11/2015 11:55 AM Signs and Symptoms/Comments: ?? Complex right renal cyst 1 cm. Comparison: None available. Technique: MRI of the abdomen was performed with contrast following a renal mass protocol. Sequences acquired include multiplanar T2, axial DWI, and axial T1 Murray and axial and coronal T1 pre-and postcontrast. FINDINGS: Kidneys: There is a 1.3 cm rounded exophytic lesion extending from the superomedial aspect of the right kidney that exhibits intermediate signal on T2-weighted imaging, isointense to hyperintense signal on T1 imaging, shows no intracytoplasmic lipid on out of phase imaging, shows no significant restricted diffusion, and does not enhance on postcontrast images (axial T2 series 10 image 12). No septations are seen. No other significant lesions are seen in the kidneys aside from tiny simple, benign cysts. The bladder is grossly normal on coronal images. Hepatobiliary: No focal lesions are identified. No intra or extra hepatic biliary ductal dilatation is seen. The gallbladder is normal. Pancreas, spleen, and adrenal glands: Not thoroughly investigated on this study, there is an approximately 1.5 cm T2 hyperintense rounded lesion near the confluence of the common and pancreatic ducts (axial T2 series 7 image 20). This shows no enhancement on postcontrast images. A second lesion slightly more superior and laterally, near the distal 2nd portion of the duodenum measures approximately 1 cm (axial T2 series 7 image 19, postcontrast series 14 image 303). This shows mild hyperintensity on T2-weighted imaging; averaging on the T2 slices may artificially created somewhat lower intensity than expected. The included portions of the spleen and adrenal glands are normal. Bowel: No significant abnormalities, given technique. Peritoneal cavity: No free fluid is seen in the abdomen. Abdominal wall: The abdominal wall is intact Lymphovascular: The major intra-abdominal vessels show normal flow voids and enhancement. No lymphadenopathy is evident. Musculoskeletal: Bone marrow signal is unremarkable. IMPRESSION: 1. Mildly complex right kidney cyst, 1.3 cm. The reference comparison CT is not available; however, this does not exhibit significant enhancement or other concerning features and likely represents a proteinaceous renal cyst. 2. Incidentally noted pancreatic head lesions, incompletely evaluated on this MRI. The larger of these appears to be cystic and communicating with the common bile duct and pancreatic duct. Differential includes choledochal cyst, mucinous cystic neoplasm, or simple cyst. The second lesion is not clearly defined but is probably cystic. A follow-up MR pancreatic protocol with MRCP is recommended. I have personally reviewed the images and the above interpretation and agree with the findings. Procedure Note Keyshawn Mccabe MD - 12/13/2015 MR ABDOMEN W/WO CONTRAST 12/11/2015 11:55 AM Signs and Symptoms/Comments: Complex right renal cyst 1 cm. Comparison: None available. Technique: MRI of the abdomen was performed with contrast following a renal mass protocol. Sequences acquired include multiplanar T2, axial DWI, and axial T1 Murray and axial and coronal T1 pre-and postcontrast. FINDINGS: Kidneys: There is a 1.3 cm rounded exophytic lesion extending from the superomedial aspect of the right kidney that exhibits intermediate signal on T2-weighted imaging, isointense to hyperintense signal on T1 imaging, shows no intracytoplasmic lipid on out of phase imaging, shows no significant restricted diffusion, and does not enhance on postcontrast images (axial T2 series 10 image 12). No septations are seen. No other significant lesions are seen in the kidneys aside from tiny simple, benign cysts. The bladder is grossly normal on coronal images. Hepatobiliary: No focal lesions are identified. No intra or extra hepatic biliary ductal dilatation is seen. The gallbladder is normal. Pancreas, spleen, and adrenal glands: Not thoroughly investigated on this study, there is an approximately 1.5 cm T2 hyperintense rounded lesion near the confluence of the common and pancreatic ducts (axial T2 series 7 image 20). This shows no enhancement on postcontrast images. A second lesion slightly more superior and laterally, near the distal 2nd portion of the duodenum measures approximately 1 cm (axial T2 series 7 image 19, postcontrast series 14 image 303). This shows mild hyperintensity on T2-weighted imaging; averaging on the T2 slices may artificially created somewhat lower intensity than expected. The included portions of the spleen and adrenal glands are normal. Bowel: No significant abnormalities, given technique. Peritoneal cavity: No free fluid is seen in the abdomen. Abdominal wall: The abdominal wall is intact Lymphovascular: The major intra-abdominal vessels show normal flow voids and enhancement. No lymphadenopathy is evident. Musculoskeletal: Bone marrow signal is unremarkable. IMPRESSION: 1. Mildly complex right kidney cyst, 1.3 cm. The reference comparison CT is not available; however, this does not exhibit significant enhancement or other concerning features and likely represents a proteinaceous renal cyst. 2. Incidentally noted pancreatic head lesions, incompletely evaluated on this MRI. The larger of these appears to be cystic and communicating with the common bile duct and pancreatic duct. Differential includes choledochal cyst, mucinous cystic neoplasm, or simple cyst. The second lesion is not clearly defined but is probably cystic. A follow-up MR pancreatic protocol with MRCP is recommended. I have personally reviewed the images and the above interpretation and agree with the findings. Melissa Khan MD [facility] ORDERABLES documented in this encounter Visit Diagnoses Not on filedocumented in this encounter Care Teams Mutuel Department Manager Relationship Specialty Start Date End Date Melissa Khan MD [address] [place] [phone] PCP - General 08/04/15 documented as of this encounter
--- OUTSIDE RECORDS SUMMARY | 2023-12-07 00:50 | XMS_ITS | Encounter Summary ---
Author Organization [facility] Address [address] [place] [address] Care Team Providers Care Polisher Numeral Name Role Phone Melissa Khan MD Primary Care Provider [phone] Reason for Visit * Reason Comments Back Pain Encounter Details Date Type Department Care Team (Latest Contact Info) Description 09/08/2015 11:00 EDT Office Visit [facility] Rheumatology & Immunology - [address] [address] Moody Manning MD [address] [phone] Generalized osteoarthrosis, involving multiple sites (Primary Dx); Pain of right heel Social History Tobacco Use Types Packs/Day Years [...] Sign Reading Time Taken Comments Blood Pressure 122/82 09/08/2015 1111 EDT Pulse 84 09/08/2015 1111 EDT Temperature - - Respiratory Rate 18 09/08/2015 1111 EDT Oxygen Saturation - - Inhaled Oxygen Concentration - - Weight 65.8 kg (145 lb) 09/08/2015 1111 EDT Height 160 cm (5' 3) 09/08/2015 1111 EDT Body Mass Index 25.69 09/08/2015 1111 EDT documented in this encounter Functional Status [...] as of this encounter Discharge Diagnoses Diagnosis M15.9 Polyosteoarthritis, unspecified-M15.9[ICD-10-CM] M79.671 Pain in right foot-M79.671[ICD-10-CM] documented in this encounter Patient Instructions * Patient Instructions* Moody Manning MD - 09/08/2015 11:28 EDT 1. Continue aspercreme with lidocaine up to 3-4x/day to affected joints. 2. May try topical capzasin cream up to 3x/day to affected joints. May cause skin and eye irritation 3. Increase fish oil (omega 3 fatty acid) up to 2000 mg orally every 12 hours. 4. Continue tylenol up to 1000 mg orally every 8 hours 5. Try topical lidocaine every 8 hours as needed to affected joints 6. Continue ibuprofen 600 mg - 800 mg orally every 8 hours as needed. May take in combination with tylenol 7. Follow up in 6 months. documented in this encounter Ordered Prescriptions Prescription Sig Dispensed Refills Start Date End Da te lidocaine 5 % gel Apply 100 mg topically every 8 hours as needed for Pain. Maximum dose: 4.5 mg/kg, not to exceed 300 mg 1 Tube 5 09/08/2015 11/18/2020 documented in this encounter Progress Notes * Alka Garcia - 09/08/2015 1115 EDT REVIEW OF SYSTEMS: Yes No Yes No Fever X Joint pain x Weight gain or loss pounds (lbs) Duration of AM joint stiffness 4 hours Eye pain or dryness x Numbness/tingling x Mouth or nose sores X Heart burn / Nausea X Chest pain X Diarrhea X Shortness of Breath X Blood in stool X Cough X Burning on urination X Skin rash x Hand/Foot color change in cold x * Moody Manning MD - 09/08/2015 1108 EDT DIVISION OF RHEUMATOLOGY AND CLINICAL IMMUNOLOGY PROGRESS / FOLLOW-UP VISIT NOTE Date of Service: 09/08/2015 Pertinent Rheumatological History: > Chief Complaint Patient presents with ??? Back Pain SUBJECTIVE: Ms. Agueda Carpio is a 55 y.o. female with history of cervical, lumbar and sacroiliac joint degenerative osteoarthritis, bilateral carpal tunnel syndrome who presents today for a follow-up visit. She was last seen in clinic on 08/05/2015. Since her last visit: - Has used aspercreme with relief of lumbar spine pain - Bilateral foot pain and stiffness with worse symptoms of pain while standing on her feet. - Describes Raynaud's phenomenon with bilateral hand numbness. REVIEW OF SYSTEMS: Review of systems as [...] 4.5 mg/kg, not to exceed 300 mg OBJECTIVE: Blood pressure 122/82, pulse 84, resp. rate 18, height 160 cm (63), weight 65.772 kg (145 lb). General: No acute distress. Alert, fully oriented, pleasant, conversant. HEENT: Conjunctivae/corneas clear. Pupils equal, Sclerae anicteric. Mucus membranes moist; oropharynx clear. Neck supple, symmetrical, trachea midline Lungs: Clear to auscultation bilaterally. Heart: Regular rate and rhythm, S1, S2 present, no murmur Abdomen: Soft, non-tender, non-distended. Extremities: Extremities without cyanosis or edema. Skin: No rashes or lesions Musculoskeletal: Spine: Lumbar paraspinal muscle tenderness. Negative straight leg raise, bilaterally. Right lower back muscle pull upon right leg raise. No significant tenderness. Normal range of motion of the spine. Shoulder/Elbow: No significant tenderness, swelling, effusions, erythema or warmth is present. Appropriate range of motion present. Wrist/Hand: No significant tenderness, swelling, effusions, erythema or warmth is present. Appropriate range of motion present. Hips/Knee: No significant tenderness, swelling, effusions, erythema or warmth is present. Appropriate range of motion present. Ankle/Foot: Left achilles tendon tenderness at the calcaneal insertion. No significant tenderness, swelling, effusions, erythema or warmth is present. Appropriate range of motion present. DIAGNOSTIC DATA: Labs: Lab Results Component Value Date WBC 4.02 08/05/2015 WBC 5.91 08/27/2013 WBC 5.90 04/27/2003 WBC 5.64 08/25/2002 WBC 7.39 08/25/2000 HGB 12.1 08/05/2015 HGB 13.7 08/27/2013 HGB 13.7 04/27/2003 HGB 13.0 08/25/2002 HGB 9.9* 08/25/2000 HCT 36.3 08/05/2015 HCT 40.2 08/27/2013 HCT 39.5 04/27/2003 HCT 38.1 08/25/2002 HCT 28.7* 08/25/2000 MCV 95 08/05/2015 MCV 98 08/27/2013 MCV 100* 04/27/2003 MCV 100* 08/25/2002 MCV 95 08/25/2000 PLT 236 08/05/2015 PLT 186 08/27/2013 PLT 255 04/27/2003 PLT 244 08/25/2002 PLT 165 08/25/2000 Lab Results Component Value Date BUN 24 08/05/2015 CREATININE 0.89 08/05/2015 AST 21 08/05/2015 ALT 30 08/05/2015 Lab Results Component Value Date SEDRATE 7 08/05/2015 CRP <0.7 04/27/2003 Lab Results Component Value Date RF 22* 05/20/2015 KANDY <40 05/20/2015 Imaging: Results for orders placed in visit on 08/05/15 CHEST PA AND LATERAL Narrative CHEST PA AND LATERAL 08/05/2015 10:10 AM Clinical History/Comments: M25.50-Pain in unspecified [id number] R76.8-Other specified abnormal immunological findings in [id number]; COUGH COMPARISON: Chest radiograph 08/27/2013. TECHNIQUE: Two views of the chest were performed using dual energy technique with bone and soft tissue reconstruction. FINDINGS: Soft tissues: Normal. Bones: Status post anterior fixation of the lower cervical spine. Cardiac and mediastinal contours:Normal. Lungs: Normal. Pleura/diaphragms:Normal. IMPRESSION: Unremarkable chest radiograph. Results for orders placed during the hospital encounter of 02/04/14 MR CERVICAL SPINE WO CONTRAST Narrative MRI CERVICAL SPINE WITHOUT CONTRAST November 09, 2014 Indication: Pain and numbness in arms and hands. Comparison: Cervical spine films June 25, 2012 and cervical spine MRI December 17, 2003. Technique: Sagittal T1 and T2, axial T2 and sagittal oblique T2-weighted MR images of the cervical spine were obtained. Findings: There has been previous anterior discectomy and hardware fusion at C5-C6 and C6-C7. Craniocervical and atlantoaxial alignment appear anatomic on the sagittal images. There is mild anterolisthesis of C2 on C3, C3 on C4 and C4 on C5. Vertebral body heights are preserved. Marrow signal intensity is unremarkable. There is mild disc space narrowing at C3-C4 and C4-C5 consistent with disc degeneration. This may have progressed slightly since the prior films in 2012 at the C3-C4 level. Multilevel cervical facet osteoarthropathy is noted. C2-C3: There is mild left neural foraminal narrowing due predominantly to facet hypertrophy. C3-C4: There is mild right neural foraminal narrowing due to uncinate spurring and mild left neural foraminal narrowing due to uncinate spurring and facet hypertrophy. C4-C5: Posterior disc osteophyte complex produces mild mass effect on the ventral thecal sac with no cord impingement. There is moderate right neural foraminal stenosis due to uncinate spurring and facet hypertrophy and mild left neural foraminal narrowing due to uncovertebral spurring. C5-C6: There is mild right neural foraminal narrowing due to uncinate spurring and facet hypertrophy. C6-C7: There is moderate bilateral neural foraminal narrowing due to uncinate spurring and facet hypertrophy. C7-T1: There is mild bilateral neural foraminal narrowing due to facet hypertrophy. The cervical cord is normal in caliber and signal. Impression: 1. Previous anterior discectomy and spinal fusion at C5-C6 and C6-C7. 2. Cervical degenerative disc and degenerative joint disease. 3. No high-grade central spinal stenosis is identified. 3. Multilevel neural foraminal narrowing due to uncovertebral spurring and facet hypertrophy as described by level above. Results for orders placed in visit on [...] sacrum, likely congenital, less likely posttraumatic. RAPID3 (Routine assessment of pt index data): Rapid3 score: 6 Disease activity: LS Goal: continue to decrease joint pain by 20% This was discussed with patient. RAPID3 SCORES AND INTERPRETATION 09/08/2015 Functional Status 1 Pain Tolerance 3 Global Estimate 2 RAPID3 6 Interpretation Low IMPRESSION / PLAN: Ms. Agueda Carpio is a 55 y.o. female with 1.?? Diffuse polyarthralgia involving her PIP's, cervical spine, elbows and knees, weakly positive rheumatoid factor of 22 with evidence of Psoriatic patch the right occiput and right Achilles tenderness suspicious for enthesitis - no evidence of psoriasis or dactylitis today on examination. Overall symptoms have improved with topical aspercreme with lidocaine. Will continue with topical and NSAID therapy at this time. Will hold off with an addition of DMARD at this time. 2. Degenerative disc disease with Lumbar facet arthrosis with Sacral degenerative osteoarthritis s/p C5-C7 spinal fusion 3. Weakly positive RF with negative anti-CCP Ab. 4. Bilateral Carpal Tunnel Syndrome PATIENT INSTRUCTIONS: Patient Instructions 1. Continue aspercreme with lidocaine up to 3-4x/day to affected joints. 2. May try topical capzasin cream up to 3x/day to affected joints. May cause skin and eye irritation 3. Increase fish oil (omega 3 fatty acid) up to 2000 mg orally every 12 hours. 4. Continue tylenol up to 1000 mg orally every 8 hours 5. Try topical lidocaine every 8 hours as needed to affected joints 6. Continue ibuprofen 600 mg - 800 mg orally every 8 hours as needed. May take in combination with tylenol Follow up in 6 months. There are no barriers to understanding/learning. Patient verbalizes understanding and agrees with plan. Moody Manning MD 09/08/2015 Please note: Parts of this documentation was created using voice recognition software. Picker errors may be present. documented in this encounter Plan of Treatment Upcoming Encounters Date Type Department Care Team (Late st Contact Info) Description 12/10/2023 11:00 EDT Appointment [facility] Radiology CT Outpatient - [address] [address] 12/11/2023 13:45 EDT Initial consult [facility] Gynecologic Oncology - [facility] [address] [place] [address] Ashlee Garcia MD [address] [facility], [facility], [address] [place] [phone] documented as of this encounter Visit Diagnoses Diagnosis Generalized osteoarthrosis, involving multiple sites- Primary Pain of right heel Pain in limb documented in this encounter Historical Medications * This list may reflect changes made after this encounter. Medication Sig Dispensed Refills Start Date End Date BUSPIRONE HCL (BUSPIRONE ORAL) Take by mouth. 03/23/2020 added in this encounter Care Teams Polisher Numeral Relationship Specialty Start Date End Date Melissa Khan MD [address] [place] [phone] PCP - General 08/04/15 documented as of this encounter
--- OUTSIDE RECORDS SUMMARY | 2023-12-07 00:50 | XMS_ITS | Encounter Summary ---
Author Organization [facility] Address [address] [place] [address] Care Team Providers Care Head Of It Name Role Phone Evelyn Macias MD Primary Care Provider Unavailabl e Encounter Details Date Type Department Care Team (Late st Contact Info) Description 07/08/2012 7:15 EDT - 07/08/2012 10:14 EDT Hospital Encounter [facility] Outpatient [address] [place] [address] Bree Daniel MD 5 [facility] [address] [place] [phone] Discharge Disposition: Home or Self Care Social [...] Sign Reading Time Taken Comments Blood Pressure 110/66 07/08/2012 0910 EDT Pulse - - Temperature 34.6 ??C (94.3 ??F) 07/08/2012 0901 EDT Respiratory Rate 16 07/08/2012 0910 EDT Oxygen Saturation 96% 07/08/2012 0910 EDT Inhaled Oxygen Concentration - - Weight 54.4 kg (120 lb) 07/08/2012 0752 EDT Height 161.3 cm (5' 3.5) 07/08/2012 0752 EDT Body Mass Index 20.92 07/08/2012 0752 EDT documented in this encounter Medications at Time [...] as needed. 60 Tab 1 06/25/2012 05/01/2014 olmesartan (BENICAR) 40 mg tablet Take 40 mg by mouth daily. 05/01/2014 documented as of this encounter Discharge Disposition Disposition Code Departure Means Destination Home or Self Care documented in this encounter H&P Notes * Bree Daniel MD - 07/21/2012 1203 EDT Sedation for Procedure History & Physical Date: 07/21/2012 Time: 12:03 Location: [address] Planned Procedure: Colonoscopy Chief Complaint/Indications for Procedure: screening History Previous Complication with Sedation and/or Anesthesia? No Allergies: Allergies Allergen Reactions ??? Erythromycin Nausea Only ??? Other - See Comments Dust mites....congestion Current Medications: (Not in a hospital admission) Past Medical History: Past Medical History Diagnosis Date ??? Hypertension ??? Psychiatric problem depression/traumatic stress Social History: Past Surgical History Procedure Date ??? Abdominoplasty ??? Ectopic surgery ??? Inguinal hernia repair ??? Elbow surgery left History Substance Use Topics ??? Smoking status: Former Smoker -- 3.0 packs/day for 15 years ??? Smokeless tobacco: Never Used ??? Alcohol Use: 105.0 oz/week 21 Glasses of wine per week Family History: Family History Problem Relation Age [...] Hx ??? High Cholesterol Neg Hx ??? [place]'s Chorea Neg Hx ??? Hypercalcemia Neg Hx [...] Hx ??? Motor Disability Neg Hx ??? Ms Neg Hx ??? Murmurs Neg Hx ??? Muscle Diseases Neg Hx ??? Muscular Dystrophy Neg Hx ??? Neural Tube Defect Neg Hx ??? Neuropathy Neg Hx ??? Nf Neg Hx ??? Obesity Neg Hx ??? [...] Neg Hx ??? Cancer Son 8 rhabdomyosarcoma Review of Systems as pertinent: Physical Exam Vital Signs: BP 110/66 Temp(Src) 34.6 ??C (94.3 ??F) (Tympanic) Resp 16 Ht 161.3 cm (63.5) Wt 54.432 kg (120 lb) BMI 20.92 kg/m2 SpO2 96% Heart Examination: Cardiac Regularity: Regular Respiratory Examination: Respiratory Pattern: Regular Breath Sounds Right: Clear Breath Sounds Left: Clear Additional physical exam related to the proposed procedure, patient activity, disease state and treatment as pertinent: Assessment Previous complications with sedation or anesthesia?: No Airway Concerns: None Anesthesia Classification: ASA 1 Fasting Time: Time of last liquid intake: 0200 Date of Last Liquid Intake: 07/08/12 Time of last solid intake: 1100 Date of last solid intake: 07/07/12 Patient Appropriate Candidate for Planned Sedation?: Yes documented in this encounter Procedure Notes * SOFT WATER MECHANIC, SCAN 2 - 07/09/2012 1053 EDTAssociated Order(s): PROCEDURE REPORTS - SCANNED documented in this encounter Miscellaneous Notes * Scanned Note-Null - SOFT WATER MECHANIC, SCAN 2 - 07/09/2012 0836 EDT * Scanned Note-Null - SOFT WATER MECHANIC, SCAN 2 - 07/09/2012 0836 EDT documented in this encounter Plan of Treatment Upcoming Encounters Date Type Department Care Team (Late st Contact Info) Description 12/10/2023 11:[address] [facility] Radiology CT Outpatient - [address] [address] 12/11/2023 13:45 EDT Initial consult [facility] Gynecologic Oncology - [address] [address] Ashlee Garcia MD [address] [place] [address], [address] [place] [phone] documented as of this encounter Procedures Procedure Name Priority Date/Time Associated Diagnosis Comments RAD US PELVIS TRANSABDOMINAL AND TRANSVAGINAL 02/04/2014 14:46 EDT EXERCISE TOLERANCE TEST WAVEFORM 09/18/2013 11:29 EDT EXERCISE TOLERANCE TEST 09/19/19 14 10:30 EDT PROCEDURE REPORTS - SCANNED 07/09/2012 10:53 EDT SURGICAL PATHOLOGY Routine 07/08/2012 12 :54 EDT documented in this encounter Results * RAD US PELVIS TRANSABDOMINAL AND TRANSVAGINAL (02/04/2014 14:46 EDT) Anatomical Region Laterality Modality Other 02/04/2014 14:4 6 EDT 02/04/2014 16:55 EDT Narrative 02/04/2014 16:55 EDT RAD US PELVIS TRANSABDOMINAL AND TRANSVAGINAL ??02/04/2014 2:46 PM Signs and Symptoms: ??Abdominal distention x 4 months. Comparison: none Technique: Still and cine ultrasound images of the pelvis were obtained transabdominally and transvaginally with Doppler augmentation where necessary. Findings: The uterus is anteverted and measures 6.4 x 3.1 x 5.1 cm. The myometrium is homogenous in echotexture. The endometrial stripe is homogeneous and measures 4 mm in double thickness. The right and left ovaries are not identified. There are no adnexal masses. In the left adnexa there are multiple dilated vessels. The cervix is unremarkable and there is no free fluid. ?? Impression: 1. ??Multiple dilated left adnexal vessels; correlate clinically for pelvic congestion syndrome. 2. ??The ovaries are not visualized on this exam. There are no adnexal masses. I have personally reviewed the images and the above interpretation and agree with the findings. Procedure Note 02/04/2014 RAD US PELVIS TRANSABDOMINAL AND TRANSVAGINAL 02/04/2014 2:46 PM Signs and Symptoms: Abdominal distention x 4 months. Comparison: none Technique: Still and cine ultrasound images of the pelvis were obtained transabdominally and transvaginally with Doppler augmentation where necessary. Findings: The uterus is anteverted and measures 6.4 x 3.1 x 5.1 cm. The myometrium is homogenous in echotexture. The endometrial stripe is homogeneous and measures 4 mm in double thickness. The right and left ovaries are not identified. There are no adnexal masses. In the left adnexa there are multiple dilated vessels. The cervix is unremarkable and there is no free fluid. Impression: 1. Multiple dilated left adnexal vessels; correlate clinically for pelvic congestion syndrome. 2. The ovaries are not visualized on this exam. There are no adnexal masses. I have personally reviewed the images and the above interpretation and agree with the findings. Melissa Khan MD IMG US ORDERABLES * EXERCISE TOLERANCE TEST WAVEFORM (09/18/2013 11:29 EDT) Anatomical Region Laterality Modality Other 09/18/2013 11:2 9 EDT Narrative 09/18/2013 11:30 EDT For report of this Waveform, see associated Image Study. ?[facility] Stress ? Test Date: ?2013-09-18 Pat Name: ? AGUEDA JACOBS ? Department: ?? STRESS ? Room: ? Gender: ? F ?Vascular Physician: ?? [id number] : ?1960 ? Requested By: FRANCK Boyce Order Number: [id number] ?Sue MD: ? Interpretive Statements Procedure Note 09/18/2013 For report of this Waveform, see associated Image Study. Edward[facility] Dennison Stress Test Date: 2013-09-18 Pat Name: AGUEDA JACOBS Department: STRESS Room: Gender: F Vascular Physician: [id number] : 1960 Requested By: FRANCK Boyce Order Number: [id number] Sue MD: Interpretive Statements Johanna Cote APRN CARDIAC SERVICES ORD ERABLES * EXERCISE TOLERANCE TEST (09/18/2013 10:30 EDT) Anatomical Region Laterality Modality Other 09/18/2013 10:3 0 EDT Narrative 09/18/2013 16:13 EDT *[facility]* [address] [place] [address] *Interpreting Group:* *[facility]* [address] [place] [address] Stress Electrocardiography Mark protocol *PATIENT PRESENTATION* Height: ? 160cm (63in ) Blood Pressure: Weight: ? 58.2kg (128lb ) BSA: ?1.61m^2 Referring physician: None, Provider Ordering physician: ??Johanna Cote Aprn Impressions: ?? Normal study. Summary: 1. Stress ECG conclusions: The stress ECG is negative. 2. Stress: The target heart rate was achieved. The heart rate response to stress ?? is normal. There is a normal resting blood pressure with an appropriate ?? response to stress. The patient experienced no chest pain during stress. ?? Exercise capacity is above normal for age. CAD likelihood: ??Pre test likelihood of CAD: 8.4%. Post test likelihood of CAD: 2.1%. Indication: ?? 786.50 Chest Pain, Unspecified. History: ??53 yo female with no known CAD. Pt. was seen in the ED after 1/2 hr of extreme CP that occured after laying down in bed. It improved by sitting up. No reported dyspnea. pain free at this time. Patient's presenting symptoms: nonanginal chest pain. ??Risk factors: ??Family history of coronary artery disease. Former tobacco use. Hypertension. Dyslipidemia. ??Medications: ??ENE inhibitors. Protocol: ??Mark protocol. Baseline ECG: ??Normal ECG. Stress protocol: + +---+ + + + Stage ? HR BP (mmHg) ?? Symptoms ? Comments ? + +---+ + + + Baseline supine ? 68 124/88 (100) ? + +---+ + + + Baseline standing ? 83 116/80 (92) ? + +---+ + + + Stage I; 1.7mph, ? 102 136/76 (96) ? 10degrees; 3 min ? + +---+ + + + Stage II; 2.5mph, ? 121 158/82 (107) ? 12degrees; 3 min ? + +---+ + + + Stage III; 3.4mph, ?? 140 176/84 (115) ? 14degrees; 3 min ? + +---+ + + + Stage IV; 4.2mph, ? 156 184/88 (120) ? 16degrees; 3 min ? + +---+ + + + Stage V; 5mph, ? 162 ? Moderate dyspnea, ? 18degrees; 3 min ? fatigue ? + +---+ + + + Immediate post stress 161 ? Nausea ? Brief period of ? nausea. No vomting. + +---+ + + + Recovery; 1 min ? 155 ? + +---+ + + + Recovery; 3 min ? 124 184/90 (568) ? + +---+ + + + Recovery; 6 min ? 105 146/78 (101) ? + +---+ + + + Recovery; 7 min 51 ?? 95 130/80 (97) ? sec ? + +---+ + + + Stress results: ?? Maximal heart rate during stress was 162bpm (98% of maximal predicted heart rate). The maximal predicted heart rate was 166bpm. The target heart rate was achieved. The heart rate response to stress is normal. There is a normal resting blood pressure with an appropriate response to stress. The rate-pressure product for the peak heart rate and blood pressure was 98043cf Hg/min. ??The patient experienced no chest pain during stress. ?? The patient experienced moderate dyspnea in response to stress. Exercise capacity is above normal for age. Stress ECG: ?? The stress ECG is negative. Study data: ??Dr. Maxwell Urbina supervised and was readily available during the procedure. ??Study status: ??Routine. ??Consent: ??The risks, benefits, and alternatives to the procedure were explained to the patient and informed consent was obtained. ??Procedure: ??Initial setup. A baseline ECG was recorded. Surface ECG leads and manual cuff blood pressure measurements were monitored. Heart sounds: Normal. Lung sounds: Normal. Treadmill exercise testing was performed using the Mark protocol. The patient exercised for 12 min 30 sec, to protocol stage 5, to a maximal work rate of 12.7mets. Exercise was terminated due to dyspnea and fatigue. ??Study completion: ??The patient tolerated the procedure well and was discharged from the lab. ??Discharge: ??The patient left the laboratory in stable condition. ? Birthdate: ??Patient birthdate: 1960. Sex: ??Gender: female. ??Study date: ??Study date: 18-Sep-2013. Signature Documentation: ?? The Stress ECG portion of this study was interpreted by Dr. Romaine Viera. Electronically signed by Romaine Viera MD 09/18/2013 16:13 Procedure Note 09/18/2013 *[facility]* [address] [place] [address] *Interpreting Group:* *[facility]* [address] [place] [address] Stress Electrocardiography Mark protocol *PATIENT PRESENTATION* Height: 160cm (63in ) Blood Pressure: Weight: 58.2kg (128lb ) BSA: 1.61m^2 Referring physician: None, Provider Ordering physician: Johanna Cote Aprn Impressions: Normal study. Summary: 1. Stress ECG conclusions: The stress ECG is negative. 2. Stress: The target heart rate was achieved. The heart rate response tostress is normal. There is a normal resting blood pressure with an appropriate response to stress. The patient experienced no chest pain duringstress. Exercise capacity is above normal for age. CAD likelihood: Pre test likelihood of CAD: 8.4%. Post test likelihood ofCAD: 2.1%. Indication: 786.50 Chest Pain, Unspecified. History: 53 yo female with no known CAD. Pt. was seen in the ED after 1/2hr of extreme CP that occured after laying down in bed. It improved by sittingup. No reported dyspnea. pain free at this time. Patient's presenting symptoms: nonanginal chest pain. Risk factors:Family history of coronary artery disease. Former tobacco use. Hypertension. Dyslipidemia. Medications: ENE inhibitors. Protocol: Mark protocol. Baseline ECG: Normal ECG. Stress protocol: + +---+ + + + Stage HR BP (mmHg) Symptoms Comments + +---+ + + + Baseline supine 68 124/88 (100) + +---+ + + + Baseline standing 83 116/80 (92) + +---+ + + + Stage I; 1.7mph, 102 136/76 (96) 10degrees; 3 min + +---+ + + + Stage II; 2.5mph, 121 158/82 (107) 12degrees; 3 min + +---+ + + + Stage III; 3.4mph, 140 176/84 (115) 14degrees; 3 min + +---+ + + + Stage IV; 4.2mph, 156 184/88 (120) 16degrees; 3 min + +---+ + + + Stage V; 5mph, 162 Moderate dyspnea, 18degrees; 3 min fatigue + +---+ + + + Immediate post stress 161 Nausea Brief periodof nausea. Novomting. + +---+ + + + Recovery; 1 min 155 + +---+ + + + Recovery; 3 min 124 184/90 (121) + +---+ + + + Recovery; 6 min 105 146/78 (101) + +---+ + + + Recovery; 7 min 51 95 130/80 (97) sec + +---+ + + + Stress results: Maximal heart rate during stress was 162bpm (98% ofmaximal predicted heart rate). The maximal predicted heart rate was 166bpm. Thetarget heart rate was achieved. The heart rate response to stress is normal.There is a normal resting blood pressure with an appropriate response to stress. The rate-pressure product for the peak heart rate and blood pressure [id number] Hg/min. The patient experienced no chest pain during stress. Thepatient experienced moderate dyspnea in response to stress. Exercise capacity isabove normal for age. Stress ECG: The stress ECG is negative. Study data: Dr. Maxwell Urbina supervised and was readily available duringthe procedure. Study status: Routine. Consent: The risks, benefits, and alternatives to the procedure were explained to the patient and informedconsent was obtained. Procedure: Initial setup. A baseline ECG was recorded.Surface ECG leads and manual cuff blood pressure measurements were monitored.Heart sounds: Normal. Lung sounds: Normal. Treadmill exercise testing wasperformed using the Mark protocol. The patient exercised for 12 min 30 sec, toprotocol stage 5, to a maximal work rate of 12.7mets. Exercise was terminated dueto dyspnea and fatigue. Study completion: The patient tolerated theprocedure well and was discharged from the lab. Discharge: The patient left the laboratory in stable condition. Birthdate: Patient birthdate:1960. Sex: Gender: female. Study date: Study date: 18-Sep-2013. Signature Documentation: The Stress ECG portion of this study wasinterpreted by Dr. Romaine Viera. Electronically signed by Romaine Viera MD 09/18/2013 16:13 Johanna Cote APRN CARDIAC SERVICES ORD ERABLES * PROCEDURE REPORTS - SCANNED (07/09/2012 10:53 EDT) 07/09/2012 10:5 3 EDT Narrative 07/09/2012 12:02 EDT Procedure Note SOFT WATER MECHANIC, SCAN 2 - 07/09/2012 10:53 EDT Scan 2 Pattern Developer PROCEDURE/MINOR ELISE GICAL ORDERABLES * SURGICAL PATHOLOGY (07/08/2012 12:54 EDT) Pathology Report: SURGICAL PATHOLOGY REPORT Reports generated via electronic interface contain original data; however they are lacking the format of the original report. Caution should be taken when reading/interpreti ng unformatted reports. Name: ? AGUEDA JACOBS ? Accession #: ? [id number] ? : ? 1960 (Age: 52) ??F ? Collect Date: ? 07/08/2012 ? Location: ? ENDOP ? Receive Date: ? 07/08/2012 ? Provider: BREE DANIEL MD Copy to: EVELYN MACIAS MD ? Final Pathologic Diagnosis: ? Colon, sigmoid, biopsy: - Fragments of tubular adenoma. Document reviewed and electronically signed by: ELEANNE HARDEN MD Report ??Date: 07/10/2012 15:49 By the signature above, the attending physician certifies that he/she has personally conducted a gross and/or microscopic examination of the described specimens and rendered or confirmed the above diagnosis. Specimen(s) Received: ? Sigmoid 3 mm polyp Clinical History: ? R/O adenoma Gross Description: ? Received in formalin labelled Jacobs, Agueda and sigmoid polyp are four bo-pink irregular soft tissue fragments ranging from 0.2 x 0.1 x 0.1 cm to 0.8 x 0.3 x 0.2 cm. ?? The specimen is entirely submitted as (1) and (2). ??(Ciara Douglas)/[facility] End of Report EDWARDO ESQUIVEL 07/08/2012 12:5 4 EDT 07/08/2012 12:54 EDT Bree Daniel MD PATHOLOGY ORDERABLES Performing Organization Address City/State/[facility] Co de Phone Number EDWARDO ESQUIVEL [address] [place] [address] documented in this encounter Visit Diagnoses Not on filedocumented in this encounter Administered Medications Inactive Administered Medications - up to 3 most recent administrations Medication Order MAR Action Action Date Dose Rate Site fentanyl citrate (PF) 50 mcg/mL injection 100-250 mcg 100-250 mcg, intravenous, ONCE PRN, 1 dose, Starting on Sun07/08/12 at 0742, Until Sun07/08/12 at 0842, Other, sedation, Routine, Intraprocedure Given 07/08/2012 8:42 EDT 200 mcg midazolam (VERSED) injection 1-10 mg 1-10 mg, intravenous, ONCE PRN, 1 dose, Starting on Sun07/08/12 at 0742, Until Sun07/08/12 at 0842, Sedation, Routine, Intraprocedure Given 07/08/2012 8:42 EDT 5 mg sodium chloride 0.9 % (NS) infusion 30 mL/hr, intravenous, CONTINUOUS, Starting on Sun07/08/12 at 0800, Until Sun07/08/12 at 1216, Routine, Preprocedure New Bag 07/08/2012 8:13 EDT 30 mL/hr 30 mL/hr documented in this encounter Orders Medications Ordered That Sergio ht Not Have Been Administered Count Last Ordered Date First Ordered Date ondansetron (PF) (ZOFRAN) injection 2-4 mg 1 07/08/2012 Transfer Count Last Ordered Date First Orde red Date NOTIFY PPS OF DISCHARGE COMPLETE 1 07/09/19 13 Discharge Count Last Ordered Date First Orde red Date DISCHARGE PATIENT 1 07/08/2012 documented in this encounter Care Teams Head Of It Relationship Specialty Start Date End Date Evelyn Macias MD PCP - General 02/27/12 08/26/13 documented as of this encounter
--- OUTSIDE RECORDS SUMMARY | 2023-12-07 00:50 | XMS_ITS | Encounter Summary ---
Author Organization [facility] Address [address] [place] [address] Care Team Providers Care Mule Operator Name Role Phone None, Provider Primary Care Provider Unavailabl e Encounter Details Date Type Department Care Team (Late Contact Info) Description 01/26/2014 Results Only [facility]- [facility] [phone] Melissa Khan MD [address] [place] [phone] Social History Tobacco Use Types Packs/Day Years [...] Contact Info) Description 12/10/2023 11:00 EDT Appointment [facility] Radiology CT Outpatient - [address] [id number] 12/11/2023 13:45 EDT Initial consult [facility] Gynecologic Oncology - [address] [address] Ashlee aGrcia MD [address] [facility], [facility], [address] [place] [phone] documented as of this encounter Procedures Procedure Name Priority Date/Time Associated Diagnosis Comments CELIAC DISEASE PANEL Routine 01/26/2014 15:24 EDT TISSUE TRANSGLUTAMINASE ANTIBODY, IGA Routine 01/26/2014 15:24 EDT documented in this encounter Results * TISSUE TRANSGLUTAMINASE AB (01/26/2014 15:24 EDT) tTG Ab, IgA, S <1.2 <4.0 (Negative) U/mL [facility] Comment: Performed or Referred by: [facility] Labs: [facility], [address] [place] [address], Lab Dir: Brian Allan III, MD 01/26/2014 15:2 4 EDT 01/26/2014 19:14 EDT Melissa Khan MD IMMUNOLOGY AND SEROL OGY ORDERABLES Performing Organization Address [facility] de Phone Number [facility] [address] [place] [address] * CELIAC DISEASE SEROLOGY CASCADE (01/26/2014 15:24 EDT) IgA 226 61 - 356 mg/dL [facility] Celiac Dis Interp (Note) [facility] Comment: Negative serology. Celiac disease unlikely. However, approximately 10% of patients with celiac disease are seronegative. Also, patients who are already adhering to a gluten-free diet may be seronegative. If celiac disease is highly clinically suspected, consider HLA-DQ typing. Performed or Referred by: [facility] Labs: [facility], [address] [place] [id number], Lab Dir: Brian Allan III, MD 01/26/2014 15:2 4 EDT 01/26/2014 19:14 EDT Melissa Khan MD IMMUNOLOGY AND SEROL OGY ORDERABLES Performing Organization Address [facility] de Phone Number [facility] [address] [place] [address] documented in this encounter Visit Diagnoses Not on filedocumented in this encounter Care Teams Mule Operator Relationship Specialty Start Date End Date None, Provider PCP - General 08/27/13 08/03/15 documented as of this encounter
--- OUTSIDE RECORDS SUMMARY | 2023-12-07 00:50 | XMS_ITS | Encounter Summary ---
Author Organization [facility] Address [address] [place] [address] Care Team Providers Care Thimble Press Operator Name Role Phone None, Provider Primary Care Provider Unavailabl e Encounter Details Date Type Department Care Team (Late Contact Info) Description 05/20/2015 Results Only [facility]- [facility] [phone] Melissa Khan MD [address] [place] [address] [phone] Social History Tobacco Use Types Packs/Day Years [...] Description 12/10/2023 11:00 EDT Appointment [facility] Radiology CT Outpatient - [address] [id number] 12/11/2023 13:45 EDT Initial consult [facility] Gynecologic Oncology - [address] [id number] Ashlee Garcia MD [address] [facility], [address] [place] [id number] documented as of this encounter Procedures Procedure Name Priority Date/Time Associated Diagnosis Comments CCP ANTIBODIES Routine 05/20/2015 12:07 EST RHEUMATOID FACTOR Routine 05/20/2015 12: 07 EST C REACTIVE PROTEIN Routine 05/20/2015 12 :07 EST ANTI NUCLEAR AB (KANDY), IFA Routine 05/20/2015 12:07 EST documented in this encounter Results * (ABNORMAL) RHEUMATOID FACTOR (05/20/2015 12:07 EST) Rheumatoid Factor 22(H) <20 IU/ml 05/22/2015 13:24 EST [facility] BLOOD SPECIMEN / Unknown 05/20/2015 12:07 EST 05/20/2015 19:50 EST Melisas Khan MD CHEMISTRY & BLOOD GA S ORDERABLES Performing Organization Address City/[facility]/ZIP Co de Phone Number [facility] [address] [place] [address] * C REACTIVE PROTEIN (05/20/2015 12:07 EST) C Reactive Protein 8.5 <10.0 mg/L 05/20/2015 20:38 EST [facility] Comment: Note units change to mg/L. Values will be 10 fold higher than with previous units of mg/dl. BLOOD SPECIMEN / Unknown 05/20/2015 12:07 EST 05/20/2015 19:50 EST Melissa Khan MD CHEMISTRY & BLOOD GA S ORDERABLES Performing Organization Address City/[facility]/ZIP Co de Phone Number [facility] [address] [place] [address] * CCP ANTIBODIES (05/20/2015 12:07 EST) CCP Antibodies <2.5 <5.0 U/mL 05/21/2015 10:49 EST [facility] BLOOD SPECIMEN / Unknown 05/20/2015 12:07 EST 05/20/2015 19:50 EST Melissa Khan MD IMMUNOLOGY AND SEROL OGRamírez ORDERABLES Performing Organization Address City/[facility]/[place] Co de Phone Number [facility] [address] [place] [address] * ANTI NUCLEAR ANTIBODY (05/20/2015 12:07 EST) Anti Nuclear Ab <40 0 - 40 Dils 05/21/2015 14:55 EST [facility] BLOOD SPECIMEN / Unknown 05/20/2015 12:07 EST 05/20/2015 19:50 EST Melissa Khan MD IMMUNOLOGY AND SEROL HENOK ORDERABLES Performing Organization Address [facility] de Phone Number [facility] [address] [place] [address] documented in this encounter Visit Diagnoses Not on filedocumented in this encounter Care Teams Thimble [employer] Operator Relationship Specialty Start Date End Date None, Provider PCP - General 08/27/13 08/03/15 documented as of this encounter
--- OUTSIDE RECORDS SUMMARY | 2023-12-07 00:50 | XMS_ITS | Encounter Summary ---
Author Organization [facility] Address [address] [place] [address] Care Team Providers Care Mouthpiece Maker Name Role Phone Melissa Khan MD Primary Care Provider [phone] Reason for Referral * Radiology Services (Routine) - Closed Specialty Diagnoses / Procedures Referred By Contac t Referred To Contact Diagnoses Chronic bilateral low back pain without sciatica Procedures SI JOINTS 3 OR MORE VIEWS Moody Manning MD [facility] [address] [place] [phone] Referral ID Status Reason Start Date Expiration Date Visits Re quested Visits Authorized [id number] Closed 08/05/2015 1 1 * Radiology Services (Routine) - Closed Specialty Diagnoses / Procedures Referred By Contac t Referred To Contact Diagnoses Arthralgia, unspecified joint Rheumatoid factor positive Procedures CHEST PA AND LATERAL Moody Manning MD [address] [facility] [address] [place] [address] Referral ID Status Reason Start Date Expiration Date Visits Re quested Visits Authorized [id number] Closed 08/05/2015 1 1 Reason for Visit * Reason Comments Joint Pain hips, knees,feet,gabino ulders,and fingers Encounter Details Date Type Department Care Team (Latest Contact Info) Description 08/05/2015 8:40 EDT Office Visit [facility] Rheumatology & Immunology - [address] [address] Moody Manning MD [address] [phone] Arthralgia, unspecified joint (Primary Dx); Rheumatoid factor positive; Chronic bilateral low back pain without sciatica Discharge Disposition: Auto Discharge Social History Tobacco [...] Sign Reading Time Taken Comments Blood Pressure 110/72 08/05/2015 0841 EDT Pulse 84 08/05/2015 0841 EDT Temperature - - Respiratory Rate 18 08/05/2015 0841 EDT Oxygen Saturation - - Inhaled Oxygen Concentration - - Weight 65.8 kg (145 lb) 08/05/2015 0841 EDT Height 160 cm (5' 3) 08/05/2015 0841 EDT Body Mass Index 25.69 08/05/2015 0841 EDT documented in this encounter Functional Status Functional Status Response Date of Assess ment Because of a physical, menta l, or emotional condition, does this person have difficulty doing errands alone such as visiting a doctor's office or shopping? No 08/05/2015 Cognitive Status Response Date of Assessm ent Because of a physical, menta l, or emotional condition, does this person have serious difficulty concentrating, remembering, or making decisions? No 08/05/2015 documented as of this encounter Discharge Diagnoses Diagnosis M25.50 Pain in unspecified joint-M25.50[ICD-10-CM] R76.8 Other specified abnormal immunological findings in serum-R76.8[ICD-10-CM] M54.5 Low back pain-M54.5[ICD-10-CM] R05 Cough-R05[ICD-10-CM] M54.9 Dorsalgia, unspecified-M54.9[ICD-10-CM] documented in this encounter Patient Instructions * Patient Instructions* Moody Manning MD - 08/05/2015 9:45 EDT 1. Symptoms may be due to an underlying autoimmune arthritis 2. Please have blood work, a urine test and x-rays of your lower back today 3. Start ibuprofen 600 mg - 800 mg orally every 8 hour with food. 4. Start fish oil (omega 3 fatty acid) 2000 mg orally every 12 hours 5. Try topical aspercreme with lidocaine up to 4x/day to affected joint and back. 6. Follow up in 4 weeks. documented in this encounter Discharge Disposition Disposition Code Departure Means Destination Auto Discharge documented in this encounter Progress Notes * Moody Manning MD - 08/05/2015 0905 EDT DIVISION OF RHEUMATOLOGY AND CLINICAL IMMUNOLOGY CONSULT NOTE Date of Service: 08/05/2015 Patient seen in consultation at the request of Melissa Khan MD for rheumatological evaluation for diffuse pain. Chief Complaint Patient presents with ??? Joint Pain hips, knees,feet,shoulders,and fingers HISTORY OF PRESENT ILLNESS: Ms. Agueda Carpio is a 55 y.o. female with restless legs, carpal tunnel syndrome, anterior discectomy and spinal fusion at C5-C6 and C6-C7 who presents today for rheumatological evaluation for diffuse pain Symptoms of diffuse symmetric polyarthralgia, involving her fingers, wrists, elbows, neck and kneeshave been over the past 20 - 30 years. She tells me that they can be intermittent in nature and canbe in a remissive state remission for 1-2 years at a time. Approxi-6 years ago while residing in [place] she tells me that she was diagnosed with rheumatoid arthritis when workup for lupus was pursued and was negative. Other symptoms include psoriasis, alopecia, ? Malar rash without true photosensitivity, a 20 lbs weight gain over the past 2 years, restless legs with snoring, denying apenic episodes. When she wakes up in the morning she feels that her legs stumble that improves with ambulation. Relief with heat, ibuprofen and tylenol. Joints that bother the pt currently: Neck: Stiff without radicular symptoms. Associated arm weakness. Low back: Discomfort Shoulders: soreness Elbows: Left elbow surgery for tennis elbow. Wrists: Bilateral carpal tunnel syndrome with previous use of wrist braces. Numbness or tingling upon activity Fingers: Bilateral 1st-5th IP and PIP joints with stiffness lasting 30 min. Takes ibuprofen 600 mg orally every 6 hours with tylenol 650 mg, 1-2 tabs orally as needed with relief Hips: denies Knees: Bilateral knee pain upon descending stairs. Stiffness upon prolonged sitting that improves with ambulation. Ankles: Denies Feet/ toes: Denies Joints swelling- questionable AM stiffness- 30 minutes Therapies that helped- ibuprofen 600 mg orally every 6 hours with tylenol 650 mg, 1-2 tabs orally as needed with relief ROS: General: + hot flashes. Denies fevers or chills, + memory loss Skin: + Raynaud's phenomenon, + Psoriasis on her scalp over the past 6 years, ? Vague malar rash ENT: + lacrimation and itching. + dry eye secondary to ? Itching. Denies iritis/uveitis, oral/nasalsores/ulcers, xerostomia, cartilagenous tenderness Lungs: Denies SOB, LOCK, or pleurisy CVS: Denies CP or palpilations GI: + GERD under control. + irritable bowel. + bloating with gluten. Denies n/v/d, hematochezia, melena or mucous. : Denies hematuria, dysuria or hematuria Hematologic: Denies bleeding, brusing, miscarriages, DVT or PE Neurologic: Denies migraines, headaches, parethesia Social Hx: Former smoker - quit 15 years ago previously 3 ppd ETOH - daily beer Denies IVDU Family Hx: Mother - Diagnosed with RA REVIEW OF SYSTEMS: Symptom Yes No Symptom Yes No Fever X Morning stiffness X Fatigue X Numbness/ tingling X Night sweats X Headaches X Weight change X Muscle weakness X Eye discomfort X Dysuria X Mouth/nose sores X Urinary frequency X Chest pain X Hematuria X Palpitations X Trouble sleeping X Dyspnea X Anxiety X Cough X Depression X Nausea/ vomiting X Change in mood X Abdominal pain X Skin rash/ changes X Blood in stools X Sun induced rash X Diarrhea X Raynaud's X Constipation X Itching X Joint pain X Hair loss X Muscle pain X Other X PMH PSH Past Medical History Diagnosis Date ??? Hypertension ??? Psychiatric problem depression/traumatic stress Past Surgical History Procedure Laterality Date ??? Abdominoplasty ??? Ectopic surgery ??? Inguinal hernia repair ??? Elbow surgery left ALLERGIES Allergies Allergen Reactions ??? Erythromycin Nausea Only ??? Other - See Comments Dust mites....congestion SOCIAL HISTORY FAMILY HISTORY History Substance Use Topics ??? Smoking status: Former Smoker -- 0.50 packs/day for 15 years Quit date: 05/01/2013 ??? Smokeless tobacco: Never Used ??? Alcohol Use: 12.6 oz/week 21 Glasses of wine per week Comment: bottle of wine or 6 pack beer a day Family History Problem Relation Age of Onset ??? Heart Disease Father ??? *Other(comment) Neg Hx ??? AAA Neg [...] ??? Coronary Artery Disease Neg Hx ??? [place] Syndrome Neg Hx ??? Crohn's Disease Neg [...] Neg Hx ??? Cancer Son 8 rhabdomyosarcoma MEDICATIONS: Medications Prior to Today's Visit Medication Sig ??? acetaminophen (TYLENOL) 325 mg [...] 8 hours as needed for Pain. No facility-administered medications prior to visit. OBJECTIVE: Blood pressure 110/72, pulse 84, resp. rate 18, height 160 [...] Extremities: Extremities without cyanosis or edema. Skin: Dry scaling patch on right occiput behind right ear. Dry cracking skin of right fingers. Musculoskeletal: Spine: No significant tenderness. Normal range of motion of the spine. Shoulder/Elbow: No significant tenderness, swelling, effusions, erythema or warmth is present. Appropriate range of motion present. Wrist/Hand: Right 2nd MCP tenderness. No evidence of dactylitis. No nailfold capillary changes. Could no evaluate for nail pitting due to nail turkish. No significant tenderness, swelling, effusions, erythema or warmth is present. Appropriate range of motion present. Hips/Knee: Negative neal's maneuver. Negative straight leg raise, bilaterally. Mild crepitance bilaterally. No significant tenderness, swelling, effusions, erythema or warmth is present. Appropriate range of motion present. Ankle/Foot: Left achilles-calcaneal tenderness. Bilateral hallux valgus deformities with tender bony hypertorphy of the 1st MTPs, bilaterally. No significant tenderness, swelling, effusions, erythemaor warmth is present. Appropriate range of motion present. Labs: Lab Results Component Value Date WBC 5.91 08/27/2013 WBC 5.90 04/27/2003 WBC 5.64 08/25/2002 WBC 7.39 08/25/2000 WBC 7.96 08/24/2000 HGB 13.7 08/27/2013 HGB 13.7 04/27/2003 HGB 13.0 08/25/2002 HGB 9.9* 08/25/2000 HGB 11.2* 08/24/2000 HCT 40.2 08/27/2013 HCT 39.5 04/27/2003 HCT 38.1 08/25/2002 HCT 28.7* 08/25/2000 HCT 32.8* 08/24/2000 MCV 98 08/27/2013 MCV 100* 04/27/2003 MCV 100* 08/25/2002 MCV 95 08/25/2000 MCV 95 08/24/2000 PLT 186 08/27/2013 PLT 255 04/27/2003 PLT 244 08/25/2002 PLT 165 08/25/2000 PLT 195 08/24/2000 Lab Results Component Value Date BUN 21 08/27/2013 CREATININE 0.79 08/27/2013 AST 21 08/24/2000 ALT 28 08/24/2000 Lab Results Component Value Date CRP <0.7 04/27/2003 Lab Results Component Value Date RF 22* 05/20/2015 KANDY <40 05/20/2015 Imaging: Results for orders placed during the hospital [...] facet hypertrophy as described by level above. IMPRESSION / PLAN: Ms. Agueda Carpio is a 55 y.o.female with bilateral carpal tunnel sydnrome, anterior discectomy and spinal fusion at C5-C6 and C6-C7 1. Diffuse polyarthralgia involving her PIP's, cervical spine, elbows and knees, weakly positive rheumatoid factor of 22 with evidence of Psoriatic patch the right occiput and right Achilles tenderness suspicious for enthesitis - symptoms have been present for over 6 years. She states that she was diagnosed with rheumatoid arthritis at that time by a physician in [place]. Initially she felt her symptoms are due to systemic lupus erythematosus or workup was negative and diagnosed with rheumatoid arthritis was given. She was never treated with disease modifying medications. Pertinent positives and physical examination today include a patch of dry scaling skin suspicious of psoriasis posteriorly to her right ear on the occiput. She has not tenderness of the right second MCP joint, bilateral mild crepitance of her knees with negative Neal's maneuver. She also had tend erness of the left Achilles-calcaneal insertion suspicious for possible enthesitis. She had bilateral bony hypertrophy of the first MTPs and fifth MTPs with 1+ tenderness. Differential diagnosis includes seronegative spinal arthropathy, rheumatoid arthritis versus degenerative osteoarthritis or possible overlap syndrome. A positive rheumatoid factor can be seen rheumatoid arthritis, systemic lupus erythematosus, Sjogren syndrome, scleroderma, polymyositis or dermatomyositis or mixed connective tissue disease. Other causes of elevated rheumatoid factor including infection such as bacterial endocarditis. Overall she does not seem to exhibit systemic evidence of a connective tissue disease nor does her history suggest a stigmata of connective tissue disease at this time. Interestingly seronegative spinal arthropathies should not be associated with an elevated rhe umatoid factor. These would include ankylosing spondylitis, psoriatic arthritis, enteropathic arthritis or reactive arthritis. Laboratory and/or imaging studies ordered today: - Hemagram & Differential; Future - Comprehensive Metabolic Panel (CMP); Future - CK; Future - C Reactive Protein; Future - TSH; Future - Vitamin D (25,OH); Future - Urinalysis with Reflex Microscopic; Future - SPEP, includes quantitation of monoclonal spike; Future - PTH Intact; Future - Sed. Rate:Westergren; Future - Hepatitis B Surface Antibody; Future - Hepatitis C Antibody; Future - Lyme Antibody; Future - Angiotensin Converting Enzyme (ENE); Future - CHEST PA AND LATERAL - HLA B27 Screen, DNA; Future - T4, Free; Future - Thyroid Antibodies; Future - SI JOINTS 3 OR MORE VIEWS 1. Arthralgia, unspecified joint 2. Rheumatoid factor positive 3. Chronic bilateral low back pain without sciatica PATIENT INSTRUCTIONS: Patient Instructions 1. Symptoms may be due to an underlying autoimmune arthritis 2. Please have blood work, a urine test and x-rays of your lower back today 3. Start ibuprofen 600 mg - 800 mg orally every 8 hour with food. 4. Start fish oil (omega 3 fatty acid) 2000 mg orally every 12 hours 5. Try topical aspercreme with lidocaine up to 4x/day to affected joint and back. Follow up in 4 weeks. Patient verbalizes understanding and agrees with plan. There are no barriers to understanding/learning. Moody Manning MD 08/05/2015 documented in this encounter Plan of Treatment Upcoming Encounters Date Type Department Care Team (Late st Contact Info) Description 12/10/2023 11:00 EDT Appointment [facility] Radiology CT Outpatient - [address] [id number] 12/11/2023 13:45 EDT Initial consult [facility] Gynecologic Oncology - [address] [id number] Ashlee Garcia MD [address] [place] [address], [address] [place] [id number] documented as of this encounter Procedures Procedure Name Priority Date/Time Associated Diagnosis Comments PATHOLOGY - SCANNED 08/06/2015 1 0:50 EDT SI JOINTS 3 OR MORE VIEWS Routine 08/05/2015 10:10 EDT Chronic bilateral low back pain without sciatica CHEST PA AND LATERAL Routine 08/05/2015 10:10 EDT Arthralgia, unspecified joint Rheumatoid factor positive documented in this encounter Results * PATHOLOGY - SCANNED (08/06/2015 10:50 EDT) 08/06/2015 10:5 0 EDT Scan 2 [employer] Chief Creative Officer LAB INFO SERVICE AN D SUPPORT & PHONE RESULT * THYROID ANTIBODIES (08/05/2015 10:24 EDT) Thyroglobulin Ab 21 <61 U/mL 08/05/19 16 12:[address] [facility] Thyroperoxidase Ab <28 <61 U/mL 2015 12:[address] [facility] Blood specimen (specimen) BLOOD SPECIMEN / Unknown 08/05/2015 10:24 EDT 08/05/2015 10:46 EDT Moody Manning MD CHEMISTRY & BLOOD GA S ORDERABLES Performing Organization Address [facility] Co de Phone Number [facility] [address] [place] [address] * T4 FREE (08/05/2015 10:24 EDT) Pathologist [facility] Free T4 1.0 0.8 - 1.8 ng/dl 08/05/2015 12:[address] [facility] Blood specimen (specimen) BLOOD SPECIMEN / Unknown 08/05/2015 10:24 EDT 08/05/2015 10:46 EDT Moody Manning MD CHEMISTRY & BLOOD GA S ORDERABLES Performing Organization Address [facility] Co de Phone Number [facility] [address] [place] [address] * HLA B27 SCREEN, DNA (08/05/2015 10:24 EDT) Pathologist [facility] HLA B27 Screen DNA HLA B27 not identified 08/13/2015 14:[address] [facility] Comment:Tested by PCR-RSSO Blood specimen (specimen) BLOOD SPECIMEN / Unknown 08/05/2015 10:24 EDT 08/05/2015 10:46 EDT Moody Manning MD TISSUE TYPING ORDERA BLES Performing Organization Address City/[facility]/ZIP Co de Phone Number [facility] [address] [place] [address] * ANGIOTENSIN CONVERTING ENZYME (ENE) (08/05/2015 10:24 EDT) Angiotensin Converting Enzyme 35 8 - 53 U/L 08/06/2015 9:[address] [facility] Comment: Performed by: [facility], [address], [place] [address], Truck Service Technician: Prudence Weinberg, Ph.D. Blood specimen (specimen) BLOOD SPECIMEN / Unknown 08/05/2015 10:24 EDT 08/05/2015 10:46 EDT Moody Manning MD CHEMISTRY & BLOOD GA S ORDERABLES Performing Organization Address [facility] Co de Phone Number [facility] [address] [place] [address] * LYME AB (08/05/2015 10:24 EDT) Pathologist [facility] Lyme AB Negative 08/06/2015 13:[address] [facility] Comment:Reference Range: Neg ative Blood specimen (specimen) BLOOD SPECIMEN / Unknown 08/05/2015 10:24 EDT 08/05/2015 10:46 EDT Moody Manning MD IMMUNOLOGY AND SEROL OGY ORDERABLES Performing Organization Address [facility]/ZIP Co de Phone Number [facility] [address] [place] [address] * HEPATITIS C ANTIBODY (08/05/2015 10:24 EDT) Hepatitis C Ab Negative 08/05/2015 13:[address] [facility] Comment:Reference Range: Neg ative Blood specimen (specimen) BLOOD SPECIMEN / Unknown 08/05/2015 10:24 EDT 08/05/2015 10:46 EDT Moody Manning MD CHEMISTRY & BLOOD GA S ORDERABLES Performing Organization Address [facility] Co de Phone Number [facility] [address] [place] [address] * HEPATITIS B SURFACE ANTIBODY (08/05/2015 10:24 EDT) Hepatitis B Surface Ab Negative 08/05/2015 13:[address] [facility] Comment: Reference Range: Unvaccinated: ??Negative Vaccinated: ??Positive HBs Antibody, Quant <5.0 mIU/mL 08/05/2015 13:[address] [facility] Comment: Patient is presumed to not be immune to infection with HBV. Reference Range: Positive: >=12.0 mIU/mL Indeterminate: >=5.0 to <12.0 mIU/mL Negative: <5.0 mIU/mL Blood specimen (specimen) BLOOD SPECIMEN / Unknown 08/05/2015 10:24 EDT 08/05/2015 10:46 EDT Moody Manning MD CHEMISTRY & BLOOD GA S ORDERABLES Performing Organization Address [facility] de Phone Number [facility] [address] [place] [address] * SED. RATE:WESTERGREN (08/05/2015 10:24 EDT) Sed. Rate Westergren 7 0 - 30 mm/hr 08/05/2015 11:[address] [facility] Blood specimen (specimen) BLOOD SPECIMEN / Unknown 08/05/2015 10:24 EDT 08/05/2015 10:46 EDT Moody Manning MD HEMATOLOGY & PF4 ORD ERABLES Performing Organization Address City/[facility] Co de Phone Number [facility] [address] [place] [address] * PTH INTACT (08/05/2015 10:24 EDT) PTH 73 12 - 77 pg/ml 08/05/2015 12:[address] [facility] Comment:Reference range base d on normal calcium level. Blood specimen (specimen) BLOOD SPECIMEN / Unknown 08/05/2015 10:24 EDT 08/05/2015 10:46 EDT Moody Manning MD CHEMISTRY & BLOOD GA S ORDERABLES Performing Organization Address [facility] Co de Phone Number [facility] [address] [place] [address] * SPEP, INCLUDES QUANTITATION OF MONOCLONAL SPIKE (08/05/2015 10:24 EDT) Total Protein 7.3 6.3 - 8.2 g/dl 08/05/2015 11:[address] [facility] Albumin % 61.8 55.8 - 66.1 % 08/06/2015 14:[address] [facility] Alpha-1 % 3.8 2.9 - 4.9 % 08/06/2015 14:[address] [facility] Alpha-2 % 10.2 7.1 - 11.8 % 08/06/2015 14:[address] [facility] Beta % 11.8 8.4 - 13.1 % 08/06/2015 14:[address] [facility] Gamma % 12.4 11.1 - 18.8 % 08/06/2015 14:[address] [facility] Comments No apparent monoclonal protein 08/06/2015 14:[address] [facility] Comment: on serum electrophoresis. See Pathology Scanned Report in [employer]ISM. Blood specimen (specimen) BLOOD SPECIMEN / Unknown 08/05/2015 10:24 EDT 08/05/2015 10:46 EDT Moody Manning MD CHEMISTRY & BLOOD OR S ORDERABLES Performing Organization Address [facility] Co de Phone Number [facility] [address] [place] [address] * (ABNORMAL) URINALYSIS WITH REFLEX MICROSCOPIC (08/05/2015 10:24 EDT) Color, UA Yellow 08/05/2015 11:[address] [facility] Clarity, UA Clear 08/05/2015 11:[address] [facility] Glucose, UA Neg Neg 08/05/2015 11:[address] [facility] Bilirubin, UA Neg Neg 08/05/2015 11:[address] [facility] Ketones, UA Neg Neg 08/05/2015 11:[address] [facility] Specific Sabinal, Urine 1.025 1.001 - 1.035 08/05/2015 11:[address] [facility] Blood, UA Neg Neg 08/05/2015 11:[address] [facility] pH, UA 6.0 4.6 - 8.0 08/05/2015 11:[address] [facility] Protein, UA Neg Neg 08/05/2015 11:[address] [facility] Urobilinogen, UA 0.2 0.2 - 1.0 E.U./dl 08/05/2015 11:[address] [facility] Nitrite, UA Neg Neg 08/05/2015 11:[address] [facility] Leuk Esterase 2+(A) Neg 08/05/2015 11:[address] [facility] Urine specimen (specimen) URINE / Unknown 08/05/2015 10:24 EDT 08/05/2015 10:48 EDT Moody Manning MD URINALYSIS ORDERABLE S Performing Organization Address City/[facility] Co de Phone Number [facility] [address] [place] [address] * (ABNORMAL) VITAMIN D (25,OH) (08/05/2015 10:24 EDT) 25OH Vitamin D Tot 21.7(L) 30 - 100 ng/ml 08/06/2015 13:[address] [facility] Comment: Reference Range: Deficient = <10 ng/ml Insufficient = 10-30 ng/ml Sufficient = 30-100 ng/ml Toxic = >100 ng/ml Blood specimen (specimen) BLOOD SPECIMEN / Unknown 08/05/2015 10:24 EDT 08/05/2015 10:46 EDT Moody Manning MD CHEMISTRY & BLOOD GA S ORDERABLES Performing Organization Address City/[facility] Co de Phone Number [facility] [address] [place] [address] * TSH (08/05/2015 10:24 EDT) TSH 0.67 0.55 - 4.78 uIU/ml 08/05/2015 12:[address] [facility] Blood specimen (specimen) BLOOD SPECIMEN / Unknown 08/05/2015 10:24 EDT 08/05/2015 10:46 EDT Moody Manning MD CHEMISTRY & BLOOD GA S ORDERABLES Performing Organization Address [facility] Co de Phone Number [facility] [address] [place] [address] * (ABNORMAL) C REACTIVE PROTEIN (08/05/2015 10:24 EDT) C Reactive Protein 11.3(H) <10.0 mg/L 08/05/2015 11:[address] [facility] Comment: Note units change to mg/L. Values will be 10 fold higher than with previous units of mg/dl. Blood specimen (specimen) BLOOD SPECIMEN / Unknown 08/05/2015 10:24 EDT 08/05/2015 10:46 EDT Moody Manning MD CHEMISTRY & BLOOD GA S ORDERABLES Performing Organization Address [facility] Co de Phone Number [facility] [address] [place] [address] * CK (08/05/2015 10:24 EDT) CK 84 30 - 135 U/L 08/05/2015 11:[address] [facility] Blood specimen (specimen) BLOOD SPECIMEN / Unknown 08/05/2015 10:24 EDT 08/05/2015 10:46 EDT Moody Manning MD CHEMISTRY & BLOOD GA S ORDERABLES Performing Organization Address [facility] Co de Phone Number [facility] [facility] [address] [place] [address] * COMPREHENSIVE METABOLIC PANEL (CMP) (08/05/2015 10:24 EDT) Potassium 4.8 3.5 - 5.0 mEq/L 08/05/2015 11:41 [facility] Sodium 140 136 - 145 mEq/L 08/05/2015 11:41 [facility] Chloride 102 96 - 110 mEq/L 08/05/2015 11:41 [facility] CO2 27 24 - 32 mEq/L 08/05/2015 11:41 [facility] Total Alkaline Phosphatase 65 38 - 126 U/L 08/05/2015 11:41 [facility] Bilirubin, Total 0.5 <1.4 mg/dl 08/05/19 16 11:41 [facility] AST 21 15 - 46 U/L 08/05/2015 11:41 [facility] ALT 30 <53 U/L 08/05/2015 11:41 [facility] Albumin 4.3 3.4 - 4.9 g/dl 08/05/2015 11:41 [facility] Total Protein 7.3 6.3 - 8.2 g/dl 08/05/2015 11:41 [facility] Creatinine 0.89 0.52 - 1.04 mg/dl 08/05/2015 11:41 [facility] GFR, Calculated 73 >60 ml/min/1.7 3m2 08/05/2015 11:41 [facility] Comment: eGFR calculated using CKD-EPI equation for non Americans. Multiply eGFR by 1.16 for Americans. BUN 24 10 - 26 mg/dl 08/05/2015 11:41 [facility] Calcium 9.0 8.5 - 10.5 mg/dl 08/05/2015 11:41 [facility] Calculated Calcium 9.1 8.5 - 10.5 mg/dl 08/05/2015 11:41 [facility] Glucose, Serum 90 70 - 100 mg/dl 08/05/2015 11:41 [facility] Fasting? No 08/05/2015 10:24 [facility] Blood specimen (specimen) BLOOD SPECIMEN / Unknown 08/05/2015 10:24 EDT 08/05/2015 10:46 EDT Moody Manning MD CHEMISTRY & BLOOD GA S ORDERABLES [facility] [address] [place] [address] * (ABNORMAL) HEMAGRAM AND DIFFERENTIAL (08/05/2015 10:24 EDT) WBC 4.02 4.0 - 12.4 K/cmm 08/05/2015 11:29 [facility] RBC 3.81(L) 3.86 - 5.04 M/cmm 08/05/2015 11:29 [facility] Hemoglobin 12.1 11.6 - 15.2 gm/dl 08/05/2015 11:29 [facility] HCT 36.3 34.9 - 44.4 % 08/05/2015 11:29 [facility] MCV 95 81 - 98 fl 08/05/2015 11:29 [facility] MCH 31.8 26.7 - 33.3 pg 08/05/2015 11:29 [facility] MCHC 33.3 32.1 - 35.9 gm/dl 08/05/2015 11:29 [facility] RDW-CV 12.7 11.7 - 14.6 % 08/05/2015 11:29 [facility] RDW-SD 44.1 37.6 - 50.3 fl 08/05/2015 11:29 [facility] PLT 236 141 - 377 K/cmm 08/05/2015 11:29 [facility] MPV 10.0 9.5 - 12.7 fl 08/05/2015 11:29 [facility] % Neutrophils 53.3 % 08/05/2015 11:29 [facility] % Lymphocytes 33.3 % 08/05/2015 11:29 [facility] % Monocytes 10.0 % 08/05/2015 11:29 [facility] % Eosinophils 2.5 % 08/05/2015 11:29 [facility] % Basophils 0.7 % 08/05/2015 11:[address] [facility] % Immature Grans 0.2 % 08/05/2015 11:[address] [facility] ABS Neutrophils 2.14(L) 2.20 - 8.85 K/cmm 08/05/2015 11:29 [facility] ABS Lymphs 1.34 1.09 - 3.30 K/cmm 08/05/2015 11:[address] [facility] ABS Monocytes 0.40 0.1 - 0.8 K/cmm 08/05/2015 11:[address] [facility] ABS Eosinophils 0.10 0.03 - 0.61 K/cmm 08/05/2015 11:29 [facility] ABS Basophils 0.03 0.01 - 0.11 K/cmm 08/05/2015 11:29 [facility] ABS Immature Grans 0.01 0 - 0.06 K/cmm 08/05/2015 11:29 [facility] Type of Diff: Automated 08/05/2015 11:29 [facility] Blood specimen (specimen) BLOOD SPECIMEN / Unknown 08/05/2015 10:24 EDT 08/05/2015 10:46 EDT Moody Manning MD PACKAGES & DNA PROBE ORDERABLES Performing Organization Address City/State/[facility] Co de Phone Number [facility] [address] [place] [address] * SI JOINTS 3 OR MORE VIEWS (08/05/2015 10:10 EDT) Anatomical Region Laterality Modality Other 08/05/2015 10:1 0 EDT 08/05/2015 12:01 EDT Narrative 08/05/2015 12:01 EDT SI JOINTS 3 OR MORE VIEWS ??08/05/2015 10:10 AM Signs and Symptoms/Comments: ?? M54.5-Low back pain-ICD-10; BACK PAIN 3 views [...] lower sacrum, likely congenital, less likely posttraumatic. Procedure Note Gurwinder Lomax MD - 08/05/2015 SI JOINTS 3 OR MORE VIEWS 08/05/2015 [...] lower sacrum, likely congenital, less likely posttraumatic. Moody Manning MD [facility] DI[facility]NOSTIC IMAGI NG ORDERABLES * CHEST PA AND LATERAL (08/05/2015 10:10 EDT) Anatomical Region Laterality Modality Other 08/05/2015 10:1 0 EDT 08/05/2015 11:53 EDT Narrative 08/05/2015 11:53 EDT CHEST PA AND LATERAL ??08/05/2015 10:10 AM Clinical History/Comments: M25.50-Pain in unspecified [id number] R76.8-Other specified abnormal immunological findings in [id number]; COUGH COMPARISON: Chest radiograph 08/27/2013. TECHNIQUE: Two views of the chest were performed using dual energy technique with bone and soft tissue reconstruction. FINDINGS: Soft tissues: ??Normal. Bones: Status post anterior fixation of the lower cervical spine. Cardiac and mediastinal contours:Normal. Lungs: Normal. ?? Pleura/diaphragms:Normal. IMPRESSION: Unremarkable chest radiograph. Procedure Note Tremaine Jc MD - 08/05/2015 CHEST PA AND LATERAL 08/05/2015 10:10 AM Clinical History/Comments: M25.50-Pain in unspecified [id number] R76.8-Other specified abnormal immunological findings in [id number]; COUGH COMPARISON: Chest radiograph 08/27/2013. TECHNIQUE: Two views of the chest were performed using dual energy technique with bone and soft tissue reconstruction. FINDINGS: Soft tissues: Normal. Bones: Status post anterior fixation of the lower cervical spine. Cardiac and mediastinal contours:Normal. Lungs: Normal. Pleura/diaphragms:Normal. IMPRESSION: Unremarkable chest radiograph. Moody Manning MD IMG DIAGNOSTIC IMAGI NG ORDERABLES documented in this encounter Visit Diagnoses Diagnosis Arthralgia, unspecified joint- Primary Rheumatoid factor positive Other and unspecified nonspecific immunological findings Chronic bilateral low back pain without sciatica documented in this encounter Care Teams Mouthpiece Maker Relationship Specialty Start Date End Date Melissa Khan MD [address] [place] [phone] PCP - General 08/04/15 documented as of this encounter
--- OUTSIDE RECORDS SUMMARY | 2023-12-07 00:50 | XMS_ITS | Encounter Summary ---
Author Organization [facility] Address [address] [place] [address] Care Team Providers Care Fiscal Manager Name Role Phone None, Provider Primary Care Provider Unavailabl e Reason for Visit * Reason Comments Back Pain Encounter Details Date Type Department Care Team (Late st Contact Info) Description 05/01/2014 13:26 EST - 05/01/2014 15:06 EST Hospital Encounter [facility] - [address] [address] Frances Pierre PA-C [address] [place] [phone] Unknown, Provider, Back pain (Primary Dx) Discharge Disposition: Home or [...] Sign Reading Time Taken Comments Blood Pressure 160/86 05/01/2014 1338 EST Pulse 88 05/01/2014 1338 EST Temperature 36.9 ??C (98.4 ??F) 05/01/2014 1338 EST Respiratory Rate 16 05/01/2014 1338 EST Oxygen Saturation - - Inhaled Oxygen Concentration - - Weight - - Height - - Body Mass Index - - documented in this encounter Discharge Diagnoses Diagnosis 724.5 BACKACHE NOS[ICD-9-CM] documented in this encounter Discharge Instructions * Discharge Instructions* Frances Pierre PA - 05/01/2014 15:03 EST Warm compresses to your back, whichever feels better, rest, avoid positions of pain. Use Tylenol oribuprofen for pain. Follow-up with her primary provider or the emergency room if worsening symptomsor concerns * Attachments The following attachments cannot be sent through Care Everywhere. * BACK PAIN (PERSIAN) documented in this encounter Medications at Time [...] documented in this encounter ED Notes * Frances Pierre PA - 05/01/2014 1426 EST Images from the original note were not included. DOS: 05/01/2014 Chief Complaint Patient presents with ??? Back Pain The patient is a 54 y.o. female who presents today with Back Pain The history is provided by the patient. Back Pain Associated symptoms: no chest pain and no fever patient was leaning with her back against the sales engagement executive 2 days ago lowering herself down to strengthen her triceps when she slipped and hit her mid back against the sales engagement executive. She bent the sales engagement executive so that it was unrepairable and is continuing to leak water. Patient states it was starting to get better and then has gotten worse as she has increased her activity. She denies any blood in her urine. Patient is eating and drinking well, denies any abdominal pain Review of Systems Constitutional: Negative for fever, activity change and fatigue. HENT: Negative. Eyes: Negative. Respiratory: Negative. Negative for cough, shortness of breath, wheezing and stridor. Cardiovascular: Negative for chest pain. Gastrointestinal: Negative. Negative for nausea. Musculoskeletal: Positive for back pain. Negative for gait problem. Skin: Negative. Negative for rash. All other systems reviewed and are negative. No current facility-administered medications for this encounter. [...] every 8 hours as needed for Pain. Allergies Allergen Reactions ??? Erythromycin Nausea Only ??? Other - See Comments Dust mites....congestion Patient Active Problem List Diagnosis Date Noted ??? Hypertension 09/14/2009 Past Medical History Diagnosis Date ??? Hypertension ??? Psychiatric problem depression/traumatic stress History Substance Use Topics ??? Smoking status: [...] ??? Coronary Artery Disease Neg Hx ??? Columbus Syndrome Neg Hx ??? Crohn's Disease Neg [...] Hx ??? High Cholesterol Neg Hx ??? Winslow's Chorea Neg Hx ??? Hypercalcemia Neg Hx [...] Neg Hx ??? 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 Constitutional: She is oriented to person, place, and time. She appears well- developed and well-nourished. No distress. HENT: Head: Normocephalic. Eyes: EOM are normal. Pupils are equal, round, and reactive to light. Neck: Normal range of motion. Pulmonary/Chest: Effort normal. No respiratory distress. Musculoskeletal: Thoracic back: She exhibits tenderness, bony tenderness (upper lumbar tenderness), swelling (minimal linear swelling along bruised area) and pain. She exhibits no spasm. Back: Neurological: She is alert and oriented to person, place, and time. Skin: Skin is warm and dry. She is not diaphoretic. Consult orders: None PCP: Provider None Results for orders placed during the hospital encounter of 05/01/14 URINE MICROSCOPIC ONLY Result Value Range WBC, UA None seen 0 - 5 /HPF RBC, UA None seen 0 - 5 /HPF Squam Epithel, UA None seen None seen /HPF Renal Epithel, UA None seen None seen /HPF Bacteria, UA None seen None seen /HPF Crystals, UA None seen Casts, UA None seen UA Comment Microscopic results POCT URINE DIPSTICK Result Value Range Color LIGHT YELLOW Clarity, UA Clear Glucose Neg Neg Bilirubin Neg Neg Ketones Neg Neg Specific Earle 1.010 1.001 - 1.035 Blood Neg Neg pH 7.5 4.6 - 8.0 Protein Neg Neg Urobilinogen 0.2 0.2 - 1.0 E.U./dl Nitrite Neg Neg Leuk Esterase Trace (*) Neg Tech ID [id number] THORACOLUMBAR SPINE 2 VIEWS Final result not shown here.: Radiology orders: THORACOLUMBAR SPINE 2 VIEWS Imaging Results THORACOLUMBAR SPINE 2 VIEWS (Final result) Result time: 05/01/14 15:33:33 Final result Narrative: THORACOLUMBAR SPINE 2 VIEWS 05/01/2014 2:15 PM Signs and Symptoms/Comments: pt fell onto back, pain and tenderness upper lumbar, and with a deep breath Comparison:Lumbar spine 2 view, 02/12/2012. Technique: AP and lateral views of the thoracolumbar spine were obtained. Findings: Moderate discogenic disease is present throughout the thoracolumbar spine with mild endplate sclerosis and anterior osteophyte formation. Endplate sclerosis is more notable within the lumbar spine. Anterior osteophyte formation is most prominent at L1-L2 and L3-L4 disc spaces. The vertebral body heights and intervertebral disc spaces are preserved. There is straightening of the normal lordosis. The anterior and posterior vertebral lines are preserved. No soft tissue abnormalities are present. The partially imaged lungs are clear. The bowel gas pattern of the partially imaged abdomen is unremarkable. Impression: 1. No acute abnormalities. 2. Mild degenerative changes of the thoracolumbar spine. I have personally reviewed the images and the above interpretation and agree with the findings. Preliminary result Narrative: PRELIMINARY RESIDENT REPORT THORACOLUMBAR SPINE 2 VIEWS 05/01/2014 2:15 PM Signs and Symptoms/Comments: pt fell onto back, pain and tenderness upper lumbar, and with a deep breath Comparison:Lumbar spine 2 view, 02/12/2012. Technique: AP and lateral views of the thoracolumbar spine were obtained. Findings: Moderate discogenic disease is present throughout the thoracolumbar spine with mild endplate sclerosis and anterior osteophyte formation. Endplate sclerosis is more notable within the lumbar spine. Anterior osteophyte formation is most prominent at L1-L2 and L3-L4 disc spaces. The vertebral body heights and intervertebral disc spaces are preserved. There is straightening of the normal lordosis. The anterior and posterior vertebral lines are preserved. No soft tissue abnormalities are present. The partially imaged lungs are clear. The bowel gas pattern of the partially imaged abdomen is unremarkable. Impression: 1. No acute abnormalities. 2. Mild degenerative changes of the thoracolumbar spine. I have personally reviewed the images and the above interpretation and agree with the findings. Preliminary result Narrative: PRELIMINARY RESIDENT REPORT THORACOLUMBAR SPINE 2 VIEWS 05/01/2014 2:15 PM Signs and Symptoms/Comments: pt fell onto back, pain and tenderness upper lumbar, and with a deep breath Comparison:Lumbar spine 2 view, 02/12/2012. Technique: AP and lateral views of the thoracolumbar spine were obtained. Findings: Moderate discogenic disease is present throughout the thoracolumbar spine with mild endplate sclerosis and anterior osteophyte formation. Endplate sclerosis is more notable within the lumbar spine. Anterior osteophyte formation is most prominent at L1-L2 and L3-L4 disc spaces. The vertebral body heights and intervertebral disc spaces are preserved. There is straightening of the normal lordosis. The anterior and posterior vertebral lines are preserved. No soft tissue abnormalities are present. The partially imaged lungs are clear. The bowel gas pattern of the partially imaged abdomen is unremarkable. Impression: 1. No acute abnormalities. 2. Mild degenerative changes of the thoracolumbar spine. Preliminary result Narrative: PRELIMINARY RESIDENT REPORT THORACOLUMBAR SPINE 2 VIEWS 05/01/2014 2:15 PM Signs and Symptoms/Comments: pt fell onto back, pain and tenderness upper lumbar, and with a deep breath Comparison:Lumbar spine 2 view, 02/12/2012. Technique: AP and lateral views of the thoracolumbar spine were obtained. Findings: Moderate discogenic disease is present throughout the thoracolumbar spine with mild endplate sclerosis and anterior osteophyte formation. Endplate sclerosis is more notable within the lumbar spine. Anterior osteophyte formation is most prominent at L1-L2 and L3-L4 disc spaces. The vertebral body heights and intervertebral disc spaces are preserved. There is straightening of the normal lordosis. The anterior and posterior vertebral lines are preserved. No soft tissue abnormalities are present. The partially imaged lungs are clear. The bowel gas pattern of the partially imaged abdomen is unremarkable. Impression: 1. No acute abnormalities. 2. Mild degenerative changes of the thoracolumbar spine. This is a preliminary report dictated by Viktor Dodge MD, Self Pay Collector. Procedures Course: A medical screening exam was performed. Discussed patient appears as contusion of her back muscles recommend rest, ibuprofen follow-up if not improving as expected worsening. Patient understands and agrees with assessment, plan and treatment. Patient knows to follow up witha medical provider if not improving as expected or worsening. Disposition: Discharged The patient's pain was managed to an adequate level weighing risk vs. benefit of further medications. Upon departure from [facility], the patient's pain was 4 on a zero to ten scale. Condition at departure from the [facility] : Stable Final diagnoses: Back pain Dr. Jake Pierre was available for consultation during my care of this patient. [facility] 05/01/2014 20:44 * Maria Eugenia Morton RN - 05/01/2014 2407 EST Presents with pain across mid back that started 04/29/14 after an injury. Pt states she was doing tricep dips on a sales engagement executive handle and the sales engagement executive opened up, pt states she fell onto the open sales engagement executive door injuring her back. Pt here today as she feels the pain is getting worse the last day, notes pain in chest and mid back with deep breathing, this started in the last day. Small healing scrap noted mid left side of back. documented in this encounter Plan of Treatment Upcoming Encounters Date Type Department Care Team (Late st Contact Info) Description 12/10/2023 11:00 EDT Appointment [facility] Radiology CT Outpatient - [address] [id number] 12/11/2023 13:45 EDT Initial consult [facility] - [address] [address] Ashlee Garcia MD [address] [place] [address], [facility], [address] [place] [phone] documented as of this encounter Procedures Procedure Name Priority Date/Time Associated Diagnosis Comments URINE SEDIMENT (MICRO) WITHOUT REFLEX TO CULTURE STAT 05/01/2014 14:50 EST Back pain POCT URINE DIPSTICK, CLINITEK STAT 05/01/2014 14:42 EST Back pain THORACOLUMBAR SPINE 2 VIEWS STAT 05/01/2014 14:15 EST documented in this encounter Results * URINE MICROSCOPIC ONLY (05/01/2014 14:50 EST) WBC, UA None seen 0 - 5 /HPF 05/01/2014 15:09 EST [facility] RBC, UA None seen 0 - 5 /HPF 05/01/2014 15:09 EST [facility] Squam Epithel, UA None seen None seen /HPF 05/01/2014 15:09 [facility] Renal Epithel, UA None seen None seen /HPF 05/01/2014 15:09 [facility] Bacteria, UA None seen None seen /HPF 05/01/2014 15:09 [facility] Crystals, UA None seen /HPF 05/01/2014 15:09 [facility] Hyaline Casts, UA None seen /LPF 05/01/2014 15:09 [facility] UA Comment Microscopic results 05/01/2014 14:48 [facility] Comment: are unreliable on urines unrefrig >2hrs or refrig >8hrs. Urine specimen (specimen) URINE / Unknown 05/01/2014 14:50 EST 05/01/2014 14:51 EST Frances Pierre PA-C URINA LYSIS ORDERABLES Performing Organization Address City/State/[facility] Co de Phone Number [facility] [address] [place] [address] * (ABNORMAL) POCT URINE DIPSTICK (05/01/2014 14:42 EST) Color LIGHT YELLOW 05/01/2014 14:45 [facility] Clarity, UA Clear 05/01/2014 14:45 [facility] Glucose Neg Neg 05/01/2014 14:45 [facility] Bilirubin Neg Neg 05/01/2014 14:45 [facility] Ketones Neg Neg 05/01/2014 14:45 [facility] Specific Earle 1.010 1.001 - 1.035 05/01/2014 14:45 [facility] Blood Neg Neg 05/01/2014 14:45 [facility] pH 7.5 4.6 - 8.0 05/01/2014 14:45 [facility] Protein Neg Neg 05/01/2014 14:45 [facility] Urobilinogen 0.2 0.2 - 1.0 E.U./dl 05/01/2014 14:45 [facility] Nitrite Neg Neg 05/01/2014 14:45 EST [facility] Leuk Esterase Trace(A) Neg 05/01/2014 14:45 EST [facility] patient intake coordinator ID [id number] 05/01/2014 14:45 EST [facility] Comment:Test performed at [facility] Urine specimen (specimen) URINE / Unknown 05/01/2014 14:42 EST 05/01/2014 14:45 EST Frances Pierre PA-C POINT OF CARE TEST ORDERABLES [facility] [address] [place] [address] * THORACOLUMBAR SPINE 2 VIEWS (05/01/2014 14:15 EST) Anatomical Region Laterality Modality Other 05/01/2014 14:1 5 EST 05/01/2014 15:33 EST Narrative 05/01/2014 15:33 EST THORACOLUMBAR SPINE 2 VIEWS ??05/01/2014 2:15 PM Signs and Symptoms/Comments: ??pt fell onto back, pain and tenderness upper lumbar, and with a deep breath Comparison:Lumbar spine 2 view, 02/12/2012. Technique: AP and lateral views of the thoracolumbar spine were obtained. Findings: Moderate discogenic disease is present throughout the thoracolumbar spine with mild endplate sclerosis and anterior osteophyte formation. Endplate sclerosis is more notable within the lumbar spine. Anterior osteophyte formation is most prominent at L1-L2 and L3-L4 disc spaces. The vertebral body heights and intervertebral disc spaces are preserved. There is straightening of the normal lordosis. The anterior and posterior vertebral lines are preserved. No soft tissue abnormalities are present. The partially imaged lungs are clear. The bowel gas pattern of the partially imaged abdomen is unremarkable. Impression: 1. No acute abnormalities. 2. Mild degenerative changes of the thoracolumbar spine. I have personally reviewed the images and the above interpretation and agree with the findings. Procedure Note 05/01/2014 THORACOLUMBAR SPINE 2 VIEWS 05/01/2014 2:15 PM Signs and Symptoms/Comments: pt fell onto back, pain and tenderness upper lumbar, and with a deep breath Comparison:Lumbar spine 2 view, 02/12/2012. Technique: AP and lateral views of the thoracolumbar spine were obtained. Findings: Moderate discogenic disease is present throughout the thoracolumbar spine with mild endplate sclerosis and anterior osteophyte formation. Endplate sclerosis is more notable within the lumbar spine. Anterior osteophyte formation is most prominent at L1-L2 and L3-L4 disc spaces. The vertebral body heights and intervertebral disc spaces are preserved. There is straightening of the normal lordosis. The anterior and posterior vertebral lines are preserved. No soft tissue abnormalities are present. The partially imaged lungs are clear. The bowel gas pattern of the partially imaged abdomen is unremarkable. Impression: 1. No acute abnormalities. 2. Mild degenerative changes of the thoracolumbar spine. I have personally reviewed the images and the above interpretation and agree with the findings. Frances Pierre PA-C IMG D IAGNOSTIC IMAGING ORDERABLES documented in this encounter Visit Diagnoses Diagnosis Back pain- Primary Backache, unspecified documented in this encounter Discontinued Medications Medication Sig Discontinue Reason Start Date End Da te cyclobenzaprine (FLEXERIL) 5 mg tablet Take 1-2 tabs daily as needed. Therapy completed 06/25/2012 05/01/2014 lisinopril (PRINIVIL, ZESTRIL) 40 mg tablet Take 40 mg by mouth daily. Therapy completed 05/01/2014 olmesartan (BENICAR) 40 mg tablet Take 40 mg by mouth daily. Therapy completed 05/01/2014 DIAZepam (VALIUM) 5 mg tablet Take 5 mg by mouth 2 times daily. Alternate therapy 05/01/2014 documented as of this encounter Historical Medications * This list may reflect changes made after this encounter. Medication Sig Dispensed Refills Start Date End Date ibuprofen (MOTRIN) 200 mg tablet Take 3 Tablets by mouth every 8 hours as needed for Pain. clonazePAM (KLONOPIN) 0.5 mg tablet Take 0.5 mg by mouth 2 times daily. Reported on 03/16/2016 03/23/2020 added in this encounter Care Teams Fiscal Manager Relationship Specialty Start Date End Date None, Provider PCP - General 08/27/13 08/03/15 documented as of this encounter
--- OUTSIDE RECORDS SUMMARY | 2023-12-07 00:50 | XMS_ITS | Encounter Summary ---
Author Organization [facility] Address [address] [place] [address] Care Team Providers Care Academic Advisement Director Name Role Phone None, Provider Primary Care Provider Unavailabl e Encounter Details Date Type Department Care Team (Latest Contact Info) Description 02/04/2014 14:13 EDT - 02/04/2014 23:59 EDT Hospital Encounter [facility] [address] [place] [address] Melissa Khan MD [address] [place] [phone] Discharge Disposition: Auto Discharge Social History Tobacco [...] as of this encounter Discharge Diagnoses Diagnosis 787.3 FLATUL/ERUCTAT/GAS PAIN[ICD-9-CM] documented in this encounter Medications at Time [...] Contact Info) Description 12/10/2023 11:00 EDT Appointment [facility] Radiology CT Outpatient - [address] [address] 12/11/2023 13:45 EDT Initial consult [facility] Gynecologic Oncology - [address] [address] Ashlee Garcia MD [address] [place] [address], [address] [place] [phone] documented as of this encounter Procedures Procedure Name Priority Date/Time Associated Diagnosis Comments MR CERVICAL SPINE WO CONTRAST 11/09/2014 20:48 EDT documented in this encounter Results * MR CERVICAL SPINE WO CONTRAST (11/09/2014 20:48 EDT) Anatomical Region Laterality Modality Other 11/09/2014 20:4 8 EDT 11/10/2014 10:19 EDT Narrative 11/10/2014 10:19 EDT MRI CERVICAL SPINE WITHOUT CONTRAST November 09, [...] progressed slightly since the prior films in 2013 at the C3-C4 level. Multilevel cervical facet [...] facet hypertrophy as described by level above. Procedure Note Kika Echevarria MD - 11/10/2014 MRI CERVICAL SPINE WITHOUT CONTRAST November 09, [...] progressed slightly since the prior films in 2013 at the C3-C4 level. Multilevel cervical facet [...] facet hypertrophy as described by level above. Pavan Ventura MD IMG MRI ORDERA BLES documented in this encounter Visit Diagnoses Not on filedocumented in this encounter Care Teams Academic Advisement Director Relationship Specialty Start Date End Date None, Provider PCP - General 08/27/13 08/03/15 documented as of this encounter
--- OUTSIDE RECORDS SUMMARY | 2023-12-07 00:50 | XMS_ITS | Encounter Summary ---
Author Organization [facility] Address [address] [place] [address] Care Team Providers Care Radio Broadcaster Name Role Phone Evelyn Arana MD Primary Care Provider Unavailabl e Reason for Visit * Reason Onset Date Comments Results 07/30/2012 Follow-up 07/30/2012 Encounter Details Date Type Department Care Team (Late st Contact Info) Description 07/30/2012 Telephone [facility] Rheumatology & Immunology - [facility] [address] [place] [address] Alka Martinez RN Results; Follow-up Social History Tobacco Use Types Packs/Day Years Used Date Smoking Tobacco: Former Cigarettes 3 15 Smokeless Tobacco: Never Alcohol Use Standard Drinks/Week Comments Yes 175 (1 standard drink = 0.6 oz p ure alcohol) Sex and Gender Information Value Date Recorded Sex Assigned at Not on file Gender Identity Female 02/10/2020 14:46 EDT Sexual Orientation Not on file documented as of this encounter Miscellaneous Notes * Telephone Encounter - Ronal Barron MD - 08/01/2012 1517 EDT Discussed with patient and informed her that C-spine x-ray reveals osteoarthritis. She is doing physical therapy and has noted benefit from that. She is using a TENS unit and thinks her symptoms are better once on it. An MRI is not required at this time. * Telephone Encounter - Abigail Montague RN - 07/30/2012 1458 EDT Numbness and tingling noted in both forearms and hands however, the left side is the majority of the problem. States that this has been going on for a week. She started lifting weights and realized that her left arm is very weak. PT 360 is suggesting and MRI and a tens unit. She is also asking about the x-ray results she had done in May. * Telephone Encounter - Prudence Edge - 07/30/2012 1443 EDT Patient called back for results and is reporting tingling and numbness in left forearm radiating tohands and thumbs. Pain between neck and shoulder. Also reports slight tingling in right hand. * Telephone Encounter - Alka Martinez RN - 07/30/2012 1222 EDT Pt calling for results of hand and neck X-rays done end of May. documented in this encounter Plan of Treatment Upcoming Encounters Date Type Department Care Team (Late st Contact Info) Description 12/10/2023 11:00 EDT Appointment [facility] Radiology CT Outpatient - [address] [address] 12/11/2023 13:45 EDT Initial consult [facility] Gynecologic Oncology - [address] [address] Ashlee Garcia MD [address] [place] [address], [address] [place] [phone] documented as of this encounter Visit Diagnoses Not on filedocumented in this encounter Care Teams Radio Broadcaster Relationship Specialty Start Date End Date Evelyn Arana MD PCP - General 02/27/12 08/26/13 documented as of this encounter
--- OUTSIDE RECORDS SUMMARY | 2023-12-07 00:50 | XMS_ITS | Encounter Summary ---
Author Organization [facility] Address [address] [place] [address] Care Team Providers Care Piece Presser Name Role Phone Melissa Khan MD Primary Care Provider [phone] Encounter Details Date Type Department Care Team (Late st Contact Info) Description 08/05/2015 Phlebotomy Only [facility] - [address] [id number] [employer], Outpatient Arthralgia, unspecified joint; Rheumatoid factor positive Social History Tobacco Use Types Packs/Day Years [...] No 08/05/2015 documented as of this encounter Plan of Treatment Upcoming Encounters Date Type Department Care Team (Late st Contact Info) Description 12/10/2023 11:00 EDT [facility] Radiology CT Outpatient - [address] [id number] 12/11/2023 13:45 EDT Initial consult [facility] Gynecologic Oncology - [facility] [address], [place] [id number] Ashlee Garcia MD [address] [facility], [facility], [address] [place] [address] documented as of this encounter Procedures Procedure Name Priority Date/Time Associated Diagnosis Comments URINALYSIS WITH MICROSCOPIC IF POSITIVE Routine 08/05/2015 10:24 EDT Arthralgia, unspecified joint Rheumatoid factor positive VITAMIN D (25,OH) Routine 08/05/2015 10: 24 EDT Arthralgia, unspecified joint Rheumatoid factor positive LYME AB Routine 08/05/2015 10:24 EDT Arthralgia, unspecified joint Rheumatoid factor positive HLA B27 SCREEN, DNA Routine 08/05/2015 1 0:24 EDT Arthralgia, unspecified joint Rheumatoid factor positive HEPATITIS C AB W REFLEX TO HCV RNA BY PCR Routine 08/05/2015 10:24 EDT Arthralgia, unspecified joint Rheumatoid factor positive PTH INTACT Routine 08/05/2015 10:24 EDT Arthralgia, unspecified joint Rheumatoid factor positive HEPATITIS B SURFACE ANTIBODY Routine 08/05/2015 10:24 EDT Arthralgia, unspecified joint Rheumatoid factor positive SED RATE Routine 08/05/2015 10:24 EDT Arthralgia, unspecified joint Rheumatoid factor positive COMPLETE BLOOD COUNT AND DIFFERENTIAL Routine 08/05/2015 10:24 EDT Arthralgia, unspecified joint Rheumatoid factor positive ANGIOTENSIN CONVERTING ENZYME (ENE) Routine 08/05/2015 10:24 EDT Arthralgia, unspecified joint Rheumatoid factor positive C REACTIVE PROTEIN Routine 08/05/2015 10 :24 EDT Arthralgia, unspecified joint Rheumatoid factor positive TSH Routine 08/05/2015 10:24 EDT Arthralgia, unspecified joint Rheumatoid factor positive THYROID ANTIBODIES Routine 08/05/2015 10 :24 EDT Arthralgia, unspecified joint Rheumatoid factor positive T4 FREE Routine 08/05/2015 10:24 EDT Arthralgia, unspecified joint Rheumatoid factor positive SPEP, INCLUDES QUANTITATION OF MONOCLONAL SPIKE Routine 08/05/2015 10:24 EDT Arthralgia, unspecified joint Rheumatoid factor positive CK Routine 08/05/2015 10:24 EDT Arthralgia, unspecified joint Rheumatoid factor positive COMPREHENSIVE METABOLIC PANEL (CMP) Routine 08/05/2015 10:24 EDT Arthralgia, unspecified joint Rheumatoid factor positive documented in this encounter Results * THYROID ANTIBODIES (08/05/2015 10:24 EDT) Thyroglobulin Ab 21 <61 U/mL 08/05/19 16 12:38 EDT [facility] Thyroperoxidase Ab <28 <61 U/mL 2015 12:39 EDT [facility] Blood specimen (specimen) BLOOD SPECIMEN / Unknown 08/05/2015 10:24 EDT 08/05/2015 10:46 EDT Moody Manning MD CHEMISTRY & BLOOD GA S ORDERABLES [facility] [address] [place] [address] * T4 FREE (08/05/2015 10:24 EDT) Free T4 1.0 0.8 - 1.8 ng/dl 08/05/2015 12:38 EDT [facility] Blood specimen (specimen) BLOOD SPECIMEN / Unknown 08/05/2015 10:24 EDT 08/05/2015 10:46 EDT Moody Manning MD CHEMISTRY & BLOOD GA S ORDERABLES Performing Organization Address City/[facility] Co de Phone Number [facility] [address] [place] [address] * HLA B27 SCREEN, DNA (08/05/2015 10:24 EDT) HLA B27 Screen DNA HLA B27 not identified 08/13/2015 14:11 EDT [facility] Comment:Tested by PCR-RSSO Blood specimen (specimen) BLOOD SPECIMEN / Unknown 08/05/2015 10:24 EDT 08/05/2015 10:46 EDT Moody Manning MD TISSUE TYPING ORDERA BLES Performing Organization Address [facility] Co de Phone Number [facility] [address] [place] [address] * ANGIOTENSIN CONVERTING ENZYME (ENE) (08/05/2015 10:24 EDT) Pathologist [facility] Angiotensin Converting Enzyme 35 8 - 53 U/L 08/06/2015 9:53 EDT [facility] Comment: Performed by: [facility], [address], [place] [address], Undertaker Helper: Prudence Weinberg, Ph.D. Blood specimen (specimen) BLOOD SPECIMEN / Unknown 08/05/2015 10:24 EDT 08/05/2015 10:46 EDT Moody Manning MD CHEMISTRY & BLOOD GA S ORDERABLES Performing Organization Address [facility] Co de Phone Number [facility] [address] [place] [address] * LYME AB (08/05/2015 10:24 EDT) Pathologist [facility] Lyme AB Negative 08/06/2015 13:51 EDT [facility] Comment:Reference Range: Neg ative Blood specimen (specimen) BLOOD SPECIMEN / Unknown 08/05/2015 10:24 EDT 08/05/2015 10:46 EDT Moody Manning MD IMMUNOLOGY AND SEROL OGY ORDERABLES Performing Organization Address [facility] Co de Phone Number [facility] [address] [place] [address] * HEPATITIS C ANTIBODY (08/05/2015 10:24 EDT) Hepatitis C Ab Negative 08/05/2015 13:37 EDT [facility] Comment:Reference Range: Neg ative Blood specimen (specimen) BLOOD SPECIMEN / Unknown 08/05/2015 10:24 EDT 08/05/2015 10:46 EDT Moody Manning MD CHEMISTRY & BLOOD GA S ORDERABLES Performing Organization Address [facility] Phone Number [facility] [address] [place] [address] * HEPATITIS B SURFACE ANTIBODY (08/05/2015 10:24 EDT) Pathologist [facility] Hepatitis B Surface Ab Negative 08/05/2015 13:37 EDT [facility] Comment: Reference Range: Unvaccinated: ??Negative Vaccinated: ??Positive HBs Antibody, Quant <5.0 mIU/mL 08/05/2015 13:37 T [facility] Comment: Patient is presumed to not be immune to infection with HBV. Reference Range: Positive: >=12.0 mIU/mL Indeterminate: >=5.0 to <12.0 mIU/mL Negative: <5.0 mIU/mL Blood specimen (specimen) BLOOD SPECIMEN / Unknown 08/05/2015 10:24 EDT 08/05/2015 10:46 EDT Moody Manning MD CHEMISTRY & BLOOD GA S ORDERABLES Performing Organization Address [facility] Co de Phone Number [facility] [address] [place] [address] * SED. RATE:WESTERGREN (08/05/2015 10:24 EDT) Pathologist [facility] Sed. Rate Westergren 7 0 - 30 mm/hr 08/05/2015 11:02 EDT [facility] Blood specimen (specimen) BLOOD SPECIMEN / Unknown 08/05/2015 10:24 EDT 08/05/2015 10:46 EDT Moody Manning MD HEMATOLOGY & PF4 ORD ERABLES Performing Organization Address [facility] de Phone Number [facility] [address] [place] [address] * PTH INTACT (08/05/2015 10:24 EDT) Pathologist [facility] PTH 73 12 - 77 pg/ml 08/05/2015 12:26 T [facility] Comment:Reference range base d on normal calcium level. Blood specimen (specimen) BLOOD SPECIMEN / Unknown 08/05/2015 10:24 EDT 08/05/2015 10:46 EDT Moody Manning MD CHEMISTRY & BLOOD GA S ORDERABLES Performing Organization Address [facility] de Phone Number [facility] [address] [place] [address] * SPEP, INCLUDES QUANTITATION OF MONOCLONAL SPIKE (08/05/2015 10:24 EDT) Pathologist [facility] Total Protein 7.3 6.3 - 8.2 g/dl 08/05/2015 11:41 [facility] Albumin % 61.8 55.8 - 66.1 % 08/06/2015 14:17 [facility] Alpha-1 % 3.8 2.9 - 4.9 % 08/06/2015 14:17 [facility] Alpha-2 % 10.2 7.1 - 11.8 % 08/06/2015 14:17 [facility] Beta % 11.8 8.4 - 13.1 % 08/06/2015 14:17 [facility] Gamma % 12.4 11.1 - 18.8 % 08/06/2015 14:17 [facility] Comments No apparent monoclonal protein 08/06/2015 14:17 [facility] Comment: on serum electrophoresis. See Pathology Scanned Report in [employer]. Blood specimen (specimen) BLOOD SPECIMEN / Unknown 08/05/2015 10:24 EDT 08/05/2015 10:46 EDT Moody Manning MD CHEMISTRY & BLOOD GA S ORDERABLES Performing Organization Address [facility]/ZIP Co de Phone Number [facility] [address] [place] [address] * (ABNORMAL) URINALYSIS WITH REFLEX MICROSCOPIC (08/05/2015 10:24 EDT) Color, UA Yellow 08/05/2015 11:23 T [facility] Clarity, UA Clear 08/05/2015 11:23 T [facility] Glucose, UA Neg Neg 08/05/2015 11:23 [facility] Bilirubin, UA Neg Neg 08/05/2015 11:23 [facility] Ketones, UA Neg Neg 08/05/2015 11:23 [facility] Specific [place], Urine 1.025 1.001 - 1.035 08/05/2015 11:23 [facility] Blood, UA Neg Neg 08/05/2015 11:23 [facility] pH, UA 6.0 4.6 - 8.0 08/05/2015 11:23 [facility] Protein, UA Neg Neg 08/05/2015 11:23 [facility] Urobilinogen, UA 0.2 0.2 - 1.0 E.U./dl 08/05/2015 11:23 [facility] Nitrite, UA Neg Neg 08/05/2015 11:23 [facility] Leuk Esterase 2+(A) Neg 08/05/2015 11:23 [facility] Urine specimen (specimen) URINE / Unknown 08/05/2015 10:24 EDT 08/05/2015 10:48 EDT Moody Manning MD URINALYSIS ORDERABLE S Performing Organization Address City/[facility]/ZIP Co de Phone Number [facility] [address] [place] [address] * (ABNORMAL) VITAMIN D (25,OH) (08/05/2015 10:24 EDT) 25OH Vitamin D Tot 21.7(L) 30 - 100 ng/ml 08/06/2015 13:51 EDT [facility] Comment: Reference Range: Deficient = <10 ng/ml Insufficient = 10-30 ng/ml Sufficient = 30-100 ng/ml Toxic = >100 ng/ml Blood specimen (specimen) BLOOD SPECIMEN / Unknown 08/05/2015 10:24 EDT 08/05/2015 10:46 EDT Moody Manning MD CHEMISTRY & BLOOD GA S ORDERABLES Performing Organization Address City/[facility]/ZIP Co de Phone Number [facility] [address] [place] [address] * TSH (08/05/2015 10:24 EDT) Pathologist [facility] TSH 0.67 0.55 - 4.78 uIU/ml 08/05/2015 12:38 EDT [facility] Blood specimen (specimen) BLOOD SPECIMEN / Unknown 08/05/2015 10:24 EDT 08/05/2015 10:46 EDT Moody Manning MD CHEMISTRY & BLOOD GA S ORDERABLES Performing Organization Address City/[facility]/ZIP Co de Phone Number [facility] [address] [place] [address] * (ABNORMAL) C REACTIVE PROTEIN (08/05/2015 10:24 EDT) C Reactive Protein 11.3(H) <10.0 mg/L 08/05/2015 11:41 EDT [facility] Comment: Note units change to mg/L. Values will be 10 fold higher than with previous units of mg/dl. Blood specimen (specimen) BLOOD SPECIMEN / Unknown 08/05/2015 10:24 EDT 08/05/2015 10:46 EDT Moody Manning MD CHEMISTRY & BLOOD GA S ORDERABLES [facility] [address] [place] [address] * CK (08/05/2015 10:24 EDT) CK 84 30 - 135 U/L 08/05/2015 11:39 [facility] Blood specimen (specimen) BLOOD SPECIMEN / Unknown 08/05/2015 10:24 EDT 08/05/2015 10:46 EDT Moody Manning MD CHEMISTRY & BLOOD GA S ORDERABLES Performing Organization Address City/[facility] Co de Phone Number [facility] [address] [place] [address] * COMPREHENSIVE METABOLIC PANEL (CMP) (08/05/2015 10:24 EDT) Potassium 4.8 3.5 - 5.0 mEq/L 08/05/2015 11:41 [facility] Sodium 140 136 - 145 mEq/L 08/05/2015 11:41 [facility] Chloride 102 96 - 110 mEq/L 08/05/2015 11:41 [facility] CO2 27 24 - 32 mEq/L 08/05/2015 11:41 [facility] Total Alkaline Phosphatase 65 38 - 126 U/L 08/05/2015 11:41 [facility] Bilirubin, Total 0.5 <1.4 mg/dl 08/05/19 16 11:41 [facility] AST 21 15 - 46 U/L 08/05/2015 11:41 [facility] ALT 30 <53 U/L 08/05/2015 11:41 [facility] Albumin 4.3 3.4 - 4.9 g/dl 08/05/2015 11:41 [facility] Total Protein 7.3 6.3 - 8.2 g/dl 08/05/2015 11:41 [facility] Creatinine 0.89 0.52 - 1.04 mg/dl 08/05/2015 11:41 [facility] GFR, Calculated 73 >60 ml/min/1.7 3m2 08/05/2015 11:41 [facility] Comment: eGFR calculated using CKD-EPI equation for non Americans. Multiply eGFR by 1.16 for Americans. BUN 24 10 - 26 mg/dl 08/05/2015 11:41 [facility] Calcium 9.0 8.5 - 10.5 mg/dl 08/05/2015 11:41 [facility] Calculated Calcium 9.1 8.5 - 10.5 mg/dl 08/05/2015 11:41 [facility] Glucose, Serum 90 70 - 100 mg/dl 08/05/2015 11:41 [facility] Fasting? No 08/05/2015 10:24 [facility] Blood specimen (specimen) BLOOD SPECIMEN / Unknown 08/05/2015 10:24 EDT 08/05/2015 10:46 EDT Moody Manning MD CHEMISTRY & BLOOD GA S ORDERABLES [facility] [address] [place] [address] * (ABNORMAL) HEMAGRAM AND DIFFERENTIAL (08/05/2015 10:24 EDT) WBC 4.02 4.0 - 12.4 K/cmm 08/05/2015 11:29 [facility] RBC 3.81(L) 3.86 - 5.04 M/cmm 08/05/2015 11:29 [facility] Hemoglobin 12.1 11.6 - 15.2 gm/dl 08/05/2015 11:29 [facility] HCT 36.3 34.9 - 44.4 % 08/05/2015 11:29 [facility] MCV 95 81 - 98 fl 08/05/2015 11:29 [facility] MCH 31.8 26.7 - 33.3 pg 08/05/2015 11:29 [facility] MCHC 33.3 32.1 - 35.9 gm/dl 08/05/2015 11:29 [facility] RDW-CV 12.7 11.7 - 14.6 % 08/05/2015 11:29 [facility] RDW-SD 44.1 37.6 - 50.3 fl 08/05/2015 11:29 [facility] PLT 236 141 - 377 K/cmm 08/05/2015 11:29 [facility] MPV 10.0 9.5 - 12.7 fl 08/05/2015 11:29 [facility] % Neutrophils 53.3 % 08/05/2015 11:29 [facility] % Lymphocytes 33.3 % 08/05/2015 11:29 [facility] % Monocytes 10.0 % 08/05/2015 11:29 [facility] % Eosinophils 2.5 % 08/05/2015 11:29 [facility] % Basophils 0.7 % 08/05/2015 11:29 [facility] % Immature Grans 0.2 % 08/05/2015 11:29 [facility] ABS Neutrophils 2.14(L) 2.20 - 8.85 K/cmm 08/05/2015 11:29 [facility] ABS Lymphs 1.34 1.09 - 3.30 K/cmm 08/05/2015 11:29 [facility] ABS Monocytes 0.40 0.1 - 0.8 K/cmm 08/05/2015 11:29 [facility] ABS Eosinophils 0.10 0.03 - 0.61 K/cmm 08/05/2015 11:29 [facility] ABS Basophils 0.03 0.01 - 0.11 K/cmm 08/05/2015 11:29 [facility] ABS Immature Grans 0.01 0 - 0.06 K/cmm 08/05/2015 11:29 [facility] Type of Diff: Automated 08/05/2015 11:29 [facility] Blood specimen (specimen) BLOOD SPECIMEN / Unknown 08/05/2015 10:24 EDT 08/05/2015 10:46 EDT Moody Manning MD PACKAGES & DNA PROBE ORDERABLES [facility] [address] [place] [address] documented in this encounter Visit Diagnoses Diagnosis Arthralgia, unspecified joint Rheumatoid factor positive Other and unspecified nonspecific immunological findings documented in this encounter Care Teams Piece Presser Relationship Specialty Start Date End Date Melissa Khan MD [address] [place] [id number] PCP - General 08/04/15 documented as of this encounter
--- OUTSIDE RECORDS SUMMARY | 2023-12-07 00:50 | XMS_ITS | Encounter Summary ---
Author Organization [facility] Address [address] [place] [address] Care Team Providers Care Threat Monitoring Analyst Name Role Phone Evelyn Arana MD Primary Care Provider Unavailabl e Reason for Referral * Radiology Services (Routine/Next Available) - Closed Specialty Diagnoses / Procedures Referred By Contac t Referred To Contact Diagnoses Pain in joint, multiple sites Procedures HAND 2 VIEWS Ronal Barron MD [address] [place] [phone] Referral ID Status Reason Start Date Expiration Date Visits Re quested Visits Authorized [id number] Closed 06/25/2012 1 1 * Radiology Services (Routine/Next Available) - Closed Specialty Diagnoses / Procedures Referred By Contac t Referred To Contact Diagnoses Neck pain Procedures CERVICAL SPINE 2-3 VIEWS Ronal Barron MD [address] [place] [phone] Referral ID Status Reason Start Date Expiration Date Visits Re quested Visits Authorized [id number] Closed 06/25/2012 1 1 * Consult, Test and Treat (Routine/Next Available) - Closed Specialty Diagnoses / Procedures Referred By Contac t Referred To Contact Diagnoses Neck pain Buttock pain Ronal Barron MD [address] [phone] Referral ID Status Reason Start Date Expiration Date V isits Requested Visits Authorized [id number] Closed Specialty Services Required 06/25/2012 1 1 Question Answer Reason for Request: Neck pain, buttock pain Reason for Visit * Reason Comments Joint Pain neck and back/ does loosen up after about 15 minutes Back Pain radiates down right leg/ questioning Physical Therapy Encounter Details Date Type Department Care Team (Late st Contact Info) Description 06/25/2012 9:00 EST Office Visit [facility] Rheumatology & Immunology - [address] [address] Ronal Barron MD [address] [place] [phone] Joel Soliman MD [address] [place] [phone] Neck pain (Primary Dx); Buttock pain; Pain in joint, multiple sites Discharge Disposition: Auto Discharge Social History Tobacco [...] Sign Reading Time Taken Comments Blood Pressure 126/80 06/25/2012 0906 EST Pulse 64 06/25/2012 0906 EST Temperature - - Respiratory Rate 14 06/25/2012 0906 EST Oxygen Saturation - - Inhaled Oxygen Concentration - - Weight 56.7 kg (125 lb) 06/25/2012 0906 EST Height 160.7 cm (5' 3.25) 06/25/2012 0906 EST Body Mass Index 21.97 06/25/2012 0906 EST documented in this encounter Patient Instructions * Patient Instructions* Ronal Barron MD - 06/25/2012 10:26 EST 1) We do not see any evidence of Lupus or any other associated connective tissue disorders at this time. Your Raynaud's phenomenon is probably Primary Raynaud's phenomenon. Your buttock pain could befrom tendonitis / bursitis in the area. Your neck pain could be from either mild arthritis in the area or from disc problems as was noted on your prior imaging study from 2003. 2) X-rays of your neck and hands have been ordered. Have them done at your convenience. 3) Start physical therapy for your neck and buttock pain. 4) Start a muscle relaxant - flexeril 5 mg one to two times daily as needed. 5) You could continue to take Advil 3 tabs 2-3 times daily as needed. documented in this encounter Ordered Prescriptions Prescription Sig Dispensed Refills Start Date End Da te cyclobenzaprine (FLEXERIL) 5 mg tablet Take 1-2 tabs daily as needed. 60 Tab 1 06/25/2012 05/01/2014 documented in this encounter Discharge Disposition Disposition Code Departure Means Destination Auto Discharge documented in this encounter Progress Notes * Ronal Barron MD - 06/25/2012 1953 EST DIVISION OF RHEUMATOLOGY AND CLINICAL IMMUNOLOGY CONSULT NOTE Date of Service: 06/25/2012 Patient seen in consultation at the request of Evelyn Arana MD for rheumatological evaluation for possible lupus, neck pain, buttock pain and Raynaud's phenomenon. Chief Complaint Patient presents with ??? Joint Pain neck and back/ does loosen up after about 15 minutes ??? Back Pain radiates down right leg/ questioning Physical Therapy HISTORY OF PRESENT ILLNESS: Ms. Agueda Carpio is a 52 y.o. woman with a history of hypertension, dyslipidemia, abdominoplasty and left elbow tendon repair who presents today for rheumatological evaluation for possible lupus, Raynaud's phenomenon, buttock pain and neck pain. 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 She also mentions that she plans on returning for the marathon in spring this year. She mentions that she was referred here after sheexpressed that she would like to get in shape for the same and be controlled from the above symptoms. The possibility of lupus was considered after she developed a skin rash over her abdominal wall about a year ago. She thinks that this rash may have developed after exposure to the sun and was treated with a cream then. Her cheeks also turn red intermittently both with and without sun exposure and could occasionally be present when she wakes up in the morning. Her Raynaud's phenomenon has been present for the past 15 years or more and this usually affects her fingers on both her hands but spares her thumbs. She has had intermittent joint pain affecting the knuckles (PIP joints) of her handsmore so on her right hand since the past few years but she denies any associated joint swelling, redness or warmth. She has had chronic neck pain since the past 20 years. She mentions that she has had a cortisone injection to her neck in the past and an MRI of her neck in 2003 revealed disc problems. Her right-sided buttock pain has been present since the past 5 months. She describes this as a sharp pain in the right side of her buttock that occasionally wakes up from sleep. Running usually does not exacerbate her pain. Occasionally she has some throbbing sensation radiating from her buttock area down to her right leg. She denies any preceding fall or trauma. She denies any headaches, alopecia, ocular sicca, oral ulcerations, lymphadenopathy, chest pains, shortness of breath, palpitations, fever, chills, abdominal pain, diarrhea or weight loss. She has mild oral sicca which she attributes to be from medication use (Wellbutrin). She noted blood in her stool associated with pain in her anal region 2 weeks ago which she attributes to hemorrhoids. She hasbeen scheduled for a colonoscopy by her primary care physician for further evaluation of the same. She also complains of an itchy spot in the back of her scalp but denies any history of psoriasis or even family history of the same. REVIEW OF SYSTEMS: Symptom Yes No Symptom [...] ??? Hypertension ??? Psychiatric problem depression/traumatic stress Dyslipidemia Past Surgical History Procedure Date ??? Abdominoplasty [...] oz/week 21 Glasses of wine per week Owns and manages [employer] in [place]. No significant family history MEDICATIONS: Current Outpatient Prescriptions Medication Sig ??? olmesartan (BENICAR) 40 mg tablet Take 40 mg by mouth daily. ??? acetaminophen (TYLENOL) 325 mg tablet Take 325 mg by mouth every 4 hours as needed. ??? BUPROPION HCL (WELLBUTRIN ORAL) Take by mouth daily. Indications: Doesn't recall dose OBJECTIVE: Blood pressure 126/80, pulse 64, resp. rate 14, height 160.7 cm (63.25), weight 56.7 kg (125 lb). General: No acute distress. Alert, fully oriented, pleasant, conversant. HEENT: Conjunctivae/corneas clear. Pupils equal, Sclerae anicteric. Mucus membranes moist; oropharynx clear. Neck supple, symmetrical, trachea midline Lungs: Clear to auscultation bilaterally. Heart: Regular rate and rhythm, S1, S2 present, no murmur Abdomen: Soft, non-tender, non-distended. Extremities: Extremities without cyanosis or edema. Skin: A small circular erythematous patch 2x2 cm is noted on her scalp and occipital region (right side) with some folliculitis. With the minimal vague redness (blush) is noted over her cheeks including the nasolabial folds. There are no telangiectasias over this region. No sclerodactyly, digital pits or dilated capillary loops Musculoskeletal: Spine: Tenderness along with muscle spasm are noted at her upper cervical spine area. Both in flexion and extension as well as lateral flexion is restricted. Tenderness is noted at her right buttock region just superior and medial to the ischial tuberosity. Piriformis stretch test was negative. Shoulder/Elbow: No significant tenderness, swelling, effusions, erythema or warmth is present. Appropriate range of motion present. Wrist/Hand: Mild bony hypertrophic changes are noted at her hands especially the second and third PIP joints. No significant tenderness, swelling, effusions, erythema or warmth is present. Appropriate range of motion present. No sclerodactyly or periungual erythema. Hips/Knee: No significant tenderness, swelling, effusions, erythema or warmth is present. Appropriate range of motion present. Ankle/Foot: No significant tenderness, swelling, effusions, erythema or warmth is present. Appropriate range of motion present. Labs: Recent CBC and CMP done at the primary care physician's office where normal. Lab Results Component Value Date RF <20 06/04/2012 KANDY <40 06/04/2012 SSA and SSB were normal IMPRESSION / PLAN: Ms. Agueda Carpio is a 52 y.o. woman with a history of hypertension, dyslipidemia, abdominoplasty and left elbow tendon repair who presents today for rheumatological evaluation for possible lupus, Raynaud's phenomenon, buttock pain and neck pain. Physical examination reveals tenderness and muscle spasm along her cervical region and her right buttock area. Mild bony hypertrophic changes are notedat her hands but no evidence of active inflammatory arthritis is present at this time. It was explained to her that we do not see any evidence of lupus or any other associated connectivetissue disorders at this time. She has mild osteoarthritic changes at her hands. Her Raynaud's phenomenon is most likely primary raynaud's phenomenon and hence she was reassured not to worry about the same unless they become very symptomatic. She was advised to use warm clothing as well as warm gloves to help prevent any adverse events from the same. We think that her right buttock pain could be from either tendinitis of the muscles in this area or from ischial bursitis. She has significant muscle spasms at her cervical area and this could be from either strain or related to cervical disc/joint pathology. An x-ray of her neck as well as her hands were suggested for further evaluation. We would start her on a muscle relaxant Flexeril 5 mg 1-2 tablets daily as needed. She was cautioned about drowsiness with this medication and advised to start taking this once daily at night. She was alsoinformed that she could continue to take Advil up to 600 mg thrice daily as needed. A referral for physical therapy was placed for her for further management of her neck pain and buttock pain. Further recommendations if any would be provided following review of her x-rays. PATIENT INSTRUCTIONS: Patient Instructions 1) We do not see any evidence of Lupus or any other associated connective tissue disorders at this time. Your Raynaud's phenomenon is probably Primary Raynaud's phenomenon. Your buttock pain could befrom tendonitis / bursitis in the area. Your neck pain could be from either mild arthritis in the area or from disc problems as was noted on your prior imaging study from 2003. 2) X-rays of your neck and hands have been ordered. Have them done at your convenience. 3) Start physical therapy for your neck and buttock pain. 4) Start a muscle relaxant - flexeril 5 mg one to two times daily as needed. 5) You could continue to take Advil 3 tabs 2-3 times daily as needed. I was precepted by Joel Soliman MD who personally saw and evaluated the patient with me. Patient verbalizes understanding and agrees with plan. There are no barriers to understanding/learning. Ronal Barron MD 06/25/2012 Attestation statement: I saw and examined the patient. I agree with the resident's/fellow's findings and plans as documented except as indicated above in bold italic. JOEL SOLIMAN MD documented in this encounter Plan of Treatment Upcoming Encounters Date Type Department Care Team (Late st Contact Info) Description 12/10/2023 11:00 EDT Appointment [facility] Radiology CT Outpatient - [address] [address] 12/11/2023 13:45 EDT Initial consult [facility] Gynecologic Oncology - [address] [address] Ashlee Garcia MD [address] [place] [address], [facility], [address] [place] [address] Scheduled Referrals Name Type Priority Associated Diagnoses Orde r Schedule AMB CONSULT PHYSICAL THERAPY Outpatient Referral Routine Neck pain Buttock pain Ordered: 06/25/2012 documented as of this encounter Procedures Procedure Name Priority Date/Time Associated Diagnosis Comments HAND 2 VIEWS Routine 06/25/2012 11:29 EST Pain in joint, multiple sites CERVICAL SPINE 2-3 VIEWS Routine 06/25/2012 11:29 EST Neck pain documented in this encounter Results * HAND 2 VIEWS (06/25/2012 11:29 EST) Anatomical Region Laterality Modality Other 06/25/2012 11:2 9 EST 06/25/2012 15:25 EST Narrative 06/25/2012 15:25 EST HAND 2 VIEWS bilateral Jun 25, 2012 11:29:00 AM Signs and Symptoms/Comments: ??719.49-Pain in joint, multiple [id number]; Joint pain at PIP joints Findings: AP and ball catcher's view of each hand demonstrate preserved joint spaces with no erosions or degenerative change identified. Alignment is within normal limits. Mineralization is normal. Procedure Note 06/25/2012 HAND 2 VIEWS bilateral Jun 25, 2012 11:29:00 AM Signs and Symptoms/Comments: 719.49-Pain in joint, multiple [id number]; Joint pain at PIP joints Findings: AP and ball catcher's view of each hand demonstrate preserved joint spaces with no erosions or degenerative change identified. Alignment is within normal limits. Mineralization is normal. Ronal Barron MD IMG DIAGNOSTIC IMAGING ORDERABLES * CERVICAL SPINE 2-3 VIEWS (06/25/2012 11:29 EST) Anatomical Region Laterality Modality Other 06/25/2012 11:2 9 EST 06/25/2012 12:47 EST Narrative 06/25/2012 12:47 EST THREE-VIEW CERVICAL SPINE Clinical Indication: Neck pain. Technique: Frontal, lateral and open mouth odontoid views of the cervical spine are provided for review. On the lateral projection there is straightening of the cervical curve. Slight anterolisthesis C3 over C4, C4 over C5, C6 over C7 and very slightly C2 over C3. Mild retrolisthesis C5 over C6 and C6 over C7. No prevertebral soft tissue swelling. The predental space is not widened. Prominent disc space narrowing is present at C5/6 and to a slightly lesser degree C6/7. Facet joint degeneration/hypertrophy is seen and most severe on the left at C3/4 and on the right at C4/5. Vertebral endplate spurring is seen and most prominent anteriorly at C5/6 and to lesser degree C6/7 and C4/5. Open-mouth odontoid view is unremarkable however the odontoid tip is not visualized on this view. Lung apices as visualized are grossly clear. Impression: Multilevel degenerative changes with mild multilevel malalignment as described above. Please see above for details Procedure Note 06/25/2012 THREE-VIEW CERVICAL SPINE Clinical Indication: Neck pain. Technique: Frontal, lateral and open mouth odontoid views of the cervical spine are provided for review. On the lateral projection there is straightening of the cervical curve. Slight anterolisthesis C3 over C4, C4 over C5, C6 over C7 and very slightly C2 over C3. Mild retrolisthesis C5 over C6 and C6 over C7. No prevertebral soft tissue swelling. The predental space is not widened. Prominent disc space narrowing is present at C5/6 and to a slightly lesser degree C6/7. Facet joint degeneration/hypertrophy is seen and most severe on the left at C3/4 and on the right at C4/5. Vertebral endplate spurring is seen and most prominent anteriorly at C5/6 and to lesser degree C6/7 and C4/5. Open-mouth odontoid view is unremarkable however the odontoid tip is not visualized on this view. Lung apices as visualized are grossly clear. Impression: Multilevel degenerative changes with mild multilevel malalignment as described above. Please see above for details Ronal Barron MD IMG DIAGNOSTIC IMAGING ORDERABLES documented in this encounter Visit Diagnoses Diagnosis Neck pain- Primary Cervicalgia Buttock pain Mylagia and myositis, unspecified Pain in joint, multiple sites documented in this encounter Care Teams Threat Monitoring Analyst Relationship Specialty Start Date End Date Evelyn Arana MD PCP - General 02/27/12 08/26/13 documented as of this encounter
--- OUTSIDE RECORDS SUMMARY | 2023-12-07 00:50 | XMS_ITS | Encounter Summary ---
Author Organization [facility] Address [address] [place] [address] Care Team Providers Care Seed Cutter Name Role Phone None, Provider Primary Care Provider Unavailabl e Reason for Visit * Reason Comments Cardiac Testing Encounter Details Date Type Department Care Team (Late st Contact Info) Description 09/18/2013 10:30 EDT Procedure visit [facility] Cardiology - [address] [place], [place] [id number] Johanna Cote, SAND CUTTER [address] [place] [address] Dejuan Jorgensen Social History Tobacco Use Types Packs/Day Years [...] as of this encounter Discharge Diagnoses Diagnosis 786.50 CHEST PAIN NOS[ICD-9-CM] documented in this encounter Plan of Treatment Upcoming Encounters Date Type Department Care Team (Late st Contact Info) Description 12/10/2023 11:00 EDT Appointment [facility] Radiology CT Outpatient - [address] [id number] 12/11/2023 13:45 EDT Initial consult [facility] Gynecologic Oncology - [address] [phone] Ashlee Garcia MD 111 [facility], [address] [place] [phone] documented as of this encounter Procedures Procedure Name Priority Date/Time Associated Diagnosis Comments STRESS TEST - SCANNED 09/23/2013 10:53 EDT documented in this encounter Results * STRESS TEST - SCANNED (09/23/2013 10:53 EDT) Anatomical Region Laterality Modality Other 09/23/2013 10:5 3 EDT Scan 2 Service Writer IMG OTHER IMAGING O RDERABLES documented in this encounter Visit Diagnoses Not on filedocumented in this encounter Care Teams Seed Cutter Relationship Specialty Start Date End Date None, Provider PCP - General 08/27/13 08/03/15 documented as of this encounter
--- OUTSIDE RECORDS SUMMARY | 2023-12-07 00:50 | XMS_ITS | Encounter Summary ---
Author Organization [facility] Address [address] [place] [address] Care Team Providers Care Loader Machine Name Role Phone None, Provider Primary Care Provider Unavailabl e Encounter Details Date Type Department Care Team (Latest Contact Info) Description 05/20/2015 20:57 EST - 05/20/2015 20:58 EST Hospital Encounter [facility] - [address] [address] Melissa Khan MD [address] [place] [phone] Discharge Disposition: Home or Self Care Social [...] as of this encounter Discharge Diagnoses Diagnosis M06.9 Rheumatoid arthritis, unspecified-M06.9[ICD-10-CM] documented in this encounter Medications at Time [...] Description 12/10/2023 11:00 EDT Appointment [facility] Radiology CT Outpatient - [address] [id number] 12/11/2023 13:45 EDT Initial consult [facility] Gynecologic Oncology - [address] [address] Ashlee Garcia MD [address] [place] [address], [address] [place] [phone] documented as of this encounter Visit Diagnoses Not on filedocumented in this encounter Care Teams Loader Machine Relationship Specialty Start Date End Date None, Provider PCP - General 08/27/13 08/03/15 documented as of this encounter
--- OUTSIDE RECORDS SUMMARY | 2023-12-07 00:50 | XMS_ITS | Encounter Summary ---
Author Organization [facility] Address [address] [place] [address] Care Team Providers Care Staff Midwife/Apprenticeship Director Name Role Phone None, Provider Primary Care Provider Unavailabl e Encounter Details Date Type Department Care Team (Late Contact Info) Description 11/12/2014 Orders Only [facility] Neurophysiology - [address] [address] Saida Walker, RN [address] [place] [address] Bilateral carpal tunnel syndrome (Primary Dx) Social History Tobacco Use Types [...] Contact Info) Description 12/10/2023 11:00 EDT Appointment [facility] Radiology CT Outpatient - [address] [address] 12/11/2023 13:45 EDT Initial consult [facility] Gynecologic Oncology - [address] [phone] Ashlee Garcia MD 111 [facility], [address] [place] [phone] documented as of this encounter Visit Diagnoses Diagnosis Bilateral carpal tunnel syndrome- Primary Carpal tunnel syndrome documented in this encounter Orders General Supply Count Last Ordered Date First Or dered Date WRIST BRACE 1 11/12/2014 documented in this encounter Care Teams Staff Midwife/Apprenticeship Director Relationship Specialty Start Date End Date None, Provider PCP - General 08/27/13 08/03/15 documented as of this encounter
--- OUTSIDE RECORDS SUMMARY | 2023-12-07 00:50 | XMS_ITS | Encounter Summary ---
Author Organization [facility] Address [address] [place] [address] Care Team Providers Care Film Historian Name Role Phone Melissa Khan MD Primary Care Provider [phone] Encounter Details Date Type Department Care Team (Late st Contact Info) Description 08/05/2015 Results Only [facility] Rheumatology & Immunology - [facility] [address] [place] [address] Moody Manning MD [address] [phone] Social History Tobacco Use Types Packs/Day Years [...] Contact Info) Description 12/10/2023 11:00 EDT Appointment [facility] Radiology CT Outpatient - [facility] [address] [place], [place] [phone] 12/11/2023 13:45 EDT Initial consult [facility] Gynecologic Oncology - [address] [address] Ashlee Garcia MD 111 [facility], [address] [place] [address] documented as of this encounter Procedures Procedure Name Priority Date/Time Associated Diagnosis Comments URINE MICROSCOPIC Routine 08/05/2015 10: 24 EDT documented in this encounter Results * (ABNORMAL) URINE MICROSCOPIC (08/05/2015 10:24 EDT) WBC, UA 1 to 5 0 - 5 /HPF 08/05/2015 11:23 EDT [facility] RBC, UA None seen 0 - 5 /HPF 08/05/2015 11:23 EDT [facility] Squam Epithel, UA Few(A) None seen /HPF 08/05/2015 11:23 EDT [facility] Renal Epithel, UA None seen None seen /HPF 08/05/2015 11:23 EDT [facility] Bacteria, UA None seen None seen /HPF 08/05/2015 11:23 T [facility] Crystals, UA None seen /HPF 08/05/2015 11:23 T [facility] Hyaline Casts, UA None seen /LPF 08/05/2015 11:23 EDT [facility] UA Comment Microscopic results 08/05/2015 11:23 T [facility] Comment: are unreliable on urines unrefrig >2hrs or refrig >8hrs. Mucus, UA Present 08/05/2015 11:23 EDT [facility] URINE / Unknown 08/05/2015 1 0:24 EDT 08/05/2015 10:48 EDT Moody Manning MD URINALYSIS ORDERABLE S [facility] [address] [place] [address] documented in this encounter Visit Diagnoses Not on filedocumented in this encounter Care Teams Film Historian Relationship Specialty Start Date End Date Melissa Khan MD [address] [place] [phone] PCP - General 08/04/15 documented as of this encounter
--- OUTSIDE RECORDS SUMMARY | 2023-12-07 00:51 | XMS_ITS | Encounter Summary ---
Author Organization [facility] Address [address] [place] [address] Care Team Providers Care Log Chipper Name Role Phone Unavailable Primary Care Provider Unavailabl e Encounter Details Date Type Department Care Team (Latest Contact Info) Description 09/24/2002 9:00 EDT - 09/24/2002 11:59 EDT Hospital Encounter [facility] - Other [address] [place] [address] Prabhjot Hurtado MD Discharge Disposition: Auto Discharge Social History Tobacco Use Types Packs/Day Years Used Date Smoking Tobacco: Never Assessed Sex and Gender Information Value Date Recorded Sex Assigned at Not on file Gender Identity Female 02/10/2020 14:46 EDT Sexual Orientation Not on file documented as of this encounter Discharge Disposition Disposition Code Departure Means Destination Auto Discharge documented in this encounter Plan of Treatment Upcoming Encounters Date Type Department Care Team (Late st Contact Info) Description 12/10/2023 11:00 EDT [facility]ment [facility] Rad[facility] Outpatient - [address] [id number] 12/11/2023 13:45 EDT Initial consult [facility] Gynecologic Oncology - [facility] [address] [place] [address] Ashlee Garcia MD [address] [facility], [address] [place] [phone] documented as of this encounter Procedures Procedure Name Priority Date/Time Associated Diagnosis Comments RAD US BREAST UNILATERAL OR BILATERAL Routine 09/24/2002 15:39 EDT RENETTA DAVILA UNI DIGITAL Routine 09/24/2002 14:17 EDT documented in this encounter Results * RAD US BREAST UNILATERAL OR BILATERAL (09/24/2002 15:39 EDT) Anatomical Region Laterality Modality Other 09/24/2002 15:3 9 EDT Narrative 01/12/2009 3:41 EDT U/S LEFT BREAST ??PRIOR DIGITAL TWO ASY DENS LEFT BREAST MAMMOGRAPHIC DIGITAL ADDED VIEWS AND LEFT BREAST ULTRASOUND, 09/24/02 Standard mammographic views on 09/05/02 demonstated asymmetry in two locations on the MLO view, one in the upper breast and one in the lower breast, and in the medial left breast. Spot compression views are requested. LEFT BREAST: Spot compression digital views and ultrasound. The left breast is heterogeneously dense and this limits mammographic sensitivity. The spot compression views in the ML, MLO, and 5-degree CC projections demonstrate compression of the noted three areas of asymmetric density. No suspicious masses persist and no areas of distortion are noted. Ultrasound evaluation of the left breast demonstrates multiple findings. Several simple cysts are seen scattered throughout the left breast. In addition, there are regions that suggest some prominence of ducts, potentially with debris within them. The largest finding noted is located at 3 o'clock, 2.5 cm from the nipple. This is hypoechoic and oval with enhanced posterior transmission. This measures 12 x 8 x 3 mm. No suspicious nodes are seen within the axilla. IMPRESSION LEFT BREAST: CATEGORY 3 The left breast asymmetries are demonstrated to be compressible on the added views. The breast tissue is heterogeneously dense, and limits mammographic sensitivity. Ultrasound demonstrates multiple simple cysts which are not defined on the mammogram due to the density of the tissue. In addition, at 3 o'clock, 2.5 cm from the nipple, there is a hypoechoic area which is most likely a complex cyst though a solid lesion cannot be entirely excluded. This has a benign appearance with a circumscribed margin and it is longer than it is tall. Six month follow-up mammogram and ultrasound is requested for further evaluation of this region. Of note, the 3 o'clock area is not definitely identified on the mammogram, even on the added views. Of note, the patient reports that she has recently stopped breast feeding and it is possible the prominet ducts are related to this. This was discussed with the patient at the time of the examination. OVERALL ASSESSMENT - PROBABLY BENIGN /[facility] Procedure Note Melanie Alvarado MD - 01/12/2009 U/S LEFT BREAST PRIOR DIGITAL TWO ASY DENS LEFT BREAST MAMMOGRAPHIC DIGITAL ADDED VIEWS AND LEFT BREAST ULTRASOUND, 09/24/02 Standard mammographic views on 09/05/02 demonstated asymmetry in two locations on the MLO view, one in the upper breast and one in the lower breast, and in the medial left breast. Spot compression views are requested. LEFT BREAST: Spot compression digital views and ultrasound. The left breast is heterogeneously dense and this limits mammographic sensitivity. The spot compression views in the ML, MLO, and 5-degree CC projections demonstrate compression of the noted three areas of asymmetric density. No suspicious masses persist and no areas of distortion are noted. Ultrasound evaluation of the left breast demonstrates multiple findings. Several simple cysts are seen scattered throughout the left breast. In addition, there are regions that suggest some prominence of ducts, potentially with debris within them. The largest finding noted is located at 3 o'clock, 2.5 cm from the nipple. This is hypoechoic and oval with enhanced posterior transmission. This measures 12 x 8 x 3 mm. No suspicious nodes are seen within the axilla. IMPRESSION LEFT BREAST: CATEGORY 3 The left breast asymmetries are demonstrated to be compressible on the added views. The breast tissue is heterogeneously dense, and limits mammographic sensitivity. Ultrasound demonstrates multiple simple cysts which are not defined on the mammogram due to the density of the tissue. In addition, at 3 o'clock, 2.5 cm from the nipple, there is a hypoechoic area which is most likely a complex cyst though a solid lesion cannot be entirely excluded. This has a benign appearance with a circumscribed margin and it is longer than it is tall. Six month follow-up mammogram and ultrasound is requested for further evaluation of this region. Of note, the 3 o'clock area is not definitely identified on the mammogram, even on the added views. Of note, the patient reports that she has recently stopped breast feeding and it is possible the prominet ducts are related to this. This was discussed with the patient at the time of the examination. OVERALL ASSESSMENT - PROBABLY BENIGN /[facility] Prabhjot Hurtado MD IMG US ORDERABLES * MA LIBERTY DIAG UNI DIGITAL (09/24/2002 14:17 EDT) Anatomical Region Laterality Modality Other 09/24/2002 14:1 7 EDT Narrative 01/12/2009 3:41 EDT AV LEFT BREAST AND U/S LEFT BREAST ??PRIOR DIGITAL TWO ASY DENS U/S SCHED FOR 10/13/02 Procedure Note Melanie Alvarado MD - 01/12/2009 AV LEFT BREAST AND U/S LEFT BREAST PRIOR DIGITAL TWO ASY DENS U/S SCHED FOR 10/13/02 Prabhjot Hurtado MD IMG MAMMOGRAPHY O RDERABLES documented in this encounter Visit Diagnoses Not on filedocumented in this encounter
--- OUTSIDE RECORDS SUMMARY | 2023-12-07 00:51 | XMS_ITS | Encounter Summary ---
Author Organization [facility] Address [address] [place] [address] Care Team Providers Care Eviction Specialist Name Role Phone Unavailable Primary Care Provider Unavailabl e Encounter Details Date Type Department Care Team (Latest Contact Info) Description 09/06/2005 2:10 EDT - 09/06/2005 11:59 EDT Hospital Encounter [facility] General Surgery Unit [address] [place] [address] Bill Longo MD [address] [place] [address] Discharge Disposition: Home or Self Care Social History Tobacco Use Types Packs/Day Years Used Date Smoking Tobacco: Never Assessed Sex and Gender Information Value Date Recorded Sex Assigned at Not on file Gender Identity Female 02/10/2020 14:46 EDT Sexual Orientation Not on file documented as of this encounter Discharge Disposition Disposition Code Departure Means Destination Home or Self Care documented in this encounter OR Notes * OR Surgeon - Bill Longo MD - 09/05/2005 0000 EDT PROCEDURE REPORT PT TYPE: IP PT LOC: [id number] SERVICE DATE: 09/05/2005 SURGEON: Joshua Ochoa MDRobert D Nesbit, MD ONCOLOGY RADIATION PHYSICIAN: Brandon Torres MD PREOPERATIVE DIAGNOSIS: Abdominal lipodystrophy POSTOPERATIVE DIAGNOSIS: Abdominal lipodystrophy PROCEDURE: Abdominoplasty ANESTHESIA: INDICATIONS: Agueda is a delightful lady who desires cosmetic repair of 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 The risks and benefits of the procedure were explained. Signed informed office consent is on file on the office chart and informed hospital consent is on the hospital chart. NARRATIVE: The patient was taken to the operative suite and placed supine on the operating room table after having been marked in the standing position in preoperative holding. She was then prepped and draped in the standard sterile manner. The preoperative markings were darkened. A staple was placed at midline. Theumbilicus was elevated on skin hooks and excised. The suprapubic curvilinear incision was then sharply made and dissection was carried down to the abdominal wall using Bovie electrocautery. Abdominal flap was then elevated along this plane up to the levelof the xiphoid. Once this was complete, the abdominal wall was plicated both centrally and with oblique plications as well using horizontal mattress Ethibond sutures. Once this was complete, a running 0 PDS was used to bury thecentral rectus diastasis repair. The abdominal flap was then split to the level of the umbilicus. The abdominal flap was then marked and divided sharply. The skin was then temporarily inset. Small dog ears on either end were worked out. The tissue was closed in two layers. Prior to closure, two 15 Madhav drains were placed through the suprapubic area and sewn in. The umbilicus was developed using inferiorly based flap and re-inset. Prior to final closure, the abdominal wall and abdominal flap had been thoroughly irrigated and inspectedfor hemostasis using sparing Bovie electrocautery to control any bleeding sites. The incisions were dressed with Mastisol and 1-inch paper tape. The umbilicus was dressed with Xeroform and a cotton ball. The patient was placed in an abdominal binder, awakened, extubated and transferred to the recovery room in stable condition. Signed by Bill Longo MD 09/28/2005 17:26 Joshua Ochoa MD Bill Longo MD - Bill Longo MD P - jaw Job ID: [id number] Document ID: [id number] cc: MD Bill Stallings MD Doctor Unknown, MD documented in this encounter Plan of Treatment Upcoming Encounters Date Type Department Care Team (Late st Contact Info) Description 12/10/2023 11:00 EDT Appointment [facility] Radiology CT Outpatient - [facility] [address] [place], [place] [id number] 12/11/2023 13:45 EDT Initial consult [facility] Gynecologic Oncology - [facility] [address] [place], [place] [address] Ashlee Garcia MD 111 [facility], [address] [place] [address] documented as of this encounter Procedures Procedure Name Priority Date/Time Associated Diagnosis Comments GLUCOSE, GLUCOMETER Routine 09/06/2005 5 :56 EDT documented in this encounter Results * (ABNORMAL) GLUCOSE, GLUCOMETER (09/06/2005 5:56 EDT) Glucose, Fingerstick 179(H) 70 - 110 mg/dl [facility] Night Nurse ID [id number] Test Performed by Nursing Services [facility] 09/06/2005 5:56 EDT 09/07/2005 6:07 EDT Bill Longo MD FACS CHEMISTRY & BLOOD GAS ORDERABLES [facility] [address] [place] [address] documented in this encounter Visit Diagnoses Not on filedocumented in this encounter
--- OUTSIDE RECORDS SUMMARY | 2023-12-07 00:51 | XMS_ITS | Encounter Summary ---
Author Organization [facility] Address [address] [place] [address] Care Team Providers Care Counter Waitress/Waiter Name Role Phone Unavailable Primary Care Provider Unavailabl e Encounter Details Date Type Department Care Team (Late st Contact Info) Description 04/27/2003 12:39 EST Hospital Encounter [facility] - Other [address] [place] [address] Prabhjot Hurtado MD Social History Tobacco Use Types Packs/Day [...] 11:37 EST documented as of this encounter Plan of Treatment Upcoming Encounters Date Type Department Care Team (Late st Contact Info) Description 12/10/2023 11:00 EDT Appointment [facility] Radiology CT Outpatient - [address] [id number] 12/11/2023 13:45 EDT Initial consult [facility] Gynecologic Oncology - [address] [address] Ashlee Garcia MD 111 [facility], [address] [place] [address] documented as of this encounter Visit Diagnoses Not on filedocumented in this encounter
--- OUTSIDE RECORDS SUMMARY | 2023-12-07 00:51 | XMS_ITS | Encounter Summary ---
Author Organization [facility] Address [address] [place] [address] Care Team Providers Care Cut Out Machine Operator Name Role Phone Evelyn Arana MD Primary Care Provider Unavailabl e Encounter Details Date Type Department Care Team (Latest Contact Info) Description 02/28/2012 9:43 EDT - 02/28/2012 23:59 EDT Hospital Encounter [facility] - [address] [address] Evelyn Arana MD Discharge Disposition: Home or [...] Chloride (SIMPLY SALINE) 0.9 % SprA 1 [place] by Nasal route 4 times daily. 1 Bottle 05/10/2010 06/10/2012 documented as of this encounter Discharge Disposition Disposition Code Departure Means Destination Home or Self Residential documented in this encounter Plan of Treatment Upcoming Encounters Date Type Department Care Team (Late st Contact Info) Description 12/10/2023 11:00 EDT Appointment [facility] Radiology CT Outpatient - [address] [id number] 12/11/2023 13:45 EDT Initial consult [facility] Gynecologic Oncology - [address] [address] Ashlee Garcia MD [address] [place] [address], [address] [place] [phone] documented as of this encounter Procedures Procedure Name Priority Date/Time Associated Diagnosis Comments MA MAMMO DIAG DIGITAL UNI ADDED VIEWS JF 02/28/2012 11:00 EDT documented in this encounter Results * MA MAMMO DIAG DIGITAL UNI ADDED VIEWS JF (02/28/2012 11:00 EDT) Anatomical Region Laterality Modality Other 02/28/2012 11:0 0 EDT 02/28/2012 11:58 EDT Narrative 02/28/2012 11:58 EDT MA MAMMO SCREENING DIGITAL ?? ADDITIONAL VIEWS TOMOSYNTHESIS Feb 28, 2012 10:16:00 AM Signs and Symptoms/Comments: ??Bilateral screening mammogram. Comparison: Prior mammograms dated 04/12/2006, 04/05/2006, 05/19/2003, 09/24/2002, 09/05/2002 Findings: Left breast: Standard CC and MLO views were obtained. The breast is heterogeneously dense (51 to 75% fibroglandular). ?? This may lower the sensitivity of mammography. No mass, suspicious calcification or other abnormality is identified. Right breast: Standard CC and MLO views of the right breast with additional 2-D and 3-D tomosynthesis in CC and MLO projections were obtained. The breast is heterogeneously dense (51 to 75% fibroglandular). This may lower the sensitivity of mammography. The initial screening mammogram showed a focal asymmetry in the upper outer quadrant and a small asymmetry in the medial breast. These abnormalities did not persist on tomosynthesis images, but instead represented superimposition of normal fibroglandular tissue. No persistent mass is identified. Impression left breast: BI-RADS category 1, negative. Impression right breast: BI-RADS category 1, negative. Recommendation: Continue annual screening mammography. The patient's next mammogram will be due February 2013. Overall assessment: Negative. The patient will be notified of her/his breast imaging results via a lay letter from Radiology. Radiology will contact the patient directly regarding any findings which require additional imaging (Category 0) at this time. The results of the imaging studies were discussed with the patient by the the learning technologist. I have personally reviewed the images and the above interpretation and agree with the findings. Procedure Note Niya Shipman MD - 02/28/2012 MA MAMMO SCREENING DIGITAL ADDITIONAL VIEWS TOMOSYNTHESIS Feb 28, 2012 10:16:00 AM Signs and Symptoms/Comments: Bilateral screening mammogram. Comparison: Prior mammograms dated 04/12/2006, 04/05/2006, 05/19/2003, 09/24/2002, 09/05/2002 Findings: Left breast: Standard CC and MLO views were obtained. The breast is heterogeneously dense (51 to 75% fibroglandular). This may lower the sensitivity of mammography. No mass, suspicious calcification or other abnormality is identified. Right breast: Standard CC and MLO views of the right breast with additional 2-D and 3-D tomosynthesis in CC and MLO projections were obtained. The breast is heterogeneously dense (51 to 75% fibroglandular). This may lower the sensitivity of mammography. The initial screening mammogram showed a focal asymmetry in the upper outer quadrant and a small asymmetry in the medial breast. These abnormalities did not persist on tomosynthesis images, but instead represented superimposition of normal fibroglandular tissue. No persistent mass is identified. Impression left breast: BI-RADS category 1, negative. Impression right breast: BI-RADS category 1, negative. Recommendation: Continue annual screening mammography. The patient's next mammogram will be due February 2013. Overall assessment: Negative. The patient will be notified of her/his breast imaging results via a lay letter from Radiology. Radiology will contact the patient directly regarding any findings which require additional imaging (Category 0) at this time. The results of the imaging studies were discussed with the patient by the the learning technologist. I have personally reviewed the images and the above interpretation and agree with the findings. Bill Mckoy MD IMG MAMMOGRAPHY ORDERABLES documented in this encounter Visit Diagnoses Not on filedocumented in this encounter Care Teams Cut Out Machine Operator Relationship Specialty Start Date End Date Evelyn Arana MD PCP - General 02/27/12 08/26/13 documented as of this encounter
--- OUTSIDE RECORDS SUMMARY | 2023-12-07 00:51 | XMS_ITS | Encounter Summary ---
Author Organization [facility] Address [address] [place] [address] Care Team Providers Care Receiving Manager Name Role Phone Unavailable Primary Care Provider Unavailabl e Encounter Details Date Type Department Care Team (Late st Contact Info) Description 10/23/2005 Before PRISM Converted Visit (Maple) [facility] - Maple conversion [address] [place] [address] Bill Longo MD [address] [place] [address] Social History Tobacco Use Types Packs/Day Years Used Date Smoking Tobacco: Never Assessed Sex and Gender Information Value Date Recorded Sex Assigned at Not on file Gender Identity Female 02/10/2020 14:46 EDT Sexual Orientation Not on file documented as of this encounter Progress Notes * Bill Longo MD - 04/23/2009 0950 EST DIVISION OF PLASTIC RECONSTRUCTIVE SURGERY PROGRESS/FOLLOWUP NOTE - 10/23/2005 Agueda follows up after her 09/05/2005 abdominoplasty with significant abdominal wall plication. She is very pleased with the result. Her incision line looks good. Her umbilicus is healing nicely. She has a nicely flattened stomach. We did discuss her breasts which she is interested in having done. I explained what type of scarring mastopexy would have and that for upper pole fullness she actually needs implant placement for complete correction that mastopexy alone cannot provide. This curbed her enthusiasm. She will follow up at three months from the time of surgery. Signed by Bill Longo MD 11/08/2005 10:26 Brennon Longo, MDRobert Jordana Longo MD Bill Longo MD D: - Bill Longo MD T: 1:08 P - chr Job ID: Document ID: [id number] cc: documented in this encounter Plan of Treatment Upcoming Encounters Date Type Department Care Team (Late st Contact Info) Description 12/10/2023 11:00 EDT Appointment [facility] Radiology CT Outpatient - [address] [address] 12/11/2023 13:45 EDT Initial consult [facility] Gynecologic Oncology - [address] [phone] Ashlee Garcia MD [address] [place] [address], [address] [place] [address] documented as of this encounter Visit Diagnoses Not on filedocumented in this encounter
--- OUTSIDE RECORDS SUMMARY | 2023-12-07 00:51 | XMS_ITS | Encounter Summary ---
Author Organization [facility] Address [address] [place] [address] Care Team Providers Care Professor Of Geology Name Role Phone Unavailable Primary Care Provider Unavailabl e Encounter Details Date Type Department Care Team (Late st Contact Info) Description 05/07/2002 13:19 EST Hospital Encounter [facility] - Other [address] [place] [phone] Lottie Courtney MD Unknown, Provider, Social History Tobacco Use Types [...] Contact Info) Description 12/10/2023 11:00 EDT Appointment [facility] Radiology CT Outpatient - [facility] [place] [address] [place], [place] [address] 12/11/2023 13:45 EDT Initial consult [facility] Gynecologic Oncology - [address] [address] Ashlee Garcia MD [address] [facility], [address] [place] [address] documented as of this encounter Procedures Procedure Name Priority Date/Time Associated Diagnosis Comments CYTOPATHOLOGY Routine 05/07/2002 0:00 EST documented in this encounter Results * CYTOPATHOLOGY (05/07/2002 0:00 EST) Pathology Report: CYTOPATHOLOGY REPORT Reports generated via electronic interface contain original data; however they are lacking the format of the original report. Caution should be taken when reading/interpreti ng unformatted reports. Name: ? FRANCIE JACOBS ? Accession #: ? [id number] : ? 1960 (Age: 42) ??F ?Collect Date: ? 05/07/2002 Location: ? [facility] ? Receive Date: ? 05/08/2002 Provider: ?LOTTIE COURTNEY MD Copy to: ?JENNIFER MACIAS MD ? Specimen/Source: ?ThinPrep Pap Test, Cervix/Endocervix Last Menstrual Period: ? 04/30/02 Hormonal/Contracep tive Status: ? Intrauterine device Other: ? DHPV - HPV testing requested if ASCUS/CAT on the current ThinPrep Pap test. ? SPECIMEN ADEQUACY ? Satisfactory for Evaluation - transformation zone component present GENERAL CATEGORIZATION ? Negative for Intraepithelial Lesion or Malignancy INTERPRETATION ? Fungal organisms present morphologically consistent with Kari species. ? Document reviewed and electronically signed by: ? HANK Grady(ASCP) ? Report Date: ??05/09/2002 13:12 End of Report [facility] 05/07/2002 05/08/2002 Lottie Courtney MD PATHOLOGY ORDERAB LES [facility] [address] [place] [address] documented in this encounter Visit Diagnoses Not on filedocumented in this encounter
--- OUTSIDE RECORDS SUMMARY | 2023-12-07 00:51 | XMS_ITS | Encounter Summary ---
Author Organization [facility] Address [address] [place] [address] Care Team Providers Care Physician Relations Representative Name Role Phone Unavailable Primary Care Provider Unavailabl e Encounter Details Date Type Department Care Team (Late Contact Info) Description 09/11/2005 8:49 EDT Hospital Encounter [facility] - Other [address] [place], [place] [address] Bill Longo MD [address] [place] [address] Social History Tobacco Use Types [...] [facility] [place] [address] [place], [place] [phone] 12/11/2023 13:45 EDT Initial consult [facility] Gynecologic Oncology - [address] [address] Ashlee Garcia MD [address] [place] [address], [address] [place] [address] documented as of this encounter Visit Diagnoses Not on filedocumented in this encounter
--- OUTSIDE RECORDS SUMMARY | 2023-12-07 00:51 | XMS_ITS | Encounter Summary ---
Author Organization [facility] Address [address] [place] [address] Care Team Providers Care Self Pay Representative Name Role Phone Unavailable Primary Care Provider Unavailabl e Encounter Details Date Type Department Care Team (Latest Contact Info) Description 04/12/2006 9:32 EST - 04/12/2006 11:59 EST Hospital Encounter [address] [address] Evelyn Arana MD Discharge Disposition: Auto Discharge Social History [...] [facility] Radiology CT Outpatient - [address] [address] 12/11/2023 13:45 EDT Initial consult [facility] Gynecologic Oncology - [address] [address] Ashlee Garcia MD [address] [place] [address], [address] [place] [phone] documented as of this encounter Procedures Procedure Name Priority Date/Time Associated Diagnosis Comments RENETTA KOENIG DIAG DIGITAL UNILATERAL ADDED VIEWS 04/12/2006 9:55 EST documented in this encounter Results * RENETTA DAVILA DIGITAL UNILATERAL ADDED VIEWS (04/12/2006 9:55 EST) Anatomical Region Laterality Modality Other 04/12/2006 9:55 EST Narrative 11/07/2008 3:45 EDT RIGHT AV RIGHT BREAST DIGITAL ADDITIONAL MAMMOGRAPHIC VIEWS AND RIGHT BREAST DIAGNOSTIC ULTRASOUND, 04/12/1006 COMPARISON STUDIES: Mammogram of 04/05/2006 and prior comparison studies from 2003 and 2002. CLINICAL HISTORY: The recent screening study demonstrated a focal asymmetry in the central right breast. FINDINGS: Focal compression magnification views were obtained in CC and ML projections. ??The breast tissue is heterogeneously dense, limiting interpretation. ??There are two relatively discrete nodules or round masses with somewhat obscured margins noted on the additional views, one more anteriorly and is slightly larger, one more posteriorly. These are better seen on the CC than on the ML magnification views. There are no additional findings of concern. Because of these findings, ultrasound evaluation was requested. Sonography demonstrates two adjacent simple cysts at 12 o'clock, .5 to 1 cm out from the nipple. ??The smaller one anteriorly measures 6 mm in diameter and the larger one more posteriorly measures 13 mm in diameter. ??These are not viewed with concern and there are no solid or suspicious masses identified. IMPRESSION RIGHT BREAST: Benign cysts. ??BI-RADS Category 2. ??Annual screening mammography recommended. The results and recommendations were discussed with the patient by the chart clerk at the time of the examination. OVERALL ASSESSMENT - BENIGN FINDING. D: ??04/12/2006 T: ??04/12/2006 /[facility]. Procedure Note Dayanna [place] MD - 11/07/2008 RIGHT AV RIGHT BREAST DIGITAL ADDITIONAL MAMMOGRAPHIC VIEWS AND RIGHT BREAST DIAGNOSTIC ULTRASOUND, 04/12/1006 COMPARISON STUDIES: Mammogram of 04/05/2006 and prior comparison studies from 2003 and 2002. CLINICAL HISTORY: The recent screening study demonstrated a focal asymmetry in the central right breast. FINDINGS: Focal compression magnification views were obtained in CC and ML projections. The breast tissue is heterogeneously dense, limiting interpretation. There are two relatively discrete nodules or round masses with somewhat obscured margins noted on the additional views, one more anteriorly and is slightly larger, one more posteriorly. These are better seen on the CC than on the ML magnification views. There are no additional findings of concern. Because of these findings, ultrasound evaluation was requested. Sonography demonstrates two adjacent simple cysts at 12 o'clock, .5 to 1 cm out from the nipple. The smaller one anteriorly measures 6 mm in diameter and the larger one more posteriorly measures 13 mm in diameter. These are not viewed with concern and there are no solid or suspicious masses identified. IMPRESSION RIGHT BREAST: Benign cysts. BI-RADS Category 2. Annual screening mammography recommended. The results and recommendations were discussed with the patient by the chart clerk at the time of the examination. OVERALL ASSESSMENT - BENIGN FINDING. /[facility]. Evelyn Arana MD IMG MAMMOGRAPHY ANGELLA SARKAR documented in this encounter Visit Diagnoses Not on filedocumented in this encounter
--- OUTSIDE RECORDS SUMMARY | 2023-12-07 00:51 | XMS_ITS | Encounter Summary ---
Author Organization [facility] Address [address] [place] [address] Care Team Providers Care Electorate Officer Name Role Phone Unavailable Primary Care Provider Unavailabl e Encounter Details Date Type Department Care Team (Late st Contact Info) Description 07/13/2000 6:30 EST - 07/13/2000 11:59 EST Hospital Encounter [facility] - [address] [address] Andres Meyers MD [address] [place] [phone] Discharge Disposition: Auto Discharge Social History Tobacco [...] Description 12/10/2023 11:00 EDT Appointment [facility] Radiology CT Outpatient - [address] [address] 12/11/2023 13:45 EDT Initial consult [facility] Gynecologic Oncology - [address] [address] Ashlee Garcia MD [address] [facility], [facility], [address] 4 [phone] documented as of this encounter Visit Diagnoses Not on filedocumented in this encounter
--- OUTSIDE RECORDS SUMMARY | 2023-12-07 00:51 | XMS_ITS | Encounter Summary ---
Author Organization [facility] Address [address] [place] [address] Care Team Providers Care Import/Export Administrator Name Role Phone Unavailable Primary Care Provider Unavailabl e Encounter Details Date Type Department Care Team (Late Contact Info) Description 12/08/2003 11:40 EDT Hospital Encounter [facility] - Other [address] [place] [phone] Evelyn Arana MD Social History Tobacco Use Types Packs/Day [...] Contact Info) Description 12/10/2023 11:00 EDT Appointment [facility] Radiology CT Outpatient - [address] [phone] 12/11/2023 13:45 EDT Initial consult [facility] Gynecologic Oncology - [address] [address] Ashlee Garcia MD 111 [facility], [address] [place] [phone] documented as of this encounter Visit Diagnoses Not on filedocumented in this encounter
--- OUTSIDE RECORDS SUMMARY | 2023-12-07 00:51 | XMS_ITS | Encounter Summary ---
Author Organization [facility] Address [address] [place] [address] Care Team Providers Care Slurry Control Operator Helper Name Role Phone None, Provider Primary Care Provider Unavailabl e Reason for Visit * Reason Comments Cough x 2 weeks.No longer with sore throat-none now. Thick green mucus. Feel tired. Sinus fullness. Nasal Congestion Encounter Details Date Type Department Care Team (Latest Contact Info) Description 02/22/2010 10:50 EDT - 02/22/2010 12:51 EDT Hospital Encounter [facility] - [address] [phone] Jake Pierre MD [address] [place] [phone] Bronchitis Discharge Disposition: Home or Self Care Social History Tobacco Use Types Packs/Day Years Used Date Smoking Tobacco: Former Alcohol Use Standard Drinks/Week Comments Yes 420 (1 standard drink = 0.6 oz p ure alcohol) Sex and Gender Information Value Date Recorded Sex Assigned at Not on file Gender Identity Female 02/10/2020 14:46 EDT Sexual Orientation Not on file documented as of this encounter Last Filed Vital Signs Vital Sign Reading Time Taken Comments Blood Pressure 148/98 02/22/2010 1121 EDT Pulse 56 02/22/2010 1121 EDT Temperature 36.7 ??C (98.1 ??F) 02/22/2010 1121 EDT Respiratory Rate 16 02/22/2010 1121 EDT Oxygen Saturation - - Inhaled Oxygen Concentration - - Weight - - Height - - Body Mass Index - - documented in this encounter Discharge Instructions * Discharge Instructions* Jake Pierre MD - 02/22/2010 12:42 EDT Images from the original note were not included. [facility] Patient Instructions Bronchitis in Adults: After Your Visit Your Care Instructions Bronchitis is inflammation of the bronchial tubes, which carry air to the lungs. The tubes swell and produce mucus, or phlegm. The mucus and inflamed bronchial tubes make you cough. You may have trouble breathing. Most cases of bronchitis are caused by viruses like those that cause colds. Antibiotics can help cure bronchitis that is caused by bacteria, but not bronchitis that is caused by a virus. Bronchitis usually develops rapidly and lasts about 2 to 3 weeks in otherwise healthy people. Follow-up care is a rose part of your treatment and safety. Be sure to make and go to all appointments, and call your doctor if you are having problems. It???s also a good idea to know your test results and keep a list of the medicines you take. How can you care for yourself at home? ?? Take all medicines exactly as prescribed. If your doctor prescribes antibiotics, take them as directed. Do not stop taking them just because you feel better. You need to take the full course of antibiotics. ?? Get some extra rest. ?? Take an ebjx-amx-icekrra pain medicine, such as acetaminophen (Tylenol), ibuprofen (Advil, Motrin), or naproxen (Aleve) to reduce fever and relieve body aches. Read and follow all instructions on the label. ?? Take an ihap-wno-izeooxb cough medicine that contains dextromethorphan to help quiet a dry, hacking cough so that you can sleep. Avoid cough medicines that have more than one active ingredient. Read and follow all instructions on the label. ?? Breathe moist air from a humidifier, hot shower, or sink filled with hot water. The heat and moisture will thin mucus so you can cough it out. ?? Do not smoke. Smoking can make bronchitis worse. If you need help quitting, talk to your doctor about stop-smoking programs and medicines. These can increase your chances of quitting for good. When should you call for help? Call 911 anytime you think you may need emergency care. For example, call if: ?? You have severe trouble breathing. Call your doctor now or seek immediate medical care if: ?? You have new or worsening shortness of breath. ?? You cough up blood. ?? You have new or increasing wheezing--a whistling sound when you breathe. ?? You have a cough that brings up yellow or green mucus (sputum) from the lungs and occurs along with a fever. Watch closely for changes in your health, and be sure to contact your doctor if: ?? You are not getting better after 3 to 5 days. Where can you learn more? Go to www.[employer].net/fahc Enter H333 in the search box to learn more about Bronchitis in Adults: After Your Visit. ?? 2005 - 2008 [employer]. Care instructions adapted under license by [facility], [facility] . This care instruction is for use with your licensed healthcare professional. If you have questions about a medical condition or this instruction, always ask your healthcare professional. [employer] disclaims any warranty or liability for your use of this information. * Attachments The following attachments cannot be sent through Care Everywhere. * SALINE NASAL WASHES FOR ADULTS: AFTER YOUR VISIT (URDU) * USING A METERED-DOSE INHALER: AFTER YOUR VISIT (URDU) documented in this encounter Medications at Time of Discharge Medication Sig Dispensed Refills Start Date End Date albuterol (PROVENTIL HFA, VENTOLIN HFA) 90 mcg/Actuation inhaler Inhale 2 Puffs as directed every 6 hours as needed for Wheezing (PRN Wheezing or Cough). 1 Inhaler 0 02/22/2010 05/10/2010 azithromycin (ZITHROMAX) 250 mg tablet Take 1-2 Tabs by mouth SEE ADMIN INSTRUCTIONS. Take two tablets to begin with and then one table each day for four days. 6 Tab 0 02/22/2010 05/10/2010 BUPROPION HCL (WELLBUTRIN ORAL)Indications:Doesn' t recall dose Take by mouth daily. Indications: Doesn't recall dose 02/22/2010 03/23/2020 metoprolol XL (TOPROL XL) 50 mg tablet Take 50 mg by mouth 2 times daily. 02/22/2010 06/10/2012 documented as of this encounter Ordered Prescriptions Prescription Sig Dispensed Refills Start Date End Da te albuterol (PROVENTIL HFA, VENTOLIN HFA) 90 mcg/Actuation inhaler Inhale 2 Puffs as directed every 6 hours as needed for Wheezing (PRN Wheezing or Cough). 1 Inhaler 0 02/22/2010 05/10/2010 azithromycin (ZITHROMAX) 250 mg tablet Take 1-2 Tabs by mouth SEE ADMIN INSTRUCTIONS. Take two tablets to begin with and then one table each day for four days. 6 Tab 0 02/22/2010 05/10/2010 documented in this encounter Discharge Disposition Disposition Code Departure Means Destination Home or Self Care documented in this encounter ED Notes * Jake Pierre MD - 02/22/2010 1240 EDT DOS: 02/22/2010 Chief Complaint Patient presents with ??? Cough x 2 weeks.No longer with sore throat-none now. Thick green mucus. Feel tired. Sinus fullness. ??? Nasal Congestion The patient is a 50 y.o. female who presents today with Cough and Nasal Congestion Cough Associated symptoms include rhinorrhea, sore throat and eye redness. Pertinent negatives include nochest pain, no ear pain and no shortness of breath. Myalgias: Mild. Nasal Congestion Associated symptoms include nausea, congestion, rhinorrhea, sneezing, sore throat and cough. Pertinent negatives include no chest pain, no diarrhea, no vomiting, no ear pain, no neck pain and no rash. 2 weeks, congestion, mild sinus pressure, junky cough in am, some fever, chills. She has no significant history of respiratory or other problems. 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 She's Had no rigors or sweats Cough is productive of a moderate amount of yellow sputum in the morning and scan speed them through the day. She feels over the last few days but there's been no significant improvement in this. She is specifically asking for antibiotics. Review of Systems Constitutional: Positive for activity change and fatigue. Negative for fever. HENT: Positive for congestion, sore throat, rhinorrhea, sneezing, postnasal drip and sinus pressure. Negative for ear pain, mouth sores, trouble swallowing, neck pain and neck stiffness. Eyes: Positive for redness. Negative for pain and discharge. Respiratory: Positive for cough. Negative for choking, chest tightness and shortness of breath. Cardiovascular: Negative for chest pain, palpitations and leg swelling. Gastrointestinal: Positive for nausea. Negative for vomiting and diarrhea. Genitourinary: Negative. Musculoskeletal: Negative for back pain, joint swelling and arthralgias. Myalgias: Mild. Skin: Negative. Negative for rash. Neurological: Weakness: Asthenia. No current facility-administered medications on file. Current outpatient prescriptions Medication Sig Dispense Refill ??? metoprolol XL (TOPROL XL) 50 mg tablet Take 50 mg by mouth 2 times daily. ??? BUPROPION HCL (WELLBUTRIN ORAL) Take by mouth daily. Indications: Doesn't recall dose ??? azithromycin (ZITHROMAX) 250 mg tablet Take 1-2 Tabs by mouth SEE ADMIN INSTRUCTIONS. Take two tablets to begin with and then one table each day for four days. 6 Tab 0 ??? albuterol (PROVENTIL HFA, VENTOLIN HFA) 90 mcg/Actuation inhaler Inhale 2 Puffs as directed every 6 hours as needed for Wheezing (PRN Wheezing or Cough). 1 Inhaler 0 Allergies Allergen Reactions ??? Other - See Comments Dust mites....congestion Past Medical History Diagnosis Date ??? Hypertension ??? Psychiatric problem depression/traumatic stress History Substance Use Topics ??? Tobacco Use: Quit ??? Alcohol Use: 252.0 oz/week 21 Cans of beer per week No family history on file. BP 148/98 Pulse 56 Temp(Src) 98.1 ??F (36.7 ??C) (Oral) Resp 16 Physical Exam Constitutional: She is oriented to person, place, and time. She appears well- developed and well-nourished. No distress. HENT: Head: Normocephalic and atraumatic. Right Ear: External ear normal. Left Ear: External ear normal. Nose is congested with throat is read without swelling there is no tenderness to palpation over thesinuses Eyes: Extraocular motions are normal. Pupils are equal, round, and reactive to light. No scleral icterus. Neck: Normal range of motion. Neck supple. No JVD present. No tracheal deviation present. No thyromegaly present. Cardiovascular: Normal rate. Pulmonary/Chest: Effort normal and breath sounds normal. No stridor. Wheezes: Rare expiratory wheeze only with forced expiration. Abdominal: Soft. Musculoskeletal: Normal range of motion. She exhibits no edema and no tenderness. Lymphadenopathy: She has cervical adenopathy. Neurological: She is alert and oriented to person, place, and time. Skin: Skin is warm and dry. She is not diaphoretic. Psychiatric: She has a normal mood and affect. Consult orders: None PCP: NO No results found for this visit on 02/22/10. Radiology orders: None Procedures Course: 1. Bronchitis (490H) MDM 02/23/2010 11:54 * Leona Dooley - 02/22/2010 1123 EDT Pt asked to change into a gown. documented in this encounter Miscellaneous Notes * Scanned Note-Null - Inpatient, Physician - 02/22/2010 0000 EDT documented in this encounter Plan of Treatment Upcoming Encounters Date Type Department Care Team (Late st Contact Info) Description 12/10/2023 11:00 EDT Appointment [facility] Radiology CT Outpatient - [address] [phone] 12/11/2023 13:45 EDT Initial consult [facility] Gynecologic Oncology - [address] [phone] Ashlee Garcia MD [address] [place] [address], [address] [place] [phone] documented as of this encounter Visit Diagnoses Diagnosis Bronchitis Bronchitis, not specified as acute or chronic documented in this encounter Historical Medications * This list may reflect changes made after this encounter. Medication Sig Dispensed Refills Start Date End Date BUPROPION HCL (WELLBUTRIN ORAL)Indications:Doesn't recall dose Take by mouth daily. Indications: Doesn't recall dose 02/22/2010 03/23/2020 metoprolol XL (TOPROL XL) 50 mg tablet Take 50 mg by mouth 2 times daily. 02/22/2010 06/10/2012 added in this encounter Care Teams Slurry Control Operator Helper Relationship Specialty Start Date End Date None, Provider PCP - General 02/22/10 02/26/12 documented as of this encounter
--- OUTSIDE RECORDS SUMMARY | 2023-12-07 00:51 | XMS_ITS | Encounter Summary ---
Author Organization [facility] Address [address] [place] [address] Care Team Providers Care Night Time Nanny Name Role Phone Unavailable Primary Care Provider Unavailabl e Encounter Details Date Type Department Care Team (Latest Contact Info) Description 12/26/1999 10:20 EDT - 12/26/1999 11:59 EDT Hospital Encounter [address] [address] Angelina Navas MD [address] [place] [address],[address] [phone] Discharge Disposition: Auto Discharge Social History Tobacco [...] Description 12/10/2023 11:00 EDT Appointment [facility] Radiology CT Outpatient - [address] [phone] 12/11/2023 13:45 EDT Initial consult [facility] Gynecologic Oncology - [address] [phone] Ashlee Garcia MD 111 [facility], [facility], [address] [place] [phone] documented as of this encounter Procedures Procedure Name Priority Date/Time Associated Diagnosis Comments PROGESTERONE Routine 12/26/1999 10:14 EDT QUANT BETA HCG, Routine 12/26/1999 10:14 EDT documented in this encounter Results * PROGESTERONE (12/26/1999 10:14 EDT) Progesterone 27.1 ng/ml [facility] Comment: NON- FEMALES: follicular phase: 0.2-1.4 ng/ml luteal phase: 3.3-25.6 ng/ml mid luteal phase: 4.4-28.0 ng/ml postmenopausal: <0.1-0.7 ng/ml FEMALES: first trimester: 11.2-90.0 ng/ml second trimester: 25.6-89.4 ng/ml third trimester: 48.4-422.5 ng/ml ECTOPIC PREGNANCIES: consult pathologist 12/26/1999 10:1 4 EDT 12/26/1999 10:16 EDT Angelina Navas MD CHEMISTRY & BLOOD GA S ORDERABLES Performing Organization Address [facility] de Phone Number [facility] [address] [place] [address] * HCG (12/26/1999 10:14 EDT) HCG 2686 mIU/ml [facility] Comment: <4 = Negative 4-10 = Borderline, recommend repeat. 12/26/1999 10:1 4 EDT 12/26/1999 10:16 EDT Angelina Navas MD CHEMISTRY & BLOOD GA S ORDERABLES Performing Organization Address [facility] Co de Phone Number [facility] [address] [place] [address] documented in this encounter Visit Diagnoses Not on filedocumented in this encounter
--- OUTSIDE RECORDS SUMMARY | 2023-12-07 00:51 | XMS_ITS | Encounter Summary ---
Author Organization [facility] Address [address] [place] [address] Care Team Providers Care Electronics System Mechanic Name Role Phone Unavailable Primary Care Provider Unavailabl e Encounter Details Date Type Department Care Team (Late Contact Info) Description 08/02/2000 16:46 EDT Hospital Encounter [facility] - Other [address] [place] [address] Thuan Carroll MD [address] [place] [address] [address] [place] [address] Unknown, Provider, Social History Tobacco Use Types [...] [facility] - [facility] [address] [place], [place] [address] 12/11/2023 13:45 EDT Initial consult [facility] Gynecologic Oncology - [facility] [address] [place], [place] [phone] Ashlee Garcia MD 111 [facility], Level [address] [place] [phone] documented as of this encounter Procedures Procedure Name Priority Date/Time Associated Diagnosis Comments GROUP B STREPTOCOCCUS SUSCEPTIBILITY Routine 08/02/2000 11:00 EDT documented in this encounter Results * GROUP B STREPTOCOCCUS SUSCEPTIBILITY (08/02/2000 11:00 EDT) Specimen Description Vaginal and Rectal [facility] Result Mod STREPTOCOCCUS , BETA HEMOLYTIC GROUP B (STREPTOCOCCU S AGALACTIAE) [facility] Report Status Final [id number] [facility] 08/02/2000 11:0 0 EDT 08/02/2000 18:42 EDT Thuan Carroll MD HISTORICAL LAB FOR S Q LOAD [facility] [address] [place] [address] documented in this encounter Visit Diagnoses Not on filedocumented in this encounter
--- OUTSIDE RECORDS SUMMARY | 2023-12-07 00:51 | XMS_ITS | Encounter Summary ---
Author Organization [facility] Address [address] [place] [address] Care Team Providers Care Junior Account Manager Name Role Phone Unavailable Primary Care Provider Unavailabl e Encounter Details Date Type Department Care Team (Latest Contact Info) Description 01/26/2000 18:53 EDT Hospital Encounter [facility] - Other [address] [place], [place] [address] Annie Wahl MD [address] [place] [address],[address] [phone] Unknown, Provider, Discharge Disposition: Auto Discharge Social History Tobacco [...] Description 12/10/2023 11:00 EDT Appointment [facility] Radiology CT Outpatient - [facility] [address] [place], [place] [phone] 12/11/2023 13:45 EDT Initial consult [facility] Gynecologic Oncology - [address] [phone] Ashlee Garcia MD 111 [facility], [facility], [address] 4 [place] [phone] documented as of this encounter Procedures Procedure Name Priority Date/Time Associated Diagnosis Comments BACTERIAL CULTURE, URINE Routine 01/26/2000 11:00 EDT CYTOPATHOLOGY Routine 01/26/2000 0:00 EDT documented in this encounter Results * BACTERIAL CULTURE, URINE (01/26/2000 11:00 EDT) Specimen Description Urine [facility] Result Less than 10,000 CFU/ml Gram positive organism [facility] Report Status Final [id number] [facility] 01/26/2000 11:0 0 EDT 01/26/2000 18:26 EDT Annie Wahl MD MICROBIOLOGY - GENER AL ORDERABLES Performing Organization Address City/State/[facility] Co de Phone Number [facility] [address] [place] [address] * CYTOPATHOLOGY (01/26/2000 0:00 EDT) Pathology Report: CYTOPATHOLOGY REPORT Reports generated via electronic interface contain original data; however they are lacking the format of the original report. Caution should be taken when reading/interpreti ng unformatted reports. Name: ? ARLENE FRANCIE Shahida ? Accession #: ? [id number] : ? 1960 (Age: 40) ??F ?Collect Date: ? 01/26/2000 Location: ? [facility] ? Receive Date: ? 01/27/2000 Provider: ?ANNIE WAHL MD Copy to: ? Specimen/Source: ?ThinPrep Pap Test, Cervix/Endocervix Last Menstrual Period: ? 11/23/99 Menstrual/Pregnanc y Status: ? SPECIMEN ADEQUACY ? Satisfactory for evaluation. GENERAL CATEGORIZATION ? Within Normal Limits ? Document reviewed and electronically signed by: ? Geno Olivo, ??CT(ASCP) ? Report Date: ??01/31/2000 14:31 End of Report [facility] 01/26/2000 01/27/2000 Annie Wahl MD PATHOLOGY ORDERABLES Performing Organization Address City/State/[facility] Co de Phone Number [facility] [address] [place] [address] documented in this encounter Visit Diagnoses Not on filedocumented in this encounter
--- OUTSIDE RECORDS SUMMARY | 2023-12-07 00:51 | XMS_ITS | Encounter Summary ---
Author Organization [facility] Address [address] [place] [address] Care Team Providers Care Analytic Manager Name Role Phone Unavailable Primary Care Provider Unavailabl e Encounter Details Date Type Department Care Team (Latest Contact Info) Description 04/05/2006 8:41 EST - 04/05/2006 11:59 EST Hospital Encounter [address] [address] Evelyn Arana MD Discharge Disposition: Auto Discharge [...] Description 12/10/2023 11:00 EDT Appointment [facility] Radiology CT Outpatient - [address] [address] 12/11/2023 13:45 EDT Initial consult [facility] Gynecologic Oncology - [address] [address] Ashlee Garcia MD [address] [place] [address], [address] [place] [phone] documented as of this encounter Procedures Procedure Name Priority Date/Time Associated Diagnosis Comments MA MAMMO SCREENING DIGITAL 04/05/2006 8:59 EST documented in this encounter Results * MA MAMMO SCREENING DIGITAL (04/05/2006 8:59 EST) Anatomical Region Laterality Modality Other 04/05/2006 8:59 EST Narrative 11/07/2008 5:42 EDT ROUTINE Comparison is made to films from 09/05/2002 and films from 03/31/1999. Right Breast Findings: (CAD used to interpret routine digital): There are scattered fibroglandular densities. A focal asymmetric density is present in the central region. Left Breast Findings: (CAD used to interpret routine digital): There are scattered fibroglandular densities. No significant masses, calcifications or other abnormalities are seen. IMPRESSION: RIGHT BREAST - CATEGORY 0 Focal asymmetric density in the central region. Spot magnification view(s) are recommended at this time in the 5 degree CC and ML view. LEFT BREAST - CATEGORY 1 Negative, no evidence of malignancy. Normal interval follow-up is recommended in 12 months. OVERALL ASSESSMENT - INCOMPLETE: NEED ADDITIONAL IMAGING EVALUATION END OF IMPRESSION Procedure Note Dayanna Shell MD - 11/07/2008 ROUTINE Comparison is made to films from 09/05/2002 and films from 03/31/1999. Right Breast Findings: (CAD used to interpret routine digital): There are scattered fibroglandular densities. A focal asymmetric density is present in the central region. Left Breast Findings: (CAD used to interpret routine digital): There are scattered fibroglandular densities. No significant masses, calcifications or other abnormalities are seen. IMPRESSION: RIGHT BREAST - CATEGORY 0 Focal asymmetric density in the central region. Spot magnification view(s) are recommended at this time in the 5 degree CC and ML view. LEFT BREAST - CATEGORY 1 Negative, no evidence of malignancy. Normal interval follow-up is recommended in 12 months. OVERALL ASSESSMENT - INCOMPLETE: NEED ADDITIONAL IMAGING EVALUATION END OF IMPRESSION Evelyn Arana MD IMG MAMMOGRAPHY ORDKrei SARKAR documented in this encounter Visit Diagnoses Not on filedocumented in this encounter
--- OUTSIDE RECORDS SUMMARY | 2023-12-07 00:51 | XMS_ITS | Encounter Summary ---
Author Organization [facility] Address [address] [place] [address] Care Team Providers Care Last Repairer Name Role Phone Unavailable Primary Care Provider Unavailabl e Encounter Details Date Type Department Care Team (Latest Contact Info) Description 05/01/2003 13:25 EST Hospital Encounter [address] [address] Prabhjot Hurtado MD Discharge Disposition: Auto Discharge [...] Description 12/10/2023 11:00 EDT Appointment [facility] Radiology CT Outpatient - [address] [address] 12/11/2023 13:45 EDT Initial consult [facility] Gynecologic Oncology - [address] [address] Ashlee Garcia MD [address] [place] [address], [address] [place] [phone] documented as of this encounter Procedures Procedure Name Priority Date/Time Associated Diagnosis Comments RAD US TRANSVAGINAL Routine 05/01/2003 1 4:40 EST RAD US PELVIS TRANSABDOMINAL COMPLETE Routine 05/01/2003 14:40 EST documented in this encounter Results * RAD US TRANSVAGINAL (05/01/2003 14:40 EST) Anatomical Region Laterality Modality Other 05/01/2003 14:4 0 EST Impressions 12/28/2008 4:49 EDT IMPRESSION: Negative pelvic ultrasound. /jose francisco Narrative 12/28/2008 4:49 EDT PELVIC AND TRANS VAG U/S,M MENORRHAGIA, IRREGULAR BLEEDING, BLOATING, ADNEXAL PAIN R/O ABN PELVIC ULTRASOUND: 05/01/03 The uterus is normal in size and is empty. The endometrial stripe has a smooth and normal appearance and measures 9 mm in double thickness. Both ovaries were well seen both transabdominally and endovaginally. There are very small follicular cysts on both sides. No mass is seen. There is no free fluid in the pelvis. Procedure Note Audie Valerio MD - 12/28/2008 PELVIC AND TRANS VAG U/S,M MENORRHAGIA, IRREGULAR BLEEDING, BLOATING, ADNEXAL PAIN R/O ABN PELVIC ULTRASOUND: 05/01/03 The uterus is normal in size and is empty. The endometrial stripe has a smooth and normal appearance and measures 9 mm in double thickness. Both ovaries were well seen both transabdominally and endovaginally. There are very small follicular cysts on both sides. No mass is seen. There is no free fluid in the pelvis. IMPRESSION IMPRESSION: Negative pelvic ultrasound. /jose francisco Prabhjot Hurtado MD [facility] US ORDERABLES * RAD US PELVIS TRANSABDOMINAL COMPLETE (05/01/2003 14:40 EST) Anatomical Region Laterality Modality Other 05/01/2003 14:4 0 EST Narrative 12/28/2008 4:49 EDT PELVIC AND TRANS VAG U/S,M MENORRHAGIA, IRREGULAR BLEEDING, BLOATING, ADNEXAL PAIN R/O ABN Procedure Note Audie Valerio MD - 12/28/2008 PELVIC AND TRANS VAG U/S,M MENORRHAGIA, IRREGULAR BLEEDING, BLOATING, ADNEXAL PAIN R/O ABN Prabhjot Hurtado MD IMG US ORDERABLES documented in this encounter Visit Diagnoses Not on filedocumented in this encounter
--- OUTSIDE RECORDS SUMMARY | 2023-12-07 00:51 | XMS_ITS | Encounter Summary ---
Author Organization [facility] Address [address] [place] [address] Care Team Providers Care Auricular Therapist Name Role Phone Unavailable Primary Care Provider Unavailabl e Encounter Details Date Type Department Care Team (Late Contact Info) Description 08/08/2005 9:49 EDT Hospital Encounter [facility] - Other [address] [place], [place] [address] Bill Longo MD [address] [place] [address] Social History Tobacco Use Types [...] [facility] Center Radiology CT Outpatient - [facility] [address] [place], [place] [phone] 12/11/2023 13:45 EDT Initial consult [facility] Gynecologic Oncology - [address] [address] Ashlee Garcia MD [address] [place] [address], [address] [place] [phone] documented as of this encounter Visit Diagnoses Not on filedocumented in this encounter
--- OUTSIDE RECORDS SUMMARY | 2023-12-07 00:51 | XMS_ITS | Encounter Summary ---
Author Organization [facility] Address [address] [place] [address] Care Team Providers Care Body Corporate Manager Name Role Phone Unavailable Primary Care Provider Unavailabl e Encounter Details Date Type Department Care Team (Latest Contact Info) Description 05/19/2003 7:54 EST - 05/19/2003 11:59 EST Hospital Encounter [facility] - Other [address] [place] [address] Prabhjot Hurtado MD Discharge Disposition: Auto Discharge [...] Contact Info) Description 12/10/2023 11:00 EDT Appointment [facility] Radiology CT Outpatient - [address] [address] 12/11/2023 13:45 EDT Initial consult [facility] Gynecologic Oncology - [facility] [address] [place] [address] Ashlee Garcia MD 111 [facility], [address] [place] [phone] documented as of this encounter Procedures Procedure Name Priority Date/Time Associated Diagnosis Comments RAD US BREAST UNILATERAL OR BILATERAL Routine 05/19/2003 13:14 EST RENETTA DAVILA UNI DIGITAL Routine 05/19/2003 11:07 EST documented in this encounter Results * RAD US BREAST UNILATERAL OR BILATERAL (05/19/2003 13:14 EST) Anatomical Region Laterality Modality Other 05/19/2003 13:1 4 EST Narrative 12/28/2008 2:40 EDT DX UNI MAMMO W/ LT US TO FOLLOW6 MO FU LT BR, HX LT BR ASYM DENSITY, L T BR CYSTS ??[PCP JACK SLAUGHTER] SIX MONTH FOLLOW-UP DIAGNOSTIC DIGITAL MAMMOGRAM, LEFT BREAST, AND LEFT BREAST ULTRASOUND LEFT MAMMOGRAM: The examination is interpreted with the aid of CAD technology. There are no focal masses, areas of architectural distortion, or suspicious microcalcifications. The appearance of the mammogram is unchanged when compared to our examination of 09/05/02. LEFT BREAST ULTRASOUND: The previously-noted ovoid likely cyst at 3 o'clock, 2.5 cm out, is again identified. This is essentially unchanged in size and overall appearance. It continues to have a benign appearance consistent with a partially-collapsed cyst. No new sonographic abnormalities are identified. IMPRESSION LEFT BREAST: BI-RADS Category 2, benign cyst at 3 o'clock. RECOMMENDATION: Continue routine annual screening mammography with the next suggested bilateral examination in August of 2003. NOTE: Results and recommendations were discussed with the patient. OVERALL ASSESSMENT - BENIGN /[facility] Procedure Note Bill Mckoy MD - 12/28/2008 DX UNI MAMMO W/ LT US TO FOLLOW6 MO FU LT BR, HX LT BR ASYM DENSITY, L T BR CYSTS [PCP JACK SLAUGHTER] SIX MONTH FOLLOW-UP DIAGNOSTIC DIGITAL MAMMOGRAM, LEFT BREAST, AND LEFT BREAST ULTRASOUND LEFT MAMMOGRAM: The examination is interpreted with the aid of CAD technology. There are no focal masses, areas of architectural distortion, or suspicious microcalcifications. The appearance of the mammogram is unchanged when compared to our examination of 09/05/02. LEFT BREAST ULTRASOUND: The previously-noted ovoid likely cyst at 3 o'clock, 2.5 cm out, is again identified. This is essentially unchanged in size and overall appearance. It continues to have a benign appearance consistent with a partially-collapsed cyst. No new sonographic abnormalities are identified. IMPRESSION LEFT BREAST: BI-RADS Category 2, benign cyst at 3 o'clock. RECOMMENDATION: Continue routine annual screening mammography with the next suggested bilateral examination in August of 2003. NOTE: Results and recommendations were discussed with the patient. OVERALL ASSESSMENT - BENIGN /[facility] Prabhjot Hurtado MD IMG US ORDERABLES * RENETTA KOENIG DIAG UNI DIGITAL (05/19/2003 11:07 EST) Anatomical Region Laterality Modality Other 05/19/2003 11:0 7 EST Narrative 12/28/2008 2:40 EDT DX UNI MAMMO W/ LT US TO FOLLOW6 MO FU LT BR, HX LT BR ASYM DENSITY, L T BR CYSTS ??[PCP JACK SLAUGHTER] Procedure Note Bill Mckoy MD - 12/28/2008 DX UNI MAMMO W/ LT US TO FOLLOW6 MO FU LT BR, HX LT BR ASYM DENSITY, L T BR CYSTS [PCP JACK SLAUGHTER] Prabhjot Hurtado MD IMG MAMMOGRAPHY O RDERABLES documented in this encounter Visit Diagnoses Not on filedocumented in this encounter
--- OUTSIDE RECORDS SUMMARY | 2023-12-07 00:51 | XMS_ITS | Encounter Summary ---
Author Organization [facility] Address [address] [place] [address] Care Team Providers Care Chronic Disease Manager Name Role Phone Unavailable Primary Care Provider Unavailabl e Encounter Details Date Type Department Care Team (Late st Contact Info) Description 06/07/2006 16:42 EST Hospital Encounter [facility]- [address] [address] Jennifer Camacho MD [address] [place] [phone] Social History Tobacco Use Types Packs/Day Years [...] [facility] Rad[facility] Outpatient - [address] [phone] 12/11/2023 13:45 EDT Initial consult [facility] Gynecologic Oncology - [address] [phone] Ashlee Garcia MD 111 [facility], [address] [place] [phone] documented as of this encounter Visit Diagnoses Not on filedocumented in this encounter
--- OUTSIDE RECORDS SUMMARY | 2023-12-07 00:51 | XMS_ITS | Encounter Summary ---
Author Organization [facility] Address [address] [place] [address] Care Team Providers Care Car Shifter Name Role Phone Unavailable Primary Care Provider Unavailabl e Encounter Details Date Type Department Care Team (Latest Contact Info) Description 08/22/2000 19:37 EDT Hospital Encounter [facility] - [facility] [address] [place] [address] Angelina Navas MD [address] [place] [address],[address] [phone] Discharge Disposition: Home or Self Care Social [...] Contact Info) Description 12/10/2023 11:00 EDT Appointment [facility] Radiology CT Outpatient - [address] [phone] 12/11/2023 13:45 EDT Initial consult [facility] Gynecologic Oncology - [address] [address] Ashlee Garcia MD 111 [facility], [facility], Level [address] [place] [phone] documented as of this encounter Procedures Procedure Name Priority Date/Time Associated Diagnosis Comments PREECLAMPTIC PROFILE Routine 08/22/2000 11:30 EDT documented in this encounter Results * (ABNORMAL) PREECLAMPTIC PROFILE (08/22/2000 11:30 EDT) ALT 20 15 - 75 U/L [facility] AST 16 8 - 50 U/L [facility] BUN 11 10 - 26 mg/dl [facility] WBC 7.74 4.0 - 12.4 K/cmm [facility] RBC 3.61(L) 3.86 - 5.04 M/cmm [facility] Hemoglobin 11.9 11.6 - 15.2 gm/dl [facility] HCT 34.4(L) 34.9 - 44.4 % [facility] MCV 95 81 - 98 fl [facility] MCH 32.9 26.7 - 33.3 pg [facility] MCHC 34.5 32.1 - 35.9 gm/dl [facility] PLT 216 141 - 320 K/cmm [facility] RDW-CV 12.8 11.7 - 14.6 % [facility] Creatinine 0.7 0.7 - 1.5 mg/dl [facility] Uric Acid 4.0 2.2 - 7.7 mg/dl [facility] 08/22/2000 11:3 0 EDT 08/22/2000 19:06 EDT Angelina Navas MD PACKAGES & DNA PROBE ORDERABLES [facility] [address] [place] [address] documented in this encounter Visit Diagnoses Not on filedocumented in this encounter
--- OUTSIDE RECORDS SUMMARY | 2023-12-07 00:51 | XMS_ITS | Encounter Summary ---
Author Organization [facility] Address [address] [place] [address] Care Team Providers Care Child Daycare Worker Name Role Phone Unavailable Primary Care Provider Unavailabl e Encounter Details Date Type Department Care Team (Late st Contact Info) Description 08/25/2002 Results Only [facility] - [place] [facility] [address] [place] [address] Evelyn Arana MD Social History Tobacco Use [...] Contact Info) Description 12/10/2023 11:00 EDT Appointment [facility] Radiology CT Outpatient - [address] [address] 12/11/2023 13:45 EDT Initial consult [facility] Gynecologic Oncology - [facility] [address] [place] [address] Ashlee Garcia MD 111 [facility], Level [address] [place] [phone] documented as of this encounter Procedures Procedure Name Priority Date/Time Associated Diagnosis Comments THYROID CASCADE Routine 08/25/2002 11:55 EDT COMPLETE BLOOD COUNT Routine 08/25/2002 11:55 EDT BASIC METABOLIC PANEL (BMP) Routine 08/25/2002 11:55 EDT documented in this encounter Results * THYROID CASCADE (08/25/2002 11:55 EDT) TSH 0.89 0.35 - 5.50 uIU/ml [facility] 08/25/2002 11:5 5 EDT 08/25/2002 18:47 EDT Evelyn Arana MD CHEMISTRY & BLOOD GA S ORDERABLES Performing Organization Address [facility] [[email or web address]] Co de Phone Number [facility] [address] [place] [address] * (ABNORMAL) HEMAGRAM (08/25/2002 11:55 EDT) Pathologist [facility] WBC 5.64 4.0 - 12.4 K/cmm [facility] RBC 3.81(L) 3.86 - 5.04 M/cmm [facility] Hemoglobin 13.0 11.6 - 15.2 gm/dl [facility] HCT 38.1 34.9 - 44.4 % [facility] MCV 100(H) 81 - 98 fl [facility] MCH 34.2(H) 26.7 - 33.3 pg [facility] MCHC 34.2 32.1 - 35.9 gm/dl [facility] PLT 244 141 - 320 K/cmm [facility] RDW-CV 11.8 11.7 - 14.6 % [facility] 08/25/2002 11:5 5 EDT 08/25/2002 18:47 EDT Evelyn Arana MD HEMATOLOGY & PF4 ORD ERABLES Performing Organization Address [facility] [[email or web address]] Co de Phone Number [facility] [address] [place] [address] * BASIC METABOLIC PANEL (08/25/2002 11:55 EDT) Sodium 138 136 - 145 mEq/L [facility] Potassium 4.1 3.5 - 5.0 mEq/L [facility] Chloride 101 96 - 110 mEq/L [facility] CO2 28 24 - 30 mEq/L [facility] BUN 15 10 - 26 mg/dl [facility] Creatinine 0.7 0.7 - 1.5 mg/dl [facility] Calcium 8.9 8.5 - 10.5 mg/dl [facility] Calculated Calcium 9.3 8.5 - 10.5 mg/dl [facility] Glucose, Serum 103 70 - 110 mg/dl [facility] 08/25/2002 11:5 5 EDT 08/25/2002 18:47 EDT Evelyn Arana MD CHEMISTRY & BLOOD GA S ORDERABLES [facility] [address] [place] [address] documented in this encounter Visit Diagnoses Not on filedocumented in this encounter
--- OUTSIDE RECORDS SUMMARY | 2023-12-07 00:51 | XMS_ITS | Encounter Summary ---
Author Organization [facility] Address [address] [place] [address] Care Team Providers Care Laborer Construction [employer] Name Role Phone Unavailable Primary Care Provider Unavailabl e Encounter Details Date Type Department Care Team (Latest Contact Info) Description 09/05/2002 11:39 EDT - 09/05/2002 11:59 EDT Hospital Encounter [address] [address] Prabhjot Courtney MD Discharge Disposition: Auto Discharge Social History [...] Description 12/10/2023 11:00 EDT Appointment [facility] Radiology CT Outpatient - [address] [phone] 12/11/2023 13:45 EDT Initial consult [facility] Gynecologic Oncology - [address] [address] Ashlee Garcia MD 111 [facility], [address] [place] [phone] documented as of this encounter Procedures Procedure Name Priority Date/Time Associated Diagnosis Comments MA MAMMO SCREENING DIGITAL Routine 09/05/2002 11:53 EDT documented in this encounter Results * MA MAMMO SCREENING DIGITAL (09/05/2002 11:53 EDT) Anatomical Region Laterality Modality Other 09/05/2002 11:5 3 EDT Impressions 01/12/2009 0:36 EDT IMPRESSION: LEFT BREAST - CATEGORY 0 Two focal asymmetric densities. Spot magnification view(s) and ultrasound are recommended at this time in the 5 degree angle CC, mediolateral, and mediolateral oblique projections. RIGHT BREAST - CATEGORY 1 Negative, no evidence of malignancy. Normal interval follow-up is recommended in 12 months. OVERALL ASSESSMENT - INCOMPLETE: NEED ADDITIONAL IMAGING EVALUATION END OF IMPRESSION Narrative 01/12/2009 0:36 EDT ROUTINE ?? [PCP JACK SLAUGHTER] Comparison is made to films from 03-31-1999. Left Breast Findings (CAD used to interpret routine digital projection): The breast is heterogeneously dense. This may lower the sensitivity of mammography. Two focal asymmetric densities are present. Right Breast Findings (CAD used to interpret routine digital projection): The breast is heterogeneously dense. This may lower the sensitivity of mammography. No significant masses, calcifications or other abnormalities are seen. Procedure Note Tahmina Hanley MD - 01/12/2009 ROUTINE [PCP JENNIFER MACIAS, JACK COURTNEY] Comparison is made to films from 03-31-1999. Left Breast Findings (CAD used to interpret routine digital projection): The breast is heterogeneously dense. This may lower the sensitivity of mammography. Two focal asymmetric densities are present. Right Breast Findings (CAD used to interpret routine digital projection): The breast is heterogeneously dense. This may lower the sensitivity of mammography. No significant masses, calcifications or other abnormalities are seen. IMPRESSION IMPRESSION: LEFT BREAST - CATEGORY 0 Two focal asymmetric densities. Spot magnification view(s) and ultrasound are recommended at this time in the 5 degree angle CC, mediolateral, and mediolateral oblique projections. RIGHT BREAST - CATEGORY 1 Negative, no evidence of malignancy. Normal interval follow-up is recommended in 12 months. OVERALL ASSESSMENT - INCOMPLETE: NEED ADDITIONAL IMAGING EVALUATION END OF IMPRESSION Prabhjot Courtney MD IMG MAMMOGRAPHY O RDERABLES documented in this encounter Visit Diagnoses Not on filedocumented in this encounter
--- OUTSIDE RECORDS SUMMARY | 2023-12-07 00:51 | XMS_ITS | Encounter Summary ---
Author Organization [facility] Address [address] [place] [address] Care Team Providers Care Health Consultant Name Role Phone Unavailable Primary Care Provider Unavailabl e Encounter Details Date Type Department Care Team (Late st Contact Info) Description 09/14/2009 Abstract [facility] Plastic, Reconstructive & Cosmetic Surgery - [address], [address] [place] [address] No PcpMd Hypertension Social History Tobacco Use Types Packs/Day Years Used Date Smoking Tobacco: Never Assessed Sex and Gender Information Value Date Recorded Sex Assigned at Not on file Gender Identity Female 02/10/2020 14:46 EDT Sexual Orientation Not on file documented as of this encounter Plan of Treatment Upcoming Encounters Date Type Department Care Team (Late st Contact Info) Description 12/10/2023 11:00 EDT Appointment [facility] Radiology CT Outpatient - [address] [address]101 12/11/2023 13:45 EDT Initial consult [facility] Gynecologic Oncology - [address] [address] Ashlee Garcia MD [address] [facility], [facility], [address] [place] [phone] documented as of this encounter Visit Diagnoses Diagnosis Hypertension Unspecified essential hypertension documented in this encounter
--- OUTSIDE RECORDS SUMMARY | 2023-12-07 00:51 | XMS_ITS | Encounter Summary ---
Author Organization [facility] Address [address] [place] [address] Care Team Providers Care Dance Artist Name Role Phone Unavailable Primary Care Provider Unavailabl e Encounter Details Date Type Department Care Team (Latest Contact Info) Description 04/12/2006 10:22 EST - 04/12/2006 11:59 EST Hospital Encounter [address] [address] Evelyn Arana MD Discharge Disposition: Auto Discharge [...] Info) Description 12/10/2023 11:00 EDT Appointment [facility] Radiology CT Outpatient - [address] [address]64691 12/11/2023 13:45 EDT Initial consult [facility] Gynecologic Oncology - [address] [address] Ashlee Garcia MD [address] [place] [address], [address] [place] [phone] documented as of this encounter Procedures Procedure Name Priority Date/Time Associated Diagnosis Comments RAD US BREAST UNILATERAL - ONE BREAST 04/12/2006 10:37 EST documented in this encounter Results * RAD US BREAST UNILATERAL - ONE BREAST (04/12/2006 10:37 EST) Anatomical Region Laterality Modality Other 04/12/2006 10:3 7 EST Narrative 11/07/2008 3:47 EDT DX U/S RIGHT BREAST; 2 MASSES @ 12:00 RIGHT BREAST DIGITAL ADDITIONAL MAMMOGRAPHIC VIEWS AND [...] were discussed with the patient by the supervisor major appliance assembly at the time of the examination. OVERALL ASSESSMENT - BENIGN FINDING. D: ??04/12/2006 T: ??04/12/2006 /[facility]. Procedure Note Dayanna Shell MD - 11/07/2008 DX U/S RIGHT BREAST; 2 MASSES @ 12:00 RIGHT BREAST DIGITAL ADDITIONAL MAMMOGRAPHIC VIEWS AND [...] were discussed with the patient by the supervisor major appliance assembly at the time of the examination. OVERALL ASSESSMENT - BENIGN FINDING. /[facility]. Evelyn Arana MD IMG US ORDERABLES documented in this encounter Visit Diagnoses Not on filedocumented in this encounter
--- OUTSIDE RECORDS SUMMARY | 2023-12-07 00:51 | XMS_ITS | Encounter Summary ---
Author Organization [facility] Address [address] [place] [address] Care Team Providers Care Sustainability Project Coordinator Name Role Phone Unavailable Primary Care Provider Unavailabl e Encounter Details Date Type Department Care Team (Late Contact Info) Description 10/23/2005 7:59 EDT Hospital Encounter [facility] - Other [address] [place], [place] [address] Bill Longo MD [address] [place] [address] Social History Tobacco Use Types [...] Medical Center Radiology CT Outpatient - Main [place] [address] [place], [place] [phone] 12/11/2023 13:45 EDT Initial consult [facility] Gynecologic Oncology - [address] [address] Ashlee Garcia MD [address] [place] [address], [address] [place] [address] documented as of this encounter Visit Diagnoses Not on filedocumented in this encounter
--- OUTSIDE RECORDS SUMMARY | 2023-12-07 00:51 | XMS_ITS | Encounter Summary ---
Author Organization [facility] Address [address] [place] [address] Care Team Providers Care Bookbinder Apprentice Name Role Phone Unavailable Primary Care Provider Unavailabl e Encounter Details Date Type Department Care Team (Latest Contact Info) Description 08/24/2000 10:41 EDT - 08/26/2000 11:59 EDT Hospital Encounter [facility] Mother/Baby Unit [address] [place] [address] Prabhjot Hurtado MD Discharge Disposition: Home-Health Care Svc Social History Tobacco Use Types Packs/Day Years Used Date Smoking Tobacco: Never Assessed Sex and Gender Information Value Date Recorded Sex Assigned at Not on file Gender Identity Female 02/10/2020 14:46 EDT Sexual Orientation Not on file documented as of this encounter Discharge Disposition Disposition Code Departure Means Destination Home-Health Care Svc documented in this encounter Plan of Treatment Upcoming Encounters Date Type Department Care Team (Late st Contact Info) Description 12/10/2023 11:00 EDT Appointment [facility] Radiology CT Outpatient - [address] [address] 12/11/2023 13:45 EDT Initial consult [facility] Gynecologic Oncology - [address] [address] Ashlee Garcia MD 111 [facility], [address] [place] [phone] documented as of this encounter Procedures Procedure Name Priority Date/Time Associated Diagnosis Comments COMPLETE BLOOD COUNT Routine 08/25/2000 9:05 EDT HEMAGRAM & DIFF Routine 08/24/2000 14:41 EDT CREATININE Routine 08/24/2000 13:00 EDT HEMAGRAM & DIFF Routine 08/24/2000 13:00 EDT FIBRINOGEN Routine 08/24/2000 13:00 EDT URIC ACID Routine 08/24/2000 13:00 EDT BUN Routine 08/24/2000 13:00 EDT ALT Routine 08/24/2000 13:00 EDT AST Routine 08/24/2000 13:00 EDT documented in this encounter Results * (ABNORMAL) HEMAGRAM (08/25/2000 9:05 EDT) Pathologist [facility] WBC 7.39 4.0 - 12.4 K/cmm [facility] RBC 3.03(L) 3.86 - 5.04 M/cmm [facility] Hemoglobin 9.9(L) 11.6 - 15.2 gm/dl [facility] HCT 28.7(L) 34.9 - 44.4 % [facility] MCV 95 81 - 98 fl [facility] MCH 32.6 26.7 - 33.3 pg [facility] MCHC 34.5 32.1 - 35.9 gm/dl [facility] PLT 165 141 - 320 K/cmm [facility] RDW-CV 13.3 11.7 - 14.6 % [facility] 08/25/2000 9:05 EDT 08/25/2000 9:35 EDT Prabhjot Hurtado MD HEMATOLOGY & PF4 ORDERABLES [facility] [address] [place] [address] * (ABNORMAL) HEMAGRAM & DIFF (08/24/2000 14:41 EDT) WBC 7.96 4.0 - 12.4 K/cmm [facility] RBC 3.47(L) 3.86 - 5.04 M/cmm [facility] Hemoglobin 11.2(L) 11.6 - 15.2 gm/dl [facility] HCT 32.8(L) 34.9 - 44.4 % [facility] MCV 95 81 - 98 fl [facility] MCH 32.2 26.7 - 33.3 pg [facility] MCHC 34.1 32.1 - 35.9 gm/dl [facility] PLT 195 141 - 320 K/cmm [facility] RDW-CV 13.5 11.7 - 14.6 % [facility] % Neutrophils 76.6 45.5 - 79.7 % [facility] % Lymphocytes 14.1(L) 15.0 - 46.8 % [facility] % Monocytes 8.5 1.8 - 12.0 % [facility] % Eosinophils 0.6 0.6 - 6.9 % [facility] % Basophils 0.2 0.2 - 1.4 % [facility] ABS Neutrophils 6.10 2.20 - 8.85 K/cmm [facility] ABS Lymphs 1.12 1.09 - 3.30 K/cmm [facility] ABS Monocytes 0.68 0.1 - 0.8 K/cmm [facility] ABS Eosinophils 0.04 0.03 - 0.61 K/cmm [facility] ABS Basophils 0.01 0.01 - 0.11 K/cmm [facility] Type of Diff: Automated [facility] 08/24/2000 14:4 1 EDT 08/24/2000 14:41 EDT Prabhjot Hurtado MD HISTORICAL LAB FO R SQ LOAD [facility] [address] [place] [address] * URIC ACID (08/24/2000 13:00 EDT) Uric Acid 4.3 2.2 - 7.7 mg/dl [facility] 08/24/2000 13:0 0 EDT 08/24/2000 13:14 EDT Prabhjot Hurtado MD CHEMISTRY & BLOOD GAS ORDERABLES Performing Organization Address [facility] Phone Number [facility] [address] [place] [address] * (ABNORMAL) FIBRINOGEN (08/24/2000 13:00 EDT) Fibrinogen 521(H) 180 - 433 mg/dl [facility] 08/24/2000 13:0 0 EDT 08/24/2000 13:14 EDT Prabhjot Hurtado MD HEMATOLOGY & PF4 ORDERABLES Performing Organization Address [facility] Phone Number [facility] [address] [place] [address] * (ABNORMAL) CREATININE (08/24/2000 13:00 EDT) Creatinine 0.6(L) 0.7 - 1.5 mg/dl [facility] 08/24/2000 13:0 0 EDT 08/24/2000 13:14 EDT Prabhjot Hurtado MD HISTORICAL LAB FO R SQ LOAD Performing Organization Address [facility] Phone Number [facility] [address] [place] [address] * HEMAGRAM & DIFF (08/24/2000 13:00 EDT) WBC Disregard previous report, specimen clotted 4.0 - 12.4 K/cmm [facility] RBC Disregard previous report, specimen clotted 3.86 - 5.04 M/cmm [facility] Hemoglobin Disregard previous report, specimen clotted 11.6 - 15.2 gm/dl [facility] HCT Disregard previous report, specimen clotted 34.9 - 44.4 % [facility] MCV Disregard previous report, specimen clotted 81 - 98 fl [facility] MCH Disregard previous report, specimen clotted 26.7 - 33.3 pg [facility] MCHC Disregard previous report, specimen clotted 32.1 - 35.9 gm/dl [facility] PLT Disregard previous report, specimen clotted 141 - 320 K/cmm [facility] RDW-CV Disregard previous report, specimen clotted 11.7 - 14.6 % [facility] % Neutrophils Disregard previous report, specimen clotted 45.5 - 79.7 % [facility] % Lymphocytes Disregard previous report, specimen clotted 15.0 - 46.8 % [facility] % Monocytes Disregard previous report, specimen clotted 1.8 - 12.0 % [facility] % Eosinophils Disregard previous report, specimen clotted 0.6 - 6.9 % [facility] % Basophils Disregard previous report, specimen clotted 0.2 - 1.4 % [facility] ABS Neutrophils Disregard previous report, specimen clotted 2.20 - 8.85 K/cmm [facility] ABS Lymphs Disregard previous report, specimen clotted 1.09 - 3.30 K/cmm [facility] ABS Monocytes Disregard previous report, specimen clotted 0.1 - 0.8 K/cmm [facility] ABS Eosinophils Disregard previous report, specimen clotted 0.03 - 0.61 K/cmm [facility] ABS Basophils Disregard previous report, specimen clotted 0.01 - 0.11 K/cmm [facility] Type of Diff: Automated [facility] 08/24/2000 13:0 0 EDT 08/24/2000 13:14 EDT Prabhjot Hurtado MD HISTORICAL LAB FO R SQ LOAD [facility] [address] [place] [address] * BUN (08/24/2000 13:00 EDT) BUN 12 10 - 26 mg/dl [facility] 08/24/2000 13:0 0 EDT 08/24/2000 13:14 EDT Prabhjot Hurtado MD CHEMISTRY & BLOOD GAS ORDERABLES Performing Organization Address [facility] Phone Number [facility] [address] [place] [address] * AST (08/24/2000 13:00 EDT) AST 21 8 - 50 U/L [facility] 08/24/2000 13:0 0 EDT 08/24/2000 13:14 EDT Prabhjot Hurtado MD CHEMISTRY & BLOOD GAS ORDERABLES Performing Organization Address [facility] de Phone Number [facility] [address] [place] [address] * ALT (08/24/2000 13:00 EDT) ALT 28 15 - 75 U/L [facility] 08/24/2000 13:0 0 EDT 08/24/2000 13:14 EDT Prabhjot Hurtado MD CHEMISTRY & BLOOD GAS ORDERABLES Performing Organization Address [facility] de Phone Number [facility] [address] [place] [address] documented in this encounter Visit Diagnoses Not on filedocumented in this encounter
--- OUTSIDE RECORDS SUMMARY | 2023-12-07 00:51 | XMS_ITS | Encounter Summary ---
Author Organization [facility] Address [address] [place] [address] Care Team Providers Care Shipping And Receiving Name Role Phone Unavailable Primary Care Provider Unavailabl e Encounter Details Date Type Department Care Team (Late Contact Info) Description 10/09/2000 19:12 EDT Hospital Encounter [facility] - Other [address] [place] [address] Lottie Courtney MD Unknown, Provider, Social History [...] Contact Info) Description 12/10/2023 11:00 EDT Appointment [facility] Radiology CT Outpatient - Main [place] [address] [place], [place] [address] 12/11/2023 13:45 EDT Initial consult [facility] Gynecologic Oncology - [facility] [address] [place] [address] Ashlee Garcia MD 111 [facility], [address] [place] [phone] documented as of this encounter Procedures Procedure Name Priority Date/Time Associated Diagnosis Comments N.GONORRHOEAE PROBE Routine 10/09/2000 1 6:00 EDT CHLAMYDIA TRACHOMATIS PROBE Routine 10/09/2000 16:00 EDT CYTOPATHOLOGY Routine 10/09/2000 0:00 EDT documented in this encounter Results * CHLAMYDIA TRACHOMATIS PROBE (10/09/2000 16:00 EDT) Specimen Description Cervix [facility] Result No Chlamydia trachomatis DNA detected by ticket printer mediated amplification. [facility] Report Status Final [id number] [facility] 10/09/2000 16:0 0 EDT 10/10/2000 11:08 EDT Lottie Courtney MD HISTORICAL LAB FO R SQ LOAD Performing Organization Address [facility] Co de Phone Number [facility] [address] [place] [address] * N.GONORRHOEAE PROBE (10/09/2000 16:00 EDT) Specimen Description Cervix [facility] Result No Neisseria gonorrhoeae DNA detected by ticket printer mediated amplification. [facility] Report Status Final [id number] [facility] 10/09/2000 16:0 0 EDT 10/10/2000 11:08 EDT Lottie Courtney MD HISTORICAL LAB FO R SQ LOAD Performing Organization Address [facility]/ZIP Co de Phone Number [facility] [address] [place] [address] * CYTOPATHOLOGY (10/09/2000 0:00 EDT) Pathology Report: CYTOPATHOLOGY REPORT Reports generated via electronic interface contain original data; however they are lacking the format of the original report. Caution should be taken when reading/interpreti ng unformatted reports. Name: ? FRANCIE JACOBS ? Accession #: ? [id number] : ? 1960 (Age: 40) ??F ?Collect Date: ? 10/09/2000 Location: ? [facility] ? Receive Date: ? 10/10/2000 Provider: ?LOTTIE COURTNEY MD Copy to: ?JENNIFER MACIAS MD ? Specimen/Source: ?ThinPrep Pap Test, Cervix/Endocervix Last Menstrual Period: ? Menstrual/Pregnanc y Status: ? Post ? SPECIMEN ADEQUACY ? Satisfactory for evaluation. GENERAL CATEGORIZATION ? Within Normal Limits ? Document reviewed and electronically signed by: ? HANK Meadows(ASCP) ? Report Date: ??10/12/2000 08:36 End of Report [facility] 10/09/2000 10/10/2000 Lottie Courtney MD PATHOLOGY ORDERAB LES [facility] [address] [place] [address] documented in this encounter Visit Diagnoses Not on filedocumented in this encounter
--- OUTSIDE RECORDS SUMMARY | 2023-12-07 00:51 | XMS_ITS | Encounter Summary ---
Author Organization [facility] Address [address] [place] [address] Care Team Providers Care Machine Shop Supervisor Name Role Phone Unavailable Primary Care Provider Unavailabl e Encounter Details Date Type Department Care Team (Latest Contact Info) Description 02/01/2005 19:18 EDT Hospital Encounter [facility] Emergency Department - [address] [id number] Emergency, MD [place] Discharge Disposition: Home or Self Care Social [...] Description 12/10/2023 11:00 EDT Appointment [facility] Radiology CT Outpatient - [address] [phone] 12/11/2023 13:45 EDT Initial consult [facility] Gynecologic Oncology - [address] [phone] Ashlee Garcia MD 111 [facility], [address] [place] [address] documented as of this encounter Procedures Procedure Name Priority Date/Time Associated Diagnosis Comments HOLD PURPLE TOP Routine 02/01/2005 20:22 EDT TSH Routine 02/01/2005 20:22 EDT documented in this encounter Results * TSH (02/01/2005 20:22 EDT) TSH 1.68 0.35 - 5.50 uIU/ml [facility] 02/01/2005 20:2 2 EDT 02/01/2005 20:23 EDT Default Emergency MD CHEMISTRY & BLOOD G ORDERABLES Performing Organization Address [facility] de Phone Number [facility] [address] [place] [address] * HOLD PURPLE TOP (02/01/2005 20:22 EDT) Hold Purple Top EDTA for hematology will be discarded after 48 hours, differential not available after 12 hours. [facility] 02/01/2005 20:2 2 EDT 02/01/2005 20:23 EDT Default Emergency MD LAB INFO SERVICE AN D SUPPORT & PHONE RESULT Performing Organization Address [facility] de Phone Number [facility] [address] [place] [address] documented in this encounter Visit Diagnoses Not on filedocumented in this encounter
--- OUTSIDE RECORDS SUMMARY | 2023-12-07 00:51 | XMS_ITS | Encounter Summary ---
Author Organization [facility] Address [address] [place] [address] Care Team Providers Care Radio Time Salesperson Name Role Phone None, Provider Primary Care Provider Unavailabl e Encounter Details Date Type Department Care Team (Late st Contact Info) Description 02/12/2012 Results Only Imaging [facility] [phone] Evelyn Arana MD Social History Tobacco Use [...] Contact Info) Description 12/10/2023 11:00 EDT Appointment [facility] Radiology CT Outpatient - [address] [address] 12/11/2023 13:45 EDT Initial consult [facility] Gynecologic Oncology - [address] [address] Ashlee Garcia MD 111 [facility], [facility], [address] [place] [address] documented as of this encounter Procedures Procedure Name Priority Date/Time Associated Diagnosis Comments MA MAMMO SCREENING DIGITAL 02/28/2012 10:16 EDT documented in this encounter Results * MA MAMMO SCREENING DIGITAL (02/28/2012 10:16 EDT) Anatomical Region Laterality Modality Other 02/28/2012 10:1 6 EDT 02/28/2012 11:58 EDT Narrative 02/28/2012 11:58 [...] discussed with the patient by the the cytotechnologist. I have personally reviewed the images and [...] discussed with the patient by the the cytotechnologist. I have personally reviewed the images and the above interpretation and agree with the findings. Evelyn Arana MD [facility] MAMMOGRAPHY ANGELLA SARKAR documented in this encounter Visit Diagnoses Not on filedocumented in this encounter Care Teams Radio Time Salesperson Relationship Specialty Start Date End Date None, Provider PCP - General 02/22/10 02/26/12 documented as of this encounter
--- OUTSIDE RECORDS SUMMARY | 2023-12-07 00:51 | XMS_ITS | Encounter Summary ---
Author Organization [facility] Address [address] [place] [address] Care Team Providers Care Drafter (Cad) Electrical Name Role Phone None, Provider Primary Care Provider Unavailabl e Reason for Visit * Reason Comments Otalgia on right; left ear f eelsclogged.Getting over a URI. Encounter Details Date Type Department Care Team (Latest Contact Info) Description 05/10/2010 13:30 EST - 05/10/2010 15:01 [facility] Hospital Encounter [facility] - [address] [address] Jake Pierre MD 0 [place] [phone] Otitis media Discharge Disposition: Home or Self Care Social [...] Sign Reading Time Taken Comments Blood Pressure 146/84 05/10/2010 1423 EST Pulse 68 05/10/2010 1423 EST Temperature 37 ??C (98.6 ??F) 05/10/2010 1423 EST Respiratory Rate 18 05/10/2010 1423 EST Oxygen Saturation - - Inhaled Oxygen Concentration - - Weight - - Height - - Body Mass Index - - documented in this encounter Discharge Instructions * Attachments The following attachments cannot be sent through Care Everywhere. * EAR INFECTION IN ADULTS (OTITIS MEDIA): AFTER YOUR VISIT (NEPALI) * SALINE NASAL WASHES FOR ADULTS: AFTER YOUR VISIT (NEPALI) documented in this encounter Medications at Time of Discharge Medication Sig Dispensed Refills Start Date End Date amoxicillin (AMOXIL) 500 mg capsule Take 1 Cap by mouth 3 times daily for 10 days. 30 Cap 0 05/10/2010 05/20/2010 BUPROPION HCL (WELLBUTRIN ORAL)Indications:Doesn't recall dose Take [...] Chloride (SIMPLY SALINE) 0.9 % SprA 1 [place] by Nasal route 4 times daily. 1 Bottle 05/10/2010 06/10/2012 documented as of this encounter Ordered Prescriptions Prescription Sig Dispensed Refills Start Date End Da te diphenhydrAMINE (BENADRYL) 25 mg capsule Take 1-2 Caps by mouth at bedtime as needed (itching, hives or insomnia). 30 Cap 1 05/10/2010 06/10/2012 cetirizine (ZYRTEC) 10 mg tablet Take 1 Tab by mouth daily. 30 Tab 3 05/10/2010 06/10/2012 fluticasone (FLONASE) 50 mcg/Actuation nasal spray 2 Sprays by Nasal route SEE ADMIN INSTRUCTIONS. 1 Bottle 3 05/10/2010 06/10/2012 amoxicillin (AMOXIL) 500 mg capsule Take 1 Cap by mouth 3 times daily for 10 days. 30 Cap 0 05/10/2010 05/20/2010 documented in this encounter Discharge Disposition Disposition Code Departure Means Destination Home or Self Care documented in this encounter ED Notes * Jkae Pierre MD - 05/10/2010 1450 EST DOS: 05/10/2010 Chief Complaint Patient presents with ??? Otalgia on right; left ear feelsclogged.Getting over a URI. The patient is a 50 y.o. female who presents today with Otalgia Otalgia Associated symptoms include ear discharge, rhinorrhea and sore throat (resolving). Pertinent negatives include no diarrhea, no vomiting, no neck pain, no cough and no rash. she has had a URI with minimal congestion and sore throat which actually both appear to be improving. She is then for 36 hours had off and on stabbing pain in the right ear in about 24 hours of draining relatively clear but crusting upon trying fluid from the right ear. She otherwise feels well there's no fever chills cough although she does have some nausea and loss of appetite. No diarrhea or vomiting. She's not suffered any barotrauma and has not had anything like an earache in many years. Review of Systems Constitutional: Positive for activity change and fatigue. Negative for fever. HENT: Positive for ear pain, congestion, sore throat (resolving), rhinorrhea, sneezing, postnasal drip, sinus pressure and ear discharge. Negative for mouth sores, trouble swallowing, neck pain and neck stiffness. Eyes: Positive for redness. Negative for pain and discharge. Respiratory: Negative for cough, choking, chest tightness and shortness of breath. Cardiovascular: Negative for chest pain, palpitations and leg swelling. Gastrointestinal: Positive for nausea. Negative for vomiting and diarrhea. Genitourinary: Negative. Musculoskeletal: Negative for back pain, joint swelling and arthralgias. Myalgias: Mild. Skin: Negative. Negative for rash. Neurological: Weakness: Asthenia. No current facility-administered medications on file. Current outpatient prescriptions Medication Sig Dispense Refill ??? ibuprofen (MOTRIN) 600 mg tablet Take 600 mg by mouth every 6 hours as needed. ??? metoprolol XL (TOPROL XL) 50 mg tablet Take 50 mg by mouth 2 times daily. ??? BUPROPION HCL (WELLBUTRIN ORAL) Take by mouth daily. Indications: Doesn't recall dose ??? DISCONTD: azithromycin (ZITHROMAX) 250 mg tablet Take 1-2 Tabs by mouth SEE ADMIN INSTRUCTIONS.Take two tablets to begin with and then one table each day for four days. 6 Tab 0 ??? DISCONTD: albuterol (PROVENTIL HFA, VENTOLIN HFA) 90 mcg/Actuation inhaler Inhale 2 Puffs as directed every 6 hours as needed for Wheezing (PRN Wheezing or Cough). 1 Inhaler 0 Allergies Allergen Reactions ??? Other - See Comments Dust mites....congestion ??? Erythromycin Nausea Only Past Medical History Diagnosis Date ??? Hypertension ??? Psychiatric problem depression/traumatic stress History Substance Use Topics ??? Tobacco Use: Quit -- 3.0 packs/day for 15 years ??? Alcohol Use: 105.0 oz/week 21 Glasses of wine per week No family history on file. BP 146/84 Pulse 68 Temp(Src) 98.6 ??F (37 ??C) (Temporal) Resp 18 Physical Exam Constitutional: She is oriented to person, place, and time. She appears well- developed and well-nourished. No distress. HENT: Head: Normocephalic and atraumatic. Right Ear: External ear normal. Left Ear: External ear normal. Nose is congested. Left ear appears normal. Right ear has some clear fluid in the external auditorycanal. TM is edematous but not distended there is no significant defects seen. Eyes: Extraocular motions are normal. Pupils are equal, round, and reactive to light. No scleral icterus. Neck: Normal range of motion. Neck supple. No JVD present. No tracheal deviation present. No thyromegaly present. Cardiovascular: Normal rate. Pulmonary/Chest: Effort normal and breath sounds normal. No stridor. Abdominal: Soft. Musculoskeletal: Normal range of motion. She exhibits no edema and no tenderness. Lymphadenopathy: She has cervical adenopathy. Neurological: She is alert and oriented to person, place, and time. Skin: Skin is warm and dry. She is not diaphoretic. Psychiatric: She has a normal mood and affect. Consult orders: None PCP: NO No results found for this visit on 05/10/10. Radiology orders: None Procedures Course: URI with eustachian tube dysfunction and a fluid-filled right middle ear appears to have otitis media and tympanic membrane rupture. I'm going to write for a nasal steroid, if she does not have quickresolution of her congestion we'll have her start using nasal steroids in anticipation of her goingon vacation with flying and snorkeling involved. Diagnoses that have been ruled out: Diagnoses that are still under consideration: Final diagnoses: No diagnosis found. MDM 05/10/2010 14:52 documented in this encounter Miscellaneous Notes * Scanned Note-Null - Inpatient, Physician - 05/10/2010 0000 EST documented in this encounter Plan of Treatment Upcoming Encounters Date Type Department Care Team (Late st Contact Info) Description 12/10/2023 11:00 EDT Appointment [facility] Radiology CT Outpatient - [address] [id number] 12/11/2023 13:45 EDT Initial consult [facility] Gynecologic Oncology - [address] [phone] Ashlee Garcia MD [address] [place] [address], [address] [place] [phone] documented as of this encounter Visit Diagnoses Diagnosis Otitis media Unspecified otitis media documented in this encounter Discontinued Medications Medication Sig Discontinue Reason Start Date End Da te albuterol (PROVENTIL HFA, VENTOLIN HFA) 90 mcg/Actuation inhaler Inhale 2 Puffs as directed every 6 hours as needed for Wheezing (PRN Wheezing or Cough). Therapy completed 02/22/2010 05/10/2010 azithromycin (ZITHROMAX) 250 mg tablet Take 1-2 Tabs by mouth SEE ADMIN INSTRUCTIONS. Take two tablets to begin with and then one table each day for four days. Therapy completed 02/22/2010 05/10/2010 documented as of this encounter Historical Medications * This list may reflect changes made after this encounter. Medication Sig Dispensed Refills Start Date End Date Sodium Chloride (SIMPLY SALINE) 0.9 % SprA 1 [place] by Nasal route 4 times daily. 1 Bottle 05/10/2010 06/10/2012 ibuprofen (MOTRIN) 600 mg tablet Take 600 mg by mouth every 6 hours as needed. 05/10/2010 06/10/2012 added in this encounter Care Teams Drafter (Cad) Electrical Relationship Specialty Start Date End Date None, Provider PCP - General 02/22/10 02/26/12 documented as of this encounter
--- OUTSIDE RECORDS SUMMARY | 2023-12-07 00:51 | XMS_ITS | Encounter Summary ---
Author Organization [facility] Address [address] [place] [address] Care Team Providers Care Envelope Fold Operator Name Role Phone Unavailable Primary Care Provider Unavailabl e Encounter Details Date Type Department Care Team (Late Contact Info) Description 03/16/2000 9:26 EST Hospital Encounter [facility] - Other [address] [place] [address] Thuan Carroll MD [address] [place] [address] [address] [place] [address] Unknown, Provider, Social History Tobacco [...] (Late Contact Info) Description 12/10/2023 11:[address] [facility] Radiology CT Outpatient - [address] [id number] 12/11/2023 13:45 EDT Initial consult [facility] Gynecologic Oncology - [address] [phone] Ashlee Garcia MD [address] [place] [address], [address] [place] [phone] documented as of this encounter Visit Diagnoses Not on filedocumented in this encounter
--- OUTSIDE RECORDS SUMMARY | 2023-12-07 00:51 | XMS_ITS | Encounter Summary ---
Author Organization [facility] Address [address] [place] [address] Care Team Providers Care Filler Wiper Name Role Phone Unavailable Primary Care Provider Unavailabl e Encounter Details Date Type Department Care Team (Late st Contact Info) Description 12/23/1999 Results Only [facility] - Maple conversion [address] [place] [address] Angelina Navas MD [address] [place] [address],[address] [phone] Social History Tobacco Use Types Packs/Day Years [facility] [address] [id number] 12/11/2023 13:45 EDT Initial consult [facility] Gynecologic Oncology - [address] [address] Ashlee Garcia MD [address] [facility], [address] [place] [phone] documented as of this encounter Procedures Procedure Name Priority Date/Time Associated Diagnosis Comments PROFILE Routine 12/23/1999 13:2 0 EDT QUANT BETA HCG, Routine 12/23/1999 13:20 EDT documented in this encounter Results * HCG (12/23/1999 13:20 EDT) HCG 555 mIU/ml [facility] Comment: <4 = Negative 4-10 = Borderline, recommend repeat. 12/23/1999 13:2 0 EDT 12/23/1999 19:14 EDT Angelina Navas MD CHEMISTRY & BLOOD GA S ORDERABLES Performing Organization Address City/State/[facility] Co de Phone Number [facility] [address] [place] [address] * (ABNORMAL) PROFILE (12/23/1999 13:20 EDT) ABO and Rh Type A POS [facility] Antibody Screen Neg [facility] WBC 6.28 4.0 - 12.4 K/cmm [facility] Comment:EDC 195550 RBC 3.82(L) 3.86 - 5.04 M/cmm [facility] Comment:EDC 509794 Hemoglobin 12.8 11.6 - 15.2 gm/dl [facility] Comment:EDC 979002 HCT 37.6 34.9 - 44.4 % [facility] Comment:EDC 802654 MCV 98 81 - 98 fl [facility] Comment:EDC 178934 MCH 33.5(H) 26.7 - 33.3 pg [facility] Comment:EDC 276634 MCHC 34.1 32.1 - 35.9 gm/dl [facility] Comment:EDC 912137 PLT 215 141 - 320 K/cmm [facility] Comment:EDC 089628 RDW-CV 11.9 11.7 - 14.6 % [facility] Comment:EDC 779147 Hepatitis B Surface Ag Neg [facility] % Neutrophils 64.8 45.5 - 79.7 % [facility] % Lymphocytes 25.3 15.0 - 46.8 % [facility] % Monocytes 8.6 1.8 - 12.0 % [facility] % Eosinophils 0.9 0.6 - 6.9 % [facility] % Basophils 0.4 0.2 - 1.4 % [facility] ABS Neutrophils 4.07 2.20 - 8.85 K/cmm [facility] ABS Lymphs 1.59 1.09 - 3.30 K/cmm [facility] ABS Monocytes 0.54 0.1 - 0.8 K/cmm [facility] ABS Eosinophils 0.06 0.03 - 0.61 K/cmm [facility] ABS Basophils 0.03 0.01 - 0.11 K/cmm [facility] Type of Diff: Automated [facility] Syphilis Sero (RPR) NONREACT. NR Dils [facility] Rubella IgG Scr Antibody detected [facility] 12/23/1999 13:2 0 EDT 12/23/1999 19:14 EDT Angelina Navas MD PACKAGES & DNA PROBE ORDERABLES [facility] [address] [place] [address] documented in this encounter Visit Diagnoses Not on filedocumented in this encounter
--- OUTSIDE RECORDS SUMMARY | 2023-12-07 00:51 | XMS_ITS | Encounter Summary ---
Author Organization [facility] Address [address] [place] [address] Care Team Providers Care Patient Service Coordinator Name Role Phone Unavailable Primary Care Provider Unavailabl e Encounter Details Date Type Department Care Team ([facility] st Contact Info) Description 09/11/2005 Before PRISM Converted Visit (Maple) [facility] - Maple conversion [address] [place] [address] Bill Longo MD [facility] [address] [facility] [address] [place] [address] Social History Tobacco Use Types Packs/Day Years Used Date Smoking Tobacco: Never Assessed Sex and Gender Information Value Date Recorded Sex Assigned at Not on file Gender Identity Female 02/10/2020 14:46 EDT Sexual Orientation Not on file documented as of this encounter Progress Notes * Bill Longo MD - 04/09/2009 1138 EST DIVISION OF PLASTIC RECONSTRUCTIVE SURGERY PROGRESS/FOLLOWUP NOTE - 09/11/2005 Agueda Carpio follows up after her abdominoplasty. She is doing very well. She still is not quite able to stand up straight. Her drain output was less than 20 ccs per drain. The drains were removed without difficulty. The tapes were removed. All wound sites look good. Her umbilicus looks quite good as well. The patient knows to wear the binder at all times for the first two weeks and then she may remove it for sleeping only until six weeks from the time of surgery. When the binder comes off, I want her to start routine scar massage. I will see her back at six weeks from the time of surgery. Signed by Bill Longo MD 09/28/2005 17:28 Brennon Longo MDRlarisa Longo MD Bill Longo MD D: - Bill Longo MD A - chr Job ID: Document ID: [id number] cc: documented in this encounter Plan of Treatment Upcoming Encounters Date Type Department Care Team (Late st Contact Info) Description 12/10/2023 11:00 EDT Appointment [facility] Radiology CT Outpatient - [address] [address] 12/11/2023 13:45 EDT Initial consult [facility] Gynecologic Oncology - [address] [phone] Ashlee Garcia MD [address] [place] [address], [address] [place] [phone] documented as of this encounter Visit Diagnoses Not on filedocumented in this encounter
--- OUTSIDE RECORDS SUMMARY | 2023-12-07 00:51 | XMS_ITS | Encounter Summary ---
Author Organization [facility] Address [address] [place] [address] Care Team Providers Care Warehouse Associate Name Role Phone Unavailable Primary Care Provider Unavailabl e Encounter Details Date Type Department Care Team (Latest Contact Info) Description 02/06/2000 10:17 EDT - 02/06/2000 11:59 EDT Hospital Encounter [facility] - [address] [address] Yehuda Serrano MD Discharge Disposition: Auto Discharge Social History [...] EDT Appointment [facility] Radiology CT Outpatient - [address] [phone] 12/11/2023 13:45 EDT Initial consult [facility] Gynecologic Oncology - [address] [address] Ashlee Garcia MD [address] [facility], [address] [place] [phone] documented as of this encounter Procedures Procedure Name Priority Date/Time Associated Diagnosis Comments CHROMOSOME ANALYSIS, CHORIONIC VILLUS Routine 02/06/2000 11:20 EDT documented in this encounter Results * [facility] CHROMOSOME [facility]NAL[facility] ([facility][id number]) (02/06/2000 11:20 EDT) Specimen Chorionic Villi Sample [facility] Specimen ID [id number] [facility] Order Date Feb 07 2000 6:38AM [facility] Method [facility] culture [facility] Reason For Referral maternal age [facility] Results 46,XX [facility] Interpretation (Note) No chromosome abnormality was apparent in 20 metaphases from ? 3 primary cultures. ??Please complete the enclosed follow-up ? form when the baby is born. ? [facility] Emergency Department Manager Karri Elena [facility] Report Date Feb 15 2000 ??4:13PM ??(Note) TEST PERFORMED OR REFERRED BY [facility] ? [facility] ? [address] ? [place], [place] ??[address] ? [facility] Haploid Band Resolution 475Unit: bands [facility] Total Cells Analyzed 20 [facility] Total Cells Karyotyped 2 [facility] 02/06/2000 11:2 0 EDT 02/06/2000 13:01 EDT Yehuda Serrano MD HEMATOLOGY & PF4 ORD ERABLES [facility] [address] [place] [address] documented in this encounter Visit Diagnoses Not on filedocumented in this encounter
--- OUTSIDE RECORDS SUMMARY | 2023-12-07 00:51 | XMS_ITS | Encounter Summary ---
Author Organization [facility] Address [address] [place] [address] Care Team Providers Care Records And Tape Recordings Engineer Name Role Phone Unavailable Primary Care Provider Unavailabl e Encounter Details Date Type Department Care Team (Late st Contact Info) Description 08/08/2005 Before PRISM Converted Visit (Maple) [facility] - Maple conversion [address] [place] [address] Bill Longo MD [address] [place] [address] Social History Tobacco Use Types Packs/Day Years Used Date Smoking Tobacco: Never Assessed Sex and Gender Information Value Date Recorded Sex Assigned at Not on file Gender Identity Female 02/10/2020 14:46 EDT Sexual Orientation Not on file documented as of this encounter Progress Notes * Bill Longo MD - 04/23/2009 1647 EST DIVISION OF PLASTIC RECONSTRUCTIVE SURGERY PROGRESS/FOLLOWUP NOTE - 08/23/2005 Agueda follows up today for her preoperative appointment to rediscliz abdominoplasty. We did rereview the inhouse consent form/information literature. All questions were answered. A signed informed consent is on the chart. We will proceed to the operating room for abdominoplasty with rectus plication on September 05. Signed by Bill Longo MD 09/18/2005 17:01 Brennon Longo, Joshua Longo MD Bill Longo MD D: - Bill Longo MD P - chr Job ID: Document ID: [id number] cc: * Bill Longo MD - 04/10/2009 1814 EST DIVISION OF PLASTIC RECONSTRUCTIVE SURGERY PROGRESS/FOLLOWUP NOTE - 08/08/2005 Agueda is here for abdominoplasty consultation. Agueda is a 45-year-old female with a past medical history significant for hypertension, for which she takes Toprol. Her past surgical history is signififor an ectopic and an inguinal hernia repair. The inguinal hernia incarcerated and was repaired while she was [age] months with a later . The patient has a history of five children raging from age [age] to age 28. Her only other medication is Wellbutrin SR. She had some problems with depression after losing a child to cancer in 1997. The patient denies a contributory family history. She currently denies neuro, endocrine, pulmonary, CV, GI, , or musculoskeletal system complaints. On physical exam, Agueda is a 5 foot 4 inch and 125 lb. female who appears in be in good physical shape. She indicates that she is particularly concerned with redundant skin of her abdomen. On physical examination, she has both rectus diastatic and redundant abdominal and adipose tissue. She will need a full abdominoplasty with rectus plication and umbilicus relocation. I reviewed the in-house consent form/education sheet at length with the patient, reviewing the form item by item anddiscussing each at length with the patient. At one point, the patient made the statement that I was going to make her perfect. While I think this was partially in jest, I did carefully dispel this notion. She understands that this is a surgical improvement that has definite limitations and is not with risk. She voiced understanding of this. Photographs were taken today. She will meet with the financial counselor and a preoperative appointment will be arranged if the patient decides to schedule surgery. Signed by Bill Longo MD 09/18/2005 17:00 Joshua Ochoa MD Bill Longo MD D: - Bill Longo MD P - lbr Job ID: Document ID: [id number] cc: Evelyn Arana MD documented in this encounter Plan of Treatment Upcoming Encounters Date Type Department Care Team (Late st Contact Info) Description 12/10/2023 11:00 EDT Appointment [facility] Radiology CT Outpatient - [address] [phone] 12/11/2023 13:45 EDT Initial consult [facility] Gynecologic Oncology - [address] [phone] Ashlee Garcia MD [address] [place] [address], [address] [place] [phone] documented as of this encounter Visit Diagnoses Not on filedocumented in this encounter
--- OUTSIDE RECORDS SUMMARY | 2023-12-07 00:51 | XMS_ITS | Encounter Summary ---
Author Organization [facility] Address [address] [place] [address] Care Team Providers Care Diesel Truck Crane Operator Name Role Phone Unavailable Primary Care Provider Unavailabl e Encounter Details Date Type Department Care Team (Late Contact Info) Description 08/25/2002 19:52 EDT Hospital Encounter [facility] - Other [address] [place] [address] Evelyn Arana MD Social History Tobacco Use [...] Info) Description 12/10/2023 11:00 EDT Appointment [facility] Radiology CT Outpatient - [address] [phone] 12/11/2023 13:45 EDT Initial consult [facility] Gynecologic Oncology - [address] [address] Ashlee Garcia MD [address] [facility], [address] [place] [address] documented as of this encounter Visit Diagnoses Not on filedocumented in this encounter
--- OUTSIDE RECORDS SUMMARY | 2023-12-07 00:51 | XMS_ITS | Encounter Summary ---
Author Organization [facility] Address [address] [place] [address] Care Team Providers Care Piercing Specialist Name Role Phone Unavailable Primary Care Provider Unavailabl e Encounter Details Date Type Department Care Team (Late st Contact Info) Description 02/01/2005 Office Visit [facility] - Maple conversion [address] [place] [address] Ovi Barakat MD [address] [place] [address], [facility] [address] [place] [phone] Social History Tobacco Use Types Packs/Day Years Used Date Smoking Tobacco: Never Assessed Sex and Gender Information Value Date Recorded Sex Assigned at Not on file Gender Identity Female 02/10/2020 14:46 EDT Sexual Orientation Not on file documented as of this encounter Progress Notes * Ovi Barakat MD - 07/01/2009 0158 EST Department - Physician Summary Registration Date/Time: 02/01/2005 19:16 Time Seen: 19:46 ; initial patient contact. Arrived- By private vehicle. Historian- patient. HISTORY OF PRESENT ILLNESS Chief complaint- DYSPNEA and chest tightness, anxiety This started several weeks and is still present. It was gradual in onset and has been intermittent (stress). The dyspnea is described as moderate. The patient has had dyspnea at rest. She has experienced sweating episodes. The patient has had chest discomfort (tightness). No cough, sputum production, fever, wheezing or chills. No chest pain, calf pain or foot swelling. 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 The patient has had similar symptoms previously. Not recently seen/assessed. REVIEW OF SYSTEMS The patient has not had weight loss. No muscle aches, eye irritation, sore throat, nasal discharge or sinus drainage. No nausea, vomiting, abdominal pain, diarrhea or black stools. No bloody stools, headache, fainting episodes, blurred vision or difficulty with urination. No excessive urination, skin rash, enlarged lymph nodes or joint pain. Denies current . PAST HISTORY See nurses notes. Medications: See nurses notes. Allergies: See nurses notes. SOCIAL HISTORY Previous smoker. Quit smoking years ago. ADDITIONAL NOTES The nursing notes have been reviewed. PHYSICAL EXAM Appearance: Alert. No acute distress. Anxious. Vital Signs: The vital signs have been reviewed- oxygen saturation normal;temperature normal (96 - P). Eyes: Pupils equal, round and reactive to light. No pale conjunctivae or scleral icterus. ENT: Pharynx normal. Neck: Normal inspection. No jugular venous distention. Neck supple. CVS: Normal heart rate and rhythm. Heart sounds normal. Pulses normal. Respiratory: No respiratory distress. Breath sounds normal. Abdomen: Abdomen soft and nontender. No organomegaly. Back: Normal inspection. Skin: Normal skin color. Skin warm. No rash. Extremities: Extremities exhibit normal ROM. No pedal edema. Neuro:Oriented X 3. No motor deficit. LABS, X-RAYS, AND EKG EKG: Normal EKG. Normal sinus rhythm. Rate: 97 Normal P waves. Normal CORBIN. Normal QRS complex. Normal axis. Normal ST and T waves. No acute ischemia. The EKG has been independently viewed by me. The EKG has been interpreted contemporaneously by me. The EKG appears to be a good tracing. PROGRESS AND PROCEDURES Patient/family counseled. Disposition: Dischargedhome in good condition. CLINICAL IMPRESSION Anxiety reaction. Rule out hyperthyroidism. Clinical picture does not suggest myocardial infarction. INSTRUCTIONS Warnings: GENERAL WARNINGS: Return or contact your physician immediately if your condition worsens or changesunexpectedly, if not improving as expected, or if other problems arise. Follow-up: Follow up with Doctor Dill - Get thyroid test results tomorrow. (Electronically signed by Ovi Barakat MD 02/02/2005 1:11) Department - Nursing Summary Registration Date/Time: 02/01/2005 19:16 TRIAGE Initial Assessment Triage time 19:17 Acuity: LEVEL 2. BP: 164 / 96 HR: 106 RR: 16 Temp: 36 C. O2 saturation: 100%. --1920 Aparna Cobb R.N. Medications (valium welbutrin ). --1920 Aparna Cobb R.N. Allergies (erythromycin). --1920 Aparna Cobb R.N. History Chief Complaint: SHORTNESS OF BREATH and DIFFICULTY BREATHING and CHEST PAIN. Pain level now: 6/10. Treatment FINANCIAL ANALYSIS CONSULTANT: None. PAST HX: Negative. SOCIAL HX: Smoker. Patient admits to drinking alcohol. Arrived by private vehicle. --1920 Aparna Cobb R.N. NURSING PROGRESS NOTES Progress Patient identifiers checked. Patient gowned. Head of bed elevated. Call light placed in reach. Siderails up x 1. Bed placed in lowest position. Brakes of bedon. --1931 Zina Jason E.M.TJay late entry - 1944 Oxygen administered by nasal cannula at 2 liters. --2003 Silvia Mejia R.N. ATIVAN 1 mg given sublingual PO. --2021 Reba Verdin R.N. Blood samples drawn with 21g butterfly by nurse per protocol and sent to lab: purple and tiger top.--2026 Graciela Lau R.N. DISPOSITION / DISCHARGE Patient reports pain level on departure as 0/10. Condition at departure: improved. Discharge instructions reviewed with the patient. Reviewed referrals. Patient verbalized understanding. Written instructions provided in [place]. The patient was discharged home and accompanied by spouse. The patientleft the Emergency Department ambulatory and via private vehicle. Spouse driving. --2105 Bubba Cruz R.N. E.Bubba Ziegler R.N., R.N. Locked/Released at 02/02/2005 8:[address] R.N. documented in this encounter Plan of Treatment Upcoming Encounters Date Type Department Care Team (Late st Contact Info) Description 12/10/2023 11:00 EDT Appointment [facility] Radiology CT Outpatient - [address] [phone] 12/11/2023 13:45 EDT Initial consult [facility] Gynecologic Oncology - [address] [phone] Ashlee Garcia MD [address] [place] [address], [address] [place] [phone] documented as of this encounter Visit Diagnoses Not on filedocumented in this encounter
--- OUTSIDE RECORDS SUMMARY | 2023-12-07 00:51 | XMS_ITS | Encounter Summary ---
Author Organization [facility] Address [address] [place] [address] Care Team Providers Care Child And Adolescent Therapist Name Role Phone Unavailable Primary Care Provider Unavailabl e Encounter Details Date Type Department Care Team (Late st Contact Info) Description 08/23/2005 8:30 EDT Hospital Encounter [facility] - Other [address] [place] [address] Moody Wyman, [place] [address] [place] [address] Social History Tobacco Use Types Packs/Day Years [...] [facility] Rad[facility] Outpatient - [facility] [place] [address] [place], [place] [id number] 12/11/2023 13:45 EDT Initial consult [facility] Gynecologic Oncology - [address] [address] Ashlee Garcia MD [address] [place] [address], [address] [place] [phone] documented as of this encounter Visit Diagnoses Not on filedocumented in this encounter
--- OUTSIDE RECORDS SUMMARY | 2023-12-07 00:51 | XMS_ITS | Encounter Summary ---
Author Organization [facility] Address [address] [place] [address] Care Team Providers Care Sleeve Sewer Name Role Phone Unavailable Primary Care Provider Unavailabl e Encounter Details Date Type Department Care Team (Late st Contact Info) Description 12/08/2003 Results Only [facility] - Maple conversion [address] [place] [phone] Evelyn Arana MD Social History Tobacco Use [facility]patient - [address] [address] 12/11/2023 13:45 EDT Initial consult [facility] Gynecologic Oncology - [address] [address] Ashlee Garcia MD [address] [facility], [facility], [address] [place] [phone] documented as of this encounter Procedures Procedure Name Priority Date/Time Associated Diagnosis Comments THYROID CASCADE Routine 12/08/2003 15:10 EDT RHEUMATOID FACTOR Routine 12/08/2003 15: 10 EDT ANTI NUCLEAR AB (KANDY), IFA Routine 12/08/2003 15:10 EDT BASIC METABOLIC PANEL (BMP) Routine 12/08/2003 15:10 EDT documented in this encounter Results * THYROID CASCADE (12/08/2003 15:10 EDT) TSH 1.29 0.35 - 5.50 uIU/ml [facility] Comment: TSH cascade is not recommended for patients in which pituitary or hypothalamic disorders are suspected. 12/08/2003 15:1 0 EDT 12/08/2003 20:12 EDT Evelyn Arana MD CHEMISTRY & BLOOD GA S ORDERABLES Performing Organization Address [facility] Co de Phone Number [facility] [address] [place] [address] * RHEUMATOID FACTOR (12/08/2003 15:10 EDT) Pathologist [facility] Rheumatoid Factor <20 <20 IU/ml [facility] 12/08/2003 15:1 0 EDT 12/08/2003 20:12 EDT Evelyn Arana MD CHEMISTRY & BLOOD GA S ORDERABLES Performing Organization Address [facility] Co de Phone Number [facility] [address] [place] [address] * BASIC METABOLIC PANEL (12/08/2003 15:10 EDT) Pathologist [facility] Sodium 136 136 - 145 mEq/L [facility] Potassium 4.0 3.5 - 5.0 mEq/L [facility] Chloride 100 96 - 110 mEq/L [facility] CO2 27 24 - 32 mEq/L [facility] BUN 18 10 - 26 mg/dl [facility] Creatinine 0.9 0.7 - 1.5 mg/dl [facility] Calcium 9.2 8.5 - 10.5 mg/dl [facility] Calculated Calcium 8.9 8.5 - 10.5 mg/dl [facility] Glucose, Serum 95 70 - 110 mg/dl [facility] 12/08/2003 15:1 0 EDT 12/08/2003 20:12 EDT Evelyn Arana MD CHEMISTRY & BLOOD GA S ORDERABLES Performing Organization Address [facility] de Phone Number [facility] [address] [place] [address] * ANTI NUCLEAR ANTIBODY (12/08/2003 15:10 EDT) Anti Nuclear Ab <40 0 - 40 [facility] 12/08/2003 15:1 0 EDT 12/08/2003 20:12 EDT Evelyn Arana MD IMMUNOLOGY AND SEROL OGY ORDERABLES Performing Organization Address [facility] Co de Phone Number [facility] [address] [place] [address] documented in this encounter Visit Diagnoses Not on filedocumented in this encounter
--- OUTSIDE RECORDS SUMMARY | 2023-12-07 00:51 | XMS_ITS | Encounter Summary ---
Author Organization [facility] Address [address] [place] [address] Care Team Providers Care Warehouse Distribution Specialist Name Role Phone Unavailable Primary Care Provider Unavailabl e Encounter Details Date Type Department Care Team (Late st Contact Info) Description 06/07/2006 Office Visit [facility] - Maple conversion [address] [place] [address] Jenniefr Camacho MD [address] [place] [phone] Social History Tobacco Use Types Packs/Day Years Used Date Smoking Tobacco: Never Assessed Sex and Gender Information Value Date Recorded Sex Assigned at Not on file Gender Identity Female 02/10/2020 14:46 EDT Sexual Orientation Not on file documented as of this encounter Progress Notes * Jennifer Camacho MD - 06/24/2009 0221 EST [facility] - Physician Summary Registration Date/Time: 06/07/2006 16:45 Time Seen: 17:27. Arrived- By private vehicle. Historian- patient. HISTORY OF PRESENT ILLNESS Chief Complaint: SINUS PAIN. This started about 2 weeks ago and is still present. The illness is described as moderate. She has had a cough, a sore throat and sinus drainage. The patient has had green sputum. She has had a subjective fever. She has had sinus pressure (behind right eye and in right m axillary area). No difficulty breathing, chest discomfort or pain, nasal congestion or ear pain. The patient was seen recently at another facility in a clinic (6 weeks ago). Evaluation/treatment: antibiotic prescribed. REVIEW OF SYSTEMS The patient has had a headache. No nausea, vomiting, abdominal pain, pedal edema or calf pain. No skin rash or enlarged lymph nodes. PAST HISTORY See nurses notes. Hypertension. Depression. Anxiety. Hernia repair. Medications: Valium. Wellbutrin. Allergies: ERYTHROMYCIN. SOCIAL HISTORY Nonsmoker. The patient lives with spouse. ADDITIONAL NOTES The nursing notes have been reviewed. PHYSICAL EXAM Appearance: Alert. No acute distress. Vital Signs: Have been reviewed. Eyes: No conjunctival findings. ENT: Normal ear exam. No pharyngeal erythema or tonsillar exudate. Neck: No lymphadenopathy. CVS: Normal heart rate and rhythm. Heart sounds normal. Respiratory: No respiratory distress. Breath sounds normal. Skin: Normal skin color and turgor. Neuro: Oriented X 3. PROGRESS AND PROCEDURES Patient counseled regarding the patient's test results, diagnosis and need for follow-up. Disposition: Discharged home in stable condition (17:39). CLINICAL IMPRESSION Acute sinusitis. INSTRUCTIONS See instructions for sinusitis. Prescription Medications: Amoxicillin 875 mg tablets: take 1 orally every 12 hours for 10 days. (Electronically signed by Jennifer Camacho M.D. 06/07/2006 22:31) Care Center - Nursing Summary Registration Date/Time: 06/07/2006 16:45 TRIAGE Initial Assessment Triage time 16:55. BP: 123 / 60 sitting L arm. HR: 80. RR: 16. Temp: 97.1. --1703 Evelyn Rubio L.P.N.. Medications Toprol. Valium, as needed (takes for stress). Wellbutrin (8 years ago). --1703 Evelyn Rubio L.P.N.. Allergies ERYTHROMYCIN- symptoms consisted of nausea and vomiting. --1703 Evelyn Rubio L.P.N.. History Chief Complaint: COUGHand RUNNY NOSE and (sinus, hoarse voice). Onset (hoarse voice 12 days). Pain level now: 4/10. The patient has had a moderate cough productiveof green sputum. Treatment CYBER TRANSPORT SYSTEMS SPECIALIST: (nose drops from her primary md office, [facility]). PAST HX: Hypertension (pt states is controlled with meds). Hernia repair. (eptopic , tummy tuck). Immunizations: up-to-date. Last normal menstrual period- 1 weeks ago. Denies current . SOCIAL HX: Occasional alcohol use. Nonsmoker. Abuse assessment: The patient was asked Do you feel safe in your home?. Functional assessment performed: wears glasses. No report of abuse. Historian: patient. Arrived by private vehicle. Patient has a primary care physician. (pt states isexposed to young children). --1703 Evelyn Rubio L.P.N.. PAST HX. PHYSICAL ASSESSMENT Ambulatory to room. Alert. Oriented X 3. Hoarse voice. Respirations not labored. Skin is pale. Skinis warm. --1704 Evelyn Rubio L.P.N.. NURSING PROGRESS NOTES Progress Patient gowned. Call light placed in reach. Bed placed in lowest position. Brakes of bed on. Patient ready for evaluation- chart flagged. --1704 Evelyn Rubio L.P.N.. DISPOSITION / DISCHARGE Patient reports pain level on departure as 4/10. Condition at departure: unchanged and stable. No learning barriers present. Discharge instructions reviewed with the patient. Reviewed medication dosing and course; prescription (s) given to the patient (pt sent home with a script for po abx). Patient verbalized understanding. Written instructions provided in Hebrew. The patient was discharged home and accompanied by family. The patient left the Emergency Department ambulatory and via private vehicle. Patient driving. Departure time: 17:47. --7297 Evelyn Rubio L.P.N.. Locked/Released at 06/07/2006 17:47 by Evelyn Rubio L.P.N. documented in this encounter Plan of Treatment Upcoming Encounters Date Type Department Care Team (Late st Contact Info) Description 12/10/2023 11:00 EDT Appointment [facility] Radiology CT Outpatient - [address] [id number] 12/11/2023 13:45 EDT Initial consult [facility] Gynecologic Oncology - [address] [address] Ashlee Garcia MD [address] [place] [address], [address] [place] [address] documented as of this encounter Visit Diagnoses Not on filedocumented in this encounter
--- OUTSIDE RECORDS SUMMARY | 2023-12-07 00:51 | XMS_ITS | Encounter Summary ---
Author Organization [facility] Address [address] [place] [address] Care Team Providers Care Optical Effects Camera Operator Name Role Phone Unavailable Primary Care Provider Unavailabl e Encounter Details Date Type Department Care Team (Latest Contact Info) Description 06/01/2003 8:45 EST - 06/01/2003 11:59 EST Hospital Encounter [facility] - Other [address] [place] [address] Lottie Courtney MD Discharge Disposition: Auto Discharge Social [...] Description 12/10/2023 11:00 EDT Appointment [facility] Radiology CT Outpatient - [address] [id number] 12/11/2023 13:45 EDT Initial consult [facility] Gynecologic Oncology - [place] [address] [place] [address] Ashlee Garcia MD [address] [facility], [address] [place] [phone] documented as of this encounter Procedures Procedure Name Priority Date/Time Associated Diagnosis Comments CYTOPATHOLOGY Routine 06/01/2003 0:00 EST documented in this encounter Results * CYTOPATHOLOGY (06/01/2003 0:00 EST) Pathology Report: CYTOPATHOLOGY REPORT Reports generated via electronic interface contain original data; however they are lacking the format of the original report. Caution should be taken when reading/interpreti ng unformatted reports. Name: ? FRANCIE JACOBS ? Accession #: ? [id number] : ? 1960 (Age: 43) ??F ?Collect Date: ? 06/01/2003 Location: ? [facility] ? Receive Date: ? 06/03/2003 Provider: ?LOTTIE COURTNEY MD Copy to: ?JENNIFER MACIAS MD ? Specimen/Source: ?ThinPrep Pap Test, Cervix/Endocervix Last Menstrual Period: ? 05/18/03 Previous Gynecologic Pathology: ? Yes: Inflammation 1992 Infection History: ? Kari: 2003 Other: ? DH[facility] - HPV testing requested if ASCUS/CAT on the current ThinPrep Pap test. ? SPECIMEN ADEQUACY ? Satisfactory for Evaluation - transformation zone component present GENERAL CATEGORIZATION ? Negative for Intraepithelial Lesion or Malignancy ? Document reviewed and electronically signed by: ? HANK Grady(ASCP) ? Report Date: ??06/05/2003 12:51 End of Report [facility] 06/01/2003 06/03/2003 Lottie Courtney MD PATHOLOGY ORDERAB LES [facility] [address] [place] [address] documented in this encounter Visit Diagnoses Not on filedocumented in this encounter
--- OUTSIDE RECORDS SUMMARY | 2023-12-07 00:51 | XMS_ITS | Encounter Summary ---
Author Organization [facility] Address [address] [place] [address] Care Team Providers Care Resident Care Supervisor Name Role Phone None, Provider Primary Care Provider Unavailabl e Encounter Details Date Type Department Care Team (Latest Contact Info) Description 02/12/2012 13:27 EDT - 02/12/2012 13:28 EDT Hospital Encounter [facility] - [address] [address] Evelyn Arana MD Discharge Disposition: Home or [...] Chloride (SIMPLY SALINE) 0.9 % SprA 1 [place] by Nasal route 4 times daily. 1 Bottle 05/10/2010 06/10/2012 documented as of this encounter Discharge Disposition Disposition Code Departure Means Destination Home or Self Care documented in this encounter Plan of Treatment Upcoming Encounters Date Type Department Care Team (Late st Contact Info) Description 12/10/2023 11:00 EDT Appointment [facility] Radiology CT Outpatient - [address] [phone] 12/11/2023 13:45 EDT Initial consult [facility] Gynecologic Oncology - [address] [phone] Ashlee Garcia MD [address] [place] [address], [address] [place] [phone] documented as of this encounter Visit Diagnoses Not on filedocumented in this encounter Care Teams Resident Care Supervisor Relationship Specialty Start Date End Date None, Provider PCP - General 02/22/10 02/26/12 documented as of this encounter
--- OUTSIDE RECORDS SUMMARY | 2023-12-07 00:51 | XMS_ITS | Encounter Summary ---
Author Organization [facility] Address [address] [place] [address] Care Team Providers Care Sap Fico Business Analyst Name Role Phone Unavailable Primary Care Provider Unavailabl e Encounter Details Date Type Department Care Team (Late Contact Info) Description 07/04/2000 12:[address] [facility] - Other [address] [place] [address] Angelina Navas MD [address] [place] [address],[address] [phone] Unknown, Provider, Social History Tobacco Use Types [...] st Contact Info) Description 12/10/2023 11:00 EDT [facility] Radiology CT Outpatient - [facility] [address] [place], [place] [phone] 12/11/2023 13:[address] [facility] Gynecologic Oncology - [address] [phone] Ashlee Garcia MD [address] [facility], [address] [place] [address] documented as of this encounter Procedures Procedure Name Priority Date/Time Associated Diagnosis Comments KLEIHAUER BLOOD Routine 07/04/2000 19:41 EST TOTAL & DIRECT BILIRUBIN Routine 07/04/2000 19:41 EST ALKALINE PHOSPHATASE Routine 07/04/2000 19:41 EST documented in this encounter Results * TOTAL & DIRECT BILIRUBIN (07/04/2000 19:41 EST) Conjugated Bilirubin 0.0 0.0 - 0.3 mg/dl [facility] Unconjugated Bilirubin 0.2 0.1 - 1.1 mg/dl [facility] Bilirubin, Total 0.2 0.2 - 1.3 mg/dl [facility] 07/04/2000 19:4 1 EST 07/04/2000 19:41 EST Angelina Navas MD CHEMISTRY & BLOOD GA S ORDERABLES [facility] [address] [place] [address] * KLEIHAUER BLOOD (07/04/2000 19:41 EST) Kleihauer blood No cells seen Rev'd by Pathologist 0.0 - 1.9 ml F/M HEMORRHAGE [facility] 07/04/2000 19:4 1 EST 07/04/2000 19:41 EST Angelina Navas MD HEMATOLOGY & PF4 ORD ERABLES Performing Organization Address [facility] Co de Phone Number [facility] [address] [place] [address] * ALKALINE PHOSPHATASE (07/04/2000 19:41 EST) Total Alkaline Phosphatase 76 38 - 126 U/L [facility] 07/04/2000 19:4 1 EST 07/04/2000 19:41 EST Angelina Navas MD CHEMISTRY & BLOOD GA S ORDERABLES Performing Organization Address [facility] Co de Phone Number [facility] [address] [place] [address] documented in this encounter Visit Diagnoses Not on filedocumented in this encounter
--- OUTSIDE RECORDS SUMMARY | 2023-12-07 00:51 | XMS_ITS | Encounter Summary ---
Author Organization [facility] Address [address] [place] [address] Care Team Providers Care Prep Person Name Role Phone Unavailable Primary Care Provider Unavailabl e Encounter Details Date Type Department Care Team (Late st Contact Info) Description 04/27/2003 Results Only [facility] Women's Services - [address] [phone] Prabhjot Hurtado MD Social History Tobacco Use [...] Contact Info) Description 12/10/2023 11:00 EDT Appointment [facility] Radiology CT Outpatient - [address] [phone] 12/11/2023 13:45 EDT Initial consult [facility] Gynecologic Oncology - [address] [phone] Ashlee Garcia MD [address] [place] [address], [address] [place] [phone] documented as of this encounter Procedures Procedure Name Priority Date/Time Associated Diagnosis Comments URINALYSIS WITH MICROSCOPIC IF POSITIVE Routine 04/27/2003 16:00 EST UA REFLEX Routine 04/27/2003 16:00 EST N. GONORRHOEAE AMPLIFIED PROBE Routine 04/27/2003 16:00 EST ZZCHLAMYDIA TRACHOMATIS AMPLIFIED PROBE Routine 04/27/2003 16:00 EST BACTERIAL CULTURE, URINE Routine 04/27/2003 16:00 EST HEMAGRAM & DIFF Routine 04/27/2003 14:46 EST C REACTIVE PROTEIN Routine 04/27/2003 14 :46 EST documented in this encounter Results * N. GONORRHOEAE AMPLIFIED PROBE (04/27/2003 16:00 EST) Result No Neisseria gonorrhoeae DNA detected by mower mechanic mediated amplification. [facility] Report Status Final [id number] [facility] Specimen Description Cervix [facility] 04/27/2003 16:0 0 EST 04/28/2003 7:37 EST Prabhjot Hurtado MD MICROBIOLOGY - GE NERAL ORDERABLES Performing Organization Address [facility] Co de Phone Number [facility] [address] [place] [address] * CHLAMYDIA TRACHOMATIS AMPLIFIED PROBE (04/27/2003 16:00 EST) Specimen Description Cervix [facility] Result No Chlamydia trachomatis DNA detected by mower mechanic mediated amplification. [facility] Report Status Final [id number] [facility] 04/27/2003 16:0 0 EST 04/28/2003 7:37 EST Prabhjot Hurtado MD MICROBIOLOGY - GE NERAL ORDERABLES Performing Organization Address [facility] Co de Phone Number [facility] [address] [place] [address] * BACTERIAL CULTURE, URINE (04/27/2003 16:00 EST) Specimen Description Urine [facility] Result Less than 10,000 CFU/ml Mixed gram positive growth [facility] Report Status Final [id number] [facility] 04/27/2003 16:0 0 EST 04/27/2003 19:41 EST Prabhjot Hurtado MD MICROBIOLOGY - GE NERAL ORDERABLES Performing Organization Address [facility] de Phone Number [facility] [address] [place] [address] * UA REFLEX (04/27/2003 16:00 EST) UA Billing Microscopic not indicated. [facility] 04/27/2003 16:0 0 EST 04/27/2003 19:41 EST Prabhjot Hurtado MD URINALYSIS ORDERA BLES Performing Organization Address [facility] de Phone Number [facility] [address] [place] [address] * URINALYSIS (04/27/2003 16:00 EST) Color, UA Yellow [facility] Clarity, UA Clear [facility] Glucose, UA Norm NORM [facility] Bilirubin, UA Neg NEG [facility] Ketones, UA Neg NEG [facility] Specific [place], Urine 1.010 1.005 - 1.02 [facility] Blood, UA Neg NEG [facility] pH, UA 7.0 5.0 - 9.0 [facility] Protein, UA Neg NEG [facility] Urobilinogen, UA Norm NORM mg/dL [facility] Nitrite, UA Neg NEG [facility] Leuk Esterase Neg NEG [facility] 04/27/2003 16:0 0 EST 04/27/2003 19:41 EST Prabhjot Hurtado MD URINALYSIS ORDERA BLES Performing Organization Address [facility] de Phone Number [facility] [address] [place] [address] * (ABNORMAL) HEMAGRAM & DIFF (04/27/2003 14:46 EST) WBC 5.90 4.0 - 12.4 K/cmm [facility] RBC 3.97 3.86 - 5.04 M/cmm [facility] Hemoglobin 13.7 11.6 - 15.2 gm/dl [facility] HCT 39.5 34.9 - 44.4 % [facility] MCV 100(H) 81 - 98 fl [facility] MCH 34.6(H) 26.7 - 33.3 pg [facility] MCHC 34.7 32.1 - 35.9 gm/dl [facility] PLT 255 141 - 320 K/cmm [facility] RDW-CV 12.2 11.7 - 14.6 % [facility] Neutrophils 69.0 45.5 - 79.7 % [facility] Lymphocytes 21.0 15.0 - 46.8 % [facility] % Atyp Lymphs 1.0 % [facility] Monocytes 7.0 1.8 - 12.0 % [facility] Eosinophils 1.0 0.6 - 6.9 % [facility] Basophils 1.0 0.2 - 1.4 % [facility] ABS Neutrophils 4.07 2.20 - 8.85 K/cmm [facility] ABS Lymphs 1.24 1.09 - 3.30 K/cmm [facility] ABS Atyp Lymphs 0.06 K/cmm [facility] ABS Monocytes 0.41 0.1 - 0.8 K/cmm [facility] ABS Eosinophils 0.06 0.03 - 0.61 K/cmm [facility] ABS Basophils 0.06 0.01 - 0.11 K/cmm [facility] Type of Diff: Manual [facility] RBC Morphology Normal [facility] 04/27/2003 14:4 6 EST 04/27/2003 14:48 EST Prabhjot Hurtado MD HISTORICAL LAB FO R SQ LOAD [facility] [address] [place] [address] * C-REACTIVE PROTEIN (04/27/2003 14:46 EST) C-Reactive Protein <0.7 <1.0 mg/dl [facility] 04/27/2003 14:4 6 EST 04/27/2003 14:48 EST Prabhjot Hurtado MD CHEMISTRY & BLOOD GAS ORDERABLES [facility] [address] [place] [address] documented in this encounter Visit Diagnoses Not on filedocumented in this encounter
--- OUTSIDE RECORDS SUMMARY | 2023-12-07 00:51 | XMS_ITS | Encounter Summary ---
Author Organization [facility] Address [address] [place] [address] Care Team Providers Care Slot Key Person Name Role Phone Unavailable Primary Care Provider Unavailabl e Encounter Details Date Type Department Care Team (Latest Contact Info) Description 12/23/1999 9:41 EDT - 12/23/1999 11:59 EDT Hospital Encounter [facility] - Other [address] [place], [place] [address] Angelina Navas MD [address] [place] [address],[address] [phone] Unknown, Provider, Discharge Disposition: Auto Discharge Social [...] Description 12/10/2023 11:00 EDT Appointment [facility] Radiology CT Outpatient - [address] [phone] 12/11/2023 13:45 EDT Initial consult [facility] Gynecologic Oncology - [address] [address] Ashlee Garcia MD [address] [facility], [facility], [address] [place] [address] documented as of this encounter Visit Diagnoses Not on filedocumented in this encounter
--- OUTSIDE RECORDS SUMMARY | 2023-12-07 00:51 | XMS_ITS | Encounter Summary ---
Author Organization [facility] Address [address] [place] [address] Care Team Providers Care Washcoat Wiper Name Role Phone None, Provider Primary Care Provider Unavailabl e Encounter Details Date Type Department Care Team (Late st Contact Info) Description 02/12/2012 Results Only [facility] - [facility] [address] [place], [place] [address] Evelyn Arana MD Social History Tobacco Use [...] Contact Info) Description 12/10/2023 11:00 EDT Appointment [facility] Radiology CT Outpatient - [address] [phone] 12/11/2023 13:45 EDT Initial consult [facility] Gynecologic Oncology - [address] [phone] Ashlee Garcia MD [address] [facility], [address] [place] [address] documented as of this encounter Procedures Procedure Name Priority Date/Time Associated Diagnosis Comments FERRITIN Routine 02/12/2012 14:24 EDT documented in this encounter Results * FERRITIN (02/12/2012 14:24 EDT) Ferritin 34 10 - 291 ng/mL [facility] 02/12/2012 14:2 4 EDT 02/12/2012 19:01 EDT Evelyn Arana MD CHEMISTRY & BLOOD GA S ORDERABLES [facility] [address] [place] [address] documented in this encounter Visit Diagnoses Not on filedocumented in this encounter Care Teams Washcoat Wiper Relationship Specialty Start Date End Date None, Provider PCP - General 02/22/10 02/26/12 documented as of this encounter
--- OUTSIDE RECORDS SUMMARY | 2023-12-07 00:51 | XMS_ITS | Encounter Summary ---
Author Organization [facility] Address [address] [place] [address] Care Team Providers Care Log Truck Driver Name Role Phone Unavailable Primary Care Provider Unavailabl e Encounter Details Date Type Department Care Team (Latest Contact Info) Description 12/17/2003 12:40 EDT Hospital Encounter [address] [address] Keena Rodriguez PA-C Discharge Disposition: Auto Discharge Social History Tobacco [...] [facility] [place] [facility] Outpatient - [address] [phone] 12/11/2023 13:45 EDT Initial consult [facility] Gynecologic Oncology - [address] [address] Ashlee Garcia MD [address] [place] [address], [address] [place] [phone] documented as of this encounter Procedures Procedure Name Priority Date/Time Associated Diagnosis Comments MR CERVICAL SPINE WO CONTRAST Routine 12/17/2003 14:19 EDT documented in this encounter Results * MR CERVICAL SPINE WO CONTRAST (12/17/2003 14:19 EDT) Anatomical Region Laterality Modality Other 12/17/2003 14:1 9 EDT Impressions 12/28/2008 12:48 EDT IMPRESSION: 1) Small central protrusion at C6-7 without central or foraminal narrowing. 2) Normal cervical spinal cord. 3) Mild degenerative changes at C4-5. /sb Narrative 12/28/2008 12:48 EDT MRI C-SPINE- MILD KYPHOTIC ANGULATION OF THE CERVICAL SPINE WITH MILDE ANTERIOR WEDGE DEFORMITY @ C5 : ?? EVALUATE FURTHER [facility] MRI, CERVICAL SPINE, WITHOUT CONTRAST: 12/17/03, 1329 TECHNIQUE: Sagittal FSE T1, T2 and transverse gradient echo non-contrast MR images of the cervical spine were obtained. FINDINGS: MR images of the cervical spine demonstrate normal anatomic alignment. The marrow signal in the vertebral bodies is within normal limits. There are degenerative changes at the C4-5 level. There is also a small central disc protrusion at the C6-7 level without significant central or foraminal narrowing. The remaining levels are normal in appearance. The visualized contents of the posterior fossa and cervical spinal cord are normal. The paraspinal soft tissues are unremarkable. Procedure Note Richard Abdi MD / Pascale, Angelo Purcell MD, MD - 12/28/2008 MRI C-SPINE- MILD KYPHOTIC ANGULATION OF THE CERVICAL SPINE WITH MILDE ANTERIOR WEDGE DEFORMITY @ C5 : EVALUATE FURTHER [facility] MRI, CERVICAL SPINE, WITHOUT CONTRAST: 12/17/03, 1329 TECHNIQUE: Sagittal FSE T1, T2 and transverse gradient echo non-contrast MR images of the cervical spine were obtained. FINDINGS: MR images of the cervical spine demonstrate normal anatomic alignment. The marrow signal in the vertebral bodies is within normal limits. There are degenerative changes at the C4-5 level. There is also a small central disc protrusion at the C6-7 level without significant central or foraminal narrowing. The remaining levels are normal in appearance. The visualized contents of the posterior fossa and cervical spinal cord are normal. The paraspinal soft tissues are unremarkable. IMPRESSION IMPRESSION: 1) Small central protrusion at C6-7 without central or foraminal narrowing. 2) Normal cervical spinal cord. 3) Mild degenerative changes at C4-5. /sue Keena Rodriguez PA-C [facility] ORDERABLES documented in this encounter Visit Diagnoses Not on filedocumented in this encounter
--- OUTSIDE RECORDS SUMMARY | 2023-12-07 00:52 | XMS_ITS | Encounter Summary ---
Author Organization [facility] Address [address] [place] [address] Care Team Providers Care Marketing Program Manager Name Role Phone Unavailable Primary Care Provider Unavailabl e Encounter Details Date Type Department Care Team (Latest Contact Info) Description 12/20/1999 19:41 EDT Hospital Encounter [facility] - Other [address] [place], [place] [address] Angelina Navas MD [address] [place] [address],[address] [phone] Unknown, Provider, Discharge Disposition: Auto [...] Contact Info) Description 12/10/2023 11:00 EDT Appointment [facility] Radiology CT Outpatient - [facility] [address] [place], [place] [phone] 12/11/2023 13:45 EDT Initial consult [facility] Gynecologic Oncology - [address] [phone] Ashlee Garcia MD 111 [facility], [facility], [address] [place] [phone] documented as of this encounter Procedures Procedure Name Priority Date/Time Associated Diagnosis Comments QUANT BETA HCG, Routine 12/20/1999 11:30 EDT documented in this encounter Results * HCG (12/20/1999 11:30 EDT) HCG 254 mIU/ml [facility] Comment: <4 = Negative 4-10 = Borderline, recommend repeat. 12/20/1999 11:3 0 EDT 12/20/1999 18:11 EDT Angelina Navas MD CHEMISTRY & BLOOD GA S ORDERABLES [facility] [address] [place] [address] documented in this encounter Visit Diagnoses Not on filedocumented in this encounter
--- OUTSIDE RECORDS SUMMARY | 2023-12-07 00:52 | XMS_ITS | Encounter Summary ---
Author Organization [facility] Address [address] [place] [address] Care Team Providers Care Accounting Machine Servicer Name Role Phone Unavailable Primary Care Provider Unavailabl e Encounter Details Date Type Department Care Team (Late Contact Info) Description 1999 14:49 EDT Hospital Encounter [facility] - Other [address] [place], [place] [phone] DilEvelyn king MD Unknown, Provider, Social History Tobacco Use Types Packs/Day Years Used Date Smoking Tobacco: Former Cigarettes 0.5 15 1 1998 Smokeless Tobacco: Never Comments:quit when she [...] Contact Info) Description 12/10/2023 11:00 EDT Appointment [facility] Radiology CT Outpatient - Main [place] [address] [place] [address] 12/11/2023 13:45 EDT Initial consult [facility] Gynecologic Oncology - [address] [phone] Ashlee Garcia MD [address] [place] [address], [address] [place] [phone] documented as of this encounter Visit Diagnoses Not on filedocumented in this encounter
--- OUTSIDE RECORDS SUMMARY | 2023-12-07 00:52 | XMS_ITS | Encounter Summary ---
Author Organization [facility] Address [address] [place] [address] Care Team Providers Care Manufacturing Advisor Name Role Phone Unavailable Primary Care Provider Unavailabl e Encounter Details Date Type Department Care Team (Latest Contact Info) Description 03/31/1999 11:36 EST - 03/31/1999 11:59 EST Hospital Encounter [address] [address] Jennifer Arana MD Discharge Disposition: Auto Discharge Social [...] Description 12/10/2023 11:00 EDT Appointment [facility] Radiology CT Outpatient - [address] [phone] 12/11/2023 13:45 EDT Initial consult [facility] Gynecologic Oncology - [address] [phone] Ashlee Garcia MD 111 [facility], [address] [place] [phone] documented as of this encounter Procedures Procedure Name Priority Date/Time Associated Diagnosis Comments MA MAMMOGRAPHIC SCREEN RADHA Routine 03/31/1999 12:12 EST documented in this encounter Results * MA MAMMOGRAPHIC SCREEN RADHA (03/31/1999 12:12 EST) Anatomical Region Laterality Modality Other 03/31/1999 12:1 2 EST Impressions 03/09/2009 11:31 EST IMPRESSION: Category 1 Negative, no evidence of malignancy. Normal interval follow-up is recommended in 12 months. OVERALL ASSESSMENT - NEGATIVE END OF IMPRESSION: Narrative 03/09/2009 11:31 EST BASELINE, ROUTINE ?ATT - REQ JENNIFER ADAM This is the patient's baseline exam. Bilateral Breast Findings: The breasts are heterogeneously dense. This may lower the sensitivity of mammography. No masses, significant calcifications or other abnormalities are seen. Procedure Note Melanie Alvarado MD / Bill Mckoy MD - 03/09/2009 BASELINE, ROUTINE ATT - REQ JENNIFER ADAM This is the patient's baseline exam. Bilateral Breast Findings: The breasts are heterogeneously dense. This may lower the sensitivity of mammography. No masses, significant calcifications or other abnormalities are seen. IMPRESSION IMPRESSION: Category 1 Negative, no evidence of malignancy. Normal interval follow-up is recommended in 12 months. OVERALL ASSESSMENT - NEGATIVE END OF IMPRESSION: Jennifer Arana MD IMG MAMMOGRAPHY ANGELLA SARKAR documented in this encounter Visit Diagnoses Not on filedocumented in this encounter
--- OUTSIDE RECORDS SUMMARY | 2023-12-07 00:52 | XMS_ITS | Encounter Summary ---
Author Organization [facility] Address [address] [place] [address] Care Team Providers Care Wireworker Supervisor Name Role Phone Unavailable Primary Care Provider Unavailabl e Encounter Details Date Type Department Care Team (Late st Contact Info) Description 12/31/1998 16:34 EDT Hospital Encounter [facility] - Other [address] [place] [phone] DilEvelyn king MD Unknown, Provider, Social History [facility]patient - Main [place] [address] [place] [address] 12/11/2023 13:45 EDT Initial consult [facility] Gynecologic Oncology - [address] [phone] Ashlee Garcia MD [address] [place] [address], [address] [place] [phone] documented as of this encounter Visit Diagnoses Not on filedocumented in this encounter
[2023-12-07] MEDS: Potassium Chloride Liquid 20 MEQ PKT 40 MEQ PO (01:07)
[2023-12-07] MEDS: Ketorolac 15 MG/ML VIAL IVP (01:07)
[2023-12-07] MEDS: diazePAM 10 MG/2 ML SYR 5 MG IVP ×2 (01:35→02:35)
--- NOTE | 2023-12-07 01:58 | DI.VRAD_ITS ---
PROCEDURE INFORMATION: Exam: CT Cervical Spine Without Contrast Exam date and time: 12/07/2023 12:49 AM Age: 63 years old Clinical indication: Other: Severe neck pain, metastatic ovarian cancer; Prior surgery; Surgery date: 6+ months; Surgery type: Fusion TECHNIQUE: Imaging protocol: Computed tomography of the cervical spine without contrast. COMPARISON: No relevant prior studies available. FINDINGS: Tubes, catheters and devices: Right internal jugular infusion port mild anterolisthesis of C2 over C3. Bones: Post C5-C7 ACDF with 3 mm backing out of the right C7 screw. There is intra and extra graft bony bridging. No suspicious osseous lesion. No acute fracture or dislocation. Bilateral C7 T1 facet joint arthropathy with minimal anterolisthesis. Posterior osteophyte disc complex at C4-C5 causing mild bony canal narrowing and moderate narrowing of the right neural foramen. There is 3 mm backing out of the right C7 screw. Pharynx: Bilateral palatine tonsil calcifications. Lungs: Lung apices are normal. Soft tissues: Unremarkable. IMPRESSION: 1. No acute fracture or dislocation. No suspicious osseous lesion. 2. Post ACDF at C5-C7 with 3 mm backing out of the right C7 to be compared with prior imaging. Dictated and Authenticated by: Rommel Breaux MD. Ordering:QUIANA Owens MD
[2023-12-07 02:35] VITALS: BP 177/82; PULSE 76; RESP 16; O2SAT 98
[2023-12-07] MEDS: Gabapentin 300 MG CAP 600 MG PO (03:51)
[2023-12-07] MEDS: predniSONE 20 MG TAB 80 MG PO (04:26)
[2023-12-07 06:59] VITALS: BP 114/57; PULSE 68; RESP 16; O2SAT 100
== END 2023-12-07 07:01 | disposition home or self-care (01) ==
PROVIDERS: Emergency Provider Student in an Organized Health Care Education/Training Program
DX: M54.2 Cervicalgia (principal); M62.838 Other muscle spasm; C56.9 Malignant neoplasm of unspecified ovary; Z92.21 Personal history of antineoplastic chemotherapy; Z98.1 Arthrodesis status
CPT/HCPCS: 36415; 80053; 96374; 96375; 96376; 99285; 72125; 85025; 99284; J0131; J1885; J3360; J7512